=== PATIENT | male | born 1935 | race Caucasian/White ===

== ENCOUNTER → 2018-02-09 10:37 | Outpatient (CLI) | payer MEDICARE, OTHER, SELFPAY ==
--- NOTE | 2018-02-09 | DI.RAD.S_ITS ---
PROCEDURE: FL BARIUM SWALLOW INDICATIONS: COUGH/ESOPHAGEAL REFLUX/CHRONIC SINUSITIS COMPARISON: None. FINDINGS: Function: There is severely abnormal esophageal peristalsis with break in the primary peristaltic wave, incomplete secondary peristalsis leaving a large residual. No tertiary contractions. No elicited gastroesophageal reflux. There is transient holdup of transit of a calibrated barium tablet through the esophagus into the stomach, but the tablet did pass through. Morphology: Air-contrast images demonstrate normal mucosal morphology. Single contrast views show no esophageal strictures, extrinsic mass effects, or diverticula. Limited images of the stomach demonstrate normal appearance. IMPRESSION: 1. Marked esophageal dysmotility 2. No esophageal stricture or evidence of acute esophagitis. Dictated by: Ulisses Uribe M.D. on 02/09/2018 at 12:01 Approved by: Ulisses Uribe M.D. on 02/09/2018 at 12:05
== END ==
PROVIDERS: PCP Internal Medicine; Visit Provider Otolaryngology
DX: K22.4 Dyskinesia of esophagus (principal); R05 Cough; J32.9 Chronic sinusitis, unspecified
CPT/HCPCS: 74220

== ENCOUNTER → 2018-09-10 10:15 | Outpatient (CLI) | payer MEDICARE, OTHER, SELFPAY ==
--- NOTE | 2018-09-10 11:20 | PM.TREADMILL ---
Cardiac Stress Test Report Referral & Results Date Patient Seen: 09/10/18 Requesting provider: Carlos Servin Indication: Syncope Rest ECG: Atrial fibrillation with controlled ventricular response Procedure Note: After both written and verbal informed consent the patient had an IV started by the diagnostic imaging RN and then was hooked up to the treadmill monitoring system. The patient was placed on the treadmill at 1 mile an hour with no elevation and was then injected with the Pat scan material. The Cardiolite was then immediately administered. The patient spent an additional 2-3 minutes on the treadmill before being returned to the [facility] in the supine position. The patient had a normal response to all infused materials. Occasional PVCs were identified throughout the monitoring period. Impression: Normal response to infuse materials, perfusion imaging will be reported separately Please note: Actual ECG tracings can be found in the PACS system.
--- NOTE | 2018-09-10 15:00 | DI.NM.S_ITS ---
PATIENT NAME: ARELI REGALADO : 1935 EXAM DATE: 09/10/2018 10:59 ORD. DRArtem: CARSON WALLER M.D. CC: MODALITY: NM PATIENT TYPE: Out CONTRAST MEDIA: STATION ID: [id number] FLUORO TIME: PROCEDURE: NM KRISTEL PERF SPECT R&S PHARM Rest and pharmacological stress myocardial perfusion SPECT with gated imaging and ejection fraction RADIOPHARMACEUTICAL: 24.5 mCi Tc-99m tetrafosmin IV at rest and 25.3 mCi Tc-99m tetrafosmin IV at peak effect of pharmacological stress. Lml-leg-bcmnktpm was performed. INDICATIONS: SYNCOPE AND COLLAPSE TECHNIQUE: Radiopharmaceutical was injected at peak stress test, and also at rest. SPECT images were obtained. SPECT myocardial perfusion images were displayed in short axis, horizontal long axis, and vertical long axis views. Gated images were reviewed using Michael Bieker software. COMPARISON: None. CARDIAC STRESS: A pharmacologic stress test was performed under the supervision of an attending staff, using an infusion of Lexiscan . Hemodynamic data: There is normal blood pressure and heart rate response to pharmacologic stress. Symptoms: The patient denied anginal chest pain. Aminophylline: Not used EKG: Baseline EKG with atrial fibrillation and 1.9 sec pause before Lexiscan. No diagnostic changes of ischemia after infusion of the Lexiscan. FINDINGS: Raw data: There is good myocardial uptake of radiotracer. No significant motion artifacts. There is diaphragmatic attenuation. Ojxe-jd-urgch ratio is 0.32 (normal is less than 0.38 for tetrafosmin tracer). Left ventricle function: Gated images demonstrate normal left ventricular wall thickening. No segmental wall motion abnormalities. No transient ischemic dilation; TID is 0.95 (normal less than 1.3). Left ventricle resting end diastolic volume is 125 mL. Left ventricle stress ejection fraction is 73%; normal range is above 45%. Myocardial perfusion: There is a small perfusion defect in the apical lateral wall at rest which is more prominent with the stress on the supine imaging and almost completely resolved with prone imaging, consistent with artifact. Otherwise, there is normal distribution of activity in the left ventricular myocardium. IMPRESSION: Continued Report - Page 2 of 2 PATIENT NAME: ARELI REGALADO : 1935 EXAM DATE: 09/10/2018 10:59 ORD. : CARSON WALLER M.D. CC: MODALITY: NM PATIENT TYPE: Out CONTRAST MEDIA: STATION ID: [id number] FLUORO TIME: 1) Probably normal perfusion given resolution of the lateral wall defect with prone imaging. 2) Normal left ventricular wall motion and systolic function with ejection fraction of 73% at stress. 3) Atrial fibrillation with 1.9 second pause before starting the stress test. Given history of syncope, further evaluation may be warranted. Clinical correlation is recommended Dictated by: John Esparza on 09/14/2018 at 16:56 Approved by: John Esparza on 09/14/2018 at 17:13
== END ==
PROVIDERS: Family Provider Internal Medicine Cardiovascular Disease; PCP Internal Medicine; Visit Provider Internal Medicine
DX: R55 Syncope and collapse (principal); I49.3 Ventricular premature depolarization
CPT/HCPCS: 78452; 93016; 93017; 93018; A9502; J2785

== ENCOUNTER → 2018-10-13 08:39 | Outpatient (CLI) | payer MEDICARE, OTHER, SELFPAY ==
[2018-10-13 10:11] LABS: Cholesterol 153 mg/dL (140-199); HDL Cholesterol 59 mg/dL (40-60); LDL Cholesterol Calculated 83 mg/dL (<100); Triglycerides 57 mg/dL (35-150)
== END ==
PROVIDERS: Family Provider Internal Medicine Cardiovascular Disease; PCP Internal Medicine; Visit Provider Internal Medicine
DX: R55 Syncope and collapse (principal)
CPT/HCPCS: 36415; 80061

== ENCOUNTER → 2019-01-28 10:36 | Outpatient (CLI) | payer MEDICARE, OTHER, SELFPAY ==
--- NOTE | 2019-01-28 | DI.CT.S_ITS ---
PROCEDURE: CT CHEST HIGH RESOLUTION INDICATIONS: PULOMONARY FIBROSIS TECHNIQUE: Noncontrast 1.0 and 5.0 mm thick contiguous axial sections from the pulmonary apex to the posterior costophrenic angles, with 7 mm thick coronal and sagittal MIP reformats. 1 mm thick dynamic expiratory images acquired through the upper, mid, and lower lungs. 1.0 mm thick axial sections acquired from the [place] to the posterior costophrenic angles in the prone end-inspiration position. For radiation dose reduction, the following was used: automated exposure control, adjustment of mA and/or kV according to patient size. COMPARISON: [facility], CR, CHEST 2 VIEW, 03/11/2017, 15:33. [facility], CT, CHEST HIGH RESOLUTION, 12/20/2015, 12:37. [facility], CT, CHEST HIGH RESOLUTION, 03/26/2017, 8:07. FINDINGS: Image quality: Excellent. Lungs: Interval progression and diffuse subpleural upper and lower lobe reticulation and ground glass ill-defined opacities. There is lower lobe predominance. This appears progressed since prior study dated 03/26/17. Increasing honeycombed appearance present in particular within the lingula and left lower lobe. There is also progression of ill-defined nodule seen within the left upper lobe measuring 1.0 cm for example image 52 series 3, previously 8 mm, although this could be progressive nodular scarring (versus indolent neoplastic nodule). No acute consolidation is seen. Diffuse bilateral bronchiolectasis. Pleura: No pleural effusions or pneumothorax. Mediastinum: Heart size is enlarged. Coronary artery calcifications are present. No pericardial effusion. Thoracic aorta and central pulmonary arteries are normal in size. Esophagus is normal in caliber. Bones and chest wall: No suspicious bony lesions. No vertebral body compression fractures. Abdomen: Simple appearing left renal cyst. IMPRESSION: Interval progression of widespread bilateral subpleural reticulation and interstitial opacities, with developing honeycomb appearance in the lingula and left lower lobe air this suggests usual interstitial pneumonia/idiopathic pulmonary fibrosis. Slight progression in size of spiculated left upper lobe pulmonary nodule although this could be nodular scarring (versus indolent neoplastic nodule). Cardiomegaly Coronary artery disease. Dictated by: Raffi Amador M.D. on 01/28/2019 at 13:48 Approved by: Raffi Amador M.D. on 01/28/2019 at 13:58
[2019-01-28 11:03] LABS: BUN Creatinine Ratio 21.1 (6-22); Blood Urea Nitrogen 19 mg/dL (9-20); Estimated Glomerular Filt Rate > 60.0 mL/min (>60)
== END ==
PROVIDERS: Family Provider Internal Medicine Cardiovascular Disease; PCP Internal Medicine; Visit Provider Internal Medicine
DX: J84.10 Pulmonary fibrosis, unspecified (principal); R91.1 Solitary pulmonary nodule; I25.10 Atherosclerotic heart disease of native coronary artery without angina pectoris; I51.7 Cardiomegaly; N28.1 Cyst of kidney, acquired
CPT/HCPCS: 36415; 71250; 82565; 84520

== ENCOUNTER → 2019-03-15 09:28 | Outpatient (CLI) | payer MEDICARE, OTHER, SELFPAY ==
--- NOTE | 2019-03-15 09:29 | DIET.PN ---
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 Usual day: not a snacker, is diabetic so light on carbs omeprazole w/h20 B: 2 c Constant Comment decaf-1 percent milk, 1 tsp white sugar rolled oats, oat bran, sunflower seed, flax, soy lecithin, wheat germ, ground almonds, 1/2 cup soaked in water add 2-3 types of fruit, 5oz yogurt-[employer] non-fat [place] yogurt L: sandwich or two- pastrami or ham, mustard, low-fat cardenas, bread and butter pickles, cabbage; celery c hummus used to have beer c lunch 4-5mo ago stopped- light beer, now glass water sn: Cannon[employer] fruit juice 1 can c handful almonds/walnuts/pecans d (largest meal): chicken/fish, bread, potato, rice, corn on cob, vegetables: beans, asparagus, zucchini, squash, cauliflower, cabbage Dessert occasionally- ice cream-mint chocolate frozen yogurt bar, fruit Dinner starts at 7pm, bed 10:30pm (3hr window) Nutrition Dx: Undesirable food choices r/t confusion over nutrition reccs for GERD aeb eating 3 meals per day no snacks, daily consumption of higher-fat deli meats (ham, pastrami), eating w/in 3 hrs of bed, and consumption of mint desserts. Intervention: Educated pt on GERD MNT with focus on areas of improvement. Pt already implementing strategies including: elevating head of bed, limited chocolate, alcohol and spicy foods. Educated pt on difference bw Alkaline Diet and GERD diet, to focus on GERD diet which targets esophagus and stomach acidity. Collaborated c pt and pt's on setting goals in problem areas including: switching from fatty deli meats to lean choices, eliminating mint from diet, and increasing timeframe between dinner and bed. Monitoring/Evaluation: Pt is receptive to goals, will schedule f/u appt c RD if needing further help c diet. Sugg endoscopy since pt has never had and GERD is silent.
== END ==
PROVIDERS: Family Provider Internal Medicine Cardiovascular Disease; PCP Internal Medicine; Visit Provider Internal Medicine
DX: K21.9 Gastro-esophageal reflux disease without esophagitis (principal)
CPT/HCPCS: 97802

== ENCOUNTER → 2019-10-18 14:39 | Outpatient (CLI) | payer MEDICARE, SELFPAY ==
[2019-10-18 17:54] LABS: Prostate Specific Antigen 0.634 ng/mL (0.10-4.00)
== END ==
PROVIDERS: Family Provider Internal Medicine Cardiovascular Disease; PCP Internal Medicine; Visit Provider Internal Medicine
DX: E29.1 Testicular hypofunction (principal)
CPT/HCPCS: 36415; 84153; 84403

== ENCOUNTER 2019-11-15 08:43 | Inpatient (IN) | payer MEDICARE, SELFPAY ==
[2019-11-15] VITALS (12 sets, daily range): BP systolic 110–156; BP diastolic 64–88; PULSE 85–108; RESP 16–25; TEMP 36.4; O2SAT 76–95; BMI 24.4; BMI 24.7
--- NOTE | 2019-11-15 08:53 | DI.RAD.S_ITS ---
PROCEDURE: XR KNEE RT 3V INDICATIONS: fall from standing right knee gave out, recent surgery TECHNIQUE: 3 views of the knee were acquired. COMPARISON: [facility], CR, XR CHEST 1V, 11/15/2019, 9:02. [facility], CR, KNEE 3V RIGHT, 12/12/2015, 17:20. FINDINGS: Bones: Since the prior plain film, medial arthroplasty hardware has been placed. No findings of hardware failure or hardware loosening are seen. No displaced fractures are seen. No suspicious lytic or blastic lesions are seen. Age-appropriate bony degenerative changes are seen. On the sunrise view, there is bilateral patellofemoral joint space narrowing seen. Osteophyte formation can be seen along the margins of the patella. Soft tissues: There is mild to moderate joint effusion. No suspicious soft tissue calcifications. IMPRESSION: Mild to moderate joint effusion. No acute bony injury is seen. Unremarkable medial arthroplasty hardware. Dictated by: Pako Pedraaz M.D. on 11/15/2019 at 8:12 Approved by: Pako Pedraza M.D. on 11/15/2019 at 8:13
--- NOTE | 2019-11-15 08:54 | DI.CT.S_ITS ---
PROCEDURE: CT CERVICAL SPINE WO CON INDICATIONS: Fall, hit head, on eliquis. TECHNIQUE: Noncontrast 3 mm thick sections acquired from the skull base to the T4 level. Sagittal and coronal reformats were then constructed. For radiation dose reduction, the following was used: automated exposure control, adjustment of mA and/or kV according to patient size. COMPARISON: [facility], CR, XR KNEE RT 3V, 11/15/2019, 9:02. [facility], CR, XR CHEST 1V, 11/15/2019, 9:02. [facility], CT, CT HEAD/BRAIN WO CON, 11/15/2019, 9:03. FINDINGS: Image quality: Excellent. Bones: No fractures or dislocations. Visualized superior ribs are intact. Degenerative changes are seen, including severe disc space narrowing at C5-C6 and moderate disc space narrowing at C6-C7. There is at least moderate disc space narrowing at C4-C5. Partially bridging anterior osteophytes are seen C3-C7. Soft tissues: Patchy infiltrate can be seen at the lung apices. Subpleural pulmonary fibrosis can be seen. Prevertebral soft tissues are normal in thickness. No paravertebral hematomas. No apical pneumothoraces. Atherosclerotic calcification is noted, including involving the carotid bifurcation regions. IMPRESSION: No acute fractures are seen. Degenerative changes are seen, which are worst at the C5-C6 level. Patchy infiltrates can be seen at the lung apices, which are superimposed upon pulmonary fibrosis. Atherosclerotic calcification is seen, including involving the carotid bifurcations. Dictated by: Pako Pedraza M.D. on 11/15/2019 at 8:40 Approved by: Pako Pedraza M.D. on 11/15/2019 at 8:43
--- NOTE | 2019-11-15 08:54 | DI.CT.S_ITS ---
PROCEDURE: CT HEAD/BRAIN WO CON INDICATIONS: Fall, hit head, on eliquis. TECHNIQUE: Noncontrast 4.5 mm thick angled axial sections acquired from the foramen magnum to the vertex, with coronal and sagittal reformats. For radiation dose reduction, the following was used: automated exposure control, adjustment of mA and/or kV according to patient size. COMPARISON: [facility], MR, BRAIN ([facility]) W&WO CONTRAST, 08/10/2012, 10:12. FINDINGS: Image quality: Excellent. CSF spaces: Basal cisterns are patent. No extra-axial fluid collections. Ventricles are prominent with parenchymal volume loss Brain: No midline shift. No intracranial masses or hemorrhage. Gonzalez-white matter interface is normal. Small areas of low-attenuation appear to be present within the periventricular white matter of the supratentorial brain. Skull and face: Calvarium and visualized facial bones are intact, without suspicious lesions. Periorbital soft tissue edema is identified on the left. No associated fractures are appreciated. Sinuses: Visualized sinuses and mastoids are clear. IMPRESSION: 1. No acute intracranial hemorrhage. 2. Mild chronic small vessel ischemic changes and parenchymal volume loss. Dictated by: Hua Buenrostro M.D. on 11/15/2019 at 8:27 Approved by: Hua Buenrostro M.D. on 11/15/2019 at 8:28
--- NOTE | 2019-11-15 08:55 | DI.RAD.S_ITS ---
PROCEDURE: XR CHEST 1V INDICATIONS: pulmonary fibrosis, persistent cough TECHNIQUE: One view of the chest was acquired. COMPARISON: [facility], CT, CT CHEST HIGH RESOLUTION, 01/28/2019, 11:37. [facility], CR, XR KNEE RT 3V, 11/15/2019, 9:02. [facility], CR, CHEST 2 VIEW, 12/12/2015, 17:20. [facility], CR, CHEST 2 VIEW, 03/11/2017, 15:33. FINDINGS: Surgical changes and devices: None. Lungs and pleura: Stable interstitial prominence is seen, which is consistent with the known history of pulmonary fibrosis. There is mild developing density seen within the midlung laterally. No pneumothorax or large pleural effusions can be seen. Mediastinum: The cardiac contours are mildly to moderately enlarged. The aorta demonstrates calcification and tortuosity. Bones and chest wall: No suspicious bony lesions. Age-appropriate bony degenerative changes are seen. Overlying soft tissues appear unremarkable. IMPRESSION: Likely right midlung infiltrate, superimposed upon known pulmonary fibrosis. As clinically appropriate, a short-term followup chest series (with PA and lateral views) performed in deep inspiration is suggested for further evaluation. Dictated by: Pako Pedraza M.D. on 11/15/2019 at 8:14 Approved by: Pako Pedraza M.D. on 11/15/2019 at 8:16
--- NOTE | 2019-11-15 08:57 | ED_ITS ---
HPI - Fall General Chief Complaint: Trauma Stated Complaint: GLF on blood thinners Time Seen by Provider: 11/15/19 08:53 Source: patient and EMS Mode of arrival: EMS History of Present Illness HPI Narrative: CC: head injury with a laceration over the left forehead. HPI: The patient is an 84-year-old male who has a history of atrial fibril lation and is on Eliquis. He recently had surgery on his right knee and was rushing to the bathroom when his right knee gave out and he fell to the floor landing on his left shoulder in hit his head against the wall. He denied any loss of consciousness. He sustained a laceration over the left forehead. He has had no nausea vomiting diarrhea. He denies any chest pain. He has a chronic cough secondary to pulmonary fibrosis. The paramedics stated that he was hypoxic and his oxygen was in the 70s. He denies any recent fever chills or sweats. He denies any chest pain back pain belly pain. Related Data Home Medications Medication Instructions Recorded Confirmed testosterone 1 pump TOPICAL DAILY #0 01/11/10 11/15/19 Vitamin D3 1 cap PO DAILY 11/15/19 11/15/19 acetaminophen 325 mg PO PRN PRN 11/15/19 11/15/19 apixaban [Eliquis] 5 mg PO BID 11/15/19 11/15/19 docusate sodium 100 mg PO BID 11/15/19 11/15/19 fluticasone propionate 2 spray INTRANASAL BID 11/15/19 11/15/19 hydroxyzine HCl 25 mg PO QID 11/15/19 11/15/19 milk thistle 1 cap PO DAILY 11/15/19 11/15/19 omeprazole 20 mg PO BID 11/15/19 11/15/19 oxycodone-acetaminophen 1 - 2 tab PO Q4H PRN MDD 8 11/15/19 11/15/19 simvastatin 20 mg PO DAILY 11/15/19 11/15/19 tamsulosin 0.4 mg PO DAILY 11/15/19 11/15/19 Allergies Allergy/AdvReac Type Severity Reaction Status Date / Time No Known Drug Allergies Allergy Verified 11/15/19 08:53 Review of Systems Review of Systems Narrative: All review of systems were negative except for those mentioned in the history of present illness. Patient History Social History household members: spouse Smoking Status: Never smoker alcohol intake: former Smoking Status: Never smoker Exam Narrative Exam Narrative: PHYSICAL EXAM: CONSTITUTIONAL: Awake, Alert, Oriented, Coherent, talkative cooperative. His face hands are all bloody. He has a laceration over his left forehead with arm wrapped with a bandage at this time. HEAD: AT/NC EENT: PERRL, FROM of eyes, no discharge, No drainage from the ears, Tympanic membranes intact bilaterally, clear EAC No epistaxis or nasal drainage Oral mucosa is moist and pink, posterior pharynx is without erythema or exudate. NECK: Supple, no obvious JVD, Trachea is midline without stridor, no palpable LN or masses. SPINE: No gross deformity, no palpable tenderness of the cervical, thoracic, lumbar or sacral spine. No CVA tenderness. THORAX: No deformity, retractions, chest wall tenderness, subcutaneous air or crepitice. LUNGS: Decreased breath sounds bilaterally. The patient has a persistent cough that he states is chronic the cough is dry nonproductive. He has inspiratory crackles in both lung myers questionably secondary to his pulmonary fibrosis. HEART: Irregular irregular of variable S1-S2 fever and tachycardic. ABDOMEN: Soft, non-tender, normal bowel sounds without guarding, rebound, rigidity or palpable mass EXTREMITIES: No edema, cyanosis, deformity or tenderness. Right knee is swollen but not tender. SKIN: No rash, bruising, petechiae or purpura. NEURO: Awake, alert, oriented, conversive, cranial nerves II-XII are symmetrical and normal, moves all 4 extremities and is ambulatory Initial Vital Signs Initial Vital Signs: Vital Signs Pulse Rate 108 H 11/15/19 08:53 Respiratory Rate 22 11/15/19 08:53 Blood Pressure 138/80 11/15/19 08:53 Pulse Oximetry 76 L 11/15/19 08:53 Procedures Laceration Repair Laceration 1: Site: face Side (If applicable): left Size (cm): 3 Description: linear Depth: simple, single layer Local Anesthetic: lidocaine 1% and with epi Amount of anesthesia used (mL): 3 Pre-repair: irrigated extensively Skin layer closed with: nylon Size (cm): 4-0 Number of sutures: 2 Technique: simple, interrupted Course Course Course Narrative: 1134: I did get the patient admitted to the hospital. I spoke with Dr. Casey, who wants a respiratory panel, a procalcitonin and a CT o f the chest before she decides to admit the patient. 1325: CT scan of the patient's chest reveals: 1. Diffuse interstitial infiltrates and pulmonary fibrosis, likely secondary to chronic interstitial lung disease such as UIP. 2. Ground-glass infiltrates bilaterally, predominantly involving the lower lobes bilaterally, which may be secondary superimposed acute pneumonias or pulmonary edema. 3. Pleural thickening and calcifications with possible small loculated pleural effusions in the right hemithorax. 4. Mediastinal and hilar lymphadenopathy. This finding is nonspecific and may be secondary to infectious inflammatory or neoplastic etiology. Recommend clinical correlation and follow-up. 5. Mild cardiomegaly and mild to moderate coronary artery disease The respiratory panel has not been collected yet. Will call Dr. Casey. 1411: A repeat call has been placed to the hospitalist to admit this patient for further evaluation of his hypoxia. Orders Ordered: ED Orders 11/15/19 11:56 CT chest w con Stat 11/15/19 13:10 Urine Microscopic Stat 11/15/19 13:25 Respiratory Panel (Film Array) Stat Discontinued Medications Albuterol/Ipratropium (Duoneb) 3 ml INH NOW ONE Stop: 11/15/19 11:02 Last Admin: 11/15/19 11:15 Dose: 3 ml Documented by: DARYA Docusate Sodium (Colace) 100 mg PO NOW ONE Stop: 11/15/19 15:51 Last Admin: 11/15/19 15:58 Dose: 100 mg Documented by: DARYA Sodium Chloride (Normal Saline 0.9%) 1,000 mls @ 1,000 mls/hr IV BOLUS ONE Stop: 11/15/19 09:52 Last Infusion: 11/15/19 10:35 Dose: 0 mls/hr Documented by: Admin: 11/15/19 09:12 Dose: 1,000 mls/hr Documented by: DARYA Ceftriaxone Sodium/Dextrose (Rocephin) 1 gm in 50 mls @ 100 mls/hr IV NOW ONE Stop: 11/15/19 11:32 Last Infusion: 11/15/19 11:46 Dose: 0 mls/hr Documented by: Admin: 11/15/19 11:13 Dose: 100 mls/hr Documented by: DARYA Azithromycin 500 mg/ Dextrose 250 mls @ 250 mls/hr IV NOW ONE Stop: 11/15/19 11:02 Last Infusion: 11/15/19 13:09 Dose: 0 mls/hr Documented by: Admin: 11/15/19 11:47 Dose: 250 mls/hr Documented by: DARYA Lidocaine/Epinephrine (Xylocaine 1% W/Epi) 10 ml SUBCUT NOW ONE Stop: 11/15/19 10:20 Last Admin: 11/15/19 11:17 Dose: 10 ml Documented by: DARYA Methylprednisolone (Solu-Medrol 125 Mg Vial) 125 mg IV NOW ONE Stop: 11/15/19 11:02 Last Admin: 11/15/19 11:13 Dose: 125 mg Documented by: DARYA Ondansetron HCl (Zofran) 4 mg IV NOW ONE Stop: 11/15/19 08:54 Last Admin: 11/15/19 09:12 Dose: 4 mg Documented by: DARYA Oxycodone/Acetaminophen (Percocet 5/325) 1 tab PO NOW ONE Stop: 11/15/19 15:51 Last Admin: 11/15/19 15:58 Dose: 1 tab Documented by: DARYA Vital Signs Vital signs: Vital Signs - 8 hr 11/15/19 11:55 11/15/19 13:10 11/15/19 14:37 Pulse Rate 101 H 85 Respiratory Rate 16 18 20 Blood Pressure [left arm] 110/64 110/76 Pulse Oximetry 92 91 MDM - Fall Medical Records Attestation: I reviewed the patient's medical records. Lab Data Attestation: I reviewed the patient's lab results. Result diagrams: 11/15/19 08:10 11/15/19 08:10 Labs: Lab Results 11/15/19 11/15/19 11/15/19 Range/Units 08:10 08:10 08:10 WBC 12.5 H (4.5-11.0) X10^3/uL RBC 3.48 L (4.5-5.9) X10^6/uL Hgb 11.0 L (13.5-17.5) g/dL Hct 32.8 L (41-53) % MCV 94.3 (80-100) fL MCH 31.6 (26-34) PG MCHC 33.5 (30-36) % RDW 13.3 (11.6-14.8) % Plt Count 279 (150-400) X10^3/uL Neut % (Auto) 69.9 (50-75) % Lymph % (Auto) 18.6 L (25-40) % [place] % (Auto) 10.7 (3-14) % Eos % (Auto) 0.1 L (2-4) % Baso % (Auto) 0.7 (0-2) % Neut # (Auto) 8800 H (2331-2369) /uL Lymph # (Auto) 2300 (6630-5900) /uL [place] # (Auto) 1300 H (0-900) /uL Eos # (Auto) 0 (0-450) /uL Baso # (Auto) 100 (0-100) /uL Sodium 134 L (137-145) mmol/L Potassium 4.5 (3.4-5.1) mmol/L Chloride 98 (98-107) mmol/L Carbon Dioxide 21 L (22-32) mmol/L BUN 25 H (9-20) mg/dL Creatinine 0.90 (0.66-1.25) mg/dL Estimated GFR > 60.0 (>60) mL/min BUN/Creatinine Ratio 27.8 H (6-22) Glucose 176 H (80-110) mg/dL Calcium 9.1 (8.4-10.2) mg/dL Total Bilirubin 1.8 H (0.2-1.3) mg/dL AST 47 (17-59) IU/L ALT 37 (<50) IU/L Alkaline Phosphatase 143 H (38-126) U/L Total Protein 7.7 (6.3-8.2) g/dL Albumin 4.2 (3.5-5.0) g/dL Globulin 3.5 (1.7-4.1) g/dL Albumin/Globulin Ratio 1.2 (1.0-2.8) Lipase 20 L (23-300) U/L Procalcitonin 0.26 (<0.5) ng/mL Urine RBC (0-5/HPF) Urine WBC (0-5/HPF) Ur Squamous Epith Cells (0-5/HPF) Urine Bacteria (None) Ur Culture Indicated? Ethyl Alcohol < 10 ( - 10) mg/dL Chlamy pneumoniae PCR (Not Detect) Adenovirus (PCR) (Not Detect) B.parapertussis DNA PCR (Not Detect) Coronavirus OC43 (PCR) (Not Detect) Coronavirus HKU1 (PCR) (Not Detect) Coronavirus 229E (PCR) (Not Detect) Coronavirus NL63 (PCR) (Not Detect) Human Metapneumovir PCR (Not Detect) Influenza Type A (PCR) (Not Detect) Influenza Type B (PCR) (Not Detect) M. pneumoniae (PCR) (Not Detect) Parainfluenza 1 (PCR) (Not Detect) Parainfluenza 2 (PCR) (Not Detect) Parainfluenza 3 (PCR) (Not Detect) Parainfluenza 4 (PCR) (Not Detect) RSV (PCR) (Not Detect) Entero/Rhino (PCR) (Not Detect) Blood Type Antibody Screen 11/15/19 11/15/19 11/15/19 Range/Units 09:20 13:10 13:25 WBC (4.5-11.0) X10^3/uL RBC (4.5-5.9) X10^6/uL Hgb (13.5-17.5) g/dL Hct (41-53) % MCV (80-100) fL MCH (26-34) PG MCHC (30-36) % RDW (11.6-14.8) % Plt Count (150-400) X10^3/uL Neut % (Auto) (50-75) % Lymph % (Auto) (25-40) % [place] % (Auto) (3-14) % Eos % (Auto) (2-4) % Baso % (Auto) (0-2) % Neut # (Auto) (0657-9982) /uL Lymph # (Auto) (6945-2390) /uL [place] # (Auto) (0-900) /uL Eos # (Auto) (0-450) /uL Baso # (Auto) (0-100) /uL Sodium (137-145) mmol/L Potassium (3.4-5.1) mmol/L Chloride (98-107) mmol/L Carbon Dioxide (22-32) mmol/L BUN (9-20) mg/dL Creatinine (0.66-1.25) mg/dL Estimated GFR (>60) mL/min BUN/Creatinine Ratio (6-22) Glucose (80-110) mg/dL Calcium (8.4-10.2) mg/dL Total Bilirubin (0.2-1.3) mg/dL AST (17-59) IU/L ALT (<50) IU/L Alkaline Phosphatase (38-126) U/L Total Protein (6.3-8.2) g/dL Albumin (3.5-5.0) g/dL Globulin (1.7-4.1) g/dL Albumin/Globulin Ratio (1.0-2.8) Lipase (23-300) U/L Procalcitonin (<0.5) ng/mL Urine RBC 0-1/hpf (0-5/HPF) Urine WBC 0-1/hpf (0-5/HPF) Ur Squamous Epith Cells 0-1 /hpf (0-5/HPF) Urine Bacteria None seen (None) Ur Culture Indicated? Cult not indicated Ethyl Alcohol ( - 10) mg/dL Chlamy pneumoniae PCR Not detected (Not Detect) Adenovirus (PCR) Not detected (Not Detect) B.parapertussis DNA PCR Not detected (Not Detect) Coronavirus OC43 (PCR) Not detected (Not Detect) Coronavirus HKU1 (PCR) Not detected (Not Detect) Coronavirus 229E (PCR) Not detected (Not Detect) Coronavirus NL63 (PCR) Not detected (Not Detect) Human Metapneumovir PCR Not detected (Not Detect) Influenza Type A (PCR) Not detected (Not Detect) Influenza Type B (PCR) Not detected (Not Detect) M. pneumoniae (PCR) Not detected (Not Detect) Parainfluenza 1 (PCR) Not detected (Not Detect) Parainfluenza 2 (PCR) Not detected (Not Detect) Parainfluenza 3 (PCR) Not detected (Not Detect) Parainfluenza 4 (PCR) Not detected (Not Detect) RSV (PCR) Not detected (Not Detect) Entero/Rhino (PCR) Not detected (Not Detect) Blood Type A Positive Antibody Screen Negative Urine Dip Bedside Urine Glucose Negative Bedside Urine Bilirubin - Negative Bedside Urine Ketone +/- 5 Urine Specific [place] 1.010 Bedside Urine Occult Blood +/- Bedside Urine pH 6.0 Bedside Urine Protein +/- 15 Bedside Urine Urobilinogen 1+ 2mg Bedside Urine Nitrite - Negative Bedside Urine Leukocytes - Negative Esterase ECG Data Attestation: I personally reviewed and interpreted this ECG as follows: Interpretation: The patient's EKG obtained on the 08:5 6:35 a.m. reveals atrial fibrillation with a rapid ventricular response. The ventricular rate is 110. His QRS is 89 milliseconds induration in normal. QT and QTC are within normal limits. He does have a left axis deviation. He has small R waves in leads 3 with inverted T-wave in III. T-wave is inverted in V1 with an RSR pattern. There are no other acute diagnostic ST or T-wave changes. Discharge Plan Departure Patient Disposition: Admitted As Inpatient Clinical Impression: Atrial fibrillation with normal ventricular rate, Pulmonary fibrosis, Hypoxia Fall Qualifiers: Encounter type: initial encounter Qualified Code(s): W19.XXXA - Unspecified fall, initial encounter Closed injury of head Qualifiers: Encounter type: initial encounter Qualified Code(s): S09.90XA - Unspecified injury of head, initial encounter Forehead laceration Qualifiers: Encounter type: initial encounter Qualified Code(s): S01.81XA - Laceration without foreign body of other part of head, initial encounter Pneumonia Qualifiers: Pneumonia type: due to unspecified organism Laterality: bilateral Lung location: upper lobe of lung Qualified Code(s): J18.9 - Pneumonia, unspecified organism Facial laceration Qualifiers: Encounter type: initial encounter Qualified Code(s): S01.81XA - Laceration without foreign body of other part of head, initial encounter Discharge Date/Time: 11/15/19 16:45 Referrals: Carlos Servin MD [Primary Care Provider] - Admit Date/Time: 11/15/19 14:43 Admit Provider: Lakia Casey
[2019-11-15] MEDS: ONDANSETRON 4 MG/2 ML INJ IV (09:12)
[2019-11-15] MEDS: SODIUM CHLORIDE 0.9% 1,000 ML 1000 ML IV (09:12)
[2019-11-15 09:19] LABS: Add Manual Diff / Slide Review NO; Basophils Absolute Auto 100 /uL (0-100); Basophils Percent Auto 0.7 % (0-2); Eosinophils Absolute Auto 0 /uL (0-450); Eosinophils Percent Auto 0.1 % (2-4); Hematocrit 32.8 % (41-53); Lymphocytes Absolute Auto 2300 /uL (1100-4500); Lymphocytes Percent Auto 18.6 % (25-40); Mean Corpuscular HGB Conc 33.5 % (30-36); Mean Corpuscular Hemoglobin 31.6 PG (26-34); Mean Corpuscular Volume 94.3 fL (80-100); Monocytes Absolute Auto 1300 /uL (0-900); Monocytes Percent Auto 10.7 % (3-14); Neutrophils Absolute Auto 8800 /uL (1500-7000); Neutrophils Percent Auto 69.9 % (50-75); Platelet Count 279 X10^3/uL (150-400); Red Blood Cell Count 3.48 X10^6/uL (4.5-5.9); Red Cell Distribution Width 13.3 % (11.6-14.8); White Blood Cell Count 12.5 X10^3/uL (4.5-11.0)
[2019-11-15 09:26] LABS: Albumin 4.2 g/dL (3.5-5.0); Albumin Globulin Ratio 1.2 (1.0-2.8); Alkaline Phosphatase 143 U/L (38-126); Aspartate Aminotransferase 47 IU/L (17-59); BUN Creatinine Ratio 27.8 (6-22); Bilirubin Total 1.8 mg/dL (0.2-1.3); Blood Urea Nitrogen 25 mg/dL (9-20); Calcium 9.1 mg/dL (8.4-10.2); Carbon Dioxide 21 mmol/L (22-32); Chloride 98 mmol/L (98-107); Estimated Glomerular Filt Rate > 60.0 mL/min (>60); Ethanol (ETOH) < 10 mg/dL; Globulin 3.5 g/dL (1.7-4.1); Glucose 176 mg/dL (80-110); HEMOLYSIS 20 (0-50); Lipase 20 U/L (23-300); Potassium 4.5 mmol/L (3.4-5.1); Sodium 134 mmol/L (137-145); Total Protein 7.7 g/dL (6.3-8.2)
[2019-11-15 09:32] LABS: Alanine Aminotransferase 37 IU/L (<50)
--- NOTE | 2019-11-15 10:54 | PC.NURSE ---
Patient's O2 saturation dropped to 82% room air. Put patient back on 2L nasal cannulla per RN. Saturation now at 93%
[2019-11-15] MEDS: methylPREDNISolone 125 MG/2 ML VIAL IV (11:13)
[2019-11-15] MEDS: CEFTRIAXONE 1 GM/50 ML FROZ.PIGGY IV (11:13)
[2019-11-15] MEDS: ALBUTEROL/IPRATROPIUM 3 ML AMPUL INH (11:15)
[2019-11-15] MEDS: LIDOCAINE 1% W/EPI 10 ML SUBCUT (11:17)
[2019-11-15] MEDS: AZITHROMYCIN 500 MG in DEXTROSE 5% IN WATER 250 ML IV (11:47)
--- NOTE | 2019-11-15 11:53 | PC.NURSE ---
attempted to take pt off oxygen, oxygen sats on room air 83%. replaced oxygen at 3l/hr NC
--- NOTE | 2019-11-15 11:56 | DI.CT.S_ITS ---
PROCEDURE: CT CHEST W CON INDICATIONS: hypoxia, questionable apical infiltrates on Cercvical CT TECHNIQUE: After the administration of intravenous contrast, 5 mm thick sections acquired from the pulmonary apices to the posterior costophrenic angles. 1 mm axial lung, 5 mm thick coronal and sagittal reformats and 7 mm axial MIP were acquired. For radiation dose reduction, the following was used: automated exposure control, adjustment of mA and/or kV according to patient size. COMPARISON: [facility], CT, CT CHEST HIGH RESOLUTION, 01/28/2019, 11:37. [facility], CR, CHEST 2 VIEW, 09/28/2014, 10:09. [facility], CR, CHEST 2 VIEW, 12/12/2015, 17:20. [facility], CR, XR CHEST 1V, 11/15/2019, 9:02. FINDINGS: Image quality: Excellent. Lungs and pleura: Diffuse subpleural interstitial infiltrate and pulmonary fibrosis. There are groundglass infiltrates bilaterally, predominantly involving lower lobes. There is a calcified plaque in the right lower abdomen and small loculated pleural effusion or pleural thickening. No pneumothorax. Central and peripheral airways are patent and normal in caliber. Mediastinum: Heart size is mildly increased. No pericardial effusion. [id number] coronary artery calcification. There is mediastinal or hilar adenopathy by size criteria. A precarinal lymph node measures 2.1 cm. There is a 1.7 cm right hilar lymph node. Thoracic aorta and central pulmonary arteries are normal in size. Esophagus is normal in caliber. No hiatal hernia. Bones and chest wall: No suspicious bony lesions. No vertebral body compression fractures. No axillary or supraclavicular adenopathy by size criteria. Thyroid gland is normal. Abdomen: Visualized upper abdominal solid organs appear normal. Upper abdominal bowel loops are normal in caliber. IMPRESSION: 1. Diffuse interstitial infiltrates and pulmonary fibrosis, likely secondary to chronic interstitial lung disease such as UIP. 2. Groundglass infiltrates bilaterally, predominantly involving the lower lobes bilaterally, which may be secondary to superimposed acute pneumonia or pulmonary edema. 3. Pleural thickening and calcification with possible small loculated pleural effusion in right hemithorax. 4. Mediastinal and hilar lymphadenopathy. This finding is nonspecific and may be secondary to infectious, inflammatory or neoplastic etiology. Recommend clinical correlation and follow up. 5. Mild cardiomegaly and mild/moderate coronary artery disease. Dictated by: Prudence Mott M.D. on 11/15/2019 at 12:44 Approved by: Prudence Mott M.D. on 11/15/2019 at 13:16
[2019-11-15 12:34] LABS: Procalcitonin 0.26 ng/mL (<0.5)
--- NOTE | 2019-11-15 13:06 | RT ---
Patient has a history of pulmonary fibrosis with chronic dry cough. Currently on 3L NC for sats at 94%. Took patient off O2 to get a baseline sat at rest, sats decreased to 86% on RA within one minute. Placed back on 3L NC.
[2019-11-15 13:14] LABS: Bacteria Urine None Seen
[2019-11-15 13:23] LABS: Culture Indicated Urine Cult Not Indicated; RBC Urine 0-1/HPF (0-5/HPF); Squamous Epithelial Cell Urine 0-1 /HPF (0-5/HPF); WBC Urine 0-1/HPF (0-5/HPF)
[2019-11-15 14:56] LABS: Adenovirus Not Detected (Not Detect); Bordetella pertussis Not Detected (Not Detect); Chlamydophila pneumoniae Not Detected (Not Detect); Coronavirus 229E Not Detected (Not Detect); Coronavirus HKU1 Not Detected (Not Detect); Coronavirus NL 63 Not Detected (Not Detect); Coronavirus OC43 Not Detected (Not Detect); Human Metapneumovirus Not Detected (Not Detect); Human Rhinovirus/Enterovirus Not Detected (Not Detect); Influenza A Not Detected (Not Detect); Influenza B Not Detected (Not Detect); Mycoplasma pneumoniae Not Detected (Not Detect); Parainfluenza Virus 1 Not Detected (Not Detect); Parainfluenza Virus 2 Not Detected (Not Detect); Parainfluenza Virus 3 Not Detected (Not Detect); Parainfluenza Virus 4 Not Detected (Not Detect); Respiratory Syncytial Virus Not Detected (Not Detect)
[2019-11-15] MEDS: DOCUSATE 100 MG CAPSULE PO ×2 (15:58→22:27)
[2019-11-15] MEDS: OXYCODONE/ACETAMINOPHEN 5/325 TABLET 1 TAB PO (15:58)
--- NOTE | 2019-11-15 16:09 | PC.NURSE ---
assisted pt to use urinal, pt uses without difficulty. pt becomes sob with exertion. pt breathing heavy and sats drop to 86% 2L NC with exertion.
--- NOTE | 2019-11-15 18:47 | PC.NURSE ---
1845 - Pt with decreased sats into the 80's with conversation. Titrated to 4L, NC changed to HFNC for ambulation into the bathroom. Monitor. 1650 - Pt to room from ER. Transfer via slider board. Reports pain controlled following RX given in ER. Pt with ecchymosis to Left eye. Sutures to laceration above left eye in place. Denies vision changes. SOB with activity and conversation. Currently on 3L NC. Oriented to room and routine. Educated to safety and call light use. Bed alarm on.
--- NOTE | 2019-11-15 19:26 | PM.HP.1 ---
History of Present Illness History of Present Illness Date Patient Seen: 11/15/19 Time Patient Seen: 19:26 Chief complaint: GLF on blood thinners Narrative: The patient is an 89-year-old male with PMH of AFIB, chronic Eliquis anticoagulation, ILD, pulmonary fibrosis, GERD, BPH, HLD, Patient presented to the ED on 11/15/2019 for further evaluation and treatment of a ground level fall. Patient woke up on 11/15/2019 at 4:00 a.m. with urinary urgency. He used his crutches to ambulate to the restroom and while doing that sustained a ground level fall. Patient is unable to note many details that led to the fall; however, he notes being in a hurried state due to the intensity of urinary urgency. Patient reports falling onto the left shoulder with associated head injury to the left frontal aspect of the face. Patient sustained an approximately 3 cm laceration that was sutured (x2 sutures) in ED. He does not endorse loss of consciousness or being down for an extended period of time. Patient's was nearby and was able to summon for help. Patient reports brief period of dizziness after the fall. He denies headache, change in vision, nausea or vomiting. Patient is anticoagulated with Eliquis for underlying history of atrial fibrillation. On 11/08/2019 patient had right knee surgery. His Eliquis was stopped 2 days prior to the surgery and then resumed 1 day after the surgery. Since the surgery patient has been using crutches for ambulation. He has also been using opioids, oxycodone/APAP 5/325 twice daily. No recent fever or chills. He has not experienced chest pain palpitations, syncopal events, abdominal pain, nausea, vomiting, or diarrhea. He has been having constipation in the past week. Patient is known to have underlying pulmonary fibrosis. He follows with pulmonology in [place], Dr. Jania Lopez; however, recently was referred to Carl Mitchell, a horse buyer at the [facility]. Patient is in the process of a pulmonary workup for his interstitial lung disease and is scheduled to follow-up with the horse buyer in November of 2018. Patient reports having exertional dyspnea at baseline. He endorses worsening of his baseline state over the past week. Patient reports presence of a cough with mild clear purulence that is chronic and which he associates with underlying pulmonary fibrosis. He has not experienced increase in phlegm purulence or an acute exacerbation of his cough. Also, at baseline patient notes a recovery period of 15 minutes after ambulation. He is not known to have prior hypoxia and has not been wearing oxygen. Existing records on patient are not entirely clear. It is being noted that he was placed on supplemental oxygen at 6L by EMS prior to ED arrival. However, on triage patient is noted to be hypoxic w/ SpO2 76%. In the ED patient is noted to exhibit shortness of breath and exertional hypoxia. ED Presentation & Work-Up VS, 11/15/19 0853. BP 138/80 mmHg HR 108 RR 22 76% on RA. In ED patient was placed on 6 L of oxygen Labs, 11/15 0810 WBC 12.5 PCT 0.26 HGB 11 PLT 279 Na 134 K 4.5 Cl 98 Ca 9.1 Alb 4.2 Glu 176 CO2 21 BUN 25 Cr 0.9 BUN:Cr 27.8 T.Bili 1.8, AST 47 ALT 37 ALP 143 Lipase 20 Respiratory viral panel NEGATIVE Urine Dip Stick NEGATIVE CT HEAD. No acute intracranial hemorrhage. Mild chronic small vessel ischemic changes and parenchymal volume loss. CT CERVICAL SPINE No fractures or dislocations. Visualized superior ribs intact. Degenerative changes are seen, including severe disc space narrowing at C5-C6. Patchy infiltrate can be seen at the lung apices , which are superimposed upon subpleural pulmonary fibrosis. No paravertebral hematomas. No apical pneumothoraces. atherosclerotic calcification is seen, including involving the carotid bifurcation regions. XR CHEST. Likely right mid-lung infiltrate superimposed upon known pulmonary fibrosis. Cardiac contours are mildly to moderately enlarged. CT CHEST Diffuse subpleural interstitial infiltrate and pulmonary fibrosis, likely secondary to chronic interstitial lung disease such as UIP. Groundglass infiltrates bilaterally , predominantly involving lower lobes, which may be secondary to superimposed acute pneumonia or pulmonary edema. Pleural thickening and calcification with possible small loculated pleural effusion in right hemithorax. Mediastinal and hilar lymphadenopathy. This finding is non-specific and may be secondary to infectious, inflammatory or neoplastic etiology. Recommend clinical correlation and follow-up. Mild cardiomegaly and [id number] coronary artery disease. XR KNEE (right). There is mild to moderate joint effusion. no acute bony injury is seen. Unremarkable medial arthroplasty hardware. In the ED, the patient was treated with... - 1L bolus NS (11/15 911) - zofran 4 mg IV (11/15 911) - methylprednisolone 125 mg IV (11/15 1112) - ceftriazone (11/15 1112) - albuterol-ipratropium (11/15 1114) - lidocaine-epinephrine 10 ml SQ (11/15 1116) - azithromycin 500 mg IV (11/15 114) - oxycodone-acetaminophen 5-325 (11/15 1557) - docusate 100 mg (11/15 1557) Patient History Medical History (Updated 11/16/19 @ 03:50 by JACKI Smallwood) Atrial fibrillation with normal ventricular rate (Chronic) BPH (benign prostatic hyperplasia) (Chronic) Chronic anticoagulation (Chronic) Fall (Inactive 11/15/19) GERD (gastroesophageal reflux disease) (Chronic) Hyperlipidemia (Chronic) Pulmonary fibrosis (Chronic) Surgical History (Updated 11/16/19 @ 03:50 by JACKI Smallwood) H/O right knee surgery (Acute) History of lung biopsy (Acute) Family & Social History Family History (Updated 11/16/19 @ 03:52 by JACKI Smallwood) Mother Wegeners granulomatosis Sister Neuropathy Social History: household members spouse Prior Living Arrangements House Safety & Behavioral: Feels Safe in Current Yes Environment Been Physically Hurt or No Threatened By a Person Suicidal Ideation Description None Suicide Plan Description No Plan Tobacco & Substance use: Smoking Status Lifelong nonsmoker alcohol intake Former, quit drinking 6 months ago, denies have a history of EtOH use Substance Use Type Denies current or prior history of recreational drug use Meds Home Medications and Allergies Home Medications Medication Instructions Recorded Confirmed Type testosterone 1 pump TOPICAL DAILY #0 01/11/10 11/15/19 History Vitamin D3 1 cap PO DAILY 11/15/19 11/15/19 History acetaminophen 325 mg PO PRN PRN 11/15/19 11/15/19 History apixaban [Eliquis] 5 mg PO BID 11/15/19 11/15/19 History docusate sodium 100 mg PO BID 11/15/19 11/15/19 History fluticasone propionate 2 spray INTRANASAL BID 11/15/19 11/15/19 History hydroxyzine HCl 25 mg PO QID 11/15/19 11/15/19 History milk thistle 1 cap PO DAILY 11/15/19 11/15/19 History omeprazole 20 mg PO BID 11/15/19 11/15/19 History oxycodone-acetaminophen 1 - 2 tab PO Q4H PRN MDD 8 11/15/19 11/15/19 History simvastatin 20 mg PO DAILY 11/15/19 11/15/19 History tamsulosin 0.4 mg PO DAILY 11/15/19 11/15/19 History Allergies Allergy/AdvReac Type Severity Reaction Status Date / Time No Known Drug Allergies Allergy Verified 11/15/19 08:53 Review of Systems Review of Systems ROS: Yes All systems reviewed with the patient and are negative except as otherwise documented Exam Vital Signs (past 8 hours): - 11/15/19 11:30 11/15/19 11:55 11/15/19 13:10 Pulse Rate 93 H 101 H Respiratory Rate 17 16 18 Blood Pressure [left arm] 149/86 H 110/64 Pulse Oximetry 95 92 11/15/19 14:37 11/15/19 16:08 Pulse Rate 85 97 H Respiratory Rate 20 20 Blood Pressure [left arm] 110/76 156/87 H Pulse Oximetry 91 91 Oxygen Delivery Method High Flow Nasal Cannula Oxygen Flow Rate 3 Narrative Exam Narrative: Constitutional: NAD at rest Patient becomes quickly short of breath with conversation Neurologic: AOx3, no focal neurological deficits Head: NC, laceration to the left aspect of the forehead which has been sutured Eyes: PERRL, EOMI / gaze conjugate Orbital ecchymosis and periorbital edema. Able to keep the eye open. Ears: external ears normal, no evidence of a aguilar sign Nose: external nose normal, no rhinorrhea or epistaxis Throat: MMM, oropharynx w/o exudate Neck: no masses, lymphadenopathy, or JVD Chest / Respiratory: Dyspnea with conversation. Coarse breath sounds bilaterally. No wheezing. On 4L of supplemental oxygen. Heart / CV: Irregularly irregular Abdomen / GI: round, NT, ND, + BS, no organomegaly : no suprapubic tenderness, no CVA Peripheral / Vascular: warm to touch, DP and PT pulses palpable No edema, compression stockings present Musc: full ROM of upper and lower ext, RLE weakness Skin: Laceration near left forehead, periorbital ecchymosis Objective Labs Result Diagrams: 11/16/19 04:35 11/16/19 04:35 Labs: Laboratory Results - last 24 hr 11/15/19 11/15/19 11/15/19 08:10 08:10 08:10 WBC 12.5 H RBC 3.48 L Hgb 11.0 L Hct 32.8 L MCV 94.3 MCH 31.6 MCHC 33.5 RDW 13.3 Plt Count 279 Neut % (Auto) 69.9 Lymph % (Auto) 18.6 L [place] % (Auto) 10.7 Eos % (Auto) 0.1 L Baso % (Auto) 0.7 Neut # (Auto) 8800 H Lymph # (Auto) 2300 [place] # (Auto) 1300 H Eos # (Auto) 0 Baso # (Auto) 100 Sodium 134 L Potassium 4.5 Chloride 98 Carbon Dioxide 21 L BUN 25 H Creatinine 0.90 Estimated GFR > 60.0 BUN/Creatinine Ratio 27.8 H Glucose 176 H Calcium 9.1 Total Bilirubin 1.8 H AST 47 ALT 37 Alkaline Phosphatase 143 H Total Protein 7.7 Albumin 4.2 Globulin 3.5 Albumin/Globulin Ratio 1.2 Lipase 20 L Procalcitonin 0.26 Urine RBC Urine WBC Ur Squamous Epith Cells Urine Bacteria Ur Culture Indicated? Ethyl Alcohol < 10 Chlamy pneumoniae PCR Adenovirus (PCR) B.parapertussis DNA PCR Coronavirus OC43 (PCR) Coronavirus HKU1 (PCR) Coronavirus 229E (PCR) Coronavirus NL63 (PCR) Human Metapneumovir PCR Influenza Type A (PCR) Influenza Type B (PCR) M. pneumoniae (PCR) Parainfluenza 1 (PCR) Parainfluenza 2 (PCR) Parainfluenza 3 (PCR) Parainfluenza 4 (PCR) RSV (PCR) Entero/Rhino (PCR) Blood Type Antibody Screen 11/15/19 11/15/19 11/15/19 09:20 13:10 13:25 WBC RBC Hgb Hct MCV MCH MCHC RDW Plt Count Neut % (Auto) Lymph % (Auto) [place] % (Auto) Eos % (Auto) Baso % (Auto) Neut # (Auto) Lymph # (Auto) [place] # (Auto) Eos # (Auto) Baso # (Auto) Sodium Potassium Chloride Carbon Dioxide BUN Creatinine Estimated GFR BUN/Creatinine Ratio Glucose Calcium Total Bilirubin AST ALT Alkaline Phosphatase Total Protein Albumin Globulin Albumin/Globulin Ratio Lipase Procalcitonin Urine RBC 0-1/hpf Urine WBC 0-1/hpf Ur Squamous Epith Cells 0-1 /hpf Urine Bacteria None seen Ur Culture Indicated? Cult not indicated Ethyl Alcohol Chlamy pneumoniae PCR Not detected Adenovirus (PCR) Not detected B.parapertussis DNA PCR Not detected Coronavirus OC43 (PCR) Not detected Coronavirus HKU1 (PCR) Not detected Coronavirus 229E (PCR) Not detected Coronavirus NL63 (PCR) Not detected Human Metapneumovir PCR Not detected Influenza Type A (PCR) Not detected Influenza Type B (PCR) Not detected M. pneumoniae (PCR) Not detected Parainfluenza 1 (PCR) Not detected Parainfluenza 2 (PCR) Not detected Parainfluenza 3 (PCR) Not detected Parainfluenza 4 (PCR) Not detected RSV (PCR) Not detected Entero/Rhino (PCR) Not detected Blood Type A Positive Antibody Screen Negative Assessment & Plan Assessment & Plan narrative: Patient is being admitted under observation status for suspected community-acquired pneumonia. Community-acquired pneumonia, acute, present on admission, active - Suspected to be RML/RLL vs bilateral per XR and CT of chest (see HPI) - In ED tx w/ ceftriaxone and azithromycin PCT is negative. Mild leukocytosis. Worsening exertional dyspnea w/o significant change in cough or purulence. Patient w/ underlying ILD and recent surgery. Concern for potential early pneumonia. Will continue ceftriaxone and azithromycin at this time pending repeat PCT and blood cx. - WBC 12.5 PCT 0.26, repeat PCT in am - Blood cultures pending - Urine dip stick not indicative of an infection Hypoxic respiratory failure, acute, present on admission, active - Currently on 4L of O2 w/ SpO2 91-93%. Does not require oxygen at baseline. - Suspected to be in the setting of an acute pulmonary edema vs acute PNA vs. progressive ILD - In ED tx w/ 125 mg of methylprednisolone, will hold further steroids - Respiratory viral panel negative, PCT 0.26 negative - Treat underlying illness Pulmonary edema, acute, present on admission, active - Furosemide 40 mg IV x1 - Will monitor response and need for further doses, not on diuretics at baseline - Consider echo Atrial fibrillation w/ RVR, acute on chronic, present on admission, active - Initial EKG: AFIB RVR (v-rate 110). Left axis deviation. No ST/T wave changes. - Suspected to be in the setting of acute pain and/or demand ischemia, now resolved - Continue Eliquis 5 mg b.i.d. Closed head injury secondary to ground level fall, acute, present on admission, active CT Head w/o acute intracranial hemorrhage. CT Cervical Spine unremarkable for fractures or dislocations. - Neuro checks Q4H Ground level fall, acute, present on admission, active - Unsteady gait secondary to recent right knee surgery; uses crutches for ambulation - Fall precautions - PT eval and treat, re: Concern for deconditioning, s/p right knee surgery / RLE weakness S/P right knee surgery, subacute condition, present on admission, active - Pain control: Tylenol and Oxy IR prn - PT eval and treat - Consult SW, re: Patient has questions on outpatient rehab He had a consultations scheduled tomorrow, 11/16, and his first PT sesssion on , 11/18. Normocytic anemia, present on admission, stable - Hgb 11 g/dL, currently stable. Patient is asymptomatic. Trend Hgb level w/ routine lab. - Baseline HGB level is not known, last record from 2017 Allergic rhinitis, chronic condition, present on admission, stable - Continue GLOBAL POSITION SYSTEM TECHNICIAN regimen of fluticasone propionate Hyperlipidemia, chronic condition, present on admission, active Most recent FLP from 12/2017... Chol 216 LDL 135 HDL 63 Trig 91 - Check FLP - Resume PT regimen of simvastatin 20 mg daily, may need to be adjusted pending results of FLP BPH, chronic condition, present on admission, active - Resume PT regimen of tamsulosin 0.4 mg daily Full code. Patient has a formal health directive. Patient's spouse is the designated DPOA. Home medications reviewed and reconciled accordingly VTE prophylaxis with Eliquis Quality VTE Deep Vein Thrombosis/Pulmonary Embolism Present on Admission: No
[2019-11-15] MEDS: FLUTICASONE 120 SPRAY/16 GM SPRAY.SUSP NASAL (22:26)
[2019-11-15] MEDS: APIXABAN 5 MG TABLET PO (22:27)
[2019-11-15] MEDS: TAMSULOSIN 0.4 MG CAPSULE PO (22:27)
[2019-11-16] VITALS (8 sets, daily range): BP systolic 103–138; BP diastolic 64–85; PULSE 77–98; RESP 16–25; TEMP 36.6–37.1; O2SAT 94–99
[2019-11-16] MEDS: CODEINE/GUAIFENESIN LIQUID 5ML UDC 10 ML PO (00:07)
[2019-11-16] MEDS: FUROSEMIDE 40 MG/4 ML VIAL IV (00:07)
[2019-11-16] MEDS: SODIUM CHLORIDE 0.9% FLUSH 10 ML IV ×4 (00:07→19:41)
[2019-11-16 05:00] LABS: Blood Urea Nitrogen 24 mg/dL (9-20); Calcium 8.6 mg/dL (8.4-10.2); Carbon Dioxide 28 mmol/L (22-32); Chloride 97 mmol/L (98-107); Estimated Glomerular Filt Rate > 60.0 mL/min (>60); Glucose 131 mg/dL (80-110); HEMOLYSIS < 15 (0-50); Potassium 4.4 mmol/L (3.4-5.1); Sodium 133 mmol/L (137-145)
[2019-11-16 05:11] LABS: Add Manual Diff / Slide Review NO; Basophils Absolute Auto 0 /uL (0-100); Basophils Percent Auto 0.1 % (0-2); Eosinophils Absolute Auto 0 /uL (0-450); Hematocrit 28.5 % (41-53); Hemoglobin 9.8 g/dL (13.5-17.5); Lymphocytes Absolute Auto 900 /uL (1100-4500); Lymphocytes Percent Auto 5.9 % (25-40); Mean Corpuscular HGB Conc 34.4 % (30-36); Mean Corpuscular Volume 93.1 fL (80-100); Monocytes Absolute Auto 1000 /uL (0-900); Monocytes Percent Auto 6.3 % (3-14); Neutrophils Absolute Auto 13700 /uL (1500-7000); Neutrophils Percent Auto 87.7 % (50-75); Platelet Count 251 X10^3/uL (150-400); Red Blood Cell Count 3.06 X10^6/uL (4.5-5.9); Red Cell Distribution Width 13.2 % (11.6-14.8); White Blood Cell Count 15.7 X10^3/uL (4.5-11.0)
[2019-11-16 06:12] LABS: Cholesterol 118 mg/dL (140-199); HDL Cholesterol 36 mg/dL (40-60); LDL Cholesterol Calculated 68 mg/dL (<100); Triglycerides 72 mg/dL (35-150)
--- NOTE | 2019-11-16 06:17 | PC.NURSE ---
Seismographer Note-40mg IV Lasix x1 given at midnight, patient diuresed >1700ml overnight, started clear juanjo, then became pale quickly per RESEARCH LABORATORY SPECIALIST. Patient is on 4-5L HFNC to keep SpO2 > 92%, he desats to 70s with activity and is slow to recover, denies dyspnea, LS coarse, has non-productive cough, codeine/guiafenisin given.
[2019-11-16 06:23] LABS: NT-proBNP (BNP-Adult 18+) 5030 pg/mL (<450)
[2019-11-16 06:24] LABS: Procalcitonin 0.56 ng/mL (<0.5)
[2019-11-16] MEDS: DOCUSATE 100 MG CAPSULE PO (09:01)
[2019-11-16] MEDS: FLUTICASONE 120 SPRAY/16 GM SPRAY.SUSP NASAL ×2 (09:02→19:32)
[2019-11-16] MEDS: APIXABAN 5 MG TABLET PO ×2 (09:02→19:32)
[2019-11-16] MEDS: TAMSULOSIN 0.4 MG CAPSULE PO (09:02)
[2019-11-16] MEDS: ACETAMINOPHEN 325 MG TABLET 650 MG PO (09:12)
--- NOTE | 2019-11-16 12:15 | CM.DANOTE ---
Patient is an 84 year old male who was admitted on 11/15/19 for GLF, blood thinners. Pt has [facility] for insurance and his PCP is Dr. Carlos Servin. EMR was reviewed. Per , pt with post op mild pneumonia, likely advancing lung disease, and currently on IV-Abx and requiring oxygen. SW met bedside with pt and spouse and explained role and updated whiteboard and pt confirms that he lives at home with his spouse and is Independent with ADL's at baseline and does not use equipment to ambulate. Pt's DPOA is his spouse and he denies any other supportive services in place at home although they are [facility] and deny and hx of HH or SNF. SW discussed HH services and frequency and pt remembers PCP mentioning HH in the past and they may be interested in HH pending pt's ability to ambulate. Pt states he has noticed a slow and steady decline in his energy level due to his lung disease which has progressed over the past 6 years. Pt states he had knee surgery about [address] [facility] and was to start outpt PT today at [facility] but had to cancel as he was admitted to [facility]. Pt denies any oxygen at baseline at home. PT has been ordered and pending and SW updated PT who will begin initial eval and assessment right about lunch time. RT involved and will evaluate closer to d/c to determine if new home oxygen needed at d/c. Plan: SW to follow closely after PT eval and eventual RT assess for home oxygen to determine if any identified discharge planning needs. BILL Chau Discharge Planning/Care Management CM Discharge Assessment Start: 11/16/19 12:10 Freq: Status: Active Protocol: Document 11/16/19 12:10 BF (Rec: 11/16/19 12:14 [id number]) Discharge Planning Assessment Assigned Boxing Trainer BILL Wu DPOA/Assigned Designee Name spouse Anna Contact Information [phone] Advance Directives? Yes History Provided By Patient,Significant Other, Medical Record Has Patient been admitted in last 30 No days? Comment Not to [facility] but was recently discharged from [facility] after planned knee surgery about 10 days ago Prior Living Arrangements House Household Members spouse Type of transporation used prior to Drives own vehicle admit Independent with ADL's Yes Is patient alert and oriented? Yes Caregiver for Another No Community Services used prior to Physical Therapy admission: Comment Already established at [facility] but was to start first appointment today Patient/Family Preference Home with Home Health Comment Follow for PT initial eval and recommendation, r/o HH vs outpt PT Barriers to Discharge No Discharge Plan Home Community Services Physical Therapy Transportation Arrangement Spouse bedside currently and can provide transport home if safe for d/c home Additional Comment Waiting for PT eval Whiteboard Updated in Patient Room with Yes name and ext. # of Boxing Trainer Review Status In Process Please Provide Date Initial DC 11/16/19 Assessment Was Performed Next Review Type Continued Stay Review
[2019-11-16] MEDS: CEFTRIAXONE 1 GM/50 ML FROZ.PIGGY IV (12:25)
[2019-11-16] MEDS: AZITHROMYCIN 500 MG in DEXTROSE 5% IN WATER 250 ML IV (13:35)
--- NOTE | 2019-11-16 13:46 | PT.IIE ---
Surgical History (Last Updated 11/16/19 @ 03:50 by JACKI Smallwood) H/O right knee surgery (Acute) History of lung biopsy (Acute) Medical History (Last Updated 11/16/19 @ 03:50 by JACKI Smallwood) Atrial fibrillation with normal ventricular rate (Chronic) BPH (benign prostatic hyperplasia) (Chronic) Chronic anticoagulation (Chronic) Fall (Inactive 11/15/19) GERD (gastroesophageal reflux disease) (Chronic) Hyperlipidemia (Chronic) Pulmonary fibrosis (Chronic) Physical Therapy Inpatient Evaluation/Re-Eval M1 PT/OT-IP Prior Functional Status Start: 11/16/19 11:44 Freq: NEEDED Status: Active Protocol: Document 11/16/19 13:19 AW (Rec: 11/16/19 13:46 AW [id number]) Medical Review Prior Functional Status Medical History Reviewed Yes Diet/Fluid Consistency Regular Communication WNL Mobility and Gait Pt states he has been using bilateral forearm crutches since medial compartment right knee arthroplasty on 11/08/19. He notes he has been moving slowly, but mod independent with his crutches. He and his agree he has fallen only twice in the past few years Activities of Daily Living and IADL's Independent Social History Household Members spouse Living Arrangements House Number of Floors (Floors) Two Floors Number of Stairs To Enter/Railing? Level entrance; 13 steps down to daylight basement with left rail descending. Pt denies need to access basement regularly, though he will occasionally go downstairs to use the computer or to build a fire. Home Environment Standard Height Toilet,Walk in Shower Home Equipment Straight Cane,Crutches,Shower Seat without Backrest,Grab Bars Near Toilet Employment Status Retired Additional Social History Comment Pt lives with his , Anna , who is available and able to assist as needed. M2 PT-IP Current Condition Start: 11/16/19 11:44 Freq: NEEDED Status: Active Protocol: Document 11/16/19 13:19 AW (Rec: 11/16/19 13:46 AW [id number]) Physical Therapy Current Condition Current Condition Evaluation Date 11/16/19 Treatment Diagnosis acute hypoxic respiratory failure, pneumonia, GLF, impaired mobility Onset Date 11/15/19 Weight Bearing Status Weight Bearing Status Full Weight Bearing M3 PT-IP Subjective Start: 11/16/19 11:44 Freq: NEEDED Status: Active Protocol: Document 11/16/19 13:19 AW (Rec: 11/16/19 13:46 AW [id number]) Subjective Physical Therapy Visit Type Type Initial Evaluation Visit Start Time 12:02 Visit Stop Time 12:31 Total Visit Minutes 29 Notes Pt on hydrated high flow O2 at 8 L/min via NC Physical Therapy Visit Comments Patient Comments Pt finishing lunch, willing to participate with PT Patient Goals Pt hopes to return home with spouse assist Therapy Pain Assessment Pain When Pain Assessed During Mobility Pain Present Pain Present Denied Pain M4 PT-IP Mobility and Gait Start: 11/16/19 11:44 Freq: NEEDED Status: Active Protocol: Document 11/16/19 13:19 AW (Rec: 11/16/19 13:46 AW [id number]) PT-Transfer Assessment Sit to and From Stand Sit to and from Stand Standby Assistance,1 Person Assistance,Use of Upper Extremities Equipment Transfer Assistive Device Gait Belt,Front Wheeled Walker Orthotic/Prosthetic Devices or Brace: No Transfers Transfer Destination Chair Transfer Technique pt ambulated with FWW Transfer Ability Level of Assist Standby Assistance,Use of Upper Extremities Comments Mobility Comments Pt encountered sitting up in chair, finishing lunch upon PT arrival. Pt completed sit to stand using FWW SBA and ambulated around the room ~30 feet and then marched in place 60 seconds with FWW for support. On 8L/min high flow hydrated O2 via NC, SpO2 was 96% at rest but dropped to 82% with accompanying SOB during brief ambulation trial followed by [address] Pt transferred back to the chair SBA and was instructed in pursed lip breathing. He recovered his SpO2 to 90% within 5 minutes, but dropped again to 85% after brief seated exercise. HR was 84 at rest, dropped to 44 with activity, and increased to 103 after activity. Pt was repositioned in the chair with call light and table within reach, in room visiting. Gait Assessment Gait Gait Assistance Required: Standby Assistance,1 Person Assist Distance (Feet) 30 Able to Maintain Weight Bearing Status Yes During Gait Assistive Devices Assistive Device Gait Belt,Front Wheeled Walker Orthotic/Prosthetic Devices or Brace: No Gait Deviations General Gait Pattern Antalgic,Decreased Stride Length,Decreased Feet Clearance,Step-to Gait Factors Limiting Gait Function Factors Limiting Gait Function Decreased Activity Tolerance, Decreased Strength,Limited Range of Motion,Poor Balance, Poor Safety Awareness Comments Gait Comments Pt was slightly impulsive, ambulating with FWW SBA but without regard for O2 line and requiring cues to slow down. Pt quickly became dyspneic with exertion and SpO2 dropped to 82% on 8L/min HF/NC. Stair Climbing Assessment Comments Stair Climbing Comments Not assessed. PT-Balance Assessment Sitting Balance and Reactions Static Sitting Balance Ability Normal Dynamic Sitting Balance Ability Normal Standing Balance and Reactions Static Standing Balance Ability Good Dynamic Standing Balance Ability Fair Device Used FWW M5 PT-IP Objective Assessments Start: 11/16/19 11:44 Freq: NEEDED Status: Active Protocol: Document 11/16/19 13:19 AW (Rec: 11/16/19 13:46 AW [id number]) Orientation Orientation/Cognition Level of Alertness Alert Orientation Name,Day of Week,Place, Situation Language Function Ability No Deficits Noted Safety Awareness Decreased Safety Awareness Memory Description No Deficits Noted Gross Range of Motion Upper Extremity ROM Assessment Within Functional Limits Lower Extremity ROM Assessment Right Impaired Impairments Medial compartment right knee arthroplasty on 11/08/19. He was scheduled to begin outpatient PT today but had to cancel appointment Strength Upper Extremity Strength Assessment Within Functional Limits Lower Extremity Strength Assessment Right Impaired Comments Strength Comments LLE grossly 4/5; R knee 3+/5 with limited ROM. Coordination Assessment Gross Coordination Gross Coordination WNL Sensation Assessment Sensation Gross Sensation WNL M6 PT-IP Treatment Start: 11/16/19 11:44 Freq: NEEDED Status: Active Protocol: Document 11/16/19 13:19 AW (Rec: 11/16/19 13:46 AW [id number]) Physical Therapy Treatment Education Education Provided Precautions,Safety Other Treatments Other Treatment Performed Heel slides and long arc quads for right knee strengthening. Provided education on role of PT, plan of care, and selection of appropriate assistive device. M7 PT-IP Assessment and Plan Start: 11/16/19 11:44 Freq: NEEDED Status: Active Protocol: Document 11/16/19 13:19 AW (Rec: 11/16/19 13:46 AW [id number]) PT Summary Assessment and Plan Potential Rehabilitation Potential Good Status of Condition at Evaluation Evolving Summary Impairments ROM,Strength,Balance,Transfers ,Gait,Activity Tolerance Assessment Summary Ricky is an 84 yo man seen for PT evaluation after being admitted with AHRF, possible pneumonia, and GLF 1 week after medial uni knee arthroplasty. At recent baseline, pt has been using forearm crutches for ambulation. On evaluation, pt required SBA for transfers and short bout ambulation. He became dyspneic with activity and dropped his SpO2 from 96% at rest to 82% with exertion on 8L/min HF/NC. He recovered his SpO2 to 90% after 5 minutes seated rest, but became dyspneic again with SpO2 dropping to 85% with brief seated exercise. SpO2 recovered again to 90% after several minutes. Pt will likely be safe to discharge home but may benefit from home health therapy to address safety of the home environment , LE strength deficits, and balance impairment. PT will continue to assess for HH needs. Goals Bed Mobility Goal Independent Transfer Goal Independent,Crutches Gait Goal Independent,Crutches Gait Distance 200 Days to Meet Goals 5 Frequency of Treatment Frequency Of Treatment Once a Day Treatment Plan Physical Therapy Treatment Plan Bed Mobility Training,Transfer Training,Gait Training, Therapeutic Exercise,Balance Retraining,Post Op Education, Discharge Planning,Hot or Cold Pack,Neuromuscular Re-ed, Coordination Retraining,Manual Therapy Other Recommendations and Next Treatment assess gait with forearm Focus crutches; continually assess SpO2 Recommendations To Nursing Amount of Assist Needed Standby Assistance,1 Person Assist Discharge Recommendations PT Discharge Recommendations Home with Assistance,Home Health,Outpatient PT Other Discharge Recommendations Home with assist + HH vs outpatient PT depending on progress Transportation Needs at Discharge Private Vehicle
[2019-11-16] MEDS: KETOROLAC 30 MG/ML VIAL IV (14:23)
[2019-11-16 14:33] LABS: HCO3 ABG 28 mmol/L (22-26); PCO2 ABG 45.2 mmHg (35-45); PO2 ABG 58 mmHg (80-100); pH ABG 7.39 (7.35-7.45)
[2019-11-16 14:34] LABS: Fractionated Inspired Oxygen 35; Oxygen Saturation ABG 89 % (95-100); TCO2 ABG 29 mmol/L (21-31)
--- NOTE | 2019-11-16 15:09 | P.PN_ITS ---
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 The patient is resting in bed comfortably. He endorses mild headache not relieved with acetaminophen. He denies shortness of breath at rest but does endorse dyspnea on exertion. He has a chronic nonproductive cough that is unchanged and endorses pleurisy He believes his breathing has progressively worsened over the last several years and does not remember a point where it significantly worsened. He has no other complaints and denies chest pain, abdominal pain, nausea, vomiting, fever, chills, dysuria, diarrhea or constipation. He does have urinary issues related to BPH. He is voiding and eliminating without difficulty. He is up ambulating minimally with physical therapy. Exam Vital Signs (past 8 hours): - 11/16/19 08:14 11/16/19 09:05 11/16/19 12:00 Temperature 98.5 F 97.8 F Pulse Rate 93 H 98 H Respiratory Rate 22 16 Blood Pressure 115/65 108/64 Pulse Oximetry 96 94 94 Oxygen Delivery Method Nasal Cannula Oxygen Flow Rate 7 Narrative Exam Narrative: General: Elderly male sitting in bed and in no acute distress, well-developed, well-nourished, appropriately interactive. HEENT: Normocephalic, atraumatic. Left orbital contusion and supraorbital laceration with sutures in place. External ears without defect. Pupils equal, round, and reactive to light. Anicteric sclerae, moist conjunctivae, and no lid lag. Oropharynx free of erythema and cobble stoning with moist mucosa. Neck: Supple with full range of motion. No lymphadenopathy or thyromegaly. Cardiovascular: Regular rate and rhythm without murmurs, rubs, or gallops appreciated Pulmonary: Diminished throughout but clear to auscultation in all lung myers with scattered crackles. No wheeze or rhonchi. Normal respiratory effort with no use of accessory muscles. Abdomen: Soft, bowel sounds present, nontender, nondistended. No hepatosplenomegaly or masses appreciated. Extremities: No clubbing, cyanosis, or edema. Right knee with dressing in place no surrounding erythema or edema and slightly tender to palpation medially. Skin: Normal temperature, turgor, and texture; no rash, ulcers, or subcutaneous nodules appreciated. Neurological: Cranial nerves grossly intact. Psychiatric: Normal mood and affect. Alert and oriented to person, place, and time. Objective Labs Result Diagrams: 11/17/19 04:53 11/17/19 04:53 Labs: Laboratory Results - last 24 hr 11/15/19 11/16/19 11/16/19 20:32 04:35 04:35 WBC 15.7 H RBC 3.06 L Hgb 9.8 L Hct 28.5 L MCV 93.1 MCH 32.0 MCHC 34.4 RDW 13.2 Plt Count 251 Neut % (Auto) 87.7 H Lymph % (Auto) 5.9 L Armstrong % (Auto) 6.3 Eos % (Auto) 0.0 L Baso % (Auto) 0.1 Neut # (Auto) 18086 H Lymph # (Auto) 900 L Armstrong # (Auto) 1000 H Eos # (Auto) 0 Baso # (Auto) 0 ABG pH ABG pCO2 ABG pO2 ABG HCO3 ABG Total CO2 ABG O2 Saturation ABG Base Excess FiO2 Sodium 133 L Potassium 4.4 Chloride 97 L Carbon Dioxide 28 BUN 24 H Creatinine 0.80 Estimated GFR > 60.0 BUN/Creatinine Ratio 30.0 H Glucose 131 H Calcium 8.6 Magnesium 2.0 NT-Pro-B Natriuret Pep Triglycerides Cholesterol LDL Cholesterol, Calc HDL Cholesterol Procalcitonin Nasal Screen MRSA (PCR) Negative for mrsa 11/16/19 11/16/19 11/16/19 04:35 04:35 04:35 WBC RBC Hgb Hct MCV MCH MCHC RDW Plt Count Neut % (Auto) Lymph % (Auto) Armstrong % (Auto) Eos % (Auto) Baso % (Auto) Neut # (Auto) Lymph # (Auto) Armstrong # (Auto) Eos # (Auto) Baso # (Auto) ABG pH ABG pCO2 ABG pO2 ABG HCO3 ABG Total CO2 ABG O2 Saturation ABG Base Excess FiO2 Sodium Potassium Chloride Carbon Dioxide BUN Creatinine Estimated GFR BUN/Creatinine Ratio Glucose Calcium Magnesium NT-Pro-B Natriuret Pep 5030 H Triglycerides 72 Cholesterol 118 L LDL Cholesterol, Calc 68 HDL Cholesterol 36 L Procalcitonin 0.56 H Nasal Screen MRSA (PCR) 11/16/19 14:21 WBC RBC Hgb Hct MCV MCH MCHC RDW Plt Count Neut % (Auto) Lymph % (Auto) Armstrong % (Auto) Eos % (Auto) Baso % (Auto) Neut # (Auto) Lymph # (Auto) Armstrong # (Auto) Eos # (Auto) Baso # (Auto) ABG pH 7.39 ABG pCO2 45.2 H ABG pO2 58 L ABG HCO3 28 H ABG Total CO2 29 ABG O2 Saturation 89 L ABG Base Excess 3.0 H FiO2 35 Sodium Potassium Chloride Carbon Dioxide BUN Creatinine Estimated GFR BUN/Creatinine Ratio Glucose Calcium Magnesium NT-Pro-B Natriuret Pep Triglycerides Cholesterol LDL Cholesterol, Calc HDL Cholesterol Procalcitonin Nasal Screen MRSA (PCR) Assessment & Plan Assessment & Plan narrative: Gonzalez Mendez is a 89-year-old male with a past medical history significant for hyperlipidemia, chronic atrial fibrillation on Eliquis, 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 1. Acute postoperative pneumonia, present on admission. Active. -Patient endorses progressive worsening shortness of breath, especially dyspnea on exertion. -Patient is followed by pulmonology Dr. Lopez at [place] and Dr. Mitchell at the [facility]. -Chest x-ray demonstrated right middle lobe pneumonia superimposed on interstitial lung disease. -CT chest without contrast demonstrated diffuse interstitial infiltrates and pulmonary fibrosis, likely secondary to chronic interstitial lung disease such as UIP, groundglass infiltrates bilaterally, predominantly involving the lower lobes bilaterally, which may be secondary to superimposed acute pneumonia or pulmonary edema, pleural thickening and calcification with possible small loculated pleural effusion in right hemithorax, mediastinal and hilar lymphadenopathy. -Respiratory viral PCR negative. -Initial WBC 12.5 and procalcitonin 0.26. WBC increased to 15.7 and procalcitonin increased to 0.56. Continue to monitor WBC and procalcitonin daily. -Received ceftriaxone 1 g IV x1 and azithromycin 500 mg IV x1 in ED. Continue ceftriaxone 1 g IV daily and azithromycin 500 mg IV x3 total doses. 2. Acute likely on chronic hypoxemic respiratory failure, present on admission. Active. -Currently on 4L supplemental oxygen with SpO2 91-93%. Patient has not previously required oxygen at baseline. -Suspected to be in the setting of an acute pulmonary edema vs acute PNA vs. progressive ILD. -Received methylprednisolone 125 mg IV x1 in ED. Held off on further steroids at this time. -Respiratory viral PCR negative. -Treat underlying pneumonia as above. 3. Possible acute pulmonary edema, present on admission. Resolved. -Patient is not appear to be overtly fluid overloaded. -CT chest without contrast demonstrated ground-glass opacities suspicious for possible pneumonia versus pulmonary edema. -Received furosemide 40 mg IV x1. -Patient reports recent echocardiogram with no mention of pulmonary hypertensi on, right-sided or left-sided heart failure. Requested records from director pharmacy services at [place] and you [facility], pending. Consider echocardiogram if records are not readily available. -Continue strict I&Os and daily weights. Net -1L. 4. Chronic atrial fibrillation with mild RVR, present on admission. RVR resolved. -Initial EKG demonstrated atrial fibrillation with mild RVR with HR 110, left axis deviation and no ST/T wave changes. -Suspected to be in the setting of acute pain and/or demand ischemia. -Continue Eliquis 5 mg twice daily. Patient is not on rate control medication. 5. Acute ground level fall with closed head injury, present on admission. Stable. -Unsteady gait secondary to recent right knee surgery and patient endured a ground level fall using form support crutches. -CT head without contrast did not demonstrate any acute intracranial abnormality. CT cervical spine unremarkable for fractures or dislocations. -Continue fall precautions in frequent neuro checks. -Continue physical and occupational therapy evaluation and treatment for deconditioning, s/p right knee surgery / RLE weakness. 6. Recent right knee surgery, subacute condition, present on admission. Active. -Continue pain control with acetaminophen and Oxy IR prn -continue physical and occupational therapy evaluation treatment. 7. Normocytic anemia, present on admission, stable -Initial hemoglobin 11 g/dL and MCV 93.1. Hemodynamically stable and no overt signs of bleeding. -Continue to monitor blood counts periodically. 8. Allergic rhinitis, chronic condition, present on admission, stable -Continue home fluticasone propionate 2 sprays intranasally twice daily. 9. Hyperlipidemia, chronic, present on admission. Stable. -Fasting lipid panel demonstrated excellent lipid control. -Continue home simvastatin 20 mg daily. 10. BPH, chronic, present on admission. Stable. -Continue tamsulosin 0.4 mg daily. Code status: Full code. Patient has a formal health directive. Patient's spouse is the designated DPOA. VTE prophylaxis: Eliquis Disposition: Patient remains hospitalized and barrier to discharge is improvement in hypoxemia. Quality VTE Deep Vein Thrombosis/Pulmonary Embolism Present on Admission: No
[2019-11-16] MEDS: OXYCODONE IR 5 MG TABLET PO (17:20)
[2019-11-16] MEDS: SIMVASTATIN 20 MG TABLET PO (19:32)
--- NOTE | 2019-11-16 23:09 | PC.NURSE ---
PM shift Pt is SOB with all activity. Increased o2 to o8L during activity. Oxycodone for COBURN. Enc. DB and Cough. 5-9L O2 PRN activity. Denies SOB, no home o2 at baseline. Ambulated to BR, per PT request. BA active for impulsive behavior. COBURN at bedside.
[2019-11-17] VITALS (10 sets, daily range): BP systolic 113–132; BP diastolic 66–84; PULSE 73–100; RESP 16–22; TEMP 36.3–37.4; O2SAT 91–96
[2019-11-17] MEDS: CODEINE/GUAIFENESIN LIQUID 5ML UDC 10 ML PO (00:18)
[2019-11-17 05:10] LABS: Add Manual Diff / Slide Review NO; Basophils Absolute Auto 200 /uL (0-100); Basophils Percent Auto 1.6 % (0-2); Eosinophils Absolute Auto 100 /uL (0-450); Eosinophils Percent Auto 1.1 % (2-4); Hematocrit 28.5 % (41-53); Hemoglobin 9.9 g/dL (13.5-17.5); Lymphocytes Absolute Auto 1100 /uL (1100-4500); Lymphocytes Percent Auto 9.9 % (25-40); Mean Corpuscular HGB Conc 34.7 % (30-36); Mean Corpuscular Hemoglobin 32.2 PG (26-34); Mean Corpuscular Volume 92.9 fL (80-100); Monocytes Absolute Auto 600 /uL (0-900); Monocytes Percent Auto 5.8 % (3-14); Neutrophils Absolute Auto 8700 /uL (1500-7000); Neutrophils Percent Auto 81.6 % (50-75); Platelet Count 287 X10^3/uL (150-400); Red Blood Cell Count 3.07 X10^6/uL (4.5-5.9); Red Cell Distribution Width 13.4 % (11.6-14.8); White Blood Cell Count 10.7 X10^3/uL (4.5-11.0)
[2019-11-17 05:15] LABS: Blood Urea Nitrogen 36 mg/dL (9-20); Calcium 8.5 mg/dL (8.4-10.2); Carbon Dioxide 30 mmol/L (22-32); Chloride 100 mmol/L (98-107); Estimated Glomerular Filt Rate > 60.0 mL/min (>60); Glucose 98 mg/dL (80-110); HEMOLYSIS < 15 (0-50); Sodium 134 mmol/L (137-145)
--- NOTE | 2019-11-17 06:41 | PC.NURSE ---
Formulator Note-Patient continues to desat to 80% withany activity but recovers faster, on 7L HFNC, LS slightly coarse throughout, codeine/guaifenisen elixer given for cough. A-fib CVR/RVR around 100bpm.
[2019-11-17] MEDS: DOCUSATE 100 MG CAPSULE PO ×2 (08:28→20:23)
[2019-11-17] MEDS: ACETAMINOPHEN 325 MG TABLET 650 MG PO ×2 (08:28→20:23)
[2019-11-17] MEDS: FLUTICASONE 120 SPRAY/16 GM SPRAY.SUSP NASAL ×2 (08:28→20:23)
[2019-11-17] MEDS: APIXABAN 5 MG TABLET PO ×2 (08:30→20:24)
[2019-11-17] MEDS: TAMSULOSIN 0.4 MG CAPSULE PO (08:30)
[2019-11-17] MEDS: SODIUM CHLORIDE 0.9% FLUSH 10 ML IV ×2 (08:31→20:24)
--- NOTE | 2019-11-17 10:57 | PT.IPTN ---
Current Diagnoses Pneumonia, unspecified organism (11/15/19) Physical Therapy Treatment Note M2 PT-IP Current Condition Start: 11/16/19 11:44 Freq: NEEDED Status: Active Protocol: Document 11/16/19 13:19 AW (Rec: 11/16/19 13:46 AW [id number]) Physical Therapy Current Condition Current Condition Evaluation Date 11/16/19 Treatment Diagnosis acute hypoxic respiratory failure, pneumonia, GLF, impaired mobility Onset Date 11/15/19 Weight Bearing Status Weight Bearing Status Full Weight Bearing M3 PT-IP Subjective Start: 11/16/19 11:44 Freq: NEEDED Status: Active Protocol: Document 11/17/19 10:12 HH (Rec: 11/17/19 10:56 HH [email or web address]) Subjective Physical Therapy Visit Type Type Treatment Note Visit Start Time 10:12 Visit Stop Time 10:32 Total Visit Minutes 20 Notes Per Nursing, pt cont to desat significantly upon exertion and he is on high 10L/ min via [place] Physical Therapy Visit Comments Patient Comments Pt is resting in bed but agreeable to mobilize with PT. Therapy Pain Assessment Pain When Pain Assessed During Mobility Pain Present Pain Present Denied Pain M4 PT-IP Mobility and Gait Start: 11/16/19 11:44 Freq: NEEDED Status: Active Protocol: Document 11/17/19 10:12 HH (Rec: 11/17/19 10:56 HH [email or web address]) PT-Bed Mobility Assessment Supine to Sit Supine to Sit Standby Assistance Scooting Scooting to Edge of Bed Standby Assistance PT-Transfer Assessment Sit to and From Stand Sit to and from Stand Standby Assistance,1 Person Assistance,Use of Upper Extremities Equipment Transfer Assistive Device Gait Belt,Front Wheeled Walker Orthotic/Prosthetic Devices or Brace: No Transfers Transfer Destination Chair Transfer Technique pt ambulated with FWW Transfer Ability Level of Assist Standby Assistance,Use of Upper Extremities Comments Mobility Comments Pt was resting in bed upon PT arrival. SpO2 at 94%. It dropped down to 89% while communicating with this PT. Educated pt to use pursed lip breathing x 10 and was able to return to 94% within 4 mins. Pt then completed supine to sit without using bed features . He sat up and SpO2 at 84-86% and took 5-6 mins to recover to 92%. Proceeded to stand up with FWW. Pt stood at bedside for 3 mins and was able to maintained >90%. He then sat down d/t fatigue. Pt was placed in reclined position, legs elevated with call light within reach. SpO2 at 92% upon PT departure. Updated nursing with his progress. Gait Assessment Comments Gait Comments did not attempt d/t dyspneic Stair Climbing Assessment Comments Stair Climbing Comments Not assessed. PT-Balance Assessment Sitting Balance and Reactions Static Sitting Balance Ability Normal Dynamic Sitting Balance Ability Normal Standing Balance and Reactions Static Standing Balance Ability Good Dynamic Standing Balance Ability Fair Device Used FWW M5 PT-IP Objective Assessments Start: 11/16/19 11:44 Freq: NEEDED Status: Active Protocol: Document 11/16/19 13:19 AW (Rec: 11/16/19 13:46 AW [id number]) Orientation Orientation/Cognition Level of Alertness Alert Orientation Name,Day of Week,Place, Situation Language Function Ability No Deficits Noted Safety Awareness Decreased Safety Awareness Memory Description No Deficits Noted Gross Range of Motion Upper Extremity ROM Assessment Within Functional Limits Lower Extremity ROM Assessment Right Impaired Impairments Medial compartment right knee arthroplasty on 11/08/19. He was scheduled to begin outpatient PT today but had to cancel appointment Strength Upper Extremity Strength Assessment Within Functional Limits Lower Extremity Strength Assessment Right Impaired Comments Strength Comments LLE grossly 4/5; R knee 3+/5 with limited ROM. Coordination Assessment Gross Coordination Gross Coordination WNL Sensation Assessment Sensation Gross Sensation WNL M6 PT-IP Treatment Start: 11/16/19 11:44 Freq: NEEDED Status: Active Protocol: Document 11/16/19 13:19 AW (Rec: 11/16/19 13:46 AW [id number]) Physical Therapy Treatment Education Education Provided Precautions,Safety Other Treatments Other Treatment Performed Heel slides and long arc quads for right knee strengthening. Provided education on role of PT, plan of care, and selection of appropriate assistive device. M7 PT-IP Assessment and Plan Start: 11/16/19 11:44 Freq: NEEDED Status: Active Protocol: Document 11/17/19 10:12 HH (Rec: 11/17/19 10:56 HH [email or web address]) PT Summary Assessment and Plan Potential Rehabilitation Potential Good Status of Condition at Evaluation Evolving Summary Impairments ROM,Strength,Balance,Transfers ,Gait,Activity Tolerance Assessment Summary Pt is at 10L/min high flow O2 via NC today and cont to desat upon exertion down to 84%. He cont to need up to 5-6 mins to recover with pursed lip breathing. At this point, pt might need a higher care since pt has limited mobility with ongoing dyspneic / desat to unsafe level. Will cont monitor pt's condition and update d/c planning. Goals Bed Mobility Goal Independent Transfer Goal Independent,Crutches Gait Goal Independent,Crutches Gait Distance 200 Days to Meet Goals 5 Frequency of Treatment Frequency Of Treatment Once a Day Treatment Plan Physical Therapy Treatment Plan Bed Mobility Training,Transfer Training,Gait Training, Therapeutic Exercise,Balance Retraining,Post Op Education, Discharge Planning,Hot or Cold Pack,Neuromuscular Re-ed, Coordination Retraining,Manual Therapy Other Recommendations and Next Treatment assess gait with forearm Focus crutches; continually assess SpO2 Recommendations To Nursing Amount of Assist Needed Standby Assistance,1 Person Assist Discharge Recommendations PT Discharge Recommendations Home with Assistance,Home Health,Outpatient PT Other Discharge Recommendations Home with assist + HH vs outpatient PT depending on progress Transportation Needs at Discharge Private Vehicle
[2019-11-17] MEDS: CEFTRIAXONE 1 GM/50 ML FROZ.PIGGY IV (11:43)
[2019-11-17] MEDS: AZITHROMYCIN 500 MG in DEXTROSE 5% IN WATER 250 ML IV (13:04)
[2019-11-17] MEDS: OXYCODONE IR 5 MG TABLET PO (13:47)
--- NOTE | 2019-11-17 13:51 | DIET.PN ---
Dietary Progress Note Assessment: 84y M admitted after GLF who was s/p 6d knee replacement referred to nutrition for recent weight loss. Pt reports 10# wt loss in last few months, cannot correlate it to anything but is happy with current body weight. Usually 190#, currently 180#, was 170# in high school. BMI is 24.4 which is optimal for pt, however, I educated pt on requesting referral to RD if wt continues to drop as this can happen c restrictive lung conditions. Discussed respiratory quotient, carbs cause most work for exhalation, pro and fat the least. Encouraged small, frequent meals with addition of healthy fats (olive oil, avocado, fish, nuts). Pt's POs in hospital have been 75-100% HT: 182.8cm WT: 81.5 UBW: 86.5kg BMI: 24.4 MNA: 11 Delvin: 18 Diet Order: HH
[2019-11-17] MEDS: methylPREDNISolone 125 MG/2 ML VIAL 60 MG IV (15:01)
[2019-11-17] MEDS: guaiFENesin ER 600 MG TAB 1200 MG PO (20:23)
--- NOTE | 2019-11-17 21:00 | P.PN_ITS ---
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 The patient is resting in bed comfortably. He continues to have a mild headache surrounding left orbit that is mildly relieved with narcotic. He continues to have dyspnea on exertion and drops his oxygen saturations into the 70s and takes several minutes to recover. He is now on 9L supplemental oxygen maintaining saturations in the low 90's. He continues to have a chronic nonproductive cough that is unchanged and pleurisy that he reports with deep inhalation or exhalation. He believes his breathing has progressively worsened over the last several years and does not remember a point where it significantly worsened. He has no other complaints and denies chest pain, abdominal pain, nausea, vomiting, fever, chills, dysuria, diarrhea or constipation. He is voiding and eliminating without difficulty. He is up ambulating minimally with physical therapy. Exam Vital Signs (past 8 hours): - 11/17/19 13:35 11/17/19 16:26 11/17/19 19:39 Temperature 98.1 F 97.7 F Pulse Rate 73 77 Respiratory Rate 22 21 Blood Pressure 125/75 116/73 Pulse Oximetry 91 92 93 Fraction of Inspired Oxygen 7 Oxygen Delivery Method High Flow Nasal Cannula Oxygen Flow Rate 9 Narrative Exam Narrative: General: Elderly male sitting in bed and in no acute distress, well-developed, well-nourished, appropriately interactive. HEENT: Normocephalic, atraumatic. Left orbital contusion and supraorbital laceration with sutures in place. External ears without defect. Pupils equal, round, and reactive to light. Anicteric sclerae, moist conjunctivae, and no lid lag. Oropharynx free of erythema and cobble stoning with moist mucosa. Neck: Supple with full range of motion. No lymphadenopathy or thyromegaly. Cardiovascular: Regular rate and rhythm without murmurs, rubs, or gallops appreciated Pulmonary: Diminished throughout but clear to auscultation in all lung myers with scattered crackles. No wheeze or rhonchi. Normal respiratory effort with no use of accessory muscles. Abdomen: Soft, bowel sounds present, nontender, nondistended. No hepatosplenomegaly or masses appreciated. Extremities: No clubbing, cyanosis, or edema. Right knee with dressing in place no surrounding erythema or edema and slightly tender to palpation medially. Skin: Normal temperature, turgor, and texture; no rash, ulcers, or subcutaneous nodules appreciated. Neurological: Cranial nerves grossly intact. Psychiatric: Normal mood and affect. Alert and oriented to person, place, and time. Objective Labs Result Diagrams: 11/17/19 04:53 11/17/19 04:53 Labs: Laboratory Results - last 24 hr 11/17/19 11/17/19 04:53 04:53 WBC 10.7 RBC 3.07 L Hgb 9.9 L Hct 28.5 L MCV 92.9 MCH 32.2 MCHC 34.7 RDW 13.4 Plt Count 287 Neut % (Auto) 81.6 H Lymph % (Auto) 9.9 L Coffee % (Auto) 5.8 Eos % (Auto) 1.1 L Baso % (Auto) 1.6 Neut # (Auto) 8700 H Lymph # (Auto) 1100 Coffee # (Auto) 600 Eos # (Auto) 100 Baso # (Auto) 200 H Sodium 134 L Potassium 4.0 Chloride 100 Carbon Dioxide 30 BUN 36 H Creatinine 0.80 Estimated GFR > 60.0 BUN/Creatinine Ratio 45.0 H Glucose 98 Calcium 8.5 Assessment & Plan Assessment & Plan narrative: Gonzalez Mendez is a 89-year-old male with a past medical history significant for hyperlipidemia, chronic atrial fibrillation on Eliquis, 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 1. Acute postoperative pneumonia, in setting of chronic idiopathic pulmonary fibrosis, present on admission. Active. -Patient endorses progressive worsening shortness of breath, especially dyspnea on exertion. -Patient is followed by pulmonology Dr. Lopez at [place] and Dr. Mitchell at the [facility]. -Chest x-ray demonstrated right middle lobe pneumonia superimposed on interstitial lung disease. -CT chest without contrast demonstrated diffuse interstitial infiltrates and pulmonary fibrosis, likely secondary to chronic interstitial lung disease such as UIP, groundglass infiltrates bilaterally, predominantly involving the lower lobes bilaterally, which may be secondary to superimposed acute pneumonia or pulmonary edema, pleural thickening and calcification with possible small loculated pleural effusion in right hemithorax, mediastinal and hilar lymphadenopathy. -Ordered complete pneumonia workup including: Respiratory viral PCR negative. Strep pneumoniae and Legionella urine antigens, pending. Sputum culture, pending. Blood cultures not collected prior to antibiotic administration. -Initial WBC 12.5 and procalcitonin 0.26. WBC increased to 15.7 and procalcitonin increased to 0.56. Continue to monitor WBC and procalcitonin daily. -Received ceftriaxone 1 g IV x1 and azithromycin 500 mg IV x1 in ED. Continue ceftriaxone 1 g IV daily and azithromycin 500 mg IV x3 total doses. 2. Acute likely on chronic hypoxemic respiratory failure, present on admission. Active. -Patient has not previously required oxygen at baseline. Patient is followed by pulmonology Dr. Lopez at [place] and Dr. Mitchell at the [facility]. -Suspected to be in the setting of an acute pulmonary edema versus postop PNA versus progressive ILD. -Received methylprednisolone 125 mg IV x1 in ED. Started methylprednisolone 60 mg IV daily for anti-inflammatory effects as patient's previous lung biopsy demonstrated pulmonary fibrosis with pneumonitis. -Continue respiratory therapy evaluation treatment. Patient currently on 9 L high-flow supplemental oxygen. Goal oxygen saturation 88-92% and continue to titrate down as tolerated. Continue DuoNebs as needed for shortness of breath or wheezing every 4 hours while awake. Continue incentive spirometer and ordered Acapella. Ordered chest physiotherapy every 4 hours per RT protocol. Ordered Mucinex 1200 mg twice daily. -Treat underlying pneumonia as above. 3. Possible acute pulmonary edema, present on admission. Resolved. -Patient is not appear to be overtly fluid overloaded. -CT chest without contrast demonstrated ground-glass opacities suspicious for possible pneumonia versus pulmonary edema. -Received furosemide 40 mg IV x1. -Patient reports recent echocardiogram with no mention of pulmonary hypertension, right-sided or left-sided heart failure. Requested records from color printer operator at [place] and , pending. -Ordered echocardiogram, pending. -Continue strict I&Os and daily weights. Net - 300 mL. 4. Chronic atrial fibrillation with mild RVR, present on admission. RVR resolved. -Initial EKG demonstrated atrial fibrillation with mild RVR with HR 110, left axis deviation and no ST/T wave changes. -Suspected to be in the setting of acute pain and/or demand ischemia. -Continue Eliquis 5 mg twice daily. Patient is not on rate control medication. 5. Acute ground level fall with closed head injury, present on admission. Stable. -Unsteady gait secondary to recent right knee surgery and patient endured a ground level fall using form support crutches. -CT head without contrast did not demonstrate any acute intracranial abnormality. CT cervical spine unremarkable for fractures or dislocations. -Continue fall precautions in frequent neuro checks. -Continue physical and occupational therapy evaluation and treatment for deconditioning, s/p right knee surgery / RLE weakness. 6. Recent right knee surgery, subacute condition, present on admission. Active. -Continue pain control with acetaminophen and Oxy IR prn -Continue physical and occupational therapy evaluation treatment. 7. Normocytic anemia, present on admission, stable -Initial hemoglobin 11 g/dL and MCV 93.1. Hemodynamically stable and no overt signs of bleeding. -Continue to monitor blood counts periodically. 8. Allergic rhinitis, chronic condition, present on admission, stable -Continue home fluticasone propionate 2 sprays intranasally twice daily. 9. Hyperlipidemia, chronic, present on admission. Stable. -Fasting lipid panel demonstrated excellent lipid control. -Continue home simvastatin 20 mg daily. 10. BPH, chronic, present on admission. Stable. -Continue tamsulosin 0.4 mg daily. Code status: Full code. Patient has a formal health directive. Patient's spouse is the designated DPOA. VTE prophylaxis: Eliquis Disposition: Patient remains hospitalized and barrier to discharge is improvement in hypoxemia. Quality VTE Deep Vein Thrombosis/Pulmonary Embolism Present on Admission: No
--- NOTE | 2019-11-17 21:13 | DI.ECHO.S_ITS ---
[facility]---------+ [facility] +---------+ : : [address] [place] : : : : [id number] : : : : Phone: [phone]+ Echocardiogram Report + + :Name: ARELI REGALADO Study Date: 11/18/2019 Height: 72 in : :Hospital Weight: 179 lb : : Gender: Male BSA: 2.0 m2 : :: 1935 Age: 84 yrs BP: 114/64 mmHg: :Reason For Study: IPF, RIGHT SIDED HEART FAILURE : :Ordering Physician: Janett : :Hospitalist Performed By: Leigh Ann Peters : :Referring: AMANUEL CLIFFORD : + + Interpretation Summary The left ventricle is normal in size. Left ventricular ejection fraction is estimated to be 50 +/- 5%. The interventricular septum is flattened, consistent with a right ventricular pressure/volume condition. The right ventricle is moderately dilated. Right ventricular systolic function is moderately reduced. Right ventricular systolic function has decreased since previous exam. There is moderate tricuspid regurgitation. Compared to the prior echo exam, there has been an increase in TR severity. The right ventricular systolic pressure is estimated to be at least 65 mmHg based on an estimated right atrial pressure of 15 mm Hg. Compared to the prior echo exam, there has been an increase in the severity of pulmonary hypertension. There is severe pulmonary hypertension. Mild pulmonary artery dilation. Procedure: A two-dimensional transthoracic echocardiogram with color flow and Doppler was performed. The study quality was technically adequate. Comparison is made with the echocardiogram of 03/05/2011. The patient was in atrial fibrillation with heart rates between 80-110 bpm during the exam. Left Ventricle: The left ventricle is normal in size. Left ventricular wall thickness is mildly increased. There is no thrombus. Left ventricular ejection fraction is estimated to be 50 +/- 5%. The interventricular septum is flattened, consistent with a right ventricular pressure/volume condition. There is inferior wall hypokinesis. Compared to the prior exam, the inferior wall motion abnormality has increased in severity. Diastolic function could not be accurately assessed due to atrial fibrillation. Right Ventricle: The right ventricle is moderately dilated. Right ventricular systolic function is moderately reduced. Right ventricular systolic function has decreased since previous exam. Atria: Both atria are severely dilated. Both atria have remained unchanged in size since the prior echo exam. The interatrial septum is intact with no evidence for an atrial septal defect. The interatrial septum bows toward left atrium consistent with elevated right atrial pressure. Mitral Valve: There is mild mitral annular calcification. The mitral valve chordae are thickened and/or calcified. The mitral valve leaflets are mildly calcified. There is mild mitral regurgitation. Aortic Valve: The aortic valve is trileaflet. The aortic valve opens well. The aortic valve is mildly calcified. There is no aortic valve stenosis. No aortic regurgitation is present. Tricuspid Valve: The tricuspid annulus is dilated. There is moderate tricuspid regurgitation. The right ventricular systolic pressure is estimated to be at least 65 mmHg based on an estimated right atrial pressure of 15 mm Hg. Compared to the prior echo exam, there has been an increase in TR severity. Compared to the prior echo exam, there has been an increase in the severity of pulmonary hypertension. There is severe pulmonary hypertension. Pulmonic Valve: The pulmonic valve is not well seen, but is grossly normal. There is mild pulmonic regurgitation. Great Vessels: The aortic root is borderline dilated. The ascending aorta is at the upper limits of normal in size. The aortic arch is normal in size. Mild pulmonary artery dilation. The IVC is dilated (diameter is greater than 2.1 cm) and it collapses less than 50% with a sniff. This suggests a high right atrial pressure of 15 mm Hg. Pericardium/ Pleura There is no pericardial effusion. MMode/2D Measurements & Calculations LVIDd: 4.1 cm LVOT diam: 2.2 cm LVIDs: 2.9 cm Ao root diam: 3.7 cm FS: 28.0 % asc Aorta Diam: 3.6 cm EPSS: 0.74 cm Ao Arch Diam (Prox Trans): 2.7 cm IVSd: 1.2 cm LVPWd: 1.0 cm LV marrero. diameter/BSA (cm/m^2): 2.0 LV sys. diameter/BSA (cm/m^2): 1.4 LA A2 area: 31.5 cm2 RA long axis: 7.8 cm LA A4 area: 33.3 cm2 RA area: 40.0 cm2 LA length (vol): 7.4 cm RA vol: 175.1 ml LA vol: 120.5 ml RA : 86.2 ml/m2 LA vol index: 59.3 ml/m2 IVC diam: 2.8 cm RVD1 (basal): 4.5 cm TAPSE: 1.6 cm Doppler Measurements & Calculations Ao V2 max: 144.8 cm/sec LVOT Max Jacques: 80.5 cm/sec Ao V2 mean: 103.0 cm/sec LV V1 max P.6 mmHg Ao max P.4 mmHg LV V1 VTI: 13.2 cm Ao mean P.8 mmHg BRIGETTE(I,D): 1.9 cm2 Ao V2 VTI: 25.5 cm BRIGETTE(V,D): 2.1 cm2 sev ratio: 0.52 BRIGETTE indexed to BSA (cm^2/m^2): 0.94 MV E max jacques: 110.5 cm/sec TR max jacques: 347.7 cm/sec MV A max jacques: 0.32 cm/sec TR max P.4 mmHg MV E/A: 342.3 PA V2 max: 61.5 cm/sec Med Peak E' Jacques: 11.4 cm/sec PA V2 mean: 39.3 cm/sec E/E' med: 9.7 PA mean P.73 mmHg Lat Peak E' Jacques: 15.9 cm/sec PA pr(Accel): 51.0 mmHg E/E' lat: 7.0 PA Accel Time: 0.07 sec E/e' average: 8.3 MV dec time: 0.15 sec MV P1/2t: 43.1 msec MV P1/2t max jacques: 103.4 cm/sec SV(LVOT): 48.8 ml MVA(P1/2t): 5.1 cm2 Reading Physician:05:04 PM
--- NOTE | 2019-11-17 21:28 | PC.NURSE ---
Addendum entered by Lidya Cardenas R.N. 11/17/19 22:50: Pt satting 91% on 7LNC at this time. Original Note: Pt shaved, oral care, voided, flossed- in bed for the evening now. RT to come back for chest percussion therapy. Pt continues to take 5 minutes to recover from any activity at all. On 9LNC, pt returns to 92%. Per Dr Casey, will attempt to wean down on O2, goal of 88%.
[2019-11-17 21:32] LABS: Procalcitonin 0.48 ng/mL (<0.5)
[2019-11-17] MEDS: ALBUTEROL/IPRATROPIUM 3 ML AMPUL INH (22:11)
[2019-11-18] VITALS (10 sets, daily range): BP systolic 105–144; BP diastolic 64–90; PULSE 71–110; RESP 16–24; TEMP 36.3–36.6; O2SAT 88–98
[2019-11-18] MEDS: ACETAMINOPHEN 325 MG TABLET 650 MG PO ×2 (01:05→10:01)
[2019-11-18 05:04] LABS: Add Manual Diff / Slide Review NO; Basophils Absolute Auto 0 /uL (0-100); Basophils Percent Auto 0.2 % (0-2); Eosinophils Absolute Auto 0 /uL (0-450); Hematocrit 31.4 % (41-53); Hemoglobin 10.5 g/dL (13.5-17.5); Lymphocytes Absolute Auto 600 /uL (1100-4500); Lymphocytes Percent Auto 4.7 % (25-40); Mean Corpuscular HGB Conc 33.5 % (30-36); Mean Corpuscular Hemoglobin 31.4 PG (26-34); Mean Corpuscular Volume 93.8 fL (80-100); Monocytes Absolute Auto 500 /uL (0-900); Monocytes Percent Auto 3.8 % (3-14); Neutrophils Absolute Auto 11800 /uL (1500-7000); Neutrophils Percent Auto 91.3 % (50-75); Platelet Count 328 X10^3/uL (150-400); Red Blood Cell Count 3.35 X10^6/uL (4.5-5.9); Red Cell Distribution Width 13.2 % (11.6-14.8); White Blood Cell Count 12.9 X10^3/uL (4.5-11.0)
[2019-11-18 05:56] LABS: Procalcitonin 0.32 ng/mL (<0.5)
[2019-11-18] MEDS: DOCUSATE 100 MG CAPSULE PO ×2 (09:52→20:36)
[2019-11-18] MEDS: APIXABAN 5 MG TABLET PO ×2 (09:52→20:36)
[2019-11-18] MEDS: TAMSULOSIN 0.4 MG CAPSULE PO (09:52)
[2019-11-18] MEDS: guaiFENesin ER 600 MG TAB 1200 MG PO ×2 (09:52→20:36)
[2019-11-18] MEDS: FLUTICASONE 120 SPRAY/16 GM SPRAY.SUSP NASAL ×2 (09:52→20:36)
[2019-11-18] MEDS: SODIUM CHLORIDE 0.9% FLUSH 10 ML IV ×2 (09:53→20:37)
[2019-11-18] MEDS: ALBUTEROL/IPRATROPIUM 3 ML AMPUL INH ×2 (10:13→20:33)
[2019-11-18] MEDS: CEFTRIAXONE 1 GM/50 ML FROZ.PIGGY IV (12:12)
[2019-11-18] MEDS: AZITHROMYCIN 500 MG in DEXTROSE 5% IN WATER 250 ML IV (13:21)
[2019-11-18] MEDS: methylPREDNISolone 125 MG/2 ML VIAL 60 MG IV (15:06)
--- NOTE | 2019-11-18 16:37 | PT.IPTN ---
Current Diagnoses Pneumonia, unspecified organism (11/15/19) Physical Therapy Treatment Note M2 PT-IP Current Condition Start: 11/16/19 11:44 Freq: NEEDED Status: Active Protocol: Document 11/16/19 13:19 AW (Rec: 11/16/19 13:46 AW [id number]) Physical Therapy Current Condition Current Condition Evaluation Date 11/16/19 Treatment Diagnosis acute hypoxic respiratory failure, pneumonia, GLF, impaired mobility Onset Date 11/15/19 Weight Bearing Status Weight Bearing Status Full Weight Bearing M3 PT-IP Subjective Start: 11/16/19 11:44 Freq: NEEDED Status: Active Protocol: Document 11/18/19 15:55 SP (Rec: 11/18/19 17:34 SP [id number]) Subjective Physical Therapy Visit Type Type Treatment Note Visit Start Time 15:55 Visit Stop Time 16:37 Total Visit Minutes 42 Notes Pt on supplimental O2. Number of AUDIT CLERK Visits 1 Physical Therapy Visit Comments Patient Comments Pt res Patient Goals Pt wants to get out of bed. Therapy Pain Assessment Pain Present Pain Present Denied Pain M4 PT-IP Mobility and Gait Start: 11/16/19 11:44 Freq: NEEDED Status: Active Protocol: Document 11/18/19 15:55 SP (Rec: 11/18/19 17:34 SP [id number]) PT-Bed Mobility Assessment Supine to Sit Supine to Sit Standby Assistance,Head of Bed Elevated PT-Transfer Assessment Sit to and From Stand Sit to and from Stand Standby Assistance,1 Person Assistance,Use of Upper Extremities Equipment Transfer Assistive Device Gait Belt,Front Wheeled Walker Orthotic/Prosthetic Devices or Brace: No Transfers Transfer Destination Chair Transfer Technique pt ambulated with FWW Transfer Ability Level of Assist Standby Assistance,Use of Upper Extremities Comments Mobility Comments Pt was resting in bed when arrived, patient had nasal canula forced air, unsure if supplimental O2 added, SpO2 at 96%. It dropped down to 88-89 % during communication during this PT tx. AUDIT CLERK educated patient slow osmotic breath pursed lip breathing with muscular low effort and improved Sp O2 increase to 91% . Pt was able to complete supine to sitting SBA with desat 84-86% recovered within 3 min to mid 90s seated at EOB . sit to stand using BUE off bed SBA desat 84% and recovered to low 90s in standing 2 min. Pt requested use of urinal while in standing with good balance contact 1 UE and use of urinal self while AUDIT CLERK provided CGA for safety and noted patient EC at times and no LOB or deviations. Pt was able to complete self hygiene if give tools to do so. Pt completed SPT using FWW to chair with good positioning of self, FWW and good slow descent but desated to 77% with forced air nasal canula improved to 93% after 4 min of recommendation of no talking and focused on breath with good demonstration . Reviewed Knee post op exercises for self performance and hand out provided for recall and reminders with good demonstration. Pt was up in chair with chair alarm on and call light and all needs in reach when left. licensed sales assistant went in room as was leaving. Gait Assessment Gait Gait Assistance Required: Standby Assistance,1 Person Assist Distance (Feet) 5 Able to Maintain Weight Bearing Status Yes During Gait Assistive Devices Assistive Device Gait Belt,Front Wheeled Walker Orthotic/Prosthetic Devices or Brace: No Gait Deviations General Gait Pattern Antalgic,Decreased Stride Length,Decreased Feet Clearance,Step-to Gait Factors Limiting Gait Function Factors Limiting Gait Function Decreased Activity Tolerance, Decreased Strength,Limited Range of Motion,Poor Balance, Poor Safety Awareness Comments Gait Comments Complete step pivot transfer bed to chair with noted desaturation to 77% during transfer but mid to high 80s during standing balance urinal activity with use of FWW for support no LOB. Pt recovered mid 90s within 4 min seated rest and cuing no talking for focuse support. Stair Climbing Assessment Comments Stair Climbing Comments not assessed PT-Balance Assessment Sitting Balance and Reactions Static Sitting Balance Ability Normal Dynamic Sitting Balance Ability Normal Standing Balance and Reactions Static Standing Balance Ability Good Dynamic Standing Balance Ability Fair Device Used FWW M5 PT-IP Objective Assessments Start: 11/16/19 11:44 Freq: NEEDED Status: Active Protocol: Document 11/16/19 13:19 AW (Rec: 11/16/19 13:46 AW [id number]) Orientation Orientation/Cognition Level of Alertness Alert Orientation Name,Day of Week,Place, Situation Language Function Ability No Deficits Noted Safety Awareness Decreased Safety Awareness Memory Description No Deficits Noted Gross Range of Motion Upper Extremity ROM Assessment Within Functional Limits Lower Extremity ROM Assessment Right Impaired Impairments Medial compartment right knee arthroplasty on 11/08/19. He was scheduled to begin outpatient PT today but had to cancel appointment Strength Upper Extremity Strength Assessment Within Functional Limits Lower Extremity Strength Assessment Right Impaired Comments Strength Comments LLE grossly 4/5; R knee 3+/5 with limited ROM. Coordination Assessment Gross Coordination Gross Coordination WNL Sensation Assessment Sensation Gross Sensation WNL M6 PT-IP Treatment Start: 11/16/19 11:44 Freq: NEEDED Status: Active Protocol: Document 11/18/19 15:55 SP (Rec: 11/18/19 17:34 SP [id number]) Physical Therapy Treatment Exercises Exercises Ankle Pumps,Quad Sets,Heel Slides,Seated Knee Flexion/ Extension Knee ROM Measurement 95 deg seated in chair Education Education Provided Precautions,Safety Other Treatments Other Treatment Performed Also educated can prop foot up in chair for assist knee extension ROM and not recommending pillow under R knee for allowing extension ROM with verbal understanding. M7 PT-IP Assessment and Plan Start: 11/16/19 11:44 Freq: NEEDED Status: Active Protocol: Document 11/18/19 15:55 SP (Rec: 11/18/19 17:34 SP [id number]) PT Summary Assessment and Plan Potential Rehabilitation Potential Good Status of Condition at Evaluation Evolving Summary Impairments ROM,Strength,Balance,Transfers ,Gait,Activity Tolerance Assessment Summary Pt wsa on high flow O2 via NC today and cont to desat upon exertion down to 84% during bed mobility and standing but recovers to low 90s with rest 2-4 min and high 70s during SPT using FWW to chair SBA, assist tubing mgt. He cont to need up to 2-4 mins to recover with pursed lip breathing. At this point, pt might need a higher care since pt has limited mobility with ongoing dyspneic / desat to unsafe level. Will cont monitor pt's condition and update d/c planning. Goals Bed Mobility Goal Independent Transfer Goal Independent,Crutches Gait Goal Independent,Crutches Gait Distance 200 Days to Meet Goals 5 Frequency of Treatment Frequency Of Treatment Once a Day Treatment Plan Physical Therapy Treatment Plan Bed Mobility Training,Transfer Training,Gait Training, Therapeutic Exercise,Balance Retraining,Post Op Education, Discharge Planning,Hot or Cold Pack,Neuromuscular Re-ed, Coordination Retraining,Manual Therapy Other Recommendations and Next Treatment assess gait with forearm Focus crutches; continually assess SpO2 Recommendations To Nursing Amount of Assist Needed 1 Person Assist Discharge Recommendations PT Discharge Recommendations Home with Assistance,Home Health,Outpatient PT Other Discharge Recommendations Home with assist + HH vs outpatient PT depending on progress Transportation Needs at Discharge Private Vehicle
--- NOTE | 2019-11-18 16:42 | P.PN_ITS ---
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 The patient is resting in bedside chair today comfortably. He continues to have dyspnea on exertion and drops his oxygen saturations into the 70s and takes several minutes to recover. He did high-flow maintaining saturations in the low 90s. He continues to have a chronic nonproductive cough that is unchanged and pleurisy that he reports with deep inhalation or exhalation. He believes his breathing has progressively worsened over the last several years and does not remember a point where it significantly worsened. He has no other complaints and denies chest pain, abdominal pain, nausea, vomiting, fever, chills, dysuria, diarrhea or constipation. He is voiding and eliminating without difficulty. Exam Vital Signs (past 8 hours): - 11/18/19 11:01 11/18/19 12:00 11/18/19 14:00 Temperature 97.4 F L Pulse Rate 110 H 94 H Respiratory Rate 24 16 Blood Pressure 114/64 Pulse Oximetry 94 94 92 11/18/19 15:52 Temperature 97.8 F Pulse Rate 83 Respiratory Rate 18 Blood Pressure 116/72 Pulse Oximetry 98 Fraction of Inspired Oxygen 0.65 Oxygen Delivery Method Heated High Flow Oxygen Flow Rate 50 Narrative Exam Narrative: General: Elderly male sitting in bed and in no acute distress, well-developed, well-nourished, appropriately interactive. HEENT: Normocephalic, atraumatic. Left orbital contusion and supraorbital laceration with sutures in place. External ears without defect. Pupils equal, round, and reactive to light. Anicteric sclerae, moist conjunctivae, and no lid lag. Oropharynx free of erythema and cobble stoning with moist mucosa. Neck: Supple with full range of motion. No lymphadenopathy or thyromegaly. Cardiovascular: Regular rate and rhythm without murmurs, rubs, or gallops appreciated Pulmonary: Diminished throughout but clear to auscultation in all lung myers with scattered crackles. No wheeze or rhonchi. Normal respiratory effort with no use of accessory muscles. Abdomen: Soft, bowel sounds present, nontender, nondistended. No hepatosplenomegaly or masses appreciated. Extremities: No clubbing, cyanosis, or edema. Right knee with dressing in place no surrounding erythema or edema and slightly tender to palpation medially. Skin: Normal temperature, turgor, and texture; no rash, ulcers, or subcutaneous nodules appreciated. Neurological: Cranial nerves grossly intact. Psychiatric: Normal mood and affect. Alert and oriented to person, place, and time. Objective Labs Result Diagrams: 11/18/19 04:45 11/17/19 04:53 Labs: Laboratory Results - last 24 hr 11/17/19 11/18/19 11/18/19 04:53 04:45 04:45 WBC 12.9 H RBC 3.35 L Hgb 10.5 L Hct 31.4 L MCV 93.8 MCH 31.4 MCHC 33.5 RDW 13.2 Plt Count 328 Neut % (Auto) 91.3 H Lymph % (Auto) 4.7 L [place] % (Auto) 3.8 Eos % (Auto) 0.0 L Baso % (Auto) 0.2 Neut # (Auto) 72445 H Lymph # (Auto) 600 L [place] # (Auto) 500 Eos # (Auto) 0 Baso # (Auto) 0 Procalcitonin 0.48 0.32 Assessment & Plan Assessment & Plan narrative: Gonzalez Mendez is a 89-year-old male with a past medical history significant for hyperlipidemia, chronic atrial fibrillation on Eliquis, 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 He remains admitted for acute, possibly on chronic hypoxemic respiratory failure. 1. Acute postoperative pneumonia, in setting of chronic idiopathic pulmonary fibrosis, present on admission. Active. -Patient endorses progressive worsening shortness of breath, especially dyspnea on exertion. -Patient is followed by pulmonology Dr. Lopez at [facility] and Dr. Mitchell at the [facility]. -Chest x-ray demonstrated right middle lobe pneumonia superimposed on interstitial lung disease. -CT chest without contrast demonstrated diffuse interstitial infiltrates and pulmonary fibrosis, likely secondary to chronic interstitial lung disease such as UIP, groundglass infiltrates bilaterally, predominantly involving the lower lobes bilaterally, which may be secondary to superimposed acute pneumonia or pulmonary edema, pleural thickening and calcification with possible small loculated pleural effusion in right hemithorax, mediastinal and hilar lymphadenopathy. -Ordered complete pneumonia workup including: Respiratory viral PCR negative. Strep pneumoniae and Legionella urine antigens, pending. Sputum culture, pending but unable to currently make a sample. Blood cultures not collected prior to antibiotic administration. -Initial WBC 12.5 and procalcitonin 0.26. WBC increased to 15.7 and pro calcitonin increased to 0.56. This then improved to 10 but is again 12.9 today after starting steroids. -Received ceftriaxone 1 g IV x1 and azithromycin 500 mg IV x1 in ED. Continue ceftriaxone 1 g IV daily and azithromycin 500 mg IV x3 total doses. 2. Acute likely on chronic hypoxemic respiratory failure, present on admission. Active. -Patient has not previously required oxygen at baseline. Patient is followed by pulmonology Dr. Lopez at [facility] and Dr. Mitchell at the [facility] on. -Suspected to be in the setting of an acute pulmonary edema versus postop PNA versus progressive ILD. -Received methylprednisolone 125 mg IV x1 in ED. Started methylprednisolone 60 mg IV daily for anti-inflammatory effects as patient's previous lung biopsy demonstrated pulmonary fibrosis with pneumonitis. -Continue respiratory therapy evaluation treatment. Patient currently on heated high flow supplemental O2. Goal oxygen saturation 88-92% and continue to titrate down as tolerated. Continue DuoNebs as needed for shortness of breath or wheezing every 4 hours while awake. Continue incentive spirometer and ordered Acapella. Ordered chest physiotherapy every 4 hours per RT protocol. O rdered Mucinex 1200 mg twice daily. -Treat underlying pneumonia as above. -If no further improvement with above interventions will discuss with patient's pulmonary providers at [facility] and / or . 3. Possible acute pulmonary edema, present on admission. Resolved. -Patient is not appear to be overtly fluid overloaded. -CT chest without contrast demonstrated ground-glass opacities suspicious for possible pneumonia versus pulmonary edema. -Received furosemide 40 mg IV x1. -Patient reports recent echocardiogram with no mention of pulmonary hypertension, right-sided or left-sided heart failure. Requested records from termite treater helper at [facility] and , pending. -Ordered echocardiogram, pending final read today. -Continue strict I&Os and daily weights. Net - 350 mL since admission. 4. Chronic atrial fibrillation with mild RVR, present on admission. RVR resolved. -Initial EKG demonstrated atrial fibrillation with mild RVR with HR 110, left axis deviation and no ST/T wave changes. -Suspected to be in the setting of acute pain and/or demand. -Continue Eliquis 5 mg twice daily. Patient is not on rate control medication. 5. Acute ground level fall with closed head injury, present on admission. Stable. -Unsteady gait secondary to recent right knee surgery and patient endured a gr ound level fall using form support crutches. -CT head without contrast did not demonstrate any acute intracranial abnormality. CT cervical spine unremarkable for fractures or dislocations. -Continue fall precautions in frequent neuro checks. -Continue physical and occupational therapy evaluation and treatment for deconditioning, s/p right knee surgery / RLE weakness. 6. Recent right knee surgery, subacute condition, present on admission. Active. -Continue pain control with acetaminophen and Oxy IR prn -Continue physical and occupational therapy evaluation treatment. 7. Normocytic anemia, present on admission, stable -Initial hemoglobin 11 g/dL and MCV 93.1. Hemodynamically stable and no overt signs of bleeding. -Continue to monitor blood counts periodically. 8. Allergic rhinitis, chronic condition, present on admission, stable -Continue home fluticasone propionate 2 sprays intranasally twice daily. 9. Hyperlipidemia, chronic, present on admission. Stable. -Fasting lipid panel demonstrated excellent lipid control. -Continue home simvastatin 20 mg daily. 10. BPH, chronic, present on admission. Stable. -Continue tamsulosin 0.4 mg daily. Code status: Full code. Patient has a formal health directive. Patient's spouse is the designated DPOA. VTE prophylaxis: Eliquis Disposition: Patient remains hospitalized and barrier to discharge is improvement in hypoxemia. Quality VTE Deep Vein Thrombosis/Pulmonary Embolism Present on Admission: No
[2019-11-18] MEDS: SIMVASTATIN 20 MG TABLET PO (20:37)
--- NOTE | 2019-11-18 21:27 | PC.NURSE ---
2030 - Pt sitting up in a chair. Pleasant and conversive. Pt removed O2 to blow nose and administer nasal spray. Sats decreased to 75% on RA. Recovered quickly to 94% with replacement of O2, Heated high flow. RT to replace battery in HHF meter. Flow rate 50. Pt requesting to be premedicated for right knee pain prior to therapy tomorrow. Message left for therapy. Chair alarm on. Reinforced safety and call light use. Call light in reach.
[2019-11-18] MEDS: OXYCODONE IR 5 MG TABLET PO (23:42)
[2019-11-19] VITALS (13 sets, daily range): BP systolic 117–146; BP diastolic 72–96; PULSE 85–107; RESP 16–35; TEMP 36.1–36.9; O2SAT 84–99
[2019-11-19 03:17] LABS: Add Manual Diff / Slide Review NO; Basophils Absolute Auto 100 /uL (0-100); Basophils Percent Auto 0.7 % (0-2); Eosinophils Absolute Auto 0 /uL (0-450); Hematocrit 33.2 % (41-53); Hemoglobin 11.1 g/dL (13.5-17.5); Lymphocytes Absolute Auto 1900 /uL (1100-4500); Lymphocytes Percent Auto 10.6 % (25-40); Mean Corpuscular HGB Conc 33.6 % (30-36); Mean Corpuscular Hemoglobin 31.4 PG (26-34); Mean Corpuscular Volume 93.6 fL (80-100); Monocytes Absolute Auto 800 /uL (0-900); Monocytes Percent Auto 4.2 % (3-14); Neutrophils Absolute Auto 15300 /uL (1500-7000); Neutrophils Percent Auto 84.5 % (50-75); Platelet Count 327 X10^3/uL (150-400); Red Blood Cell Count 3.54 X10^6/uL (4.5-5.9); Red Cell Distribution Width 13.2 % (11.6-14.8); White Blood Cell Count 18.1 X10^3/uL (4.5-11.0)
[2019-11-19 03:26] LABS: BUN Creatinine Ratio 38.6 (6-22); Blood Urea Nitrogen 27 mg/dL (9-20); Calcium 8.9 mg/dL (8.4-10.2); Carbon Dioxide 26 mmol/L (22-32); Chloride 99 mmol/L (98-107); Estimated Glomerular Filt Rate > 60.0 mL/min (>60); Glucose 204 mg/dL (80-110); HEMOLYSIS < 15 (0-50); Magnesium 2.4 mg/dL (1.6-2.3); Potassium 4.4 mmol/L (3.4-5.1); Sodium 136 mmol/L (137-145)
--- NOTE | 2019-11-19 03:41 | PC.NURSE ---
0252 bed alarm heard from outside room 227. AMBREEN Conh entered room to find patient had quickly gotten OOB, taken off his oxygen and had made it to the bathroom already. POLICE LIAISON noted difficulty breathing so immediately yelled for assistance. This RN, Viola, RN and JACKI Irby who happened to be at the nurses' station at the time quickly ran in to assist. Patient found on the toilet with agonal breathing, diaphoretic and dusky in color. Carried back to the bed by four stated staff members and code called at 0254 for respiratory arrest. Carotid pulse palpable, Afib CVR on the monitor. BVMV performed by JACKI Irby. 0258 Nasal trumpet placed to left nare by RT with adequate chest rise and improvement in oxygenation noted. 0259 Patient maintained pulse and regained consciousness as well as following simple commands. BP 162/92, HR 122 (AFIB). Patient placed on NRB at full oxygen and then switched over to the HHFNC when appropriate by RT at bedside. New SL initiated to left AC, lab at bedside for blood draw. 0330 Patient awake, alert and oriented. He recalls the the event and prior activity to event stating I know I shouldn't get up but I thought I would be fine and I was at first. Educated on his need for oxygen at all times and that he is at this time on strict bedrest. Bed alarm again verified active. Patient voiced belief that this is probably how I collapsed at home. 0358 Current vitals: 152/65 (92), Tele Afib rate 96, RR 28, Sp02 93% on 55L flow, Fi02 73%. Patient with notable desaturations still with minimal conversation. Patient advised to limit conversation and focus on his breathing. Fidgety in bed.
--- NOTE | 2019-11-19 05:48 | PM.EVENT ---
Event Note Date Patient Seen: 11/19/19 Time Patient Seen: 02:50 Event Note: Rapid response: The patient is an 89-year-old male with a past medical history of of AFIB, chronic Eliquis anticoagulation, interstitial pulmonary fibrosis, bronchiectasis, GERD, BPH and hyperlipidemia who has required high-flow oxygen and with exertion or conversation will desatted to the 70s to 80s. The patient decided spontaneously to get out of bed and go to the bathroom where he became severely dyspneic, short of breath and collapsing to the floor. Patient was found gasping for air progressing to agonal respirations and becoming dusky. A rapid response was called. The patient was rapidly returned to bed with initiation of [id number] ventilation with 100% oxygen. The patient had radial pulse and was placed on a monitor and continue to be in AFib with an accelerated rate into the 130s. The patient began breathing on his own tachypneic with good tidal volume. A nasal trumpet was heard into the right nare to facilitate ventilation with minimal response. Patient pulse oximetry returns into the 80s to low 90s on 100% O2 and blood pressure remains adequate. The patient remains somnolent but will squeeze hand on command. GENERAL APPEARANCE: well developed, well nourished, in no acute distress. HEENT: Resolving periorbital ecchymosis, PERRLA, sluggish, no epistaxis, mucous membranes are moist and pink NECK/THYROID: neck supple SKIN: Pale, cool, diaphoretic HEART: Irregularly irregular tachycardic rhythm, 2+ radial pulse. LUNGS: Coarse on auscultation bilaterally, no wheezing, patient able to produce a good cough. CHEST: Symmetrical movement, no accessory muscle use, good tidal volume. ABDOMEN: Soft, no distention, no abdominal tenderness, active bowel tones. BACK: Normal curvature, nontender to palpation, no CVA tenderness on percussion EXTREMITIES: Intact dressing right anterior knee, moves all extremities,no deformities. NEUROLOGIC: GCS 11 (), patient will follow commands and gaze tracts bilaterally. Respiratory arrest secondary to profound hypoxemia. The patient spontaneously attempted to get out of bed and ambulate to the bathroom collapsing the bathroom. Upon returning patient to bed patient with agonal respirations with inadequate ventilation. Ventilation supported with bag-valve mask device with return of spontaneous respiratory drive. The patient is return to high-flow oxygen 70% with SP you to stabilizing at 90%. Patient is slowly improving in responsiveness to becoming conversant. No trauma associated with the event. Heart rhythm remains atrial fibrillation return to a controlled rate. Patient denies acute pain or complications from the event. Continue plan of care with addition of enhanced observation.
[2019-11-19] MEDS: ALBUTEROL/IPRATROPIUM 3 ML AMPUL INH ×3 (07:38→19:44)
[2019-11-19] MEDS: TAMSULOSIN 0.4 MG CAPSULE PO (09:07)
[2019-11-19] MEDS: APIXABAN 5 MG TABLET PO ×2 (09:07→20:30)
[2019-11-19] MEDS: guaiFENesin ER 600 MG TAB 1200 MG PO ×2 (09:07→20:30)
[2019-11-19] MEDS: methylPREDNISolone 125 MG/2 ML VIAL 60 MG IV ×2 (09:08→20:31)
[2019-11-19] MEDS: DOCUSATE 100 MG CAPSULE PO (09:08)
[2019-11-19] MEDS: SODIUM CHLORIDE 0.9% FLUSH 10 ML IV ×2 (09:09→20:38)
[2019-11-19] MEDS: FLUTICASONE 120 SPRAY/16 GM SPRAY.SUSP NASAL ×2 (09:09→20:31)
[2019-11-19] MEDS: OXYCODONE IR 5 MG TABLET PO (09:30)
[2019-11-19] MEDS: CEFTRIAXONE 1 GM/50 ML FROZ.PIGGY IV (11:00)
--- NOTE | 2019-11-19 14:55 | PT.IPTN ---
Current Diagnoses Pneumonia, unspecified organism (11/15/19) Physical Therapy Treatment Note M2 PT-IP Current Condition Start: 11/16/19 11:44 Freq: NEEDED Status: Active Protocol: Document 11/16/19 13:19 AW (Rec: 11/16/19 13:46 AW [id number]) Physical Therapy Current Condition Current Condition Evaluation Date 11/16/19 Treatment Diagnosis acute hypoxic respiratory failure, pneumonia, GLF, impaired mobility Onset Date 11/15/19 Weight Bearing Status Weight Bearing Status Full Weight Bearing M3 PT-IP Subjective Start: 11/16/19 11:44 Freq: NEEDED Status: Active Protocol: Document 11/19/19 14:26 KS (Rec: 11/19/19 15:47 KS [id number]) Subjective Physical Therapy Visit Type Type Treatment Note Visit Start Time 14:26 Visit Stop Time 14:55 Total Visit Minutes 29 Notes Pt on supplimental O2. Per RN, pt must stay in bed. Number of SIGNAL APPRENTICE Visits 2 Physical Therapy Visit Comments Patient Comments Pt agreeable to perform LE strengthening exercises in bed . M4 PT-IP Mobility and Gait Start: 11/16/19 11:44 Freq: NEEDED Status: Active Protocol: Document 11/19/19 14:26 KS (Rec: 11/19/19 15:47 KS [id number]) PT-Transfer Assessment Comments Mobility Comments Pt was in bed w/ HOB elevated upon arrival from therapy. Pts O2 99% prior to initiating treatment on flood O2. Instructed pt and pt performed 1x10 bilat ankle pumps, quad sets, glute sets, and heel slides, and 1x5 SLR. Pts O2 fluctuated between 93-99 throughout treatment. Pt took 1 min rest break between each exercises w/ cues for deep breathing. Pt left in bed w/ all needs in reach and O2 at 98%. Gait Assessment Comments Gait Comments not assessed. Stair Climbing Assessment Comments Stair Climbing Comments not assessed M5 PT-IP Objective Assessments Start: 11/16/19 11:44 Freq: NEEDED Status: Active Protocol: Document 11/16/19 13:19 AW (Rec: 11/16/19 13:46 AW [id number]) Orientation Orientation/Cognition Level of Alertness Alert Orientation Name,Day of Week,Place, Situation Language Function Ability No Deficits Noted Safety Awareness Decreased Safety Awareness Memory Description No Deficits Noted Gross Range of Motion Upper Extremity ROM Assessment Within Functional Limits Lower Extremity ROM Assessment Right Impaired Impairments Medial compartment right knee arthroplasty on 11/08/19. He was scheduled to begin outpatient PT today but had to cancel appointment Strength Upper Extremity Strength Assessment Within Functional Limits Lower Extremity Strength Assessment Right Impaired Comments Strength Comments LLE grossly 4/5; R knee 3+/5 with limited ROM. Coordination Assessment Gross Coordination Gross Coordination WNL Sensation Assessment Sensation Gross Sensation WNL M6 PT-IP Treatment Start: 11/16/19 11:44 Freq: NEEDED Status: Active Protocol: Document 11/19/19 14:26 KS (Rec: 11/19/19 15:47 KS [id number]) Physical Therapy Treatment Exercises Exercises Ankle Pumps,Gluteal Sets,Quad Sets,Heel Slides,Straight Leg Raises Education Education Provided Precautions,Safety M7 PT-IP Assessment and Plan Start: 11/16/19 11:44 Freq: NEEDED Status: Active Protocol: Document 11/19/19 14:26 KS (Rec: 11/19/19 15:47 KS [id number]) PT Summary Assessment and Plan Potential Rehabilitation Potential Good Status of Condition at Evaluation Evolving Summary Impairments ROM,Strength,Balance,Transfers ,Gait,Activity Tolerance Assessment Summary Pt was on flood O2 while working w/ therapy. Pts O2 remained >93 throughout treatment. Pt performed ankle pumps, quad sets, glute sets, heel slides, and SLR w/ 1 min rest break between each. Pt left in bed w/ O2 at 98% and in room. Goals Bed Mobility Goal Independent Transfer Goal Independent,Crutches Gait Goal Independent,Crutches Gait Distance 200 Days to Meet Goals 5 Frequency of Treatment Frequency Of Treatment Once a Day Treatment Plan Physical Therapy Treatment Plan Bed Mobility Training,Transfer Training,Gait Training, Therapeutic Exercise,Balance Retraining,Post Op Education, Discharge Planning,Hot or Cold Pack,Neuromuscular Re-ed, Coordination Retraining,Manual Therapy Other Recommendations and Next Treatment assess gait with forearm Focus crutches; continually assess SpO2 Recommendations To Nursing Amount of Assist Needed 1 Person Assist Discharge Recommendations PT Discharge Recommendations Home with Assistance,Home Health,Outpatient PT Other Discharge Recommendations Home with assist + HH vs outpatient PT depending on progress Transportation Needs at Discharge Private Vehicle
--- NOTE | 2019-11-19 16:26 | PM.PN.1 ---
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 The patient is resting in bedside chair today comfortably. Overnight he tried to get up to go to the bathroom without supplemental oxygen as documented in previous event note. He is currently maintaining his O2 saturations in the low 90s in bed on high-flow with a rate of 55 L at 30% FiO2. He continues to have a chronic nonproductive cough that is unchanged and pleurisy that he reports with deep inhalation or exhalation. He believes his breathing has progressively worsened over the last several years and does not remember a point where it significantly worsened. He has no other complaints and denies chest pain, abdominal pain, nausea, vomiting, fever, chills, dysuria, diarrhea or constipation. He is voiding and eliminating without difficulty. I have left messages and attempted to page the patient's cloth wire weaver at [facility], Dr. Mitchell, but have not heard back as of this time. I have also placed an order for palliative care consultation and discussed this with the family. Exam Vital Signs (past 8 hours): - 11/19/19 12:00 11/19/19 14:19 11/19/19 16:12 Temperature 97.1 F L 98.3 F Pulse Rate 96 H 87 107 H Respiratory Rate 26 H 21 25 H Blood Pressure 134/89 131/77 Pulse Oximetry 95 98 84 L Fraction of Inspired Oxygen 30 Oxygen Delivery Method Heated High Flow Oxygen Flow Rate 55 Narrative Exam Narrative: General: Elderly male sitting in bed and in no acute distress, well-developed, well-nourished, appropriately interactive. On high-flow nasal cannula. HEENT: Normocephalic, atraumatic. Left orbital contusion and supraorbital laceration with sutures in place. External ears without defect. Pupils equal, round, and reactive to light. Anicteric sclerae, moist conjunctivae, and no lid lag. Oropharynx free of erythema and cobble stoning with moist mucosa. Neck: Supple with full range of motion. No lymphadenopathy or thyromegaly. Cardiovascular: Regular rate and rhythm without murmurs, rubs, or gallops appreciated Pulmonary: Diminished throughout but clear to auscultation in all lung myers with scattered crackles. No wheeze or rhonchi. Normal respiratory effort with no use of accessory muscles. Abdomen: Soft, bowel sounds present, nontender, nondistended. No hepatosplenomegaly or masses appreciated. Extremities: No clubbing, cyanosis, or edema. Right knee with dressing in place no surrounding erythema or edema and slightly tender to palpation medially. Skin: Normal temperature, turgor, and texture; no rash, ulcers, or subcutaneous nodules appreciated. Neurological: Cranial nerves grossly intact. Psychiatric: Normal mood and affect. Alert and oriented to person, place, and time. Objective Labs Result Diagrams: 11/19/19 03:05 11/19/19 03:05 Labs: Laboratory Results - last 24 hr 11/19/19 11/19/19 03:05 03:05 WBC 18.1 H RBC 3.54 L Hgb 11.1 L Hct 33.2 L MCV 93.6 MCH 31.4 MCHC 33.6 RDW 13.2 Plt Count 327 Neut % (Auto) 84.5 H Lymph % (Auto) 10.6 L Walton % (Auto) 4.2 Eos % (Auto) 0.0 L Baso % (Auto) 0.7 Neut # (Auto) 10257 H Lymph # (Auto) 1900 Walton # (Auto) 800 Eos # (Auto) 0 Baso # (Auto) 100 Sodium 136 L Potassium 4.4 Chloride 99 Carbon Dioxide 26 BUN 27 H Creatinine 0.70 Estimated GFR > 60.0 BUN/Creatinine Ratio 38.6 H Glucose 204 H D Calcium 8.9 Magnesium 2.4 H Assessment & Plan Assessment & Plan narrative: Gonzalez Mendez is a 89-year-old male with a past medical history significant for hyperlipidemia, chronic atrial fibrillation on Eliquis, 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 He remains admitted for acute, possibly on chronic hypoxemic respiratory failure. 1. Acute postoperative pneumonia, in setting of chronic idiopathic pulmonary fibrosis, present on admission. Active. -Patient endorses progressive worsening shortness of breath, especially dyspnea on exertion. -Patient is followed by pulmonology Dr. Lopez at [place] and Dr. Mitchell at the [facility]. -Chest x-ray demonstrated right middle lobe pneumonia superimposed on interstitial lung disease. -CT chest without contrast demonstrated diffuse interstitial infiltrates and pulmonary fibrosis, likely secondary to chronic interstitial lung disease such as UIP, groundglass infiltrates bilaterally, predominantly involving the lower lobes bilaterally, which may be secondary to superimposed acute pneumonia or pulmonary edema, pleural thickening and calcification with possible small loculated pleural effusion in right hemithorax, mediastinal and hilar lymphadenopathy. -Ordered complete pneumonia workup including: Respiratory viral PCR negative. Strep pneumoniae and Legionella urine antigens, pending. Sputum culture, which is collected and now in process. Blood cultures not collected prior to antibiotic administration. -white blood cell count has increased and decreased, not concordant with symptoms. His recent rise is likely due to steroids. -Received ceftriaxone 1 g IV x1 and azithromycin 500 mg IV x1 in ED. Continue ceftriaxone 1 g IV daily and azithromycin 500 mg IV. 2. Acute likely on chronic hypoxemic respiratory failure, present on admission. Active. -Patient has not previously required oxygen at baseline. Patient is followed by pulmonology Dr. Loepz at [place] and Dr. Mitchell at the [facility]. -Suspected to be in the setting of an acute pulmonary edema versus postop PNA versus progressive ILD. -Received methylprednisolone 125 mg IV x1 in ED. Started methylprednisolone 60 mg IV daily for anti-inflammatory effects as patient's previous lung biopsy demonstrated pulmonary fibrosis with pneumonitis. -Continue respiratory therapy evaluation treatment. Patient currently on heated high flow supplemental O2. Goal oxygen saturation 88-92% and continue to titrate down as tolerated. Continue DuoNebs as needed for shortness of breath or wheezing every 4 hours while awake. Continue incentive spirometer and ordered Acapella. Ordered chest physiotherapy every 4 hours per RT protocol. Ordered Mucinex 1200 mg twice daily. -Treat underlying pneumonia as above. -have reached out to the patient's cloth wire weaver at the [facility], awaiting a call back. -will attempt diuresis given echocardiogram result which showed evidence of some overload, but also right-sided heart failure which is likely due to his underlying lung disease. 3. Possible acute pulmonary edema, present on admission. Resolved. -Patient is not appear to be overtly fluid overloaded. -CT chest without contrast demonstrated ground-glass opacities suspicious for possible pneumonia versus pulmonary edema. -Received furosemide 40 mg IV x1, we will attempt further diuresis starting this evening with 40 mg every 12 hours. -Patient reports recent echocardiogram with no mention of pulmonary hypertension, right-sided or left-sided heart failure. Requested records from cloth wire weaver at [place] and , pending. -echocardiogram here showed an EF of 50 %, with interventricular septal flattening consistent with a right ventricular pressure/volume condition. There is right-sided systolic dysfunction likely secondary to above pulmonary disease. -Continue strict I&Os and daily weights. Net - 350 mL since admission. 4. Chronic atrial fibrillation with mild RVR, present on admission. RVR resolved. -Initial EKG demonstrated atrial fibrillation with mild RVR with HR 110, left axis deviation and no ST/T wave changes. -Suspected to be in the setting of acute pain and/or demand. -Continue Eliquis 5 mg twice daily. Patient is not on rate control medication. 5. Acute ground level fall with closed head injury, present on admission. Stable. -Unsteady gait secondary to recent right knee surgery and patient endured a ground level fall using form support crutches. -CT head without contrast did not demonstrate any acute intracranial abnormality. CT cervical spine unremarkable for fractures or dislocations. -Continue fall precautions in frequent neuro checks. -Continue physical and occupational therapy evaluation and treatment for deconditioning, s/p right knee surgery / RLE weakness. 6. Recent right knee surgery, subacute condition, present on admission. Active. -Continue pain control with acetaminophen and Oxy IR prn -Continue physical and occupational therapy evaluation treatment. 7. Normocytic anemia, present on admission, stable -Initial hemoglobin 11 g/dL and MCV 93.1. Hemodynamically stable and no overt signs of bleeding. -Continue to monitor blood counts periodically. 8. Allergic rhinitis, chronic condition, present on admission, stable -Continue home fluticasone propionate 2 sprays intranasally twice daily. 9. Hyperlipidemia, chronic, present on admission. Stable. -Fasting lipid panel demonstrated excellent lipid control. -Continue home simvastatin 20 mg daily. 10. BPH, chronic, present on admission. Stable. -Continue tamsulosin 0.4 mg daily. Code status: Full code. Patient has a formal health directive. Patient's spouse is the designated DPOA. VTE prophylaxis: Eliquis Disposition: Patient remains hospitalized and barrier to discharge is improvement in hypoxemia. Quality VTE Deep Vein Thrombosis/Pulmonary Embolism Present on Admission: No
[2019-11-19] MEDS: AZITHROMYCIN 500 MG in DEXTROSE 5% IN WATER 250 ML IV (16:54)
[2019-11-19] MEDS: FUROSEMIDE 40 MG/4 ML VIAL IV (17:06)
[2019-11-19] MEDS: SIMVASTATIN 20 MG TABLET PO (20:31)
--- NOTE | 2019-11-19 22:37 | PC.NURSE ---
Patient A/Ox4, heated high flow 55L and spO2 89-98% depending on activity. Will desat just from talking alone. On strict bedrest for sake of maintaining O2 level and considering fall/apnea event previous night. Denies pain. Uses urinal and bedpan. Palliative care consult still pending. Bed alarm on, call light within reach.
[2019-11-20] VITALS (11 sets, daily range): BP systolic 119–137; BP diastolic 68–84; PULSE 87–95; RESP 19–41; TEMP 36.2–37.1; O2SAT 86–98
--- NOTE | 2019-11-20 04:57 | PC.NURSE ---
Patient removed his oxygen for < 25 seconds because I'm all tangled up and need to pee. Substantial desaturations immediately with Sp02 down to the low 60's with dusky coloring. Slow recovery back up to 88% due to excessive talking regardless of encouragement to cease communication and focus on his breathing. Patient states, don't lecture me, ma'am. Educated on extreme importance of oxygenation for him at this point. Verbalized understanding. RT at bedside. Sp02 currently 96% on HHFNC 55L flow, 60% Fi02.
[2019-11-20 05:23] LABS: Add Manual Diff / Slide Review NO; Basophils Absolute Auto 0 /uL (0-100); Basophils Percent Auto 0.3 % (0-2); Eosinophils Absolute Auto 0 /uL (0-450); Lymphocytes Absolute Auto 700 /uL (1100-4500); Mean Corpuscular HGB Conc 34.3 % (30-36); Mean Corpuscular Hemoglobin 31.6 PG (26-34); Monocytes Absolute Auto 700 /uL (0-900); Monocytes Percent Auto 4.2 % (3-14); Neutrophils Absolute Auto 16400 /uL (1500-7000); Neutrophils Percent Auto 91.5 % (50-75); Platelet Count 257 X10^3/uL (150-400); Red Blood Cell Count 3.47 X10^6/uL (4.5-5.9); White Blood Cell Count 17.9 X10^3/uL (4.5-11.0)
[2019-11-20 05:40] LABS: Blood Urea Nitrogen 27 mg/dL (9-20); Calcium 8.9 mg/dL (8.4-10.2); Carbon Dioxide 32 mmol/L (22-32); Chloride 92 mmol/L (98-107); Estimated Glomerular Filt Rate > 60.0 mL/min (>60); Glucose 155 mg/dL (80-110); HEMOLYSIS < 15 (0-50); Magnesium 2.2 mg/dL (1.6-2.3); Sodium 132 mmol/L (137-145)
[2019-11-20] MEDS: ALBUTEROL/IPRATROPIUM 3 ML AMPUL INH ×3 (07:49→17:52)
[2019-11-20] MEDS: methylPREDNISolone 125 MG/2 ML VIAL 60 MG IV ×2 (10:14→21:15)
[2019-11-20] MEDS: APIXABAN 5 MG TABLET PO ×2 (10:15→21:16)
[2019-11-20] MEDS: guaiFENesin ER 600 MG TAB 1200 MG PO ×2 (10:15→21:16)
[2019-11-20] MEDS: TAMSULOSIN 0.4 MG CAPSULE PO (10:16)
[2019-11-20] MEDS: SODIUM CHLORIDE 0.9% FLUSH 10 ML IV ×2 (10:16→20:00)
[2019-11-20] MEDS: FLUTICASONE 120 SPRAY/16 GM SPRAY.SUSP NASAL ×2 (10:17→21:15)
--- NOTE | 2019-11-20 10:18 | PT-IP ANOTE ---
Per nursing, will not see pt today d/t bed rest and O2 desat.
--- NOTE | 2019-11-20 11:14 | PC.NURSE ---
Addendum entered by Gina Morrow R.N. 11/20/19 15:07: 1400-Pt declined PRN Ativan, educated about goals and comfort, Pt continues with unacceptance/disbelief of progression of care, has been devi with Pt about his goals. Spoke frankly, You likely wont be coming home from this, please understand that. I need to know what you want me to do Dr Ross at bedside currently discussing code status, as Pt remains full code. Denies pain this shift. Aquacell to knee CDI. CMS+, Day 11 post op. Addendum entered by Gina Morrow R.N. 11/20/19 13:12: 55L and 60%, Pt has zero tolerance for being off the heated hi flow, even with repositioning, Pt has desat episodes that drop Spo2 to 70% and leave patient with an extended recovery. This has also caused Pt and spouse increased anxiety with increased alarms audible. Discussed goal of care, and Pt and are both tearful. I didnt know I was this sick. reassured. Allowed Pt time to ask questions about expectations and offered brenden services. Strict bedrest. Original Note: AM shift Pt is continued on Heated hi flow oxygen,
--- NOTE | 2019-11-20 12:27 | CM.DPC ---
DCP/continued: Spoke with Dr. Ross this AM. He reports that he will have discussion with patient and spouse today about goals of care and next steps. At this time patient progressively worsening. Currently on high [address] Ross requesting that palliative see patient on Friday11-22-19 if possible. Apparently, they were unable to see on Friday11-19-19. CM team will continue to follow closely for needs and or support. P: Pending. Patient with pulmonary fibrosis and not improving. BILL Brito
[2019-11-20] MEDS: FUROSEMIDE 40 MG/4 ML VIAL IV ×2 (13:07→23:40)
[2019-11-20] MEDS: CEFTRIAXONE 1 GM/50 ML FROZ.PIGGY IV (13:08)
--- NOTE | 2019-11-20 16:14 | P.PN_ITS ---
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 He has been admitted with hypoxic respiratory failure. He remains on hi flow nasal cannula today, and continues to desaturate with minimal movement. The patient is resting in his bed today comfortably. He is currently maintaining his O2 saturations in the high 90s in bed on high-flow with a rate of 55 L at 60% FiO2, up from yesterday. Calls were again made in attempt to reach pulmonology today, but there has been no response back. Given his continued worsening, extensive discussions today about patient's goals of care were performed with the patient and his . Ultimately the patient expressed a desire not to remain on a ventilator long-term, and given the likelihood that if he were intubated it would potentially be permanent, or extremely prolonged requiring a tracheostomy, he decided that he would not want to be intubated or undergo chest compressions. He still wishes to continue the current plan of treatment including antibiotics, steroids, and diuretics in the hopes that he may start to improve. Family would very much like to talk with palliative care, and hopefully they will be available on Friday for this discussion. Exam Vital Signs (past 8 hours): - 11/20/19 08:58 11/20/19 13:00 11/20/19 13:08 Temperature 97.1 F L 97.4 F L Pulse Rate 90 91 H 94 H Respiratory Rate 32 H 29 H 22 Blood Pressure 134/84 124/69 Pulse Oximetry 90 L 92 95 11/20/19 16:00 Temperature 97.8 F Pulse Rate 93 H Respiratory Rate 33 H Blood Pressure 123/76 Pulse Oximetry 98 Fraction of Inspired Oxygen 60 Oxygen Delivery Method Heated High Flow Oxygen Flow Rate 55 Narrative Exam Narrative: General: Elderly male sitting in bed and in no acute distress, appears fatigued and more chronically ill appearing today, appropriately interactive. On high-flow nasal cannula. HEENT: Normocephalic, atraumatic. Left orbital contusion and supraorbital laceration with sutures in place. External ears without defect. Pupils equal, round, and reactive to light. Anicteric sclerae, moist conjunctivae, and no lid lag. Oropharynx free of erythema and cobble stoning with moist mucosa. Neck: Supple with full range of motion. No lymphadenopathy or thyromegaly. Cardiovascular: Regular rate and rhythm without murmurs, rubs, or gallops appreciated Pulmonary: Diminished throughout but clear to auscultation in all lung myers with scattered crackles. No wheeze or rhonchi. Normal respiratory effort with no use of accessory muscles. Abdomen: Soft, bowel sounds present, nontender, nondistended. No hepatosplenomegaly or masses appreciated. Extremities: No clubbing, cyanosis, or edema. Right knee with dressing in place no surrounding erythema or edema and slightly tender to palpation medially. Skin: Normal temperature, turgor, and texture; no rash, ulcers, or subcutaneous nodules appreciated. Neurological: Cranial nerves grossly intact. Psychiatric: Normal mood and affect. Alert and oriented to person, place, and time. Objective Labs Result Diagrams: 11/20/19 05:02 11/20/19 05:02 Labs: Laboratory Results - last 24 hr 11/20/19 11/20/19 05:02 05:02 WBC 17.9 H RBC 3.47 L Hgb 11.0 L Hct 32.0 L MCV 92.0 MCH 31.6 MCHC 34.3 RDW 13.0 Plt Count 257 Neut % (Auto) 91.5 H Lymph % (Auto) 4.0 L [place] % (Auto) 4.2 Eos % (Auto) 0.0 L Baso % (Auto) 0.3 Neut # (Auto) 32855 H Lymph # (Auto) 700 L [place] # (Auto) 700 Eos # (Auto) 0 Baso # (Auto) 0 Sodium 132 L Potassium 4.0 Chloride 92 L Carbon Dioxide 32 BUN 27 H Creatinine 0.60 L Estimated GFR > 60.0 BUN/Creatinine Ratio 45.0 H Glucose 155 H Calcium 8.9 Magnesium 2.2 Assessment & Plan Assessment & Plan narrative: Gonzalez Mendez is a 89-year-old male with a past medical history significant for hyperlipidemia, chronic atrial fibrillation on Eliquis, 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 He remains admitted for acute, possibly on chronic hypoxemic respiratory failure. 1. Acute postoperative pneumonia vs acute exacerbation of IPF in setting of chronic idiopathic pulmonary fibrosis, present on admission. Active. -Patient endorses progressive worsening shortness of breath, especially dyspnea on exertion. -Patient is followed by pulmonology Dr. Lopez at [place] and Dr. Mitchell at the [facility]. -Chest x-ray demonstrated right middle lobe pneumonia superimposed on interstitial lung disease. -CT chest without contrast demonstrated diffuse interstitial infiltrates and pulmonary fibrosis, likely secondary to chronic interstitial lung disease such as UIP, groundglass infiltrates bilaterally, predominantly involving the lower lobes bilaterally, which may be secondary to superimposed acute pneumonia or pulmonary edema, pleural thickening and calcification with possible small loculated pleural effusion in right hemithorax, mediastinal and hilar lymphadenopathy. -Ordered complete pneumonia workup including: Respiratory viral PCR negative. Strep pneumoniae and Legionella urine antigens, pending. Sputum culture, grew resident matthew and duncan albicans, which is unlikely to be pathogenic. Blood cultures not collected prior to antibiotic administration. -white blood cell count has increased and decreased, not concordant with symptoms. His recent rise is likely due to steroids. -Received ceftriaxone 1 g IV x1 and azithromycin 500 mg IV x1 in ED. Continue ceftriaxone 1 g IV daily 2. Acute likely on chronic hypoxemic respiratory failure, present on admission. Active. -Patient has not previously required oxygen at baseline. Patient is followed by pulmonology Dr. Lopez at [place] and Dr. Mitchell at the [facility]. -Suspected to be in the setting of an acute pulmonary edema versus postop PNA versus acute exacerbation of Fibrosis. Without improvement diagnosis continues to lean towards acute exacerbations of pulmonary fibrosis. -Received methylprednisolone 125 mg IV x1 in ED. Started methylprednisolone 60 mg IV daily for anti-inflammatory effects as patient's previous lung biopsy demonstrated pulmonary fibrosis with pneumonitis. -Continue respiratory therapy evaluation treatment. Patient currently on heated high flow supplemental O2. Goal oxygen saturation 88-92% and continue to titrate down as tolerated. Continue DuoNebs as needed for shortness of breath or wheezing every 4 hours while awake. Continue incentive spirometer and ordered Acapella. Ordered chest physiotherapy every 4 hours per RT protocol. Ordered Mucinex 1200 mg twice daily. -Treat underlying pneumonia as above. -have reached out to the patient's cashier greeter at the [facility], awaiting a call back. -will attempt diuresis given echocardiogram result which showed evidence of some overload, but also right-sided heart failure which is likely due to his underly ing lung disease. 3. Possible acute pulmonary edema, present on admission. Resolved. -Patient is not appear to be overtly fluid overloaded, however after TTE result above have re-attempted diuresis. -CT chest without contrast demonstrated ground-glass opacities suspicious for possible pneumonia versus pulmonary edema. -Received furosemide 40 mg IV x1, we will attempt further diuresis starting this evening with 40 mg every 12 hours. -Patient reports recent echocardiogram with no mention of pulmonary hypertension, right-sided or left-sided heart failure. -echocardiogram here showed an EF of 50 %, with interventricular septal flattening consistent with a right ventricular pressure/volume condition. There is right-sided systolic dysfunction likely secondary to above pulmonary disease. -Continue strict I&Os and daily weights. 4. Chronic atrial fibrillation with mild RVR, present on admission. RVR resolved. -Initial EKG demonstrated atrial fibrillation with mild RVR with HR 110, left ax is deviation and no ST/T wave changes. -Continue Eliquis 5 mg twice daily. Patient is not on rate control medication. 5. Acute ground level fall with closed head injury, present on admission. Stabl e. -Unsteady gait secondary to recent right knee surgery and patient endured a ground level fall using form support crutches. -CT head without contrast did not demonstrate any acute intracranial abnor mality. CT cervical spine unremarkable for fractures or dislocations. -Continue fall precautions in frequent neuro checks. -Hold PT evaluation until improved respiratory status. Remains on bed rest at this time. 6. Recent right knee surgery, subacute condition, present on admission. Active. -Continue pain control with acetaminophen and Oxy IR prn -Continue physical and occupational therapy evaluation treatment if respiratory status improves. 7. Normocytic anemia, present on admission, stable -Initial hemoglobin 11 g/dL and MCV 93.1. Hemodynamically stable and no overt signs of bleeding. -Continue to monitor blood counts periodically. 8. Allergic rhinitis, chronic condition, present on admission, stable -Continue home fluticasone propionate 2 sprays intranasally twice daily. 9. Hyperlipidemia, chronic, present on admission. Stable. -Fasting lipid panel demonstrated excellent lipid control. -Continue home simvastatin 20 mg daily. 10. BPH, chronic, present on admission. Stable. -Continue tamsulosin 0.4 mg daily. Code status: DNR/DNI. Patient's spouse is the designated DPOA. VTE prophylaxis: Eliquis Disposition: Patient remains hospitalized and barrier to discharge is imp rovement in hypoxemia. He cannot be discharged on hospice at this time as he is unlikely to last more than a few minutes off of high flow nasal cannula at this time. Quality VTE Deep Vein Thrombosis/Pulmonary Embolism Present on Admission: No
[2019-11-20 17:36] LABS: Strep pneumoniae Ag, Urine NOT DETECTED
[2019-11-20] MEDS: LORazepam 2 MG/ML INJ 0.5 MG IV (19:48)
--- NOTE | 2019-11-20 20:04 | PC.NURSE ---
Addendum entered by Tita Padgett R.N. 11/20/19 22:11: Pt resting in bed with eyes closed, rouses to voice. Pt states that he is feeling less anxious and SOB, hopes to sleep through the night. All needs met at this time, will continue to monitor. Original Note: 2002 Pt sitting up in bed, very anxious regarding breathing and the discussion that he and his family had with Dr Ross regarding his prognosis and his likelihood of returning home. Offered prn Ativan as ordered, educated pt on the uses of Ativan for his anxiety. Administered Ativan, will continue to monitor for effectiveness. Bed low and locked, call light within reach, will continue to monitor.
[2019-11-20] MEDS: SIMVASTATIN 20 MG TABLET PO (21:16)
[2019-11-21] VITALS (11 sets, daily range): BP systolic 95–124; BP diastolic 59–81; PULSE 84–105; RESP 18–44; TEMP 36.1–36.6; O2SAT 92–98
[2019-11-21 05:09] LABS: Add Manual Diff / Slide Review NO; Basophils Absolute Auto 0 /uL (0-100); Basophils Percent Auto 0.2 % (0-2); Eosinophils Absolute Auto 0 /uL (0-450); Eosinophils Percent Auto 0.1 % (2-4); Hematocrit 32.9 % (41-53); Hemoglobin 11.2 g/dL (13.5-17.5); Lymphocytes Absolute Auto 600 /uL (1100-4500); Lymphocytes Percent Auto 2.9 % (25-40); Mean Corpuscular Hemoglobin 31.2 PG (26-34); Mean Corpuscular Volume 91.8 fL (80-100); Monocytes Absolute Auto 700 /uL (0-900); Monocytes Percent Auto 3.7 % (3-14); Neutrophils Absolute Auto 17500 /uL (1500-7000); Neutrophils Percent Auto 93.1 % (50-75); Platelet Count 234 X10^3/uL (150-400); Red Blood Cell Count 3.58 X10^6/uL (4.5-5.9); Red Cell Distribution Width 13.2 % (11.6-14.8); White Blood Cell Count 18.8 X10^3/uL (4.5-11.0)
[2019-11-21 05:15] LABS: BUN Creatinine Ratio 53.3 (6-22); Blood Urea Nitrogen 32 mg/dL (9-20); Calcium 8.7 mg/dL (8.4-10.2); Carbon Dioxide 34 mmol/L (22-32); Chloride 92 mmol/L (98-107); Estimated Glomerular Filt Rate > 60.0 mL/min (>60); Glucose 144 mg/dL (80-110); HEMOLYSIS < 15 (0-50); Magnesium 2.4 mg/dL (1.6-2.3); Potassium 4.3 mmol/L (3.4-5.1); Sodium 132 mmol/L (137-145)
--- NOTE | 2019-11-21 05:44 | PC.NURSE ---
Patient slept majority of the night. Refused 0000 dose of lasix - provider aware. Currently on bedpan for BM. Patient with desaturations of Sp02 down to 80% while oxygen HHFNC maintained without changes simply from the exertion of attempting a BM. Encouraged to take deep breaths in through his nose - slow increase up to 90%.
--- NOTE | 2019-11-21 09:45 | PT-IP ANOTE ---
Per Dr. Casey hold pt today.
[2019-11-21] MEDS: CEFTRIAXONE 1 GM/50 ML FROZ.PIGGY IV (10:19)
[2019-11-21] MEDS: guaiFENesin ER 600 MG TAB 1200 MG PO ×2 (10:23→21:01)
[2019-11-21] MEDS: FUROSEMIDE 40 MG/4 ML VIAL IV ×2 (10:24→18:42)
[2019-11-21] MEDS: methylPREDNISolone 125 MG/2 ML VIAL 60 MG IV (10:25)
[2019-11-21] MEDS: TAMSULOSIN 0.4 MG CAPSULE PO (10:25)
[2019-11-21] MEDS: DOCUSATE 100 MG CAPSULE PO (10:26)
[2019-11-21] MEDS: APIXABAN 5 MG TABLET PO (10:26)
[2019-11-21] MEDS: SODIUM CHLORIDE 0.9% FLUSH 10 ML IV ×2 (10:41→21:02)
[2019-11-21] MEDS: ALBUTEROL/IPRATROPIUM 3 ML AMPUL INH ×2 (12:34→20:53)
--- NOTE | 2019-11-21 14:29 | PC.NURSE ---
Am Shift Pt is resting quietly in bed this AM, requesting not to be woken up if possible. Refused both meal trays, but did bring some outside food in for Pt, which he found more palatable. Denies nausea, but extremely fragile resp status, unable to tolerate any length of time off the heated hi flow. 55L and 60% Fio2, Spo2 90-95% today. Lungs remain diminished. Pt is working with RT and IS and acapella at bedside.
--- NOTE | 2019-11-21 16:48 | DI.CT.S_ITS ---
PROCEDURE: CT ANGIO CHEST PE PROTOCOL INDICATIONS: Hypoxemia, rule out PE, assess IPF and PNA TECHNIQUE: After the administration of intravenous contrast, 2 mm thick sections acquired from the pulmonary apices to the posterior costophrenic angles. 3-dimensional maximum intensity projection (MIP) coronal and sagittal reformats were then acquired through the thorax. For radiation dose reduction, the following was used: automated exposure control, adjustment of mA and/or kV according to patient size. COMPARISON: [facility], CT, CT CHEST [facility], 11/15/2019, 11:39. FINDINGS: Image quality: Excellent. Pulmonary arteries: Pulmonary arteries are normal in size. There is intraluminal filling defect involving the right lower lobe posterior basal segmental artery consistent with pulmonary embolism. Lungs and pleura: Diffuse subpleural interstitial infiltrate and pulmonary fibrosis are unchanged. There are groundglass infiltrates bilaterally, predominantly involving lower lobes. There is a calcified plaque in the right lower lobe. Small loculated pleural effusion or pleural thickening is noted in right minor fissure. No pneumothorax. Central and peripheral airways are patent and normal in caliber. Mediastinum: Heart size is mildly increased. There is small pericardial effusion. [id number] coronary artery calcification. Mediastinal or hilar adenopathy, measuring Up to 2.1 cm. 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 Esophagus is normal in caliber. No hiatal hernia. Bones and chest wall: No suspicious bony lesions. Ribs and thoracic spine appear intact throughout. Thyroid gland is normal. No axillary or supraclavicular adenopathy. Abdomen: Visualized upper abdominal solid organs appear normal in the early arterial phase of enhancement. IMPRESSION: 1. Small pulmonary embolus involving the right lower lobe posterior basal segmental artery. 2. Chronic interstitial lung disease with pulmonary fibrosis. 3. Groundglass densities in lower lobes bilaterally could represent superimposed acute pneumonia or pulmonary edema. 4. Mild cardiomegaly and small pericardial effusion. 5. Mild mediastinal and hilar lymphadenopathy. This finding is nonspecific and may be secondary to infectious, inflammatory or neoplastic etiology. Recommend clinical correlation and follow up. Dictated by: Prudence Mott M.D. on 11/21/2019 at 18:47 Approved by: Prudence Mott M.D. on 11/21/2019 at 18:56
--- NOTE | 2019-11-21 16:51 | P.PN_ITS ---
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 The patient is resting in bed comfortably. He is on strict bed rest due to severe hypoxemia with any ambulation resulting in a significant amount of recovery time. He does not feel significantly short of breath at rest in bed. He reports increased sputum expectoration with chest physiotherapy. He has no complaints and denies chest pain, abdominal pain, nausea, vomiting, fever, chills, dysuria, diarrhea or constipation. He is voiding and eliminating without difficulty. Exam Vital Signs (past 8 hours): - 11/21/19 09:00 11/21/19 12:34 11/21/19 13:00 Temperature 97.0 F L 97.0 F L Pulse Rate 86 89 105 H Respiratory Rate 24 24 25 H Blood Pressure 124/78 124/75 Pulse Oximetry 92 95 92 11/21/19 15:26 Temperature 97.1 F L Pulse Rate 95 H Respiratory Rate 44 H Blood Pressure 108/67 Pulse Oximetry 96 Fraction of Inspired Oxygen 31 Oxygen Delivery Method Heated High Flow Oxygen Flow Rate 55 Narrative Exam Narrative: General: Elderly male sitting in bed and in no acute distress, well-developed, well-nourished, appropriately interactive. HEENT: Normocephalic, atraumatic. Left orbital contusion and supraorbital laceration with sutures in place. External ears without defect. Pupils equal, round, and reactive to light. Anicteric sclerae, moist conjunctivae, and no lid lag. Oropharynx with white exudate consistent with thrush and moist mucosa. Neck: Supple with full range of motion. No lymphadenopathy or thyromegaly. Cardiovascular: Regular rate and rhythm without murmurs, rubs, or gallops appreciated Pulmonary: Severely diminished throughout with little air movement but clear to auscultation in all lung myers with occasional scattered crackle. No wheeze or rhonchi. Normal respiratory effort with no use of accessory muscles. Abdomen: Soft, bowel sounds present, nontender, nondistended. No hepatosplenomegaly or masses appreciated. Extremities: No clubbing, cyanosis, or edema. Right knee with dressing in place no surrounding erythema or edema and slightly tender to palpation medially. Skin: Normal temperature, turgor, and texture; no rash, ulcers, or subcutaneous nodules appreciated. Neurological: Cranial nerves grossly intact. Psychiatric: Normal mood and affect. Alert and oriented to person, place, and time. Objective Labs Result Diagrams: 11/22/19 04:52 11/22/19 04:52 Labs: Laboratory Results - last 24 hr 11/18/19 11/21/19 11/21/19 13:15 04:42 04:42 WBC 18.8 H RBC 3.58 L Hgb 11.2 L Hct 32.9 L MCV 91.8 MCH 31.2 MCHC 34.0 RDW 13.2 Plt Count 234 Neut % (Auto) 93.1 H Lymph % (Auto) 2.9 L [place] % (Auto) 3.7 Eos % (Auto) 0.1 L Baso % (Auto) 0.2 Neut # (Auto) 79417 H Lymph # (Auto) 600 L [place] # (Auto) 700 Eos # (Auto) 0 Baso # (Auto) 0 Sodium 132 L Potassium 4.3 Chloride 92 L Carbon Dioxide 34 H BUN 32 H Creatinine 0.60 L Estimated GFR > 60.0 BUN/Creatinine Ratio 53.3 H Glucose 144 H Calcium 8.7 Magnesium 2.4 H S. 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 He remains admitted for acute, possibly on chronic hypoxemic respiratory failure. 1. Acute likely on chronic hypoxemic respiratory failure, present on admission. Active. -Patient has not previously required oxygen at baseline. Patient is followed by pulmonology Dr. Lopez at [place] and Dr. Mitchell at the [facility]. -Likely multifactorial and secondary to right pulmonary embolism, postoperative pneumonia, pulmonary edema, and possibly acute exacerbation of Idiopathic Pulmonary Fibrosis. -Received methylprednisolone 125 mg IV x1 in ED. Continue methylprednisolone increased from 60 mg twice daily to 125 mg every 6 hours per pulmonology as below. -Continue respiratory therapy evaluation treatment. Patient currently on heated high flow supplemental oxygen. Goal oxygen saturation 88-92% and continue to titrate down as tolerated. Continue DuoNebs as needed for shortness of breath or wheezing every 4 hours while awake. Continue incentive spirometer and Acapella. Continue chest physiotherapy every 4 hours per RT protocol. Continue Mucinex 1200 mg twice daily. -Treat underlying pneumonia as below. -Discussed patient with on-call tractor trailer operator at [facility] who recommended increasing glucocorticoid dose and frequency and treat underlying pneumonia and cor p ulmonale as below. -Ordered palliative care consultation to establish goals of care as patient has not made much progression thus far. However, may improve with increased glucocorticoid and switch of anticoagulation for PE. 2. Acute right-sided provoked PE, present on admission. Active. -Patient developed acute hypoxemia postoperatively not previously on oxygen. Eliquis was held for several days for right knee arthroplasty. -CT chest with contrast performed in ED did not demonstrate PE but was not a specific study to rule out PE. -Ordered CT angiogram chest to rule out PE which demonstrated small right lower lobe basal subsegmental PE. -Discontinued Eliquis and switched patient to therapeutic enoxaparin 75 mg twice daily due to concern for failed Eliquis. 3. Acute postoperative pneumonia and possible acute exacerbation of IPF, in setting of chronic idiopathic pulmonary fibrosis, present on admission. Active. -Patient endorses progressive worsening shortness of breath, especially dyspnea on exertion. -Patient is followed by pulmonology Dr. Lopez at [place] and Dr. Mitchell at the [facility]. He is not on an immunosuppressive for IPF. -Chest x-ray demonstrated right middle lobe pneumonia superimposed on interstitial lung disease. -Repeat CT now angiogram PE protocol demonstrated small pulmonary embolus involving the right lower lobe posterior basal segmental artery, chronic interstitial lung disease with pulmonary fibrosis, groundglass densities in lower lobes bilaterally could represent superimposed acute pneumonia or pulmonary edema, mild cardiomegaly and small pericardial effusion, mild mediastinal and hilar lymphadenopathy. -Ordered complete pneumonia workup including: Respiratory viral PCR negative. Strep pneumoniae urine antigen negative. Legionella urine antigen, pending. Sputum culture, grew resident matthew and duncan albicans, which is unlikely to be pathogenic. Blood cultures not collected prior to antibiotic administration. -WBC has fluctuated and increased and decreased, not concordant with symptoms. Procalcitonin has remained negative. His recent rise is likely due to glucocorticoids. -Received ceftriaxone 1 g IV x1 and azithromycin 500 mg IV x1 in ED. Continue ceftriaxone 1 g IV daily and course will be completed tomorrow. Completed azithromycin 500 mg x 5 doses. 4. Acute and decompensated cor pulmonale with mild biventricular systolic dysfunction, present on admission. Active. -Patient does not appear to be overtly fluid overloaded, however, with echocardiogram results will continue to diurese as tolerated. CTA chest demonstrated groundglass densities in lower lobes bilaterally could represent superimposed acute pneumonia or pulmonary edema, mild cardiomegaly and small pericardial effusion and mild mediastinal and hilar lymphadenopathy. -Patient reports recent echocardiogram and does not recall mention of pulmonary hypertension or right-sided or left-sided heart failure. Echocardiogram demonstrated left ventricular ejection fraction 50 +/- 5%, interventricular septum is flattened, consistent with a right ventricular pressure/volume condition, right ventricle is moderately dilated, RV systolic f unction is moderately reduced since previous exam, moderate tricuspid regurgitation compared to the prior exam, RVSP estimated to be 65 mmHg based on an estimated right atrial pressure of 15 mm Hg severe pulmonary hypertension compared to the prior echo exam, and mild pulmonary artery dilation. -Received furosemide 40 mg IV x1. Continue to diurese with furosemide 40 mg IV every 12 hours and will likely decrease over the next several days. -Continue strict I&Os and daily weights. Net - 6L. 5. Acute thrush, not present on admission. Active. -Received fluconazole 200 mg x1. Continue fluconazole 100 mg daily for 7 days. 6. Chronic atrial fibrillation with mild RVR, present on admission. RVR resolved. -Initial EKG demonstrated atrial fibrillation with mild RVR with HR 110, left axis deviation and no ST/T wave changes. -Discontinued Eliquis for now and started therapeutic Lovenox 75 mg twice daily to treat PE as above. Patient is not on rate control medication. 7. Acute ground level fall with closed head injury, present on admission. Stable. -Unsteady gait secondary to recent right knee surgery resulting in ground level fall while using forearm support crutches. Likelihood that severe hypoxemia also contributed to fall. -CT head without contrast did not demonstrate any acute intracranial abnormality. CT cervical spine unremarkable for fractures or dislocations. -Continue fall precautions and frequent neuro checks. -Hold physical therapy evaluation and treatment until improved respiratory status. Remains on strict bed rest at this time. 8. Recent right knee surgery, subacute condition, present on admission. Active. -Continue pain control with acetaminophen 650 mg every 6 hours as needed for mild pain and oxycodone 5 mg every 6 hours as needed for moderate to severe pain -Continue physical and occupational therapy evaluation treatment if respiratory status improves. 9. Normocytic anemia, present on admission, stable -Initial hemoglobin 11 g/dL and MCV 93.1. Hemoglobin trending up. Hemodynamically stable and no overt signs of bleeding. -Continue to monitor blood counts periodically. 10. Allergic rhinitis, chronic condition, present on admission, stable -Continue home fluticasone propionate 2 sprays intranasally twice daily and added loratadine 10 mg daily for antihistamine effect. 11. Hyperlipidemia, chronic, present on admission. Stable. -Fasting lipid panel demonstrated excellent lipid control. -Continue home simvastatin 20 mg daily. 12. BPH, chronic, present on admission. Stable. -Continue tamsulosin 0.4 mg daily. Code status: DNR/DNI. Patient's spouse is the designated DPOA. VTE prophylaxis: Eliquis Disposition: Patient status remains tenuous and he remains hospitalized in ICU with barrier to discharge improvement in hypoxemia. Quality VTE Deep Vein Thrombosis/Pulmonary Embolism Present on Admission: No
[2019-11-21] MEDS: FLUCONAZOLE 100 MG TABLET PO (18:43)
[2019-11-21] MEDS: LORATADINE 10 MG TABLET PO (18:43)
[2019-11-21] MEDS: FLUCONAZOLE 150 MG TABLET 200 MG PO (18:44)
[2019-11-21] MEDS: methylPREDNISolone 125 MG/2 ML VIAL IV ×2 (18:53→22:35)
--- NOTE | 2019-11-21 19:49 | PC.NURSE ---
2370 - Dr. Casey discussing options for taking patient down for CT scan, maintaining oxygenation and monitoring. Attempted bi-pap trial without success. Pt placed on non-rebreather at 15L. Monitor. 181 - Pt down to CT. Full monitoring in place per MD order. Heated High Flow take if needed during scan. Transported on Non-rebreather. Pt tolerated well. Returned to room. Repositioned for comfort. Returned to Heated High flow. Several family members at bedside. Encouraged PO intake. Call light in reach.
[2019-11-21] MEDS: ENOXAPARIN 80 MG/0.8 ML SYRINGE 75 MG SUBCUT (21:01)
[2019-11-21] MEDS: FLUTICASONE 120 SPRAY/16 GM SPRAY.SUSP NASAL (21:02)
[2019-11-22] VITALS (13 sets, daily range): BP systolic 108–125; BP diastolic 65–83; PULSE 76–90; RESP 18–28; TEMP 35.8–36.6; O2SAT 90–99
--- NOTE | 2019-11-22 | DI.US.S_ITS ---
PROCEDURE: US PERIPH VENOUS LOW EXTREM BI INDICATIONS: PE TECHNIQUE: Real-time imaging, as well as color and pulse Doppler interrogation, were performed of the deep veins of both legs from the inguinal ligament to the popliteal fossa. COMPARISON: None. FINDINGS: Right: The common femoral, femoral and popliteal veins are normally compressible, and free of intraluminal thrombus. Color and pulse Doppler demonstrate normal phasic intravascular flow. There is normal augmentation response to distal compression maneuver. However, there is an occluded varicose vein identified within the region of the popliteal fossa. Left: The common femoral, femoral and popliteal veins are normally compressible, and free of intraluminal thrombus. Color and pulse Doppler demonstrate normal phasic intravascular flow. There is normal augmentation response to distal compression maneuver. IMPRESSION: 1. No evidence of deep vein thrombosis of the bilateral lower extremities. 2. Occlusive superficial thrombus within a varicose vein within the popliteal fossa. Dictated by: Hua Buenrostro M.D. on 11/22/2019 at 10:54 Approved by: Hua Buenrostro M.D. on 11/22/2019 at 10:55
[2019-11-22] MEDS: SODIUM CHLORIDE 0.9% FLUSH IV (04:58)
[2019-11-22] MEDS: methylPREDNISolone 125 MG/2 ML VIAL IV ×4 (04:58→22:22)
[2019-11-22 05:17] LABS: Add Manual Diff / Slide Review NO; Basophils Absolute Auto 100 /uL (0-100); Basophils Percent Auto 0.4 % (0-2); Eosinophils Absolute Auto 0 /uL (0-450); Hematocrit 36.9 % (41-53); Hemoglobin 12.3 g/dL (13.5-17.5); Lymphocytes Absolute Auto 600 /uL (1100-4500); Lymphocytes Percent Auto 3.1 % (25-40); Mean Corpuscular HGB Conc 33.4 % (30-36); Mean Corpuscular Hemoglobin 30.8 PG (26-34); Mean Corpuscular Volume 92.4 fL (80-100); Monocytes Absolute Auto 400 /uL (0-900); Monocytes Percent Auto 2.3 % (3-14); Neutrophils Absolute Auto 17500 /uL (1500-7000); Neutrophils Percent Auto 94.2 % (50-75); Platelet Count 263 X10^3/uL (150-400); Red Blood Cell Count 3.99 X10^6/uL (4.5-5.9); White Blood Cell Count 18.6 X10^3/uL (4.5-11.0)
[2019-11-22 05:26] LABS: Alanine Aminotransferase 52 IU/L (<50); Albumin 3.5 g/dL (3.5-5.0); Albumin Globulin Ratio 1.1 (1.0-2.8); Alkaline Phosphatase 155 U/L (38-126); Aspartate Aminotransferase 34 IU/L (17-59); BUN Creatinine Ratio 54.3 (6-22); Bilirubin Total 0.9 mg/dL (0.2-1.3); Blood Urea Nitrogen 38 mg/dL (9-20); Calcium 8.7 mg/dL (8.4-10.2); Carbon Dioxide 34 mmol/L (22-32); Chloride 92 mmol/L (98-107); Estimated Glomerular Filt Rate > 60.0 mL/min (>60); Globulin 3.3 g/dL (1.7-4.1); Glucose 157 mg/dL (80-110); HEMOLYSIS < 15 (0-50); Potassium 4.2 mmol/L (3.4-5.1); Sodium 133 mmol/L (137-145); Total Protein 6.8 g/dL (6.3-8.2)
--- NOTE | 2019-11-22 06:21 | PC.NURSE ---
Partnership Marketing Manager Note-Patient dozed intermittently overnight, on bedrest tolerating HHFNC 60% 55L flow, SpO2 >96%, says he still has a headache but it's tolerable discussed medication options, declined.
[2019-11-22] MEDS: ALBUTEROL/IPRATROPIUM 3 ML AMPUL INH ×2 (08:09→13:19)
[2019-11-22 08:37] LABS: Procalcitonin 0.09 ng/mL (<0.5)
[2019-11-22] MEDS: ENOXAPARIN 80 MG/0.8 ML SYRINGE 75 MG SUBCUT ×2 (08:37→21:05)
[2019-11-22] MEDS: DOCUSATE 100 MG CAPSULE PO ×2 (08:37→21:05)
[2019-11-22] MEDS: FLUTICASONE 120 SPRAY/16 GM SPRAY.SUSP NASAL ×2 (08:37→21:14)
[2019-11-22 08:38] LABS: PCO2 ABG 48.8 mmHg (35-45); PO2 ABG 99 mmHg (80-100); pH ABG 7.47 (7.35-7.45)
[2019-11-22 08:39] LABS: HCO3 ABG 35 mmol/L (22-26); Oxygen Saturation ABG 98 % (95-100); TCO2 ABG 37 mmol/L (21-31)
[2019-11-22] MEDS: SODIUM CHLORIDE 0.9% FLUSH 10 ML IV ×2 (08:39→21:05)
[2019-11-22] MEDS: LORATADINE 10 MG TABLET PO (08:39)
[2019-11-22] MEDS: guaiFENesin ER 600 MG TAB 1200 MG PO ×2 (08:39→21:05)
[2019-11-22] MEDS: TAMSULOSIN 0.4 MG CAPSULE PO (08:39)
[2019-11-22] MEDS: FUROSEMIDE 40 MG/4 ML VIAL IV (08:39)
[2019-11-22] MEDS: OXYCODONE IR 5 MG TABLET PO (08:39)
[2019-11-22] MEDS: FLUCONAZOLE 100 MG TABLET PO (08:40)
[2019-11-22] MEDS: AMPICILLIN/SULBACTAM 3 GM 3 GM in SODIUM CHLORIDE 0.9% 100 ML IV ×3 (10:33→21:00)
--- NOTE | 2019-11-22 10:39 | PT-IP ANOTE ---
Per chart review, 11/21/19 hospitalist progress note states: He is on strict bed rest due to severe hypoxemia with any ambulation resulting in a significant amount of recovery time. Hold PT until bed rest cleared by medicine.
[2019-11-22] MEDS: CEFTRIAXONE 1 GM/50 ML FROZ.PIGGY IV (12:09)
--- NOTE | 2019-11-22 12:46 | P.PN_ITS ---
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 The patient is resting in bed comfortably. He continues to have cough with deep inspiration and increased sputum expectoration with chest physiotherapy. He has no other complaints and denies chest pain, abdominal pain, nausea, vomiting, fever, chills, dysuria, diarrhea or constipation. He is voiding and eliminating without difficulty. He continues to be on bed rest due to hypoxemia. Exam Vital Signs (past 8 hours): - 11/22/19 04:59 11/22/19 08:09 11/22/19 08:20 Temperature 97.0 F L 97.8 F Pulse Rate 86 89 82 Respiratory Rate 21 18 20 Blood Pressure 121/71 118/83 Pulse Oximetry 94 98 97 Fraction of Inspired Oxygen 0.6 Oxygen Delivery Method Heated High Flow Oxygen Flow Rate 55 Narrative Exam Narrative: General: Elderly male sitting in bed and in no acute distress, well-developed, well-nourished, appropriately interactive. HEENT: Normocephalic, atraumatic. Left orbital contusion resolving and supr aorbital laceration with sutures in place. External ears without defect. Pupils equal, round, and reactive to light. Anicteric sclerae, moist conjunctivae, and no lid lag. Oropharynx with white exudate consistent with thrush and moist mucosa. Neck: Supple with full range of motion. No lymphadenopathy or thyromegaly. Cardiovascular: Irregularly irregular without murmurs, rubs, or gallops appreci ated. Pulmonary: Diminished throughout with slightly improved air movement but clear to auscultation in all lung myers with occasional scattered wheeze and fine crackle. No wheeze or rhonchi. Normal respiratory effort with no use of accessory muscles. Abdomen: Soft, bowel sounds present, nontender, nondistended. No hepatosplenomegaly or masses appreciated. Extremities: No clubbing, cyanosis, or edema. Right knee with dressing in place no surrounding erythema or edema and slightly tender to palpation medially. Skin: Normal temperature, turgor, and texture; no rash, ulcers, or subcutaneous nodules appreciated. Neurological: Cranial nerves grossly intact. Psychiatric: Normal mood and affect. Alert and oriented to person, place, and time. Objective Labs Result Diagrams: 11/22/19 04:52 11/22/19 04:52 Labs: Laboratory Results - last 24 hr 11/22/19 11/22/19 11/22/19 04:52 04:52 04:52 WBC 18.6 H RBC 3.99 L Hgb 12.3 L Hct 36.9 L MCV 92.4 MCH 30.8 MCHC 33.4 RDW 13.0 Plt Count 263 Neut % (Auto) 94.2 H Lymph % (Auto) 3.1 L Bowman % (Auto) 2.3 L Eos % (Auto) 0.0 L Baso % (Auto) 0.4 Neut # (Auto) 72543 H Lymph # (Auto) 600 L Bowman # (Auto) 400 Eos # (Auto) 0 Baso # (Auto) 100 ABG pH ABG pCO2 ABG pO2 ABG HCO3 ABG Total CO2 ABG O2 Saturation ABG Base Excess FiO2 Sodium 133 L Potassium 4.2 Chloride 92 L Carbon Dioxide 34 H BUN 38 H Creatinine 0.70 Estimated GFR > 60.0 BUN/Creatinine Ratio 54.3 H Glucose 157 H Calcium 8.7 Total Bilirubin 0.9 AST 34 ALT 52 H Alkaline Phosphatase 155 H Total Protein 6.8 Albumin 3.5 Globulin 3.3 Albumin/Globulin Ratio 1.1 Procalcitonin 0.09 11/22/19 08:15 WBC RBC Hgb Hct MCV MCH MCHC RDW Plt Count Neut % (Auto) Lymph % (Auto) Bow[place] % (Auto) Eos % (Auto) Baso % (Auto) Neut # (Auto) Lymph # (Auto) [place] # (Auto) Eos # (Auto) Baso # (Auto) ABG pH 7.47 H ABG pCO2 48.8 H ABG pO2 99 ABG HCO3 35 H ABG Total CO2 37 H ABG O2 Saturation 98 ABG Base Excess 12.0 H FiO2 55 Sodium Potassium Chloride Carbon Dioxide BUN Creatinine Estimated GFR BUN/Creatinine Ratio Glucose Calcium Total Bilirubin AST ALT Alkaline Phosphatase Total Protein Albumin Globulin Albumin/Globulin Ratio Procalcitonin Assessment & Plan Assessment & Plan narrative: Gonzalez Mendez is a 89-year-old male with a past medical history significant for hyperlipidemia, chronic atrial fibrillation on Eliquis, interstitial lung disea se with idiopathic pulmonary fibrosis, GERD, BPH, and recent right knee surgery who presented to the ED after sustaining ground level fall with left supraorbital laceration. He remains admitted for acute, possibly on chronic hypoxemic respiratory failure. 1. Acute likely on chronic hypoxemic respiratory failure, present on admission. Active. -Patient has not previously required oxygen at baseline. Patient is followed by pulmonology Dr. Lopez at [place] and Dr. Mitchell at the [facility]. -Likely multifactorial and secondary to right pulmonary embolism, postoperative pneumonia, pulmonary edema, and possibly acute exacerbation of Idiopathic Pulmonary Fibrosis. -Received methylprednisolone 125 mg IV x1 in ED. Continue methylprednisolone increased from 60 mg twice daily to 125 mg every 6 hours per pulmonology as below. -Continue respiratory therapy evaluation treatment. Patient currently on heated high flow supplemental oxygen. Goal oxygen saturation 88-92% and continue to titrate down as tolerated. Continue DuoNebs as needed for shortness of breath or wheezing every 4 hours while awake. Continue incentive spirometer and Acapella. Continue chest physiotherapy every 4 hours per RT protocol. Continue Mucinex 1200 mg twice daily. -Continue to monitor ABG periodically to assess oxygenation and slowly titrate off as tolerated. -Discussed patient with on-call exhibit designer at [facility] who recommended increasing glucocorticoid dose and frequency and treat underlying pneumonia and cor pulmonale as below. -Ordered palliative care consultation to establish goals of care as patient has not made much progression thus far. However, may improve with increased glucocorticoid and switch of anticoagulation for PE. -Discussed case with patient's exhibit designer Dr. Mitchell who agrees with management thus far and in addition would add Unasyn for 10 days to treat possible microaspiration and ultrasound lower extremities to rule out DVT although would not change control manager. 2. Acute right-sided provoked PE, present on admission. Active. -Patient developed acute hypoxemia postoperatively not previously on oxygen. Eliquis was held for several days for right knee arthroplasty. -CT chest with contrast performed in ED did not demonstrate PE but was not a specific study to rule out PE. -Ordered CT angiogram chest to rule out PE which demonstrated small right lower lobe basal subsegmental PE. -Bilateral Doppler ultrasound of lower extremities did not demonstrate DVT in bilateral lower extremities and demonstrated occlusive superficial thrombus within a varicose vein within the popliteal fossa. -Discontinued Eliquis and switched patient to therapeutic enoxaparin 75 mg twice daily due to concern for failed Eliquis. 3. Acute postoperative pneumonia and possible acute exacerbation of IPF, in setting of chronic idiopathic pulmonary fibrosis, present on admission. Active. -Patient endorses progressive worsening shortness of breath, especially dyspnea on exertion. -Patient is followed by pulmonology Dr. Lopez at [place] and Dr. Mitchell at the [facility]. He is not on an immunosuppressive for IPF. -Chest x-ray demonstrated right middle lobe pneumonia superimposed on interstitial lung disease. -Repeat CT now angiogram PE protocol demonstrated small pulmonary embolus involving the right lower lobe posterior basal segmental artery, chronic int erstitial lung disease with pulmonary fibrosis, groundglass densities in lower lobes bilaterally could represent superimposed acute pneumonia or pulmonary edema, mild cardiomegaly and small pericardial effusion, mild mediastinal and hilar lymphadenopathy. -Ordered complete pneumonia workup including: Respiratory viral PCR negative. Strep pneumoniae urine antigen negative. Legionella urine antigen, pending. Sputum culture, grew resident matthew and duncan albicans, which is unlikely to be pathogenic. Blood cultures not collected prior to antibiotic administration. -WBC has fluctuated and increased and decreased, not concordant with symptoms. Procalcitonin has remained negative. His recent rise is likely due to glucocorticoids. -Received ceftriaxone 1 g IV x1 and azithromycin 500 mg IV x1 in ED. Completed 7 day course of ceftriaxone 1 g IV daily today. Completed azithromycin 500 mg x 5 doses. Ordered Unasyn 3 g every 6 hours per cardiology as above. 4. Acute and decompensated cor pulmonale with mild biventricular systolic dysfunction, present on admission. Active. -Patient does not appear to be overtly fluid overloaded, however, with echocardiogram results will continue to diurese as tolerated. CTA chest demonstrated groundglass densities in lower lobes bilaterally could represent superimposed acute pneumonia or pulmonary edema, mild cardiomegaly and small pericardial effusion and mild mediastinal and hilar lymphadenopathy. -Patient reports recent echocardiogram and does not recall mention of pulmonary hypertension or right-sided or left-sided heart failure. Echocardiogram demonstrated left ventricular ejection fraction 50 +/- 5%, interventricular septum is flattened, consistent with a right ventricular pressure/volume condition, right ventricle is moderately dilated, RV systolic function is moderately reduced since previous exam, moderate tricuspid regurgit ation compared to the prior exam, RVSP estimated to be 65 mmHg based on an estimated right atrial pressure of 15 mm Hg severe pulmonary hypertension compared to the prior echo exam, and mild pulmonary artery dilation. -Received furosemide 40 mg IV x1. Continue to diurese with furosemide 40 mg IV daily in the morning and 20 mg IV daily in the afternoon and continue to monitor renal function and BUN as guidance for diuresis. -Continue strict I&Os and daily weights. Net - 6.5 L. 5. Acute thrush, not present on admission. Improving. -Received fluconazole 200 mg x1. Continue fluconazole 100 mg daily for 7 days. 6. Chronic atrial fibrillation with mild RVR, present on admission. RVR resolved. -Initial EKG demonstrated atrial fibrillation with mild RVR with HR 110, left axis deviation and no ST/T wave changes. -Discontinued Eliquis for now and started therapeutic Lovenox 75 mg twice daily to treat PE as above. Patient is not on rate control medication. 7. Acute ground level fall with closed head injury, present on admission. Stable. -Unsteady gait secondary to recent right knee surgery resulting in ground level fall while using forearm support crutches. Likelihood that severe hypoxemia also contributed to fall. -CT head without contrast did not demonstrate any acute intracranial abnormality. CT cervical spine unremarkable for fractures or dislocations. -Continue fall precautions and frequent neuro checks. -Hold physical therapy evaluation and treatment until improved respiratory status. Remains on strict bed rest at this time. 8. Recent right knee surgery, subacute condition, present on admission. Active. -Continue pain control with acetaminophen 650 mg every 6 hours as needed for mild pain and oxycodone 5 mg every 6 hours as needed for moderate to severe pain -Hold physical therapy evaluation and treatment until improved respiratory status. Remains on strict bed rest at this time. 9. Normocytic anemia, present on admission. Stable. -Likely lead generation representative of anemia of chronic disease. -Initial hemoglobin 11 g/dL and MCV 93.1. Hemoglobin trending up. Hemo dynamically stable and no overt signs of bleeding. -Continue to monitor blood counts periodically. 10. Allergic rhinitis, chronic, present on admission, stable -Continue home fluticasone propionate 2 sprays intranasally twice daily and added loratadine 10 mg daily for antihistamine effect. 11. Hyperlipidemia, chronic, present on admission. Stable. -Fasting lipid panel demonstrated excellent lipid control. -Continue home simvastatin 20 mg daily. 12. BPH, chronic, present on admission. Stable. -Continue tamsulosin 0.4 mg daily. Code status: DNR/DNI. Patient's spouse is the designated DPOA. VTE prophylaxis: Eliquis Disposition: Patient status remains tenuous and he remains hospitalized in ICU with barrier to discharge improvement in hypoxemia. Quality VTE Deep Vein Thrombosis/Pulmonary Embolism Present on Admission: No
[2019-11-22 14:05] LABS: Fractionated Inspired Oxygen 60
[2019-11-22] MEDS: FUROSEMIDE 20 MG/2 ML VIAL IV (16:28)
[2019-11-22] MEDS: SIMVASTATIN 20 MG TABLET PO (21:07)
[2019-11-22] MEDS: raNITIdine 150 MG CAPSULE PO (23:37)
[2019-11-23] VITALS (12 sets, daily range): BP systolic 104–123; BP diastolic 71–81; PULSE 70–94; RESP 25–36; TEMP 36–37.8; O2SAT 92–99
[2019-11-23] MEDS: AMPICILLIN/SULBACTAM 3 GM 3 GM in SODIUM CHLORIDE 0.9% 100 ML IV ×4 (04:13→22:21)
[2019-11-23 05:13] LABS: Hematocrit 36.9 % (41-53); Hemoglobin 12.5 g/dL (13.5-17.5); Mean Corpuscular HGB Conc 33.7 % (30-36); Mean Corpuscular Hemoglobin 31.2 PG (26-34); Mean Corpuscular Volume 92.4 fL (80-100); Platelet Count 305 X10^3/uL (150-400); White Blood Cell Count 21.7 X10^3/uL (4.5-11.0)
[2019-11-23 05:17] LABS: Add Manual Diff / Slide Review YES
[2019-11-23 05:27] LABS: RBC Morphology Normal Morphology; Total Cells Counted 100
[2019-11-23] MEDS: methylPREDNISolone 125 MG/2 ML VIAL IV ×3 (05:51→17:50)
--- NOTE | 2019-11-23 07:02 | PC.NURSE ---
Bb Shot Packer Note: [id number]: Received pt from Benson Quintero RN. Pt resting quietly in bed with FNC in place.
[2019-11-23 09:18] LABS: pH ABG 7.48 (7.35-7.45)
[2019-11-23 09:19] LABS: Fractionated Inspired Oxygen 55; HCO3 ABG 37 mmol/L (22-26); Oxygen Saturation ABG 90 % (95-100); PCO2 ABG 49.9 mmHg (35-45); PO2 ABG 56 mmHg (80-100); TCO2 ABG 38 mmol/L (21-31)
--- NOTE | 2019-11-23 09:30 | PT-IP ANOTE ---
Pt Dr. Casey hold tx on pt.
[2019-11-23 09:34] LABS: Procalcitonin < 0.05 ng/mL (<0.5)
[2019-11-23] MEDS: ENOXAPARIN 80 MG/0.8 ML SYRINGE 75 MG SUBCUT ×2 (09:34→21:53)
[2019-11-23] MEDS: DOCUSATE 100 MG CAPSULE PO ×2 (09:34→21:53)
[2019-11-23] MEDS: TAMSULOSIN 0.4 MG CAPSULE PO (09:35)
[2019-11-23] MEDS: SODIUM CHLORIDE 0.9% FLUSH 10 ML IV ×2 (09:35→22:22)
[2019-11-23] MEDS: FUROSEMIDE 40 MG/4 ML VIAL IV (09:35)
[2019-11-23] MEDS: guaiFENesin ER 600 MG TAB 1200 MG PO ×2 (09:35→21:54)
[2019-11-23] MEDS: LORATADINE 10 MG TABLET PO (09:35)
[2019-11-23] MEDS: FLUCONAZOLE 100 MG TABLET PO (09:35)
[2019-11-23] MEDS: FLUTICASONE 120 SPRAY/16 GM SPRAY.SUSP NASAL ×2 (09:35→21:54)
--- NOTE | 2019-11-23 13:02 | CM.DPC ---
DCP continued: EMR reviewed: CM/RN called [facility] to evaluate patient for possible acceptance for their program. CM/RN spoke with Mikala at [phone] and they are reviewing patient clincals that CM/RN faxed over. CM/RN will follow up with them later today or first thing tomorrow to after they have a chance to review patient information. . Rosa Maria Jean RN
--- NOTE | 2019-11-23 13:32 | PT-IP ANOTE ---
Pt continues to be on hold for PT. Per MD progress note, pt continues to be hypoxic and is on bedrest. Talked to Dr. Casey regarding d/c PT at this time and agreed. PT eval will be re-ordered when pt is more stable to participate with PT.
--- NOTE | 2019-11-23 13:50 | PC.NURSE ---
PT'S SPOUSE AND THEN HER SON CAME TO NURSES DESK ON 2 DIFFERENT OCCASIONS ASKING ABOUT THE GRANDDAUGHTER VISITING PT WITH AN ACTIVE DX OF MONONUCLEOSIS- EXPLAINED AT LENGTH TO BOTH SPOUSE AND SON THAT THIS WOULD NOT BE A GOOD IDEA BOTH FOR HIS FATHER, WHO IS CRITICALLY ILL WITH RESP DISEASE AND FOR ANY OTHERS HERE AT HOSPITAL BOTH FOR STAFF EXPOSURE WELL OTHER PTS WHO MAY BE IMMUNO-COMPROMISED.
--- NOTE | 2019-11-23 14:39 | P.CONS_ITS ---
History of Present Illness Consult details Chief complaint: GLF on blood thinners Meds Home Medications and Allergies Home Medications Medication Instructions Recorded Confirmed Type testosterone 1 pump TOPICAL DAILY #0 01/11/10 11/15/19 History Vitamin D3 1 cap PO DAILY 11/15/19 11/15/19 History acetaminophen 325 mg PO PRN PRN 11/15/19 11/15/19 History apixaban [Eliquis] 5 mg PO BID 11/15/19 11/15/19 History docusate sodium 100 mg PO BID 11/15/19 11/15/19 History fluticasone propionate 2 spray INTRANASAL BID 11/15/19 11/15/19 History hydroxyzine HCl 25 mg PO QID 11/15/19 11/15/19 History milk thistle 1 cap PO DAILY 11/15/19 11/15/19 History omeprazole 20 mg PO BID 11/15/19 11/15/19 History oxycodone-acetaminophen 1 - 2 tab PO Q4H PRN MDD 8 11/15/19 11/15/19 History simvastatin 20 mg PO DAILY 11/15/19 11/15/19 History tamsulosin 0.4 mg PO DAILY 11/15/19 11/15/19 History Allergies Allergy/AdvReac Type Severity Reaction Status Date / Time No Known Drug Allergies Allergy Verified 11/15/19 08:53 Exam Vital Signs (past 8 hours): - 11/23/19 08:07 11/23/19 08:35 11/23/19 09:09 Temperature 100.0 F H 97.7 F Pulse Rate 93 H Respiratory Rate 26 H Blood Pressure 119/81 Pulse Oximetry 94 94 11/23/19 12:18 Temperature 97.6 F Pulse Rate 81 Respiratory Rate 36 H Blood Pressure 114/73 Pulse Oximetry 98 Fraction of Inspired Oxygen 56 Oxygen Delivery Method Heated High Flow Oxygen Flow Rate 30 Objective Labs Result Diagrams: 11/23/19 04:45 11/22/19 04:52 Labs: Laboratory Results - last 24 hr 11/23/19 11/23/19 11/23/19 04:45 08:45 08:57 WBC 21.7 H RBC 4.00 L Hgb 12.5 L Hct 36.9 L MCV 92.4 MCH 31.2 MCHC 33.7 RDW 13.0 Plt Count 305 Neut % (Auto) Not Reportable Lymph % (Auto) Not Reportable [place] % (Auto) Not Reportable Eos % (Auto) Not Reportable Baso % (Auto) Not Reportable Lymph # (Auto) Not Reportable [place] # (Auto) Not Reportable Baso # (Auto) Not Reportable Total Counted 100 Seg Neutrophils % 93.0 H Lymphocytes % (Manual) 4.0 L Monocytes % (Manual) 3.0 Neutrophils # (Manual) 43050 H RBC Morphology Normal morphology ABG pH 7.48 H ABG pCO2 49.9 H ABG pO2 56 L ABG HCO3 37 H ABG Total CO2 38 H ABG O2 Saturation 90 L ABG Base Excess 13.0 H FiO2 55 Procalcitonin < 0.05
[2019-11-23 16:45] LABS: Troponin I 0.058 ng/mL (0.01-0.034)
--- NOTE | 2019-11-23 17:06 | P.CONS_ITS ---
History of Present Illness Consult details Date Patient Seen: 11/23/19 Time Patient Seen: 02:30 Chief complaint: GLF on blood thinners Reason for consult: Advance Care Planning Requesting provider: Lakia Casey Narrative: Palliative medicine consultation received from Dr. Faby Casey regarding this 84-year-old gentleman with PMH pulmonary fibrosis, atrial fibrillation with chronic anticoagulation, hyperlipidemia, GERD, who recently underwent arthroscopic surgery on his right knee 11/08/2019 presented to the emergency department 11/15/2019 after his activated EMS when her sustained a ground level fall in the bathroom in the early hours of that morning. Patient had right knee surgery 11/08/2019 and woke up with urinary urgency in the early hours of the morning 11/15/2019, and ambulated with his crutches to the bathroom to relieve himself. In his haste, he reports that he lost his balance and fell, striking his left shoulder and left frontal aspect of his face, sustaining a 3 cm laceration at his eyebrow. This required sutures in the emergency room. Upon evaluation by EMS, patient was noted to be hypoxic, requiring 6 L of oxygen, reportedly still significantly hypoxic in the emergency room (SpO2 70s) when he was evaluated by triage; additionally, he was noted to be short of breath and required escalated dosing of oxygen, and is currently on 60% oxygen with 55 liter/minute via high-flow cannula. He was admit to the hospital for treatment of a closed head injury, acute pulmonary edema, and pneumonia, as initial x-rays indicated patient may have a pneumonia and he was started on empiric antibiotics after blood cultures were drawn. Unfortunately, patient's O2 needs did not improve over the next couple of days despite aggressive treatment, provoking further diagnostic workup for his continued hypoxia. CTA performed 11/21/2019 revealing of a small PE in the right upper lobe, chronic interstitial lung disease with pulmonary fibrosis with potentially superimposed acute pneumonia versus pulmonary edema. It also identified mild cardiomegaly and a small pericardial effusion, mild mediastinal and hilar lymphadenopathy. He was placed on low molecular weight heparin and is currently off of his Eliquis, which he has taken for quite some time for his chronic atrial fibr illation. Patient has a past medical history longstanding of atrial fibrillation with chronic anticoagulation and was off of this anticoagulant before his surgery. He and his report his diagnosis for ILD was precipitated by a chronic cough x6 years. He also suffered a blackout in [place] while on vacation before he decided to get evaluated for his cough and this episode. This progressive lung disease was eventually diagnosed per biopsy by Dr. Lopez, a surveying crew stake runner at [place], as idiopathic pulmonary fibrosis. Dr. Lopez has subsequently provided the patient a referral to Dr. Mitchell, whom the patient and family describe as a world renowned specialist at [facility], regarding treatment options for his ILD. His attending hospitalist has been in touch with and reports that he is in agreement with the current treatment plan developed here at [facility] for the patient. The medical team has been unable to wean Mr. Mendez's oxygen and he has poorly tolerated activity due to discomfort related to severe shortness of breath. Per the hospitalist, the plan is to pursue placement at LTAC for aggressive oxygen weaning. The medical team has requested palliative medicine involvement in this patient's case to assist he and his family in addressing his goals of care, and in coming up with a plan that will meet his goals of care. Attending physician has requested palliative medicine to assist in furthering conversation with patient and family regarding the complex and sensitive medical issues of the perceived benefits/burdens of continued life prolonging treatments, realistic prognosis, perspectives on and dying, priority in clinical care and burden of physical, emotional and spiritual symptoms for patient and family. I have reviewed the medical record, radiographs, diagnostics, attempted to interview the patient (disoriented, no registration) and subsequently interviewed the patient DPOAHC. The following aspects are pertinent, current and remote medical history, social/emotional and family dynamics, current medications and effects, ROS, examination findings, prognosis, care planning, goal setting. Meds Home Medications and Allergies Home Medications Medication Instructions Recorded Confirmed Type testosterone 1 pump TOPICAL DAILY #0 01/11/10 11/15/19 History Vitamin D3 1 cap PO DAILY 11/15/19 11/15/19 History acetaminophen 325 mg PO PRN PRN 11/15/19 11/15/19 History apixaban [Eliquis] 5 mg PO BID 11/15/19 11/15/19 History docusate sodium 100 mg PO BID 11/15/19 11/15/19 History fluticasone propionate 2 spray INTRANASAL BID 11/15/19 11/15/19 History hydroxyzine HCl 25 mg PO QID 11/15/19 11/15/19 History milk thistle 1 cap PO DAILY 11/15/19 11/15/19 History omeprazole 20 mg PO BID 11/15/19 11/15/19 History oxycodone-acetaminophen 1 - 2 tab PO Q4H PRN MDD 8 11/15/19 11/15/19 History simvastatin 20 mg PO DAILY 11/15/19 11/15/19 History tamsulosin 0.4 mg PO DAILY 11/15/19 11/15/19 History Allergies Allergy/AdvReac Type Severity Reaction Status Date / Time No Known Drug Allergies Allergy Verified 11/15/19 08:53 Review of Systems Review of Systems Narrative: Patient denies chest pain, chest pressure, palpitations. He endorses shortness of breath, exacerbated by activity, including speaking. Exam Vital Signs (past 8 hours): - 11/23/19 09:09 11/23/19 09:15 11/23/19 12:18 Temperature 97.7 F 97.6 F Pulse Rate 81 Respiratory Rate 36 H Blood Pressure 114/73 Pulse Oximetry 92 98 11/23/19 15:17 Temperature Pulse Rate Respiratory Rate Blood Pressure Pulse Oximetry 98 Fraction of Inspired Oxygen 60 Oxygen Delivery Method Heated High Flow Oxygen Flow Rate 55 Narrative Exam Narrative: Met with this elderly patient who is on high flow oxygen via an Optiflow at 60%, 55L. He is dyspneic with any exertion, including speaking. His of 6+ decades Rosy, daughter Kaylee, and son Kerwin join him today at bedside. Resp Effort & Inspection: able to speak in complete sentences, tachypneic and other (PUGH) Skin General: pallor Trauma: laceration (over left eyebrow with sutures D&I) and other (Ecchymosis left orbit/eye lid) Psych Appearance: grossly normal Mental Status: mental status grossly normal Speech and Movement: speech and movement normal Mood: congruent mood Affect: normal affect Attitude: cooperative Thought Process: normal Thought Content: normal Judgment: judgment good Objective Labs Result Diagrams: 11/23/19 04:45 11/22/19 04:52 Labs: Laboratory Results - last 24 hr 11/23/19 11/23/19 11/23/19 04:45 08:45 08:45 WBC 21.7 H RBC 4.00 L Hgb 12.5 L Hct 36.9 L MCV 92.4 MCH 31.2 MCHC 33.7 RDW 13.0 Plt Count 305 Neut % (Auto) Not Reportable Lymph % (Auto) Not Reportable Graham % (Auto) Not Reportable Eos % (Auto) Not Reportable Baso % (Auto) Not Reportable Lymph # (Auto) Not Reportable Graham # (Auto) Not Reportable Baso # (Auto) Not Reportable Total Counted 100 Seg Neutrophils % 93.0 H Lymphocytes % (Manual) 4.0 L Monocytes % (Manual) 3.0 Neutrophils # (Manual) 01711 H RBC Morphology Normal morphology ABG pH ABG pCO2 ABG pO2 ABG HCO3 ABG Total CO2 ABG O2 Saturation ABG Base Excess FiO2 Troponin I 0.058 H Procalcitonin < 0.05 11/23/19 08:57 WBC RBC Hgb Hct MCV MCH MCHC RDW Plt Count Neut % (Auto) Lymph % (Auto) Graham % (Auto) Eos % (Auto) Baso % (Auto) Lymph # (Auto) Graham # (Auto) Baso # (Auto) Total Counted Seg Neutrophils % Lymphocytes % (Manual) Monocytes % (Manual) Neutrophils # (Manual) RBC Morphology ABG pH 7.48 H ABG pCO2 49.9 H ABG pO2 56 L ABG HCO3 37 H ABG Total CO2 38 H ABG O2 Saturation 90 L ABG Base Excess 13.0 H FiO2 55 Troponin I Procalcitonin Assessment & Recommendations A & R narrative: Social History: Patient and his Anna have been 55 1/2 years. The couple have two children, Kerwin and Kaylee. 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 Narrative: Met with patient, his Anna, daughter Kaylee and son Kerwin at bedside today. Patient and his family have good insight into his interstitial lung disease, though the patient states he has never had any treatment for this condition. He is interested in meeting with Dr. Mitchell to discuss options for care once he is well enough to do so. Patient is very concerned about his long-term quality of life and states, This can't go on for a long time, and my family and I are on the same page about this. When asked to clarify his meaning of this statement, patient states that he feels the high flow oxygen is negatively impacting his quality of life and that he feels weak and not good. He is hopeful that with time and treatment, his pulmonary embolism will dissolve and he won't require high flow oxygen any longer. Patient is very clear that he does not wish to undergo heroic measures and states that he has a relatively new DPAHC on file with the medical center. He most trusts his Anna to make medical decisions for him should he become incapacitated. He is interested in completing a [facility] POLST to codify his desires regarding end of life. A brief dialogue regarding hospice is presented today, but patient is encouraged to consider following up with Dr. Mitchell regarding options for treatment for his ILD before considering de-escalating his goals of care. Recommendations: - Maintain DNAR in patient's EMR - Biodiesel Engine Specialist: Please offer patient an opportunity to complete the [facility] POLST to codify his desires regarding EOL care Impression: - Pulmonary embolism - Ideopathic interstitial lung disease - Pulmonary fibrosis - Acute respiratory failure - Atrial fibrillation with chronic anticoagulation - Dyspnea - Activity intolerance - Palliative medicine consultation Coding: To remain informed regarding current treatment opportunities, provider reviewed extensive additional documentation of multiple treatment providers/facilities which was utilized to update the management plan. Total time in review of additional medical information is 22 minutes, external to in person evaluation. Time in assessment and management of acute and chronic medical diagnoses, pertinent history to palliative medicine decision making, discussion and ma nagement of clinical findings enumerated above as well as fears regarding the transition to a more end of life plan and and dying is 32 minutes, more than half of which is necessary for education and counseling. Advanced Care Planning discussion time is 10 minutes. The patient currently has testamentary documents for estate planning, DPOAHC but lacks POLST and statement of wishes. Dialogue addresses patient preferences at the end/near end of life including resuscitation wishes (no CPR, DNAR). Additional care limits discussed above. cc: Dr. Carlos Servin, primary provider.
--- NOTE | 2019-11-23 17:26 | PM.PN.1 ---
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 The patient is resting in bed comfortably. He continues to have cough and pleuritic chest pain with deep inspiration and expiration. He appears to be splinting. He also endorses pressure-like sensation over sternum. Plan to check troponin and EKG. He continues to endorse increased sputum expectoration with chest physiotherapy. He has no other complaints and denies chest pain, abdominal pain, nausea, vomiting, fever, chills, dysuria, diarrhea or constipation. He is voiding without difficulty. He has not had a bowel movement in several days and a bowel regimen has been implemented. He continues to be on bed rest due to hypoxemia. Exam Vital Signs (past 8 hours): - 11/23/19 12:18 11/23/19 15:17 11/23/19 17:22 Temperature 97.6 F 97.7 F Pulse Rate 81 70 Respiratory Rate 36 H 33 H Blood Pressure 114/73 123/81 Pulse Oximetry 98 98 94 Fraction of Inspired Oxygen 60 Oxygen Delivery Method Heated High Flow Oxygen Flow Rate 30 Narrative Exam Narrative: General: Elderly male sitting in bed and in no acute distress, well-developed, well-nourished, appropriately interactive. HEENT: Normocephalic, atraumatic. Left orbital contusion resolving and supraorbital laceration with sutures in place healing well. External ears without defect. Pupils equal, round, and reactive to light. Anicteric sclerae, moist conjunctivae, and no lid lag. Oropharynx without erythema or exudate and moist mucosa. Thrush resolved. Neck: Supple with full range of motion. No lymphadenopathy or thyromegaly. Cardiovascular: Irregularly irregular without murmurs, rubs, or gallops appreciated. Pulmonary: Significantly diminished throughout but clear to auscultation in all lung myers with occasional scattered wheeze and fine crackle. No wheeze or rhonchi. Normal respiratory effort with no use of accessory muscles. Patient appears to be splinting and coughs with deep inspiration. Abdomen: Soft, bowel sounds present, nontender, nondistended. No hepatosplenomegaly or masses appreciated. Extremities: No clubbing, cyanosis, or edema. Right knee with dressing in place no surrounding erythema or edema and no longer tender to palpation medially. Skin: Normal temperature, turgor, and texture; no rash, ulcers, or subcutaneous nodules appreciated. Neurological: Cranial nerves grossly intact. Psychiatric: Slightly tearful but otherwise normal mood and affect. Alert and oriented to person, place, and time. Objective Labs Result Diagrams: 11/24/19 04:49 11/24/19 04:49 Labs: Laboratory Results - last 24 hr 11/23/19 11/23/19 11/23/19 04:45 08:45 08:45 WBC 21.7 H RBC 4.00 L Hgb 12.5 L Hct 36.9 L MCV 92.4 MCH 31.2 MCHC 33.7 RDW 13.0 Plt Count 305 Neut % (Auto) Not Reportable Lymph % (Auto) Not Reportable [place] % (Auto) Not Reportable Eos % (Auto) Not Reportable Baso % (Auto) Not Reportable Lymph # (Auto) Not Reportable [place] # (Auto) Not Reportable Baso # (Auto) Not Reportable Total Counted 100 Seg Neutrophils % 93.0 H Lymphocytes % (Manual) 4.0 L Monocytes % (Manual) 3.0 Neutrophils # (Manual) 37849 H RBC Morphology Normal morphology ABG pH ABG pCO2 ABG pO2 ABG HCO3 ABG Total CO2 ABG O2 Saturation ABG Base Excess FiO2 Sodium Potassium Chloride Carbon Dioxide BUN Creatinine Estimated GFR BUN/Creatinine Ratio Glucose Calcium Total Bilirubin AST ALT Alkaline Phosphatase Troponin I 0.058 H Total Protein Albumin Globulin Albumin/Globulin Ratio Procalcitonin < 0.05 11/23/19 11/23/19 08:45 08:57 WBC RBC Hgb Hct MCV MCH MCHC RDW Plt Count Neut % (Auto) Lymph % (Auto) [place] % (Auto) Eos % (Auto) Baso % (Auto) Lymph # (Auto) [place] # (Auto) Baso # (Auto) Total Counted Seg Neutrophils % Lymphocytes % (Manual) Monocytes % (Manual) Neutrophils # (Manual) RBC Morphology ABG pH 7.48 H ABG pCO2 49.9 H ABG pO2 56 L ABG HCO3 37 H ABG Total CO2 38 H ABG O2 Saturation 90 L ABG Base Excess 13.0 H FiO2 55 Sodium 136 L Potassium 3.9 Chloride 94 L Carbon Dioxide 34 H BUN 45 H Creatinine 0.80 Estimated GFR > 60.0 BUN/Creatinine Ratio 56.3 H Glucose 149 H Calcium 9.0 Total Bilirubin 0.9 AST 63 H ALT 42 Alkaline Phosphatase 154 H Troponin I Total Protein 7.1 Albumin 3.6 Globulin 3.5 Albumin/Globulin Ratio 1.0 Procalcitonin Assessment & Plan Assessment & Plan narrative: Gonzalez Mendez is a 89-year-old male with a past medical history significant for hyperlipidemia, chronic atrial fibrillation on Eliquis, 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 He remains admitted for acute, possibly on chronic hypoxemic respiratory failure. 1. Acute likely on chronic hypoxemic respiratory failure, present on admission. Active. -Patient has not previously required oxygen at baseline. Patient is followed by pulmonology Dr. Lopez at [place] and Dr. Mitchell at the [facility]. -Likely multifactorial and secondary to right pulmonary embolism, postoperative pneumonia, pulmonary edema, and possibly acute exacerbation of Idiopathic Pulmonary Fibrosis. -Received methylprednisolone 125 mg IV x1 in ED. Continue methylprednisolone increased from 60 mg twice daily to 125 mg every 6 hours per pulmonology as below. -Continue respiratory therapy evaluation treatment. Patient currently on heated high flow supplemental oxygen. Goal oxygen saturation 88-92% and continue to titrate down as tolerated. Continue DuoNebs as needed for shortness of breath or wheezing every 4 hours while awake. Continue incentive spirometer and Acapella. Continue chest physiotherapy every 4 hours per RT protocol. Continue Mucinex 1200 mg twice daily. -Continue to monitor ABG periodically to assess oxygenation and slowly titrate off as tolerated. -Discussed patient with on-call international sourcing manager at [facility] who recommended increasing glucocorticoid dose and frequency and treat underlying pneumonia and cor pulmonale as below. -Consulted palliative care, Shea ECHEVERRIA, to establish goals of care and we appreciate her time and care of the patient. -Discussed case with patient's international sourcing manager Dr. Mitchell who agrees with management thus far and in addition would add Unasyn for 10 days to treat possible microaspiration and ultrasound lower extremities which ruled out DVT although would not pack changer. 2. Acute right-sided provoked PE, present on admission. Active. -Patient developed acute hypoxemia postoperatively not previously on oxygen. Eliquis was held for several days for right knee arthroplasty. -CT chest with contrast performed in ED did not demonstrate PE but was not a specific study to rule out PE. -CT angiogram chest demonstrated small right lower lobe basal subsegmental PE. -Bilateral Doppler ultrasound of lower extremities did not demonstrate DVT in bilateral lower extremities and demonstrated occlusive superficial thrombus within a varicose vein within the popliteal fossa. -Discontinued Eliquis and switched to therapeutic enoxaparin 75 mg twice daily due to concern for failed Eliquis. 3. Acute postoperative pneumonia and possible acute exacerbation of IPF, in setting of chronic idiopathic pulmonary fibrosis, present on admission. Active. -Patient endorses progressive worsening shortness of breath, especially dyspnea on exertion. -Patient is followed by pulmonology Dr. Lopez at [place] and Dr. Mitchell at the [facility]. He is not on an immunosuppressive for IPF. -Chest x-ray demonstrated right middle lobe pneumonia superimposed on interstitial lung disease. -Repeat CT now angiogram PE protocol demonstrated small pulmonary embolus involving the right lower lobe posterior basal segmental artery, chronic interstitial lung disease with pulmonary fibrosis, groundglass densities in lower lobes bilaterally could represent superimposed acute pneumonia or pulmonary edema, mild cardiomegaly and small pericardial effusion, mild mediastinal and hilar lymphadenopathy. -Ordered complete pneumonia workup including: Respiratory viral PCR negative but plan to repeat respiratory PCR to ensure no viral etiology of pneumonia. Strep pneumoniae and Legionella urine antigens negative. Sputum culture, grew resident matthew and duncan albicans, which is unlikely to be pathogenic. Blood cultures not collected prior to antibiotic administration. -WBC has fluctuated and increased and decreased, not concordant with symptoms. Procalcitonin has remained negative. His recent rise is likely due to glucocorticoids. -Received ceftriaxone 1 g IV x1 and azithromycin 500 mg IV x1 in ED. Completed 7 day course of ceftriaxone 1 g IV daily today. Completed azithromycin 500 mg x 5 doses. Continue Unasyn 3 g every 6 hours per cardiology as above. 4. Acute and decompensated cor pulmonale with mild biventricular systolic dysfunction, present on admission. Active. -Patient does not appear to be overtly fluid overloaded, however, with echocardiogram results will continue to diurese as tolerated. CTA chest demonstrated groundglass densities in lower lobes bilaterally could represent superimposed acute pneumonia or pulmonary edema, mild cardiomegaly and small pericardial effusion and mild mediastinal and hilar lymphadenopathy. -Patient reports recent echocardiogram and does not recall mention of pulmonary hypertension or right-sided or left-sided heart failure. Echocardiogram demonstrated left ventricular ejection fraction 50 +/- 5%, interventricular septum is flattened, consistent with a right ventricular pressure/volume condition, right ventricle is moderately dilated, RV systolic function is moderately reduced since previous exam, moderate tricuspid regurgitation compared to the prior exam, RVSP estimated to be 65 mmHg based on an estimated right atrial pressure of 15 mm Hg severe pulmonary hypertension compared to the prior echo exam, and mild pulmonary artery dilation. -Received furosemide 40 mg IV x1. Continue to diurese with furosemide 40 mg IV daily in the morning and 20 mg IV daily in the afternoon and continue to monitor renal function and BUN as guidance for diuresis. -Continue to monitor electrolytes and replete as necessary with diuresis. Goal K > 4.0 and Mg > 2.0. -Continue strict I&Os and daily weights. Net - 7.5 L. 5. Acute thrush, not present on admission. Improving. -Received fluconazole 200 mg x1. Continue fluconazole 100 mg daily for 7 days. 6. Chronic atrial fibrillation with mild RVR, present on admission. RVR resolved. -Initial EKG demonstrated atrial fibrillation with mild RVR with HR 110, left axis deviation and no ST/T wave changes. -Discontinued Eliquis for now and started therapeutic Lovenox 75 mg twice daily to treat PE as above. Patient is not on rate control medication. -Continue to monitor electrolytes and replete as necessary with diuresis as above. Goal K > 4.0 and Mg > 2.0. 7. Acute ground level fall with closed head injury, present on admission. Stable. -Unsteady gait secondary to recent right knee surgery resulting in ground level fall while using forearm support crutches. Likelihood that severe hypoxemia also contributed to fall. -CT head without contrast did not demonstrate any acute intracranial abnormality. CT cervical spine unremarkable for fractures or dislocations. -Continue fall precautions and frequent neuro checks. -Hold physical therapy evaluation and treatment until improved respiratory status. Remains on strict bed rest at this time. -Status post laceration repair in ED with plan to remove sutures tomorrow. 8. Recent right knee surgery, subacute condition, present on admission. Active. -Continue pain control with acetaminophen 650 mg every 6 hours as needed for pain. -Hold physical therapy evaluation and treatment until improved respiratory status. Remains on strict bed rest at this time. 9. Normocytic anemia, present on admission. Stable. -Likely provider relations representative of anemia of chronic disease. -Initial hemoglobin 11 g/dL and MCV 93.1. Hemoglobin trending up. Hemodynamically stable and no overt signs of bleeding. -Continue to monitor blood counts periodically. 10. Allergic rhinitis, chronic, present on admission, stable -Continue home fluticasone propionate 2 sprays intranasally twice daily and added loratadine 10 mg daily for antihistamine effect. 11. Hyperlipidemia, chronic, present on admission. Stable. -Fasting lipid panel demonstrated excellent lipid control. -Continue home simvastatin 20 mg daily. 12. BPH, chronic, present on admission. Stable. -Continue tamsulosin 0.4 mg daily. Code status: DNR/DNI. Patient's spouse is the designated DPOA. VTE prophylaxis: Eliquis Disposition: Patient status remains tenuous and he remains hospitalized in ICU with barrier to discharge improvement in hypoxemia. Quality VTE Deep Vein Thrombosis/Pulmonary Embolism Present on Admission: No
[2019-11-23] MEDS: FUROSEMIDE 20 MG/2 ML VIAL IV (17:50)
[2019-11-23 18:15] LABS: Alanine Aminotransferase 42 IU/L (<50); Albumin 3.6 g/dL (3.5-5.0); Alkaline Phosphatase 154 U/L (38-126); Aspartate Aminotransferase 63 IU/L (17-59); BUN Creatinine Ratio 56.3 (6-22); Bilirubin Total 0.9 mg/dL (0.2-1.3); Blood Urea Nitrogen 45 mg/dL (9-20); Carbon Dioxide 34 mmol/L (22-32); Chloride 94 mmol/L (98-107); Estimated Glomerular Filt Rate > 60.0 mL/min (>60); Globulin 3.5 g/dL (1.7-4.1); Glucose 149 mg/dL (80-110); HEMOLYSIS 19 (0-50); Potassium 3.9 mmol/L (3.4-5.1); Sodium 136 mmol/L (137-145); Total Protein 7.1 g/dL (6.3-8.2)
[2019-11-23] MEDS: PANTOPRAZOLE 40 MG TABLET PO (19:30)
[2019-11-23 21:19] LABS: Adenovirus Not Detected (Not Detect)
[2019-11-23 21:20] LABS: Bordetella pertussis Not Detected (Not Detect); Chlamydophila pneumoniae Not Detected (Not Detect); Coronavirus 229E Not Detected (Not Detect); Coronavirus HKU1 Not Detected (Not Detect); Coronavirus NL 63 Not Detected (Not Detect); Coronavirus OC43 Not Detected (Not Detect); Human Metapneumovirus Not Detected (Not Detect); Human Rhinovirus/Enterovirus Not Detected (Not Detect); Influenza A Not Detected (Not Detect); Influenza B Not Detected (Not Detect); Mycoplasma pneumoniae Not Detected (Not Detect); Parainfluenza Virus 1 Not Detected (Not Detect); Parainfluenza Virus 2 Not Detected (Not Detect); Parainfluenza Virus 3 Not Detected (Not Detect); Parainfluenza Virus 4 Not Detected (Not Detect); Respiratory Syncytial Virus Not Detected (Not Detect)
[2019-11-23] MEDS: SIMVASTATIN 20 MG TABLET PO (21:55)
[2019-11-24] VITALS (15 sets, daily range): BP systolic 100–133; BP diastolic 55–79; PULSE 75–98; RESP 21–32; TEMP 35.9–36.7; O2SAT 91–100
[2019-11-24] MEDS: AMPICILLIN/SULBACTAM 3 GM 3 GM in SODIUM CHLORIDE 0.9% 100 ML IV ×4 (03:50→20:58)
[2019-11-24] MEDS: methylPREDNISolone 125 MG/2 ML VIAL IV ×4 (05:01→22:49)
[2019-11-24 05:15] LABS: Add Manual Diff / Slide Review NO; Basophils Absolute Auto 0 /uL (0-100); Basophils Percent Auto 0.2 % (0-2); Eosinophils Absolute Auto 0 /uL (0-450); Hematocrit 38.1 % (41-53); Hemoglobin 12.6 g/dL (13.5-17.5); Lymphocytes Absolute Auto 600 /uL (1100-4500); Mean Corpuscular HGB Conc 33.1 % (30-36); Mean Corpuscular Hemoglobin 30.8 PG (26-34); Monocytes Absolute Auto 700 /uL (0-900); Monocytes Percent Auto 3.9 % (3-14); Neutrophils Absolute Auto 17200 /uL (1500-7000); Neutrophils Percent Auto 92.9 % (50-75); Platelet Count 352 X10^3/uL (150-400); Red Cell Distribution Width 12.7 % (11.6-14.8); White Blood Cell Count 18.5 X10^3/uL (4.5-11.0)
[2019-11-24 05:24] LABS: Blood Urea Nitrogen 48 mg/dL (9-20); Calcium 8.2 mg/dL (8.4-10.2); Carbon Dioxide 38 mmol/L (22-32); Chloride 93 mmol/L (98-107); Estimated Glomerular Filt Rate > 60.0 mL/min (>60); Glucose 148 mg/dL (80-110); HEMOLYSIS < 15 (0-50); Potassium 3.4 mmol/L (3.4-5.1); Sodium 136 mmol/L (137-145)
[2019-11-24 05:33] LABS: Troponin I 0.058 ng/mL (0.01-0.034)
[2019-11-24 08:10] LABS: Magnesium 2.8 mg/dL (1.6-2.3)
[2019-11-24] MEDS: guaiFENesin ER 600 MG TAB 1200 MG PO (08:40)
[2019-11-24] MEDS: LORATADINE 10 MG TABLET PO (08:40)
[2019-11-24] MEDS: DOCUSATE 100 MG CAPSULE PO ×2 (08:40→20:55)
[2019-11-24] MEDS: POTASSIUM CHLORIDE 20 MEQ TAB 40 MEQ PO ×2 (08:40→17:41)
[2019-11-24] MEDS: PANTOPRAZOLE 40 MG TABLET PO (08:40)
[2019-11-24] MEDS: TAMSULOSIN 0.4 MG CAPSULE PO (08:40)
[2019-11-24] MEDS: polyethylene glycoL 3350 17 GM POWD.PACK PO (08:41)
[2019-11-24] MEDS: ENOXAPARIN 80 MG/0.8 ML SYRINGE 75 MG SUBCUT ×2 (08:41→20:55)
[2019-11-24] MEDS: SODIUM CHLORIDE 0.9% FLUSH 10 ML IV ×3 (08:42→20:56)
[2019-11-24] MEDS: FUROSEMIDE 40 MG/4 ML VIAL IV (08:42)
[2019-11-24] MEDS: FLUCONAZOLE 100 MG TABLET PO (08:48)
[2019-11-24 08:50] LABS: HCO3 ABG 40 mmol/L (22-26); Oxygen Saturation ABG 96 % (95-100); PCO2 ABG 54.1 mmHg (35-45); PO2 ABG 82 mmHg (80-100); TCO2 ABG 42 mmol/L (21-31); pH ABG 7.48 (7.35-7.45)
[2019-11-24] MEDS: FLUTICASONE 120 SPRAY/16 GM SPRAY.SUSP NASAL ×2 (10:21→20:54)
--- NOTE | 2019-11-24 13:13 | DI.ECHO.S_ITS ---
[facility]---------+ [facility] +---------+ : : [address] : : : [place], [place] : : : : [id number] : : : : Phone: [phone] Echocardiogram Report + + :Name: ARELI REGALADO Study Date: 11/24/2019 Height: 72 in : :Hospital Weight: 155 lb : : Gender: Male BSA: 1.9 m2 : :: 1935 Age: 84 yrs BP: 119/74 mmHg: :Reason For Study: PA pressure, RVSP : :Ordering Physician: Janett : :Hospitalist Performed By: Leigh Ann Peters : :Referring: AMANUEL CLIFFORD : + + Interpretation Summary This is a limited echocardiogram focused on the right ventricle and pulmonary artery pressures. Left ventricular systolic function grossly appears normal without obvious wall motion abnormalities with the ejection fraction grossly estimated to be 55-60% and appears slightly more dynamic compared to the previous study and the interventricular septum appears to be less flattened. The right ventricle is borderline dilated and systolic function is mildly reduced but appears smaller and more dynamic compared to the previous study. The right ventricular systolic pressure is estimated to be at least 55 mmHg based on an estimated right atrial pressure of 3 mm Hg, and is likely slightly lower compared to the previous exam. The left atrium is moderately dilated and the right atrium is severely dilated but both atria have mildly decreased in size since the prior echo exam. There is mild to moderate tricuspid regurgitation that is less prominent compared to the previous study. The patient was in atrial fibrillation with heart rates between 71-101 bpm during the exam. Procedure: A two-dimensional transthoracic echocardiogram with color flow and Doppler was performed in limited views only. The study quality was technically adequate. Comparison is made with the echocardiogram of 11/18/2019. This is a limited echocardiogram focused on the right ventricle and pulmonary artery pressures. The patient was in atrial fibrillation with heart rates between 71-101 bpm during the exam. Left Ventricle: The left ventricle is normal in size. Left ventricular wall thickness is mildly increased. Left ventricular systolic function is normal without focal wall motion abnormalities. The ejection fraction is estimated to be 55-60%. This is And appears slightly more dynamic compared to the previous study. The interventricular septum appears to be less flattened. Right Ventricle: The right ventricle is borderline dilated. Right ventricular systolic function is mildly reduced. This is Appears smaller and more dynamic compared to the previous study. Atria: The left atrium is moderately dilated. Both atria have mildly decreased in size since the prior echo exam. The right atrium is severely dilated. Tricuspid Valve: Tricuspid valve leaflets open well. There is mild to moderate tricuspid regurgitation. This is Less prominent compared to the previous study. The right ventricular systolic pressure is estimated to be at least 55 mmHg based on an estimated right atrial pressure of 3 mm Hg. And is likely slightly lower compared to the previous exam. Pulmonic Valve: The pulmonic valve leaflets are thin and pliable; valve motion is normal. There is mild pulmonic regurgitation. Great Vessels: The IVC is of normal diameter and collapses greater than 50% with a sniff. This suggests a low right atrial pressure of 3 mm Hg. Pericardium/ Pleura There is a trivial pericardial effusion noted. There is no pleural effusion. MMode/2D Measurements & Calculations LVIDd: 4.0 cm LA A2 area: 26.7 cm2 LVIDs: 2.8 cm LA A4 area: 22.0 cm2 FS: 30.3 % LA length (vol): 6.0 cm IVSd: 1.3 cm LA vol: 83.6 ml LVPWd: 1.2 cm LA vol index: 43.7 ml/m2 LV marrero. diameter/BSA (cm/m^2): 2.1 LV sys. diameter/BSA (cm/m^2): 1.5 RA long axis: 7.5 cm RVD1 (basal): 4.1 cm RA area: 32.8 cm2 TAPSE: 1.6 cm RA vol: 122.9 ml RA : 64.3 ml/m2 IVC diam: 1.7 cm Doppler Measurements & Calculations TR max donnie: 347.3 cm/sec TR max P.6 mmHg PA V2 max: 53.5 cm/sec PA V2 mean: 33.2 cm/sec PA mean P.54 mmHg PA pr(Accel): 55.6 mmHg PA Accel Time: 0.06 sec Reading Physician:THALIA
--- NOTE | 2019-11-24 13:17 | P.PN_ITS ---
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 The patient is resting in bed comfortably. He continues to have cough and pleuritic chest pain with deep inspiration and expiration but this improves the more he maintains deep breathing. He does not have pleuritic pain and does not feel short of breath with shallow breaths/splinting. He describes a pressure like sensation over sternum that seems to be a part of his pleurisy and is unchanged. His EKG did not demonstrate any acute ischemic changes and troponin slightly elevated at 0.058 and unchanged. He remains on heated high-flow with FiO2 0.60 and 55 L flow. ABG shows improvement oxygenation and will slowly titrate down on FiO2 today. He has no other complaints and denies chest pain, abdominal pain, nausea, vomiting, fever, chills, dysuria, diarrhea or constipation. He is voiding without difficulty. He has not had a bowel movement in several days but does not feel constipated. Continue the implemented bowel regimen. He continues to be on bed rest due to degree of hypoxemia. Exam Vital Signs (past 8 hours): - 11/24/19 06:00 11/24/19 08:00 11/24/19 12:30 Temperature 97.4 F L Pulse Rate 86 Respiratory Rate 32 H Blood Pressure 133/72 Pulse Oximetry 99 95 94 11/24/19 12:45 Temperature 97.0 F L Pulse Rate 83 Respiratory Rate 26 H Blood Pressure 104/55 L Pulse Oximetry 91 Fraction of Inspired Oxygen 0.60 Oxygen Delivery Method Heated High Flow Oxygen Flow Rate 55 Narrative Exam Narrative: General: Elderly male sitting in bed and in no acute distress, well-developed, well-nourished, appropriately interactive. HEENT: Normocephalic, atraumatic. Left orbital contusion resolving and supraorbital laceration with sutures in place healing well. External ears without defect. Pupils equal, round, and reactive to light. Anicteric sclerae, moist conjunctivae, and no lid lag. Oropharynx without erythema or exudate and moist mucosa. Thrush resolved. Neck: Supple with full range of motion. No lymphadenopathy or thyromegaly. Cardiovascular: Irregularly irregular without murmurs, rubs, or gallops appreciated. Pulmonary: Significantly diminished throughout but clear to auscultation in all lung myers with occasional fine crackle. No wheeze or rhonchi. Normal respiratory effort with no use of accessory muscles. Patient appears to be splinting and coughs with deep inspiration. Abdomen: Soft, scaphoid, bowel sounds present, nontender, nondistended. No hepatosplenomegaly or masses appreciated. Extremities: No clubbing, cyanosis, or edema. Right knee with dressing in place no surrounding erythema or edema and no longer tender to palpation medially. Skin: Normal temperature, turgor, and texture; no rash, ulcers, or subcutaneous nodules appreciated. Neurological: Cranial nerves grossly intact. Psychiatric: Normal mood and affect. Alert and oriented to person, place, and time. Objective Labs Result Diagrams: 11/24/19 04:49 11/24/19 04:49 Labs: Laboratory Results - last 24 hr 11/23/19 11/23/19 11/23/19 08:45 08:45 20:00 WBC RBC Hgb Hct MCV MCH MCHC RDW Plt Count Neut % (Auto) Lymph % (Auto) [place] % (Auto) Eos % (Auto) Baso % (Auto) Neut # (Auto) Lymph # (Auto) [place] # (Auto) Eos # (Auto) Baso # (Auto) ABG pH ABG pCO2 ABG pO2 ABG HCO3 ABG Total CO2 ABG O2 Saturation ABG Base Excess FiO2 Sodium 136 L Potassium 3.9 Chloride 94 L Carbon Dioxide 34 H BUN 45 H Creatinine 0.80 Estimated GFR > 60.0 BUN/Creatinine Ratio 56.3 H Glucose 149 H Calcium 9.0 Magnesium Total Bilirubin 0.9 AST 63 H ALT 42 Alkaline Phosphatase 154 H Troponin I 0.058 H Total Protein 7.1 Albumin 3.6 Globulin 3.5 Albumin/Globulin Ratio 1.0 Chlamy pneumoniae PCR Not detected Adenovirus (PCR) Not detected B.parapertussis DNA PCR Not detected Coronavirus OC43 (PCR) Not detected Coronavirus HKU1 (PCR) Not detected Coronavirus 229E (PCR) Not detected Coronavirus NL63 (PCR) Not detected Human Metapneumovir PCR Not detected Influenza Type A (PCR) Not detected Influenza Type B (PCR) Not detected M. pneumoniae (PCR) Not detected Parainfluenza 1 (PCR) Not detected Parainfluenza 2 (PCR) Not detected Parainfluenza 3 (PCR) Not detected Parainfluenza 4 (PCR) Not detected RSV (PCR) Not detected Entero/Rhino (PCR) Not detected 11/24/19 11/24/19 11/24/19 04:49 04:49 04:49 WBC 18.5 H RBC 4.10 L Hgb 12.6 L Hct 38.1 L MCV 93.0 MCH 30.8 MCHC 33.1 RDW 12.7 Plt Count 352 Neut % (Auto) 92.9 H Lymph % (Auto) 3.0 L [place] % (Auto) 3.9 Eos % (Auto) 0.0 L Baso % (Auto) 0.2 Neut # (Auto) 83531 H Lymph # (Auto) 600 L [place] # (Auto) 700 Eos # (Auto) 0 Baso # (Auto) 0 ABG pH ABG pCO2 ABG pO2 ABG HCO3 ABG Total CO2 ABG O2 Saturation ABG Base Excess FiO2 Sodium 136 L Potassium 3.4 Chloride 93 L Carbon Dioxide 38 H BUN 48 H Creatinine 0.80 Estimated GFR > 60.0 BUN/Creatinine Ratio 60.0 H Glucose 148 H Calcium 8.2 L Magnesium 2.8 H Total Bilirubin AST ALT Alkaline Phosphatase Troponin I 0.058 H Total Protein Albumin Globulin Albumin/Globulin Ratio Chlamy pneumoniae PCR Adenovirus (PCR) B.parapertussis DNA PCR Coronavirus OC43 (PCR) Coronavirus HKU1 (PCR) Coronavirus 229E (PCR) Coronavirus NL63 (PCR) Human Metapneumovir PCR Influenza Type A (PCR) Influenza Type B (PCR) M. pneumoniae (PCR) Parainfluenza 1 (PCR) Parainfluenza 2 (PCR) Parainfluenza 3 (PCR) Parainfluenza 4 (PCR) RSV (PCR) Entero/Rhino (PCR) 11/24/19 08:26 WBC RBC Hgb Hct MCV MCH MCHC RDW Plt Count Neut % (Auto) Lymph % (Auto) [place] % (Auto) Eos % (Auto) Baso % (Auto) Neut # (Auto) Lymph # (Auto) [place] # (Auto) Eos # (Auto) Baso # (Auto) ABG pH 7.48 H ABG pCO2 54.1 H ABG pO2 82 ABG HCO3 40 H ABG Total CO2 42 H ABG O2 Saturation 96 ABG Base Excess 16.0 H FiO2 0.60 Sodium Potassium Chloride Carbon Dioxide BUN Creatinine Estimated GFR BUN/Creatinine Ratio Glucose Calcium Magnesium Total Bilirubin AST ALT Alkaline Phosphatase Troponin I Total Protein Albumin Globulin Albumin/Globulin Ratio Chlamy pneumoniae PCR Adenovirus (PCR) B.parapertussis DNA PCR Coronavirus OC43 (PCR) Coronavirus HKU1 (PCR) Coronavirus 229E (PCR) Coronavirus NL63 (PCR) Human Metapneumovir PCR Influenza Type A (PCR) Influenza Type B (PCR) M. pneumoniae (PCR) Parainfluenza 1 (PCR) Parainfluenza 2 (PCR) Parainfluenza 3 (PCR) Parainfluenza 4 (PCR) RSV (PCR) Entero/Rhino (PCR) Assessment & Plan Assessment & Plan narrative: Gonzalez Mendez is a 89-year-old male with a past medical history significant for hyperlipidemia, chronic atrial fibrillation on Eliquis, interstitial lung disea se with idiopathic pulmonary fibrosis, GERD, BPH, and recent right knee surgery who presented to the ED after sustaining ground level fall with left supraorbital laceration. He remains admitted for acute, possibly on chronic hypoxemic respiratory failure. 1. Acute likely on chronic hypoxemic respiratory failure, present on admission. Active. -Patient has not previously required oxygen at baseline. Patient is followed by pulmonology Dr. Lopez at [place] and Dr. Mitchell at the [facility]. -Likely multifactorial and secondary to right pulmonary embolism, postoperative pneumonia, pulmonary edema, and possibly acute exacerbation of Idiopathic Pulmonary Fibrosis. -Received methylprednisolone 125 mg IV x1 in ED. Continue methylprednisolone increased from 60 mg twice daily to 125 mg every 6 hours per pulmonology as below. -Continue respiratory therapy evaluation treatment. Patient currently on heated high flow supplemental oxygen. Goal oxygen saturation 88-92% and continue to titrate down as tolerated. Continue DuoNebs as needed for shortness of breath or wheezing every 4 hours while awake. Continue incentive spirometer and Acapella. Continue chest physiotherapy every 4 hours per RT protocol. Continue Mucinex 1200 mg twice daily. -Continue to monitor ABG periodically to assess oxygenation and slowly titrate off as tolerated. -Discussed patient with on-call hoisting engineer pile driving at [facility] who recommended increasing glucocorticoid dose and frequency and treat underlying pneumonia and cor pulmonale as below. -Consulted palliative care, Shea ECHEVERRIA, to establish goals of care and we appreciate her time and care of the patient. -Discussed case with patient's hoisting engineer pile driving Dr. Mitchell who agrees with management thus far and in addition would add Unasyn for 10 days to treat possible microaspiration and ultrasound lower extremities which ruled out DVT although would not climate change risk assessor. 2. Acute right-sided provoked PE, present on admission. Active. -Patient developed acute hypoxemia postoperatively not previously on oxygen. Eliquis was held for several days for right knee arthroplasty. -CT chest with contrast performed in ED did not demonstrate PE but was not a specific study to rule out PE. -CT angiogram chest demonstrated small right lower lobe basal subsegmental PE. -Bilateral Doppler ultrasound of lower extremities did not demonstrate DVT in bilateral lower extremities and demonstrated occlusive superficial thrombus within a varicose vein within the popliteal fossa. -Discontinued Eliquis and switched to therapeutic enoxaparin 75 mg twice daily due to concern for failed Eliquis. 3. Acute postoperative pneumonia and possible acute exacerbation of IPF, in setting of chronic idiopathic pulmonary fibrosis, present on admission. Active. -Patient endorses progressive worsening shortness of breath, especially dyspnea on exertion. -Patient is followed by pulmonology Dr. Lopez at [place] and Dr. Mitchell at the [facility]. He is not on an immunosuppressive for IPF. -Chest x-ray demonstrated right middle lobe pneumonia superimposed on interstitial lung disease. -Repeat CT now angiogram PE protocol demonstrated small pulmonary embolus involving the right lower lobe posterior basal segmental artery, chronic interstitial lung disease with pulmonary fibrosis, groundglass densities in lower lobes bilaterally could represent superimposed acute pneumonia or pulmonary edema, mild cardiomegaly and small pericardial effusion, mild mediastinal and hilar lymphadenopathy. -Ordered complete pneumonia workup including: Respiratory viral PCR negative but plan to repeat respiratory PCR to ensure no viral etiology of pneumonia. St rep pneumoniae and Legionella urine antigens negative. Sputum culture, grew resident matthew and duncan albicans, which is unlikely to be pathogenic. Blood cultures not collected prior to antibiotic administration. -WBC has fluctuated and increased and decreased, not concordant with symptoms. Procalcitonin has remained negative. His recent rise is likely due to glucocorticoids. -Received ceftriaxone 1 g IV x1 and azithromycin 500 mg IV x1 in ED. Completed 7 day course of ceftriaxone 1 g IV daily today. Completed azithromycin 500 mg x 5 doses. Continue Unasyn 3 g every 6 hours per cardiology as above. 4. Acute and decompensated cor pulmonale with mild biventricular systolic dysfunction, present on admission. Active. -Patient does not appear to be overtly fluid overloaded, however, with echocardiogram results will continue to diurese as tolerated. CTA chest demonstrated groundglass densities in lower lobes bilaterally could represent superimposed acute pneumonia or pulmonary edema, mild cardiomegaly and small pericardial effusion and mild mediastinal and hilar lymphadenopathy. -Patient reports recent echocardiogram and does not recall mention of pulmonary hypertension or right-sided or left-sided heart failure. Echocardiogram demonstrated left ventricular ejection fraction 50 +/- 5%, interventricular septum is flattened, consistent with a right ventricular pressure/volume condition, right ventricle is moderately dilated, RV systolic function is moderately reduced since previous exam, moderate tricuspid regurgitation compared to the prior exam, RVSP estimated to be 65 mmHg based on an estimated right atrial pressure of 15 mm Hg severe pulmonary hypertension compared to the prior echo exam, and mild pulmonary artery dilation. -Received furosemide 40 mg IV x1. Continue to diurese with furosemide 40 mg IV daily in the morning and 20 mg IV daily in the afternoon and continue to monitor renal function and BUN as guidance for diuresis. -Continue to monitor electrolytes and replete as necessary with diuresis. Goal K > 4.0 and Mg > 2.0. Potassium low normal and will receive potassium chloride 80 mEq today. -Continue strict I&Os and daily weights. Net - 8 L. -Ordered limited echo to assess PA pressures, RVSP and further need for diuresis. 5. Acute thrush, not present on admission. Resolved. -Received fluconazole 200 mg x1. Continue fluconazole 100 mg daily for 7 days. 6. Chronic atrial fibrillation with mild RVR, present on admission. RVR resolved. -Initial EKG demonstrated atrial fibrillation with mild RVR with HR 110, left axis deviation and no ST/T wave changes. -Discontinued Eliquis for now and started therapeutic Lovenox 75 mg twice daily to treat PE as above. Patient is not on rate control medication and heart rate continues to be controlled 80 to 90's. -Continue to monitor electrolytes and replete as necessary with diuresis as above. Goal K > 4.0 and Mg > 2.0. 7. Acute ground level fall with closed head injury, present on admission. Stable. -Unsteady gait secondary to recent right knee surgery resulting in ground level fall while using forearm support crutches. Likelihood that severe hypoxemia also contributed to fall. -CT head without contrast did not demonstrate any acute intracranial abnormality. CT cervical spine unremarkable for fractures or dislocations. -Continue fall precautions and frequent neuro checks. -Hold physical therapy evaluation and treatment until improved respiratory status. Remains on strict bed rest at this time. -Status post laceration repair in ED and nursing removed sutures today. 8. Recent right knee surgery, subacute condition, present on admission. Active. -Continue pain control with acetaminophen 650 mg every 6 hours as needed for pain. -Hold physical therapy evaluation and treatment until improved respiratory status. Remains on strict bed rest at this time. 9. Normocytic anemia, present on admission. Stable. -Likely patient portal representative of anemia of chronic disease. -Initial hemoglobin 11 g/dL and MCV 93.1. Hemoglobin trending up. Hemodynamically stable and no overt signs of bleeding. -Continue to monitor blood counts periodically. 10. Allergic rhinitis, chronic, present on admission, stable -Continue home fluticasone propionate 2 sprays intranasally twice daily and added loratadine 10 mg daily for antihistamine effect. 11. Hyperlipidemia, chronic, present on admission. Stable. -Fasting lipid panel demonstrated excellent lipid control. -Continue home simvastatin 20 mg daily. 12. BPH, chronic, present on admission. Stable. -Continue tamsulosin 0.4 mg daily. Code status: DNR/DNI. Patient's spouse is the designated DPOA. VTE prophylaxis: Eliquis Disposition: Patient status remains tenuous and he remains hospitalized in ICU with barrier to discharge improvement in hypoxemia. Quality VTE Deep Vein Thrombosis/Pulmonary Embolism Present on Admission: No
--- NOTE | 2019-11-24 15:37 | PC.NURSE ---
Day Shift Note Sutures x2 removed from left head laceration without issue per MD order. Dressing to right knee also removed, steri-strips in place to knee with old bloody drainage visible. Heated HFNC decreased to 55% FIo2 at 1020 post ABG results per Dr. Casey.
[2019-11-24] MEDS: FUROSEMIDE 20 MG/2 ML VIAL IV (17:09)
[2019-11-24 20:33] LABS: Fractionated Inspired Oxygen 55; HCO3 ABG 37 mmol/L (22-26); Oxygen Saturation ABG 94 % (95-100); PCO2 ABG 49.6 mmHg (35-45); PO2 ABG 67 mmHg (80-100); TCO2 ABG 38 mmol/L (21-31); pH ABG 7.48 (7.35-7.45)
[2019-11-24] MEDS: SIMVASTATIN 20 MG TABLET PO (20:56)
[2019-11-25] VITALS (13 sets, daily range): BP systolic 104–139; BP diastolic 61–84; PULSE 79–99; RESP 20–31; TEMP 35.9–36.7; O2SAT 84–97
[2019-11-25] MEDS: AMPICILLIN/SULBACTAM 3 GM 3 GM in SODIUM CHLORIDE 0.9% 100 ML IV ×4 (03:41→21:23)
[2019-11-25 05:40] LABS: BUN Creatinine Ratio 62.5 (6-22); Blood Urea Nitrogen 50 mg/dL (9-20); Calcium 8.3 mg/dL (8.4-10.2); Carbon Dioxide 38 mmol/L (22-32); Chloride 96 mmol/L (98-107); Estimated Glomerular Filt Rate > 60.0 mL/min (>60); Glucose 164 mg/dL (80-110); HEMOLYSIS < 15 (0-50); Potassium 3.8 mmol/L (3.4-5.1); Sodium 137 mmol/L (137-145)
[2019-11-25] MEDS: methylPREDNISolone 125 MG/2 ML VIAL IV ×4 (05:45→22:54)
--- NOTE | 2019-11-25 08:42 | PM.PN.1 ---
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 He remains admitted for acute possibly on chronic hypoxemic respiratory failure. The patient is resting in bed comfortably. He reports his pleuritic chest pain has improved. He had a BM yesterday and today and feels as though he is now able to breathe deeper. He remains on heated high-flow with his decrease in FiO2 from 0.60 to 0.50 over the last 24 hours and continue 55 L flow. ABG shows improvement oxygenation and plan to continue to slowly titrate down on FiO2. He has no other complaints and denies chest pain, abdominal pain, nausea, vomiting, fever, chills, dysuria, diarrhea or constipation. He is voiding and eliminating without difficulty. Plan for light physical therapy this afternoon. Exam Vital Signs (past 8 hours): - 11/25/19 04:41 11/25/19 07:30 Temperature 97.4 F L 97.8 F Pulse Rate 84 79 Respiratory Rate 21 21 Blood Pressure 125/83 134/84 Pulse Oximetry 84 L 96 Fraction of Inspired Oxygen 50 Oxygen Delivery Method Heated High Flow Oxygen Flow Rate 55 Narrative Exam Narrative: General: Elderly thin male sitting in bed and in no acute distress, well-developed, well-nourished, appropriately interactive. HEENT: Normocephalic, atraumatic. Left orbital contusion resolving and supraorbital laceration with sutures in place healing well. External ears without defect. Pupils equal, round, and reactive to light. Anicteric sclerae, moist conjunctivae, and no lid lag. Oropharynx without erythema or exudate and moist mucosa. Thrush resolved. Neck: Supple with full range of motion. No lymphadenopathy or thyromegaly. Cardiovascular: Irregularly irregular without murmurs, rubs, or gallops appreciated. Pulmonary: Improved air movement but clear to auscultation in all lung myers with occasional fine crackle. No wheeze or rhonchi. Normal respiratory effort with no use of accessory muscles. Abdomen: Soft, scaphoid, bowel sounds present, nontender, nondistended. No hepatosplenomegaly or masses appreciated. Extremities: No clubbing, cyanosis, or edema. Right knee with dressing in place no surrounding erythema or edema and no longer tender to palpation medially. Skin: Normal temperature, turgor, and texture; no rash, ulcers, or subcutaneous nodules appreciated. Neurological: Cranial nerves grossly intact. Psychiatric: Normal mood and affect. Alert and oriented to person, place, and time. Objective Labs Result Diagrams: 11/24/19 04:49 11/25/19 05:07 Labs: Laboratory Results - last 24 hr 11/24/19 11/24/19 11/25/19 08:26 19:51 05:07 ABG pH 7.48 H 7.48 H ABG pCO2 54.1 H 49.6 H ABG pO2 82 67 L ABG HCO3 40 H 37 H ABG Total CO2 42 H 38 H ABG O2 Saturation 96 94 L ABG Base Excess 16.0 H 13.0 H FiO2 0.60 55 Sodium 137 Potassium 3.8 Chloride 96 L Carbon Dioxide 38 H BUN 50 H Creatinine 0.80 Estimated GFR > 60.0 BUN/Creatinine Ratio 62.5 H Glucose 164 H Calcium 8.3 L Assessment & Plan Assessment & Plan narrative: Gonzalez Mendez is a 89-year-old male with a past medical history significant for hyperlipidemia, chronic atrial fibrillation on Eliquis, 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 He remains admitted for acute possibly on chronic hypoxemic respiratory failure. 1. Acute likely on chronic hypoxemic respiratory failure, present on admission. Improving. -Patient has not previously required oxygen at baseline. Patient is followed by pulmonology Dr. Lopez at [facility] and Dr. Mitchell at the [facility]. -Multifactorial and secondary to right pulmonary embolism, postoperative pneumonia, pulmonary edema, and possibly acute exacerbation of Idiopathic Pulmonary Fibrosis. -Received methylprednisolone 125 mg IV x1 in ED. Continue methylprednisolone increased from 60 mg twice daily to 125 mg every 6 hours per pulmonology as below. -Continue respiratory therapy evaluation treatment. Patient currently on heated high flow supplemental oxygen. Goal oxygen saturation 88-92% and continue to titrate down as tolerated. Continue DuoNebs as needed for shortness of breath or wheezing every 4 hours while awake. Continue incentive spirometer and Acapella. Continue chest physiotherapy every 4 hours per RT protocol. Continue Mucinex 1200 mg twice daily. -Continue to monitor ABG daily to assess oxygenation and slowly titrate off heated high flow as tolerated. Currently FiO2 0.50 and 55 L flow. -Discussed patient with on-call aerial crop duster at [facility] who recommended increasing glucocorticoid dose and frequency and treat underlying pneumonia and cor pulmonale as below. -Consulted palliative care, Shea ECHEVERRIA, to establish goals of care and we appreciate her time and care of the patient. Palliative care plans to follow-up tomorrow to 11/26/2019. -Discussed case with patient's aerial crop duster Dr. Mitchell who agrees with management thus far and in addition would add Unasyn for 10 days to treat possible microaspiration and ultrasound lower extremities which ruled out DVT although would not exchange floor manager. 2. Acute right-sided provoked PE, present on admission. Active. -Patient developed acute hypoxemia postoperatively not previously on oxygen. Eliquis was held for several days for right knee arthroplasty. -CT chest with contrast performed in ED did not demonstrate PE but was not a specific study to rule out PE. -CT angiogram chest demonstrated small right lower lobe basal subsegmental PE. -Bilateral Doppler ultrasound of lower extremities did not demonstrate DVT in bilateral lower extremities and demonstrated occlusive superficial thrombus within a varicose vein within the popliteal fossa. -Discontinued Eliquis and switched to therapeutic enoxaparin 75 mg twice daily due to concern for failed Eliquis. 3. Acute postoperative pneumonia and possible acute exacerbation of IPF, in setting of chronic idiopathic pulmonary fibrosis, present on admission. Active. -Patient endorses progressive worsening shortness of breath, especially dyspnea on exertion. -Patient is followed by pulmonology Dr. Lopez at [facility] and Dr. Mitchell at the [facility]. He is not on an immunosuppressive for IPF. -Chest x-ray demonstrated right middle lobe pneumonia superimposed on interstitial lung disease. -Repeat CT now angiogram PE protocol demonstrated small pulmonary embolus involving the right lower lobe posterior basal segmental artery, chronic interstitial lung disease with pulmonary fibrosis, groundglass densities in lower lobes bilaterally could represent superimposed acute pneumonia or pulmonary edema, mild cardiomegaly and small pericardial effusion, mild mediastinal and hilar lymphadenopathy. -Ordered complete pneumonia workup including: Respiratory viral PCR negative but plan to repeat respiratory PCR to ensure no viral etiology of pneumonia. Strep pneumoniae and Legionella urine antigens negative. Sputum culture, grew resident matthew and duncan albicans, which is unlikely to be pathogenic. Blood cultures not collected prior to antibiotic administration. -WBC has fluctuated and increased and decreased, not concordant with symptoms. Procalcitonin has remained negative. His recent rise is likely due to glucocorticoids. -Received ceftriaxone 1 g IV x1 and azithromycin 500 mg IV x1 in ED. Completed 7 day course of ceftriaxone 1 g IV daily today. Completed azithromycin 500 mg x 5 doses. Continue Unasyn 3 g every 6 hours for 10 days per pulmonology as above. 4. Acute and decompensated cor pulmonale with mild biventricular systolic dysfunction, present on admission. Resolving. -Patient does not appear to be overtly fluid overloaded, however, with echocardiogram results will continue to diurese as tolerated. CTA chest demonstrated groundglass densities in lower lobes bilaterally could represent superimposed acute pneumonia or pulmonary edema, mild cardiomegaly and small pericardial effusion and mild mediastinal and hilar lymphadenopathy. -Patient reports recent echocardiogram and does not recall mention of pulmonary hypertension or right-sided or left-sided heart failure. Echocardiogram demonstrated left ventricular ejection fraction 50 +/- 5%, interventricular septum is flattened, consistent with a right ventricular pressure/volume condition, right ventricle is moderately dilated, RV systolic function is moderately reduced since previous exam, moderate tricuspid regurgitation compared to the prior exam, RVSP estimated to be 65 mmHg based on an estimated right atrial pressure of 15 mm Hg severe pulmonary hypertension compared to the prior echo exam, and mild pulmonary artery dilation. -Continue to monitor electrolytes and replete as necessary with diuresis. Goal K > 4.0 and Mg > 2.0. Receive potassium chloride 80 mEq PO for low normal potassium. -Continue strict I&Os and daily weights. Net - 8L. -Limited echocardiogram demonstrated improved PA pressures, RVSP and RV volume overload. -Continued aggressive diuresis with IV furosemide and now net -8L . Plan for diuretic vacation today and restart at furosemide 40 mg PO daily to maintain euvolemia. Continue to monitor creatinine and BUN closely and adjust furosemide dose as necessary. 5. Acute thrush, not present on admission. Resolved. -Received fluconazole 200 mg x1. Continue fluconazole 100 mg daily for 7 days per pulmonolgy as above. 6. Chronic atrial fibrillation with mild RVR, present on admission. RVR resolved. -Initial EKG demonstrated atrial fibrillation with mild RVR with HR 110, left axis deviation and no ST/T wave changes. -Discontinued Eliquis for now and started therapeutic Lovenox 75 mg twice daily to treat PE as above. Patient is not on rate control medication and heart rate continues to be controlled 80 to 90's. -Continue to monitor electrolytes and replete as necessary with diuresis as above. Goal K > 4.0 and Mg > 2.0. 7. Acute ground level fall with closed head injury, present on admission. Stable. -Unsteady gait secondary to recent right knee surgery resulting in ground level fall while using forearm support crutches. Likelihood that severe hypoxemia also contributed to fall. -CT head without contrast did not demonstrate any acute intracranial abnormality. CT cervical spine unremarkable for fractures or dislocations. -Continue fall precautions and frequent neuro checks. -Status post laceration repair in ED and nursing removed sutures today. -Re-ordered physical therapy evaluation and treatment today. 8. Recent right knee surgery, subacute condition, present on admission. Active. -Continue pain control with acetaminophen 650 mg every 6 hours as needed for pain. -Hold physical therapy evaluation and treatment until improved respiratory status. Remains on strict bed rest at this time. 9. Normocytic anemia, present on admission. Stable. -Likely food service representative of anemia of chronic disease. -Initial hemoglobin 11 g/dL and MCV 93.1. Hemoglobin trending up. Hemodynamically stable and no overt signs of bleeding. -Continue to monitor blood counts periodically. 10. Allergic rhinitis, chronic, present on admission, stable -Continue home fluticasone propionate 2 sprays intranasally twice daily and added loratadine 10 mg daily for antihistamine effect. 11. Hyperlipidemia, chronic, present on admission. Stable. -Fasting lipid panel demonstrated excellent lipid control. -Continue home simvastatin 20 mg daily. 12. BPH, chronic, present on admission. Stable. -Continue tamsulosin 0.4 mg daily. 13. GERD, chronic, present on admission. Stable. -Continue Protonix 40 mg daily. Code status: DNR/DNI. Patient's spouse is the designated DPOA. VTE prophylaxis: Eliquis Disposition: Patient status remains tenuous and he remains hospitalized in ICU with barrier to discharge improvement in hypoxemia. Plan to consider transfer to LTAC [facility] for slow recovery if patient continues to slowly improve in regard to hypoxemia. Quality VTE Deep Vein Thrombosis/Pulmonary Embolism Present on Admission: No
--- NOTE | 2019-11-25 08:47 | DI.RAD.S_ITS ---
PROCEDURE: XR CHEST 1V INDICATIONS: Hypoxemia with IPF, PNA, Pulm Edema, PE. TECHNIQUE: One view of the chest was acquired. COMPARISON: [facility], CT, CT CHEST W CON, 11/15/2019, 11:39. [facility], CR, CHEST 2 VIEW, 03/11/2017, 15:33. FINDINGS: Surgical changes and devices: None. Lungs and pleura: Patchy areas of consolidation and interstitial prominence are identified diffusely throughout the lungs which is overall similar to the prior studies. There may be a new area of left hilar consolidation and infrahilar consolidation given air bronchograms. No large effusion or pneumothorax is evident. Mediastinum: Mediastinal contours appear normal. Heart size is enlarged. There is aortic atherosclerosis. Calcified aortopulmonary window lymph nodes are noted. Bones and chest wall: No suspicious bony lesions. Overlying soft tissues appear unremarkable. IMPRESSION: 1. Possible developing left hilar/infrahilar consolidation. Please clinically clinically to exclude pneumonia versus atelectasis. 2. Extensive chronic interstitial changes of the lungs are present, which results in difficulty evaluating for superimposed acute processes. 3. Cardiomegaly without definite pulmonary edema. Dictated by: Hua Buenrostro M.D. on 11/25/2019 at 11:16 Approved by: Hua Buenrostro M.D. on 11/25/2019 at 11:18
[2019-11-25] MEDS: PANTOPRAZOLE 40 MG TABLET PO (09:26)
[2019-11-25] MEDS: FLUCONAZOLE 100 MG TABLET PO (09:26)
[2019-11-25] MEDS: FLUTICASONE 120 SPRAY/16 GM SPRAY.SUSP NASAL ×2 (09:26→21:25)
[2019-11-25] MEDS: LORATADINE 10 MG TABLET PO (09:26)
[2019-11-25] MEDS: TAMSULOSIN 0.4 MG CAPSULE PO (09:26)
[2019-11-25] MEDS: ENOXAPARIN 80 MG/0.8 ML SYRINGE 75 MG SUBCUT ×2 (09:27→21:24)
[2019-11-25] MEDS: SODIUM CHLORIDE 0.9% FLUSH 10 ML IV ×2 (09:27→22:55)
[2019-11-25 10:35] LABS: pH ABG 7.45 (7.35-7.45)
[2019-11-25 10:36] LABS: HCO3 ABG 38 mmol/L (22-26); Oxygen Saturation ABG 95 % (95-100); PCO2 ABG 54.1 mmHg (35-45); PO2 ABG 74 mmHg (80-100); TCO2 ABG 39 mmol/L (21-31)
--- NOTE | 2019-11-25 10:41 | PC.NURSE ---
Addendum entered by Gina Morrow R.N. 11/25/19 15:44: PT able to work with PT this afternoon. Short, but able to stand at edge of bed. With continued close observation of Resp status. Addendum entered by Gina Morrow R.N. 11/25/19 14:53: Pt has continued to tolerate slight weaning on oxygen. Reports feeling less SOB and able to have small conversations with staff and family. Close monitoring of Spo2. Pt denies pain at present and will attempt a gentle PT this afternoon. Original Note: Pt continues to improve with less work of breathing. After ABG, Pt is titrated to 45% Fio2 55L. Some desat. noted during conversation, reminded Pt to use DB & C.
--- NOTE | 2019-11-25 15:18 | CM.DPNOTE ---
DCP Cont TC from Mikala adamson [facility] P# [phone] F# [phone]; she explained pt is likely a good candidate for admission but a few things are required first: -A Clinical acceptance which would happen after a doc to doc conversation Provided Dr Casey w/[facility] physician information: Dr Altamirano P# [phone], she will f/u -Then authorization from pt's [facility] Dr Casey indicated this AM that pt's prognosis remains guarded, but that he had made small clinical improvement and she remained hopeful he may be a good candidate still for LTAC. DC planning team will be following closely for coordination of safe DCP BILL Boyer
--- NOTE | 2019-11-25 16:19 | PT.IIE ---
Current Diagnoses Pneumonia, unspecified organism (11/15/19) Surgical History (Last Reviewed 11/23/19 @ 17:35 by JACKI Queen) H/O right knee surgery (Acute) History of lung biopsy (Acute) Medical History (Last Reviewed 11/23/19 @ 17:35 by JACKI Queen) Atrial fibrillation with normal ventricular rate (Chronic) BPH (benign prostatic hyperplasia) (Chronic) Chronic anticoagulation (Chronic) Fall (Inactive 11/15/19) GERD (gastroesophageal reflux disease) (Chronic) Hyperlipidemia (Chronic) Pulmonary fibrosis (Chronic) Physical Therapy Inpatient Re-Evaluation M1 PT/OT-IP Prior Functional Status Start: 11/16/19 11:44 Freq: NEEDED Status: Active Protocol: Document 11/25/19 15:46 AW (Rec: 11/25/19 16:18 AW [id number]) Medical Review Prior Functional Status Medical History Reviewed Yes Communication WNL Mobility and Gait Pt states he has been using bilateral forearm crutches since medial compartment right knee arthroplasty on 11/08/19. He notes he has been moving slowly, but mod independent with his crutches. He and his agree he has fallen only twice in the past few years Activities of Daily Living and IADL's Independent Social History Household Members spouse Living Arrangements House Number of Floors (Floors) Two Floors Number of Stairs To Enter/Railing? Level entrance; 13 steps down to daylight basement with left rail descending. Pt denies need to access basement regularly, though he will occasionally go downstairs to use the computer or to build a fire. Home Environment Standard Height Toilet,Walk in Shower Home Equipment Straight Cane,Crutches,Shower Seat without Backrest,Grab Bars Near Toilet Employment Status Retired Additional Social History Comment Pt lives with his , Anna , who is available and able to assist as needed. M2 PT-IP Current Condition Start: 11/16/19 11:44 Freq: NEEDED Status: Active Protocol: Document 11/25/19 15:46 AW (Rec: 11/25/19 16:18 AW [id number]) Physical Therapy Current Condition Current Condition Evaluation Date 11/25/19 Treatment Diagnosis AHRF, GLF, recent hx R unicompartmental knee, difficulty in walking Onset Date 11/15/19 Weight Bearing Status Weight Bearing Status Weight Bear as Tolerated Allowed Weight Bearing Amount (enter % WBAT RLE; 11/08/19 medial or #) (%) compartment knee arthroplasty M3 PT-IP Subjective Start: 11/16/19 11:44 Freq: NEEDED Status: Active Protocol: Document 11/25/19 15:46 AW (Rec: 11/25/19 16:18 AW [id number]) Subjective Physical Therapy Visit Type Type Re-Evaluation Visit Start Time 15:06 Visit Stop Time 15:38 Total Visit Minutes 32 Notes Pt last seen by PT 11/19. Order completed 11/23 with agreement from hospitalist due to ongoing bed rest. Activity order changed today to up to chair with new order for PT. Number of AUTO WASH BUFFER Visits 0 Physical Therapy Visit Comments Patient Comments Pt willing to work with PT Patient Goals Pt has been discussing option of LTAC with discharge planning. M4 PT-IP Mobility and Gait Start: 11/16/19 11:44 Freq: NEEDED Status: Active Protocol: Document 11/25/19 15:46 AW (Rec: 11/25/19 16:18 AW [id number]) PT-Bed Mobility Assessment Rolling Type of Rolling Roll to Right Level of Assist Standby Assistance Supine to Sit Supine to Sit Minimal Assistance,1 Person Assistance,Bedrails Sit to Supine Sit to Supine Minimal Assistance,1 Person Assistance Scooting Scooting to Edge of Bed Standby Assistance Scooting Up and Down in Bed Standby Assistance PT-Transfer Assessment Sit to and From Stand Sit to and from Stand Moderate Assistance,1 Person Assistance,Use of Upper Extremities Equipment Transfer Assistive Device Gait Belt,Front Wheeled Walker Comments Mobility Comments Pt in bed upon PT arrival on 55 L/min hydrated O2 and FiO2 45% with SpO2 95%. Pt completed supine exercises ( ankle pumps, quad sets, heel slides) with no change in SpO2 . He completed supine to sit, rolling toward his right side SBA and needing min A x 1 and use of bed cane/bed rails to sit upright. Pt sat EOB ~5 minutes with SpO2 88%. Pt was educated on managing respiratory rate, taking deeper breaths, working on diaphragmatic breathing. SpO2 rebounded to 90% before attempt to stand with FWW requiring mod A x 1. In standing, his SpO2 dropped to 79%. He was returned to supine min A x 1 to elevate his legs to the bed. He was repositioned in the bed with call light and table within reach, at bedside providing encouragement. SpO2 was 91% after four minutes supine. Gait Assessment Comments Gait Comments not assessed. Stair Climbing Assessment Comments Stair Climbing Comments not assessed PT-Balance Assessment Sitting Balance and Reactions Static Sitting Balance Ability Good Dynamic Sitting Balance Ability Good Standing Balance and Reactions Static Standing Balance Ability Fair Device Used FWW M5 PT-IP Objective Assessments Start: 11/16/19 11:44 Freq: NEEDED Status: Active Protocol: Document 11/25/19 15:46 AW (Rec: 11/25/19 16:18 AW [id number]) Orientation Orientation/Cognition Level of Alertness Alert Orientation Name,Day of Week,Place, Situation Language Function Ability No Deficits Noted Safety Awareness Understands Safety Issues Memory Description No Deficits Noted Gross Range of Motion Upper Extremity ROM Assessment Within Functional Limits Lower Extremity ROM Assessment Right Impaired Impairments Medial compartment right knee arthroplasty on 11/08/19. Pt lacking 3-5 degrees knee extension. Strength Upper Extremity Strength Assessment Within Functional Limits Lower Extremity Strength Assessment Right Impaired Comments Strength Comments LLE grossly 4-/5; R knee 3+/5 with ROM ~5-90 degrees. Coordination Assessment Gross Coordination Gross Coordination WNL Sensation Assessment Sensation Gross Sensation WNL M6 PT-IP Treatment Start: 11/16/19 11:44 Freq: NEEDED Status: Active Protocol: Document 11/25/19 15:46 AW (Rec: 11/25/19 16:18 AW [id number]) Physical Therapy Treatment Exercises Exercises Ankle Pumps,Gluteal Sets,Heel Slides,Passive Knee Extension Hang Knee ROM Measurement 5-90 Education Education Provided Precautions,Safety Other Treatments Other Treatment Performed Provided education on role of PT, plan of care, importance of carefully grading activity. M7 PT-IP Assessment and Plan Start: 11/16/19 11:44 Freq: NEEDED Status: Active Protocol: Document 11/25/19 15:46 AW (Rec: 11/25/19 16:18 AW [id number]) PT Summary Assessment and Plan Potential Rehabilitation Potential Fair Status of Condition at Evaluation Evolving Summary Impairments ROM,Strength,Balance,Transfers ,Gait,Activity Tolerance Assessment Summary Reevaluation takes place after 6 days of held treatment due to medical status. On evaluation, pt was able to tolerate supine exercises and maintain SpO2 95% on 55 L/min with FiO2 45%. SpO2 dropped to 88% in sitting, requiring 5 minutes to recover and dropped to 79% in standing, requiring return to supine and 4 minutes to recover to 91%. Pt would benefit from discharge to LTAC for management of his complex respiratory needs and for continued attention to rehab needs related to his right unicompartmental knee replacement. PT will continue to refine discharge recommendation based on progress. Goals Bed Mobility Goal Independent Transfer Goal Standby Assistance,Front Wheeled Walker Gait Goal Standby Assistance,Front Wheel Walker Gait Distance 20 Other Goals goals re-set on re-eval Days to Meet Goals 10 Frequency of Treatment Frequency Of Treatment Once a Day Treatment Plan Physical Therapy Treatment Plan Bed Mobility Training,Transfer Training,Gait Training, Therapeutic Exercise,Balance Retraining,Post Op Education, Discharge Planning,Hot or Cold Pack,Neuromuscular Re-ed, Coordination Retraining,Manual Therapy Recommendations To Nursing Amount of Assist Needed 1 Person Assist Discharge Recommendations PT Discharge Recommendations LTAC Transportation Needs at Discharge Wheelchair/Cabulance,Stretcher /Ambulance
[2019-11-25] MEDS: SIMVASTATIN 20 MG TABLET PO (21:24)
[2019-11-25] MEDS: DOCUSATE 100 MG CAPSULE PO (21:24)
--- NOTE | 2019-11-25 21:43 | PC.NURSE ---
2144 - Pt resting in bed. Report that he has been shifting and repositioning in bed, independently and denies need for assistance. Able to take po meds without difficulty. Discussed SCD's. Educated to DVT prophylaxis. Verbalized understanding and agreeable to try wearing on night mode. IV abx infusing. Call light in reach. Bed alarm on.
[2019-11-26] VITALS (7 sets, daily range): BP systolic 103–121; BP diastolic 60–89; PULSE 77–103; RESP 19–32; TEMP 36.1–36.7; O2SAT 95–103
[2019-11-26] MEDS: AMPICILLIN/SULBACTAM 3 GM 3 GM in SODIUM CHLORIDE 0.9% 100 ML IV ×4 (04:08→20:32)
[2019-11-26] MEDS: methylPREDNISolone 125 MG/2 ML VIAL IV ×2 (04:14→20:33)
[2019-11-26] MEDS: TAMSULOSIN 0.4 MG CAPSULE PO (09:16)
[2019-11-26] MEDS: FUROSEMIDE 40 MG TABLET PO (09:16)
[2019-11-26] MEDS: PANTOPRAZOLE 40 MG TABLET PO (09:16)
[2019-11-26] MEDS: SODIUM CHLORIDE 0.9% FLUSH 10 ML IV ×3 (09:18→21:21)
[2019-11-26] MEDS: LORATADINE 10 MG TABLET PO (09:18)
[2019-11-26] MEDS: FLUTICASONE 120 SPRAY/16 GM SPRAY.SUSP NASAL ×2 (09:25→20:43)
[2019-11-26] MEDS: ENOXAPARIN 80 MG/0.8 ML SYRINGE 75 MG SUBCUT (09:25)
[2019-11-26] MEDS: FLUCONAZOLE 100 MG TABLET PO (10:30)
--- NOTE | 2019-11-26 10:59 | PT.IPTN ---
Current Diagnoses Pneumonia, unspecified organism (11/15/19) Physical Therapy Treatment Note M2 PT-IP Current Condition Start: 11/16/19 11:44 Freq: NEEDED Status: Active Protocol: Document 11/25/19 15:46 AW (Rec: 11/25/19 16:18 AW [id number]) Physical Therapy Current Condition Current Condition Evaluation Date 11/25/19 Treatment Diagnosis AHRF, GLF, recent hx R unicompartmental knee, difficulty in walking Onset Date 11/15/19 Weight Bearing Status Weight Bearing Status Weight Bear as Tolerated Allowed Weight Bearing Amount (enter % WBAT RLE; 11/08/19 medial or #) (%) compartment knee arthroplasty M3 PT-IP Subjective Start: 11/16/19 11:44 Freq: NEEDED Status: Active Protocol: Document 11/26/19 10:32 SP (Rec: 11/26/19 10:56 SP [email or web address]) Subjective Physical Therapy Visit Type Type Treatment Note Visit Start Time 10:00 Visit Stop Time 10:25 Total Visit Minutes 25 Number of 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 M4 PT-IP Mobility and Gait Start: 11/16/19 11:44 Freq: NEEDED Status: Active Protocol: Document 11/26/19 10:32 SP (Rec: 11/26/19 10:56 SP [id number]) PT-Bed Mobility Assessment Rolling Type of Rolling Roll to Right Level of Assist Standby Assistance Supine to Sit Supine to Sit Minimal Assistance,1 Person Assistance,Head of Bed Elevated Sit to Supine Sit to Supine Minimal Assistance,1 Person Assistance Scooting Scooting to Edge of Bed Standby Assistance Scooting Up and Down in Bed Standby Assistance PT-Transfer Assessment Comments Mobility Comments Pt in bed w/ HOB elevated upon arrival from PT. Pt's O2 95% prior to sitting up. Pt was able to scoot legs to the R and roll, however needed Kanika to complete push up and swing legs off the bed. Pt's O2 85% while sitting at EOB and did not increase after sitting for 4 mins. Pt laid back down and O2 was 88% after 4 mins. Pt performed open chain B knee ext and R SLR 10 reps each with cueing to reach TKE. O2 88% end of tx. Placed call light within reach, Bed rails are up as well. Bed alarm activated. Gait Assessment Comments Gait Comments not assessed. Stair Climbing Assessment Comments Stair Climbing Comments not assessed PT-Balance Assessment Sitting Balance and Reactions Static Sitting Balance Ability Normal M5 PT-IP Objective Assessments Start: 11/16/19 11:44 Freq: NEEDED Status: Active Protocol: Document 11/25/19 15:46 AW (Rec: 11/25/19 16:18 AW [id number]) Orientation Orientation/Cognition Level of Alertness Alert Orientation Name,Day of Week,Place, Situation Language Function Ability No Deficits Noted Safety Awareness Understands Safety Issues Memory Description No Deficits Noted Gross Range of Motion Upper Extremity ROM Assessment Within Functional Limits Lower Extremity ROM Assessment Right Impaired Impairments Medial compartment right knee arthroplasty on 11/08/19. Pt lacking 3-5 degrees knee extension. Strength Upper Extremity Strength Assessment Within Functional Limits Lower Extremity Strength Assessment Right Impaired Comments Strength Comments LLE grossly 4-/5; R knee 3+/5 with ROM ~5-90 degrees. Coordination Assessment Gross Coordination Gross Coordination WNL Sensation Assessment Sensation Gross Sensation WNL M6 PT-IP Treatment Start: 11/16/19 11:44 Freq: NEEDED Status: Active Protocol: Document 11/25/19 15:46 AW (Rec: 11/25/19 16:18 AW [id number]) Physical Therapy Treatment Exercises Exercises Ankle Pumps,Gluteal Sets,Heel Slides,Passive Knee Extension Hang Knee ROM Measurement 5-90 Education Education Provided Precautions,Safety Other Treatments Other Treatment Performed Provided education on role of PT, plan of care, importance of carefully grading activity. M7 PT-IP Assessment and Plan Start: 11/16/19 11:44 Freq: NEEDED Status: Active Protocol: Document 11/26/19 10:32 SP (Rec: 11/26/19 10:56 SP [email or web address]) PT Summary Assessment and Plan Potential Rehabilitation Potential Fair Status of Condition at Evaluation Evolving Summary Impairments ROM,Strength,Balance,Transfers ,Gait,Activity Tolerance Assessment Summary Pt was on O2 55L high flow while working with PT. Pts O2 Sat decreased to 85% when transferring supine to sit and remained there until pt laid back down. O2 increased to 88% after pt was supine and pt was able to complete LE exercises in bed. Pt cont refine discharge recommendation based on progress. In MD's progress note, pt might consider palliative care. Goals Bed Mobility Goal Independent Transfer Goal Standby Assistance,Front Wheeled Walker Gait Goal Standby Assistance,Front Wheel Walker Gait Distance 20 Days to Meet Goals 10 Frequency of Treatment Frequency Of Treatment Once a Day Treatment Plan Physical Therapy Treatment Plan Bed Mobility Training,Transfer Training,Gait Training, Therapeutic Exercise,Balance Retraining,Discharge Planning, Neuromuscular Re-ed Other Recommendations and Next Treatment check vitals Focus any mobility as tolerated Recommendations To Nursing Amount of Assist Needed 1 Person Assist Discharge Recommendations PT Discharge Recommendations LTAC Transportation Needs at Discharge Wheelchair/Cabulance,Stretcher /Ambulance This note reviewed by Rian Cespedes, PT
--- NOTE | 2019-11-26 13:14 | CM.DPC ---
DCP Continued: EMR reviewed: Hospitalist Dr. Lion thinks patient would be better served at an inpatient acute rehab vs [facility]. Preferred locations would be or [facility] since that is where the patients healthcare recruiter's are located. CM/RN Contacted [facility] at [phone] and left a message. Cm/Rn will send over clinicals for them to review. ILENE/RN also contacted acute inpatient [phone] will review patients clinicals to see if Patient meets criteria for their inpatient rehab program. Clinicals faxed to [phone]. inpatient rehab does not admit patients on the weekend so patient if accepted wont be able to go until Friday at the soonest. Rosa Maria Jean RN
--- NOTE | 2019-11-26 14:28 | PC.NURSE ---
Addendum entered by Gina Morrow R.N. 11/26/19 15:43: PIV discussed and PICC ordered after CXR, placed by DI, and IV steroids and ABX for extended time if d/c to rehab facility, as planned. Original Note: Am shift Assumed care of Pt, continues on [place] heated O2 45 % fio2 and 55L, reports SoB with activity does continue to improve, but RR and toleration of weaning O2 is slow. Worked with PT this shift, able to sit at the edge of bed, and do marching work. Spo2 to 80's and delayed recovery. Continue to monitor resp effort. Denies pain. Multiple visitors this shift. Pt in good spirits.
--- NOTE | 2019-11-26 14:56 | DI.RAD.S_ITS ---
PROCEDURE: XR CHEST FOR PICC 1V INDICATIONS: line placement TECHNIQUE: One view of the chest was acquired. COMPARISON: [facility], , XR CHEST 1V, 11/25/2019, 10:12. FINDINGS: Surgical changes and devices: A left-sided PIC line catheter is identified with the tip overlying the mid superior vena cava. Lungs and pleura: Aeration of the lungs is similar to the prior study and demonstrates diffuse interstitial thickening with probable patchy areas of mild consolidation. No large effusion or definite pneumothorax is evident. Mediastinum: Mediastinal contours appear normal. The heart appears to be mildly enlarged. There is aortic atherosclerosis. Bones and chest wall: No suspicious bony lesions. Overlying soft tissues appear unremarkable. IMPRESSION: Left-sided PICC line catheter is positioned with the tip overlying the mid superior vena cava. Dictated by: Hua Buenrostro M.D. on 11/26/2019 at 15:11 Approved by: Hua Buenrostro M.D. on 11/26/2019 at 15:12
--- NOTE | 2019-11-26 19:05 | P.PN_ITS ---
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 He remains admitted for acute hypoxemic respiratory failure. Patient reports improved in his breathing over the last few days. He has been on bedrest. He remains on heated high-flow 55% O2 45 L per minute. Exam Vital Signs (past 8 hours): - 11/26/19 13:47 11/26/19 15:48 11/26/19 16:30 Temperature 97.1 F L 97.0 F L Pulse Rate 103 H 77 Respiratory Rate 32 H 19 Blood Pressure 119/89 110/66 Pulse Oximetry 103 H 96 98 Fraction of Inspired Oxygen 55 Oxygen Delivery Method Heated High Flow Oxygen Flow Rate 45 Narrative Exam Narrative: General: Alert very pleasant male resting comfortably in bed Lungs: Clear to auscultation, no crackles or wheeze Heart: Irregularly irregular without murmur Extremities: No edema Neurological: Nonfocal Psychiatric: Normal mood and affect Skin: No rash Objective Labs Result Diagrams: 11/24/19 04:49 11/25/19 05:07 Assessment & Plan Assessment & Plan narrative: 1. Acute likely on chronic hypoxemic respiratory failure, present on admission. Improving very gradually. -Patient has not previously required oxygen at baseline. Patient is followed by pulmonology Dr. Lopez at [facility] and Dr. Mitchell at the [facility]. -Multifactorial and secondary to right pulmonary embolism, postoperative pneumonia, pulmonary edema, and possibly acute exacerbation of Idiopathic Pulmonary Fibrosis. -currently on methylprednisolone 125 mg IV q.6 hours, Unasyn for pneumonia, [place] for cor pulmonale and anticoagulation for acute PE -per discussion with Dr. Mitchell 11/26 we can taper methylprednisolone to 125 mg IV q.12 hours times several days then start on prednisone 40 mg daily for a couple of weeks before further tapering -Continue respiratory therapy evaluation treatment. Patient currently on heated high flow supplemental oxygen. Goal oxygen saturation 88-92% and continue to titrate down as tolerated. Continue DuoNebs as needed for shortness of breath or wheezing every 4 hours while awake. Continue incentive spirometer and Acapella. Continue chest physiotherapy every 4 hours per RT protocol. Continue Mucinex 1200 mg twice daily. -Consulted palliative care, Shea ECHEVERRIA, to establish goals of care and we appreciate her time and care of the patient. -Discussed case with patient's loan officer Dr. Mitchell who agrees with management thus far and in addition would add Unasyn for 10 days to treat possible microaspiration and ultrasound lower extremities which ruled out DVT although would not change control manager. 2. Acute right-sided provoked PE, present on admission. Active. -Patient developed acute hypoxemia postoperatively not previously on oxygen. Eliquis was held for several days for right knee arthroplasty. -CT chest with contrast performed in ED did not demonstrate PE but was not a specific study to rule out PE. -CT angiogram chest demonstrated small right lower lobe basal subsegmental PE. -Bilateral Doppler ultrasound of lower extremities did not demonstrate DVT in bilateral lower extremities and demonstrated occlusive superficial thrombus within a varicose vein within the popliteal fossa. -completed full-dose Lovenox x5 days and on 11/26 started back on Eliquis 5 mg b.i.d. for chronic anticoagulation 3. Acute postoperative bacterial pneumonia and possible acute exacerbation of IPF, in setting of chronic idiopathic pulmonary fibrosis, present on admission. Active. -Chest x-ray demonstrated right middle lobe pneumonia superimposed on interstitial lung disease. -Repeat CT now angiogram PE protocol demonstrated small pulmonary embolus involving the right lower lobe posterior basal segmental artery, chronic interstitial lung disease with pulmonary fibrosis, groundglass densities in lower lobes bilaterally could represent superimposed acute pneumonia or pulmonary edema, mild cardiomegaly and small pericardial effusion, mild mediastinal and hilar lymphadenopathy. -Respiratory viral PCR negative. Strep pneumoniae and Legionella urine antigens negative. Sputum culture, grew resident matthew and duncan albicans, which is unlikely to be pathogenic. Blood cultures not collected prior to antibiotic administration. -WBC has fluctuated and increased and decreased, not concordant with symptoms. Procalcitonin has remained negative. His recent rise is likely due to glucocorticoids. -Received ceftriaxone 1 g IV x1 and azithromycin 500 mg IV x1 in ED. Completed 7 day course of ceftriaxone 1 g IV daily today. Completed azithromycin 500 mg x 5 doses. -Continue Unasyn 3 g every 6 hours for 10 days per pulmonology as above. 4. Acute decompensated cor pulmonale with mild biventricular systolic dysfunction, present on admission. Resolving. -Patient does not appear to be overtly fluid overloaded, however, with ec hocardiogram results will continue to diurese as tolerated. CTA chest demonstrated groundglass densities in lower lobes bilaterally could represent superimposed acute pneumonia or pulmonary edema, mild cardiomegaly and small pericardial effusion and mild mediastinal and hilar lymphadenopathy. -Echocardiogram demonstrated left ventricular ejection fraction 50 +/- 5%, interventricular septum is flattened, consistent with a right ventricular pressure/volume condition, right ventricle is moderately dilated, RV systolic function is moderately reduced since previous exam, moderate tricuspid regurgit ation compared to the prior exam, RVSP estimated to be 65 mmHg based on an estimated right atrial pressure of 15 mm Hg severe pulmonary hypertension compared to the prior echo exam, and mild pulmonary artery dilation. -Continue to monitor electrolytes and replete as necessary with diuresis. -Continue strict I&Os and daily weights. Net - 8L. -Limited echocardiogram demonstrated improved PA pressures, RVSP and RV volume overload. -completed aggressive diuresis with IV furosemide and now net -8L . -continue furosemide 40 mg PO daily to maintain euvolemia. 5. Acute thrush, not present on admission. Resolved. -Received fluconazole 200 mg x1. Continue fluconazole 100 mg daily for 7 days p er pulmonolgy. 6. Chronic atrial fibrillation with mild RVR, present on admission. RVR resolved. -Initial EKG demonstrated atrial fibrillation with mild RVR with HR 110, left axis deviation and no ST/T wave changes. -Patient is not on rate control medication and heart rate continues to be controlled 80 to 90's. -Continue Eliquis anticoagulation. 7. Acute ground level fall with closed head injury, present on admission. Stable. -Unsteady gait secondary to recent right knee surgery resulting in ground level fall while using forearm support crutches. Likelihood that severe hypoxemia also contributed to fall. -CT head without contrast did not demonstrate any acute intracranial abnormality. CT cervical spine unremarkable for fractures or dislocations. -Continue fall precautions and frequent neuro checks. -Status post laceration repair in ED and nursing removed sutures today. -continue physical therapy evaluation and treatment 8. Recent right knee replacement, subacute condition, present on admission. Active. -Continue pain control with acetaminophen 650 mg every 6 hours as needed for pain. 9. Normocytic anemia, present on admission. Stable. -Likely outbound call center representative of anemia of chronic disease. -Initial hemoglobin 11 g/dL and MCV 93.1. Hemoglobin trending up. Hemodynamically stable and no overt signs of bleeding. -Continue to monitor blood counts periodically. 10. Allergic rhinitis, chronic, present on admission, stable -Continue home fluticasone propionate 2 sprays intranasally twice daily and added loratadine 10 mg daily for antihistamine effect. 11. Hyperlipidemia, chronic, present on admission. Stable. -Fasting lipid panel demonstrated excellent lipid control. -Continue home simvastatin 20 mg daily. 12. BPH, chronic, present on admission. Stable. -Continue tamsulosin 0.4 mg daily. 13. GERD, chronic, present on admission. Stable. -Continue Protonix 40 mg daily. Code status: DNR/DNI. Patient's spouse is the designated DPOA. VTE prophylaxis: Eliquis PICC line placed 11/26/2019 Patient is making steady progress over last few days. He would benefit from transfer to facility where he can have rehab for recent knee replacement and also close follow-up of his respiratory status and pulmonary consultation and follow-up. As noted he still has significant O2 requirements and needs to complete 10 day course of IV antibiotic and IV steroids before transitioning to oral prednisone. Quality VTE Deep Vein Thrombosis/Pulmonary Embolism Present on Admission: No
[2019-11-26] MEDS: SIMVASTATIN 20 MG TABLET PO (20:33)
[2019-11-26] MEDS: APIXABAN 5 MG TABLET PO (20:33)
[2019-11-27] VITALS (7 sets, daily range): BP systolic 118–139; BP diastolic 69–82; PULSE 71–95; RESP 16–22; TEMP 35.9–36.8; O2SAT 93–97
[2019-11-27] MEDS: AMPICILLIN/SULBACTAM 3 GM 3 GM in SODIUM CHLORIDE 0.9% 100 ML IV ×4 (04:36→22:19)
[2019-11-27] MEDS: DOCUSATE 100 MG CAPSULE PO (08:59)
[2019-11-27] MEDS: TAMSULOSIN 0.4 MG CAPSULE PO (08:59)
[2019-11-27] MEDS: PANTOPRAZOLE 40 MG TABLET PO (08:59)
[2019-11-27] MEDS: FUROSEMIDE 40 MG TABLET PO (08:59)
[2019-11-27] MEDS: LORATADINE 10 MG TABLET PO (08:59)
[2019-11-27] MEDS: APIXABAN 5 MG TABLET PO ×2 (08:59→20:58)
[2019-11-27] MEDS: FLUTICASONE 120 SPRAY/16 GM SPRAY.SUSP NASAL ×2 (09:00→20:58)
[2019-11-27] MEDS: FLUCONAZOLE 100 MG TABLET PO (09:02)
[2019-11-27] MEDS: methylPREDNISolone 125 MG/2 ML VIAL IV ×2 (09:13→20:59)
[2019-11-27] MEDS: SODIUM CHLORIDE 0.9% FLUSH 10 ML IV ×2 (09:14→22:20)
--- NOTE | 2019-11-27 11:13 | P.PN_ITS ---
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 He remains admitted for acute hypoxemic respiratory failure. Patient again in dorsal improved in his breathing over the last few days. He has been on bedrest with really no activity tolerance. He is on heated high- flow 45% O2 45 L per minute. PICC line was placed yesterday. Chest x-ray looks about the same. We are working on transferring him to [facility] or acute inpatient rehab. Exam Vital Signs (past 8 hours): - 11/27/19 04:44 11/27/19 07:50 Temperature 97.0 F L 97.4 F L Pulse Rate 80 71 Respiratory Rate 20 20 Blood Pressure 120/69 126/81 Pulse Oximetry 97 96 Fraction of Inspired Oxygen 45 Oxygen Delivery Method Heated High Flow Oxygen Flow Rate 55 Narrative Exam Narrative: General: Alert very pleasant male resting comfortably in bed Lungs: Occasional wheeze otherwise clear to auscultation Heart: Irregularly irregular without murmur Extremities: No edema Neurological: Nonfocal Psychiatric: Normal mood and affect Skin: No rash Objective Labs Result Diagrams: 11/24/19 04:49 11/25/19 05:07 Assessment & Plan Assessment & Plan narrative: 1. Acute hypoxemic respiratory failure, present on admission. Improving very gradually. -Patient has not previously required oxygen at baseline. Patient is followed by pulmonology Dr. Lopez at [place] and Dr. Mitchell at the [facility]. -Multifactorial and secondary to right pulmonary embolism, postoperative pneumonia, pulmonary edema, and possibly acute exacerbation of Idiopathic Pulmonary Fibrosis. -currently on high dose methylprednisolone, Unasyn for pneumonia, Lasix for cor pulmonale and anticoagulation for acute PE -per discussion with Dr. Mitchell 11/26 we tapered methylprednisolone to 125 mg IV q.12 hours times several days then on November 28 will start on prednisone 40 mg daily for a couple of weeks before further tapering -Continue respiratory therapy evaluation treatment. Patient currently on heated high flow supplemental oxygen 45% at 55 liters/minute. Goal oxygen saturation 88-92% and continue to titrate down as tolerated. Continue DuoNebs as needed for shortness of breath or wheezing every 4 hours while awake. Continue incentive spirometer and Acapella. Continue chest physiotherapy every 4 hours per RT protocol. Continue Mucinex 1200 mg twice daily. -Consulted palliative care, Shea ECHEVERRIA, to establish goals of care and we appreciate her time and care of the patient. -Discussed case with patient's classified advertising supervisor Dr. Mitchell who agrees with management thus far and in addition would add Unasyn for 10 days to treat possible microaspiration and ultrasound lower extremities which ruled out DVT although would not drying rack changer. 2. Acute right-sided provoked subsegmental PE, present on admission. Active. -Patient developed acute hypoxemia postoperatively not previously on oxygen. Eliquis was held for several days for right knee arthroplasty. -CT chest with contrast performed in ED did not demonstrate PE but was not a specific study to rule out PE. -CT angiogram chest demonstrated small right lower lobe basal subsegmental PE. -Bilateral Doppler ultrasound of lower extremities did not demonstrate DVT in bilateral lower extremities and demonstrated occlusive superficial thrombus within a varicose vein within the popliteal fossa. -completed full-dose Lovenox x5 days and on 11/26 started back on Eliquis 5 mg b.i.d. for chronic anticoagulation 3. Acute postoperative bacterial pneumonia and possible acute exacerbation of IPF, in setting of chronic idiopathic pulmonary fibrosis, present on admission. Active. -Chest x-ray demonstrated right middle lobe pneumonia superimposed on interstitial lung disease. -Repeat CT now angiogram PE protocol demonstrated small pulmonary embolus involving the right lower lobe posterior basal segmental artery, chronic interstitial lung disease with pulmonary fibrosis, groundglass densities in lower lobes bilaterally could represent superimposed acute pneumonia or pulmonary edema, mild cardiomegaly and small pericardial effusion, mild mediastinal and hilar lymphadenopathy. -Respiratory viral PCR negative. Strep pneumoniae and Legionella urine antigens negative. Sputum culture, grew resident matthew and duncan albicans, which is unlikely to be pathogenic. Blood cultures not collected prior to antibiotic administration. -WBC has fluctuated and increased and decreased, not concordant with symptoms. Procalcitonin has remained negative. His recent rise is likely due to glucocorticoids. -Completed 7 day course of ceftriaxone 1 g IV daily. Completed azithromycin 500 mg x 5 doses. -started Unasyn 11/22/2019, continue Unasyn 3 g every 6 hours for total 10 days per pulmonology as above. Unison course to be completed on 12/01/2019. 4. Acute decompensated cor pulmonale with mild biventricular systolic dysfunction, present on admission. Resolving. -Patient does not appear to be overtly fluid overloaded, however, with echocardiogram results will continue to diurese as tolerated. CTA chest demonstrated groundglass densities in lower lobes bilaterally could represent superimposed acute pneumonia or pulmonary edema, mild cardiomegaly and small pericardial effusion and mild mediastinal and hilar lymphadenopathy. -Echocardiogram demonstrated left ventricular ejection fraction 50 +/- 5%, interventricular septum is flattened, consistent with a right ventricular pressure/volume condition, right ventricle is moderately dilated, RV systolic function is moderately reduced since previous exam, moderate tricuspid regurgitation compared to the prior exam, RVSP estimated to be 65 mmHg based on an estimated right atrial pressure of 15 mm Hg severe pulmonary hypertension compared to the prior echo exam, and mild pulmonary artery dilation. -Continue to monitor electrolytes and replete as necessary with diuresis. -Continue strict I&Os and daily weights. Net - 8L. -Limited echocardiogram demonstrated improved PA pressures, RVSP and RV volume overload. -completed aggressive diuresis with IV furosemide with net -8L . -continue furosemide 40 mg PO daily to maintain euvolemia. 5. Acute thrush, not present on admission. Resolved. -completed course of fluconazole 100 mg daily for 7 days per pulmonolgy. 6. Chronic atrial fibrillation with mild RVR, present on admission. RVR resolved. -Initial EKG demonstrated atrial fibrillation with mild RVR with HR 110, left axis deviation and no ST/T wave changes. -Patient is not on rate control medication and heart rate continues to be controlled 80 to 90's. -Continue Eliquis anticoagulation. 7. Acute ground level fall with closed head injury, present on admission. Stable. -Unsteady gait secondary to recent right knee surgery resulting in ground level fall while using forearm support crutches. Likelihood that severe hypoxemia also contributed to fall. -CT head without contrast did not demonstrate any acute intracranial abnormality. CT cervical spine unremarkable for fractures or dislocations. -Continue fall precautions and frequent neuro checks. -Status post laceration repair in ED and nursing removed sutures today. -continue physical therapy evaluation and treatment 8. Recent right knee replacement, subacute condition, present on admission. Active. -Continue pain control with acetaminophen 650 mg every 6 hours as needed for pain. 9. Normocytic anemia, present on admission. Stable. -Likely premium service representative of anemia of chronic disease. -Initial hemoglobin 11 g/dL and MCV 93.1. Hemoglobin trending up. Hemodynamically stable and no overt signs of bleeding. -Continue to monitor blood counts periodically. 10. Allergic rhinitis, chronic, present on admission, stable -Continue home fluticasone propionate 2 sprays intranasally twice daily and added loratadine 10 mg daily for antihistamine effect. 11. Hyperlipidemia, chronic, present on admission. Stable. -Fasting lipid panel demonstrated excellent lipid control. -Continue home simvastatin 20 mg daily. 12. BPH, chronic, present on admission. Stable. -Continue tamsulosin 0.4 mg daily. 13. GERD, chronic, present on admission. Stable. -Continue Protonix 40 mg daily. Code status: DNR/DNI. Patient's spouse is the designated DPOA. VTE prophylaxis: Eliquis PICC line placed 11/26/2019 Patient is making steady but slow progress over last few days. He would benefit from transfer to facility where he can have rehab for recent knee replacement and also close follow-up of his respiratory status and pulmonary consultation and follow-up. As noted he still has significant O2 requirements and needs to c omplete 10 day course of IV antibiotic and IV steroids before transitioning to oral prednisone. At this point he is ready for discharge when we find accepting facility. Quality VTE Deep Vein Thrombosis/Pulmonary Embolism Present on Admission: No
--- NOTE | 2019-11-27 12:20 | PT.IPTN ---
Current Diagnoses Pneumonia, unspecified organism (11/15/19) Physical Therapy Treatment Note M2 PT-IP Current Condition Start: 11/16/19 11:44 Freq: NEEDED Status: Active Protocol: Document 11/25/19 15:46 AW (Rec: 11/25/19 16:18 AW [id number]) Physical Therapy Current Condition Current Condition Evaluation Date 11/25/19 Treatment Diagnosis AHRF, GLF, recent hx R unicompartmental knee, difficulty in walking Onset Date 11/15/19 Weight Bearing Status Weight Bearing Status Weight Bear as Tolerated Allowed Weight Bearing Amount (enter % WBAT RLE; 11/08/19 medial or #) (%) compartment knee arthroplasty M3 PT-IP Subjective Start: 11/16/19 11:44 Freq: NEEDED Status: Active Protocol: Document 11/27/19 12:20 DLM (Rec: 11/27/19 12:50 DLM [id number]) Subjective Physical Therapy Visit Type Type Treatment Note Visit Start Time 11:45 Visit Stop Time 12:20 Total Visit Minutes 35 Number of COTTON INSPECTOR Visits 0 Physical Therapy Visit Comments Patient Comments He would like to get up in the chair if he can Therapy Pain Assessment Pain When Pain Assessed During Mobility Pain Present Pain Present Denied Pain M4 PT-IP Mobility and Gait Start: 11/16/19 11:44 Freq: NEEDED Status: Active Protocol: Document 11/27/19 12:20 DLM (Rec: 11/27/19 12:50 DLM [id number]) PT-Bed Mobility Assessment Supine to Sit Supine to Sit Standby Assistance,Head of Bed Elevated Scooting Scooting to Edge of Bed Independent PT-Transfer Assessment Sit to and From Stand Sit to and from Stand Contact Guard Assistance,Use of Upper Extremities Equipment Transfer Assistive Device Gait Belt,Front Wheeled Walker Transfers Transfer Destination Chair Transfer Technique Stand Step Pivot Transfer Ability Level of Assist Contact Guard Assistance,Use of Upper Extremities Comments Mobility Comments Pt sat edge of bed, initially light headed with sitting but resolved slowly with time. Oxygen sats 86-90% this visit with high flow oxygen in use. All mobility done at slow pace to manage his oxygen needs. Moved pt from supine to sit with head of bed very elevated to decrease the effort needed to complete this activity which appeared to help keep his O2 sats higher. Pt up to recliner for lunch with O2 sats 90%. His nurse is aware. Gait Assessment Comments Gait Comments Order for Up to chair only at this time due to respiratory issues PT-Balance Assessment Sitting Balance and Reactions Static Sitting Balance Ability Good Dynamic Sitting Balance Ability Good Standing Balance and Reactions Static Standing Balance Ability Good Dynamic Standing Balance Ability Fair Device Used FWW M5 PT-IP Objective Assessments Start: 11/16/19 11:44 Freq: NEEDED Status: Active Protocol: Document 11/25/19 15:46 AW (Rec: 11/25/19 16:18 AW [id number]) Orientation Orientation/Cognition Level of Alertness Alert Orientation Name,Day of Week,Place, Situation Language Function Ability No Deficits Noted Safety Awareness Understands Safety Issues Memory Description No Deficits Noted Gross Range of Motion Upper Extremity ROM Assessment Within Functional Limits Lower Extremity ROM Assessment Right Impaired Impairments Medial compartment right knee arthroplasty on 11/08/19. Pt lacking 3-5 degrees knee extension. Strength Upper Extremity Strength Assessment Within Functional Limits Lower Extremity Strength Assessment Right Impaired Comments Strength Comments LLE grossly 4-/5; R knee 3+/5 with ROM ~5-90 degrees. Coordination Assessment Gross Coordination Gross Coordination WNL Sensation Assessment Sensation Gross Sensation WNL M6 PT-IP Treatment Start: 11/16/19 11:44 Freq: NEEDED Status: Active Protocol: Document 11/27/19 12:20 DLM (Rec: 11/27/19 12:50 DLM [id number]) Physical Therapy Treatment Exercises Exercises Ankle Pumps,Seated Knee Flexion/Extension Education Education Provided Safety Other Treatments Other Treatment Performed education for breathing techniques and how to manage his energy to keep his O2 sats higher M7 PT-IP Assessment and Plan Start: 11/16/19 11:44 Freq: NEEDED Status: Active Protocol: Document 11/27/19 12:20 DLM (Rec: 11/27/19 12:50 DLM [id number]) PT Summary Assessment and Plan Summary Impairments ROM,Strength,Balance,Transfers ,Gait,Activity Tolerance Progress Towards Goals Progressing Toward Goals Assessment Summary Pt able to progress to up to recliner this visit with safe oxygen sats. He was initially light-headed with sitting up but it resolves slowly while up. All mobility performed slowly with rest breaks to manage his oxygen sats. Pt will need stretcher at discharge at this time due to very limited sitting and activity tolerance. He is high risk for oxygen desaturation if transported in a sitting position. Goals Bed Mobility Goal Independent Transfer Goal Standby Assistance,Front Wheeled Walker Gait Goal Standby Assistance,Front Wheel Walker Gait Distance 20 Days to Meet Goals 10 Frequency of Treatment Frequency Of Treatment Once a Day Treatment Plan Physical Therapy Treatment Plan Bed Mobility Training,Transfer Training,Gait Training, Therapeutic Exercise,Balance Retraining,Discharge Planning, Neuromuscular Re-ed Other Recommendations and Next Treatment do not progress gait until Focus oxygen sats more stable Recommendations To Nursing Amount of Assist Needed 1 Person Assist Discharge Recommendations PT Discharge Recommendations LTAC Transportation Needs at Discharge Stretcher/Ambulance
--- NOTE | 2019-11-27 14:17 | PC.NURSE ---
pt doing well today- in good spirits and denies pain- PT assisted up to chair , able to be weaned to 5l hfnc with spo2 91% lungs remain coarse and diminished- using urinal and bedpan independently- transferred to room 207 and report given
[2019-11-27] MEDS: SODIUM CHLORIDE 0.9% 100 ML (20:22)
[2019-11-27] MEDS: SIMVASTATIN 20 MG TABLET PO (20:58)
--- NOTE | 2019-11-27 22:56 | PC.NURSE ---
EVENING SHIFT Report received, care assumed. A&Ox4, VSS, denies pain. Denies SOB at rest; desats with activity. Oxygen needs decreased throughout shift; on 4LNC at end of shift. Continuous pulse ox.
[2019-11-28] MEDS: AMPICILLIN/SULBACTAM 3 GM 3 GM in SODIUM CHLORIDE 0.9% 100 ML IV ×4 (03:42→21:34)
[2019-11-28 08:00] VITALS: BP 109/70; PULSE 76; RESP 20; TEMP 36.6; O2SAT 93
[2019-11-28 08:10] VITALS: O2SAT 92
[2019-11-28 08:55] VITALS: O2SAT 92
[2019-11-28] MEDS: methylPREDNISolone 125 MG/2 ML VIAL IV ×2 (08:59→21:15)
[2019-11-28] MEDS: polyethylene glycoL 3350 17 GM POWD.PACK PO (08:59)
[2019-11-28] MEDS: FLUTICASONE 120 SPRAY/16 GM SPRAY.SUSP NASAL ×2 (08:59→21:07)
[2019-11-28] MEDS: FUROSEMIDE 40 MG TABLET PO (08:59)
[2019-11-28] MEDS: SODIUM CHLORIDE 0.9% FLUSH 10 ML IV ×4 (09:00→22:48)
[2019-11-28] MEDS: LORATADINE 10 MG TABLET PO (09:00)
[2019-11-28] MEDS: APIXABAN 5 MG TABLET PO ×2 (09:00→21:09)
[2019-11-28] MEDS: DOCUSATE 100 MG CAPSULE PO (09:00)
[2019-11-28] MEDS: PANTOPRAZOLE 40 MG TABLET PO (09:00)
[2019-11-28] MEDS: TAMSULOSIN 0.4 MG CAPSULE PO (09:00)
--- NOTE | 2019-11-28 11:10 | P.PN_ITS ---
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 He remains admitted for acute hypoxemic respiratory failure. Patient has made tremendous progress in respiratory status over the last few days. O2 requirements are down to 4 L nasal cannula. He is still bedbound but just now able to participate with PT. Exam Vital Signs (past 8 hours): - 11/28/19 08:00 11/28/19 08:10 Temperature 98 F Pulse Rate 76 Respiratory Rate 20 Blood Pressure 109/70 Pulse Oximetry 93 92 Fraction of Inspired Oxygen 45 Oxygen Delivery Method Nasal Cannula Oxygen Flow Rate 4 Narrative Exam Narrative: General: Alert very pleasant male resting comfortably in bed Lungs: Bibasilar crackles typical of pulmonary fibrosis Heart: Irregularly irregular without murmur Extremities: No edema Neurological: Nonfocal Psychiatric: Normal mood and affect Skin: No rash Objective Labs Result Diagrams: 11/24/19 04:49 11/25/19 05:07 Assessment & Plan Assessment & Plan narrative: 1. Acute hypoxemic respiratory failure, present on admission. -marked improvement over the past few days with significant decrease in O2 requirement -Patient has not previously required oxygen at baseline. Patient is followed by pulmonology Dr. Lopez at [place] and Dr. Mitchell at the [facility]. He mostly sees Dr. Lopez. -Multifactorial and secondary to right pulmonary embolism, postoperative pneumon ia, pulmonary edema, and possibly acute exacerbation of Idiopathic Pulmonary Fibrosis. -he is on high dose methylprednisolone, Unasyn for pneumonia, Lasix for cor pulmonale and anticoagulation for acute PE -per discussion with Dr. Mitchell 11/26 we tapered methylprednisolone to 125 mg IV q.12 hours times several days, on Friday 2 will start prednisone 40 mg daily for a couple of weeks before further tapering -prednisone tapering should be directed by his clean rice grader and reel tender based on how patient is doing clinically -Consulted palliative care, Shea ECHEVERRIA, to establish goals of care and we appreciate her time and care of the patient. -Discussed case several times with patient's clean rice grader and reel tender Dr. Mitchell who agrees with management thus far and in addition recommended adding Unasyn for 10 days to treat possible microaspiration 2. Acute right-sided provoked subsegmental PE, present on admission. Active. -Patient developed acute hypoxemia postoperatively not previously on oxygen. He takes Eliquis for AFib which was held for several days for recent right knee replacement. -CT chest with contrast performed in ED did not demonstrate PE but was not a specific study to rule out PE. -CT angiogram chest demonstrated small right lower lobe basal subsegmental PE. -Bilateral Doppler ultrasound of lower extremities did not demonstrate DVT but demonstrated occlusive superficial thrombus within a varicose vein within the popliteal fossa. -completed full-dose Lovenox x5 days and on 11/26 started back on Eliquis 5 mg b.i.d. for chronic anticoagulation. 3. Postoperative bacterial pneumonia and exacerbation of idiopathic pulmonary fibrosis, present on admission. Active. -Chest x-ray demonstrated right middle lobe pneumonia superimposed on interstitial lung disease. -CTA demonstrated small pulmonary embolus involving the right lower lobe posterior basal segmental artery, chronic interstitial lung disease with pulmonary fibrosis, ground glass densities in lower lobes bilaterally could represent superimposed acute pneumonia or pulmonary edema, mild cardiomegaly and small pericardial effusion, mild mediastinal and hilar lymphadenopathy. -Respiratory viral PCR negative. Strep pneumoniae and Legionella urine antigens negative. Sputum culture, grew resident matthew and duncan albicans, which is unlikely to be pathogenic. Blood cultures not collected prior to antibiotic administration. -WBC has fluctuated and increased and decreased, not concordant with symptoms. Procalcitonin has remained negative. His recent rise is likely due to glucocorticoids. -Completed 7 day course of ceftriaxone 1 g IV daily. Completed azithromycin 500 mg x 5 doses. -started Unasyn 11/22/2019, continue Unasyn 3 g every 6 hours for total 10 days per pulmonology as above. Unasyn course to be completed on 12/01/2019. 4. Acute decompensated cor pulmonale with mild biventricular systolic dysfunction, present on admission. Resolving. -Echocardiogram: LVEF 50 +/- 5%, interventricular septum is flattened, consistent with a right ventricular pressure/volume condition, right ventricle is moderately dilated, RV systolic function is moderately reduced since previous exam, moderate tricuspid regurgitation compared to the prior exam, RVSP estimated to be 65 mmHg based on an estimated right atrial pressure of 15 mm Hg severe pulmonary hypertension compared to the prior echo exam, and mild pulmonary artery dilation. -Limited echocardiogram demonstrated improved PA pressures, RVSP and RV volume overload. -completed aggressive diuresis with IV furosemide with net -8L . -continue furosemide 40 mg PO daily to maintain euvolemia. 5. Acute thrush, not present on admission. Resolved. -completed course of fluconazole 100 mg daily for 7 days per pulmonolgy. 6. Chronic atrial fibrillation with mild RVR, present on admission. RVR reso lved. -Initial EKG demonstrated atrial fibrillation with mild RVR with HR 110, left axis deviation and no ST/T wave changes. -Patient is not on rate control medication and heart rate continues to be c ontrolled 80 to 90's. -Continue long-term Eliquis anticoagulation. 7. Acute ground level fall with closed head injury, present on admission. Stable. -Unsteady gait secondary to recent right knee surgery resulting in ground level fall while using forearm support crutches. Likelihood that severe hypoxemia also contributed to fall. -CT head without contrast did not demonstrate any acute intracranial abnormality. CT cervical spine unremarkable for fractures or dislocations. -Status post laceration repair in ED and nursing removed sutures -continue physical therapy evaluation and treatment 8. Recent right knee replacement, subacute condition, present on admission. Active. -Continue pain control with acetaminophen 650 mg every 6 hours as needed for pain. 9. Normocytic anemia, present on admission. Stable. -Likely passenger service representative of anemia of chronic disease. -Initial hemoglobin 11 g/dL and MCV 93.1. Hemoglobin trending up. Hemodynamically stable and no overt signs of bleeding. -Continue to monitor blood counts periodically. 10. Allergic rhinitis, chronic, present on admission, stable -Continue Flonase and loratadine 11. Hyperlipidemia, chronic, present on admission. Stable. -Fasting lipid panel demonstrated excellent lipid control. -Continue home simvastatin 20 mg daily. 12. BPH, chronic, present on admission. Stable. -Continue tamsulosin 0.4 mg daily. 13. GERD, chronic, present on admission. Stable. -Continue Protonix 40 mg daily. Code status: DNR/DNI. Patient's spouse is the designated DPOA. VTE prophylaxis: Eliquis PICC line placed 11/26/2019 Patient is improving and likely will be able to discharge to custodial facility rehab tomorrow, Friday. Quality VTE Deep Vein Thrombosis/Pulmonary Embolism Present on Admission: No
--- NOTE | 2019-11-28 13:21 | PT.IPTN ---
Current Diagnoses Pneumonia, unspecified organism (11/15/19) Physical Therapy Treatment Note M2 PT-IP Current Condition Start: 11/16/19 11:44 Freq: NEEDED Status: Active Protocol: Document 11/25/19 15:46 AW (Rec: 11/25/19 16:18 AW [id number]) Physical Therapy Current Condition Current Condition Evaluation Date 11/25/19 Treatment Diagnosis AHRF, GLF, recent hx R unicompartmental knee, difficulty in walking Onset Date 11/15/19 Weight Bearing Status Weight Bearing Status Weight Bear as Tolerated Allowed Weight Bearing Amount (enter % WBAT RLE; 11/08/19 medial or #) (%) compartment knee arthroplasty M3 PT-IP Subjective Start: 11/16/19 11:44 Freq: NEEDED Status: Active Protocol: Document 11/28/19 12:57 KS (Rec: 11/28/19 14:36 KS [id number]) Subjective Physical Therapy Visit Type Type Treatment Note Visit Start Time 12:57 Visit Stop Time 13:21 Total Visit Minutes 24 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 M4 PT-IP Mobility and Gait Start: 11/16/19 11:44 Freq: NEEDED Status: Active Protocol: Document 11/28/19 12:57 KS (Rec: 11/28/19 14:36 KS [id number]) PT-Bed Mobility Assessment Rolling Type of Rolling Roll to Right Level of Assist Standby Assistance Supine to Sit Supine to Sit Standby Assistance,Head of Bed Elevated Sit to Supine Sit to Supine Contact Guard Assistance,1 Person Assistance,Head of Bed Elevated Scooting Scooting to Edge of Bed Independent PT-Transfer Assessment Sit to and From Stand Sit to and from Stand Contact Guard Assistance,Use of Upper Extremities Equipment Transfer Assistive Device Gait Belt,Front Wheeled Walker Transfers Transfer Destination Chair Transfer Technique Stand Step Pivot Transfer Ability Level of Assist Contact Guard Assistance,Use of Upper Extremities Comments Mobility Comments Pt was in bed upon arrival from therapy w/ HOB elevated and O2 at 94% on 4L. SBA for sup<>sitting EOB and I for scooting to EOB. Once sitting EOB, pts O2 decreased to 91% on 4L and pt reported light headedness. Pts O2 dropped to 85% and pt was instructed to lay back down. CGA for sit<> sup in bed. O2 raised to 5L and O2 recovered to 94% while pt was supine in bed. Pt then performed sup<>sit EOB SBA O2 92%. Pt stood w/ FWW and performed stand step pivot transfer to chair. Cues for reaching back for chair, pt stand<>sit CGA. Once sitting pts O2 was 89% and then then dropped to 80% on 5L. Nursing called, pts O2 recovered to 85 % 5L. Pt left reclined in chair w/ all needs in reach and nursing staff present. Gait Assessment Comments Gait Comments Order for Up to chair only at this time due to respiratory issues Stair Climbing Assessment Comments Stair Climbing Comments not assessed PT-Balance Assessment Sitting Balance and Reactions Static Sitting Balance Ability Good Dynamic Sitting Balance Ability Good Standing Balance and Reactions Static Standing Balance Ability Good Dynamic Standing Balance Ability Fair Device Used FWW M5 PT-IP Objective Assessments Start: 11/16/19 11:44 Freq: NEEDED Status: Active Protocol: Document 11/25/19 15:46 AW (Rec: 11/25/19 16:18 AW [id number]) Orientation Orientation/Cognition Level of Alertness Alert Orientation Name,Day of Week,Place, Situation Language Function Ability No Deficits Noted Safety Awareness Understands Safety Issues Memory Description No Deficits Noted Gross Range of Motion Upper Extremity ROM Assessment Within Functional Limits Lower Extremity ROM Assessment Right Impaired Impairments Medial compartment right knee arthroplasty on 11/08/19. Pt lacking 3-5 degrees knee extension. Strength Upper Extremity Strength Assessment Within Functional Limits Lower Extremity Strength Assessment Right Impaired Comments Strength Comments LLE grossly 4-/5; R knee 3+/5 with ROM ~5-90 degrees. Coordination Assessment Gross Coordination Gross Coordination WNL Sensation Assessment Sensation Gross Sensation WNL M6 PT-IP Treatment Start: 11/16/19 11:44 Freq: NEEDED Status: Active Protocol: Document 11/28/19 12:57 KS (Rec: 11/28/19 14:36 KS [id number]) Physical Therapy Treatment Education Education Provided Safety Other Treatments Other Treatment Performed Reviewed pursed lip breathing. M7 PT-IP Assessment and Plan Start: 11/16/19 11:44 Freq: NEEDED Status: Active Protocol: Document 11/28/19 12:57 KS (Rec: 11/28/19 14:36 KS [id number]) PT Summary Assessment and Plan Summary Impairments ROM,Strength,Balance,Transfers ,Gait,Activity Tolerance Progress Towards Goals Progressing Toward Goals Assessment Summary Pt was in bed 94% o2 on 4L and performed sup<>sit EOB SBA, pt then reported light headedness and was instructed to lay down when O2 dropped from 91% sitting to 85% sitting. Pts O2 raised to 5L and recovered to 94% w/ instructions for pursed lip breathing. Pt was able to complete sup<>sit and sit<> stand on second attempt w/ CGA and FWW and O2 at 89% after sitting back in chair. While sitting, pts O2 dropped to 80% on 5L, nursing notified, pts O2 then increased to 85%. Pt continues to have very low tolerance for activity w/ quick decrease in O2. Goals Bed Mobility Goal Independent Transfer Goal Standby Assistance,Front Wheeled Walker Gait Goal Standby Assistance,Front Wheel Walker Gait Distance 20 Days to Meet Goals 10 Frequency of Treatment Frequency Of Treatment Once a Day Treatment Plan Physical Therapy Treatment Plan Bed Mobility Training,Transfer Training,Gait Training, Therapeutic Exercise,Balance Retraining,Discharge Planning, Neuromuscular Re-ed Other Recommendations and Next Treatment do not progress gait until Focus oxygen sats more stable Recommendations To Nursing Amount of Assist Needed 1 Person Assist Discharge Recommendations PT Discharge Recommendations LTAC Transportation Needs at Discharge Stretcher/Ambulance
--- NOTE | 2019-11-28 14:35 | CM.DPC ---
DCP/continued: Discussed case in AM rounds with Dr. Lion. Per provider patient medically doing much better. Currently, requiring approximately 4liters of [address] Lion anticipates that patient will be medically stable for discharge within the next 24-48hrs. Patient not physically strong enough to to inpatient rehab at this time. SUSPENSION CORD TIER met with patient and family members at bedside explained CM/SW role. Updated white board in room. Pateint now in room# 207. Family reports that they have spoken with Dr. Lion and understand that patient will need SNF level of care when medically stable. Initially, it was thought patient would benefit/qualify for [facility] but currently due to improvement he does not. Family provided with Medicare SNF choice list and Senior resource guide. First SNF choice is [facility]. Son reports that family toured this AM. Family plans to look over list and let CM team know of second choice and if first choice changes. SUSPENSION CORD TIER placed to [facility]. Left vm requesting review for admit ALEX[facility]. P: Anticipate SNF when medically stable. As of right now first choice is [facility]. BILL Brito
[2019-11-28 15:45] VITALS: BP 115/68; PULSE 94; RESP 18; TEMP 37.3; O2SAT 94
[2019-11-28 20:41] VITALS: O2SAT 95
[2019-11-28] MEDS: SIMVASTATIN 20 MG TABLET PO (21:15)
--- NOTE | 2019-11-28 22:27 | PC.NURSE ---
pt on 4L 96% at rest. while talking he desats to 88%. pt desat to 77% with activity. [id number], transfers only. PICC dressing changed at 1855.
[2019-11-28 23:56] VITALS: BP 133/77; PULSE 88; RESP 16; TEMP 36.3; O2SAT 94
[2019-11-29] VITALS (8 sets, daily range): BP systolic 116–126; BP diastolic 63–83; PULSE 82–88; RESP 14–20; TEMP 35.8–36.4; O2SAT 85–97
[2019-11-29] MEDS: AMPICILLIN/SULBACTAM 3 GM 3 GM in SODIUM CHLORIDE 0.9% 100 ML IV ×4 (03:36→20:42)
[2019-11-29 06:15] LABS: Add Manual Diff / Slide Review NO; Basophils Absolute Auto 0 /uL (0-100); Basophils Percent Auto 0.1 % (0-2); Eosinophils Absolute Auto 0 /uL (0-450); Hematocrit 38.8 % (41-53); Hemoglobin 12.9 g/dL (13.5-17.5); Lymphocytes Absolute Auto 800 /uL (1100-4500); Lymphocytes Percent Auto 3.9 % (25-40); Mean Corpuscular HGB Conc 33.2 % (30-36); Mean Corpuscular Hemoglobin 30.8 PG (26-34); Mean Corpuscular Volume 92.8 fL (80-100); Monocytes Absolute Auto 500 /uL (0-900); Monocytes Percent Auto 2.7 % (3-14); Neutrophils Absolute Auto 18500 /uL (1500-7000); Neutrophils Percent Auto 93.3 % (50-75); Platelet Count 297 X10^3/uL (150-400); Red Blood Cell Count 4.18 X10^6/uL (4.5-5.9); White Blood Cell Count 19.8 X10^3/uL (4.5-11.0)
[2019-11-29 06:21] LABS: BUN Creatinine Ratio 57.1 (6-22); Blood Urea Nitrogen 40 mg/dL (9-20); Carbon Dioxide 37 mmol/L (22-32); Chloride 99 mmol/L (98-107); Estimated Glomerular Filt Rate > 60.0 mL/min (>60); Glucose 135 mg/dL (80-110); HEMOLYSIS < 15 (0-50); Potassium 4.1 mmol/L (3.4-5.1); Sodium 138 mmol/L (137-145)
[2019-11-29] MEDS: TAMSULOSIN 0.4 MG CAPSULE PO (10:19)
[2019-11-29] MEDS: FUROSEMIDE 40 MG TABLET PO (10:20)
[2019-11-29] MEDS: PANTOPRAZOLE 40 MG TABLET PO (10:20)
[2019-11-29] MEDS: APIXABAN 5 MG TABLET PO ×2 (10:20→20:40)
[2019-11-29] MEDS: DOCUSATE 100 MG CAPSULE PO ×2 (10:20→20:40)
[2019-11-29] MEDS: LORATADINE 10 MG TABLET PO (10:20)
[2019-11-29] MEDS: SODIUM CHLORIDE 0.9% FLUSH 10 ML IV ×2 (10:21→20:40)
[2019-11-29] MEDS: FLUTICASONE 120 SPRAY/16 GM SPRAY.SUSP NASAL ×2 (10:22→20:40)
--- NOTE | 2019-11-29 11:22 | PT.IPTN ---
Current Diagnoses Pneumonia, unspecified organism (11/15/19) Physical Therapy Treatment Note M2 PT-IP Current Condition Start: 11/16/19 11:44 Freq: NEEDED Status: Active Protocol: Document 11/25/19 15:46 AW (Rec: 11/25/19 16:18 AW [id number]) Physical Therapy Current Condition Current Condition Evaluation Date 11/25/19 Treatment Diagnosis AHRF, GLF, recent hx R unicompartmental knee, difficulty in walking Onset Date 11/15/19 Weight Bearing Status Weight Bearing Status Weight Bear as Tolerated Allowed Weight Bearing Amount (enter % WBAT RLE; 11/08/19 medial or #) (%) compartment knee arthroplasty M3 PT-IP Subjective Start: 11/16/19 11:44 Freq: NEEDED Status: Active Protocol: Document 11/29/19 11:07 AW (Rec: 11/29/19 11:22 AW [id number]) Subjective Physical Therapy Visit Type Type Treatment Note Visit Start Time 10:42 Visit Stop Time 11:06 Total Visit Minutes 24 Number of MINE 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 Visits 0 Physical Therapy Visit Comments Patient Comments Pt willing to participate with PT Therapy Pain Assessment Pain When Pain Assessed During Mobility Pain Present Pain Present Denied Pain M4 PT-IP Mobility and Gait Start: 11/16/19 11:44 Freq: NEEDED Status: Active Protocol: Document 11/29/19 11:07 AW (Rec: 11/29/19 11:22 AW [id number]) PT-Bed Mobility Assessment Rolling Type of Rolling Roll to Right Level of Assist Standby Assistance Supine to Sit Supine to Sit Standby Assistance,Head of Bed Elevated Scooting Scooting to Edge of Bed Independent PT-Transfer Assessment Sit to and From Stand Sit to and from Stand Contact Guard Assistance,Use of Upper Extremities Equipment Transfer Assistive Device Gait Belt,Front Wheeled Walker Transfers Transfer Destination Chair Transfer Technique Stand Step Pivot Transfer Ability Level of Assist Standby Assistance,Use of Upper Extremities Comments Mobility Comments Pt sitting up in bed upon PT arrival. He was on 4L O2 with SpO2 94%. During conversation and supine exercise, SpO2 dropped to 90%. Pt transferred to sitting EOB at which time his SpO2 dropped to 85% but recovered to 90% within a minute of concentrating on his breathing without distraction . Pt stood using FWW CGA with SpO2 dropping to 80%. He walked 3 feet to the chair with FWW SBA and sat SBA. SpO2 recovered to 90% within 3 minutes. Pt was positioned in the chair with call light and all needs within reach. Gait Assessment Comments Gait Comments Order for Up to chair only at this time due to respiratory issues M5 PT-IP Objective Assessments Start: 11/16/19 11:44 Freq: NEEDED Status: Active Protocol: Document 11/25/19 15:46 AW (Rec: 11/25/19 16:18 AW [id number]) Orientation Orientation/Cognition Level of Alertness Alert Orientation Name,Day of Week,Place, Situation Language Function Ability No Deficits Noted Safety Awareness Understands Safety Issues Memory Description No Deficits Noted Gross Range of Motion Upper Extremity ROM Assessment Within Functional Limits Lower Extremity ROM Assessment Right Impaired Impairments Medial compartment right knee arthroplasty on 11/08/19. Pt lacking 3-5 degrees knee extension. Strength Upper Extremity Strength Assessment Within Functional Limits Lower Extremity Strength Assessment Right Impaired Comments Strength Comments LLE grossly 4-/5; R knee 3+/5 with ROM ~5-90 degrees. Coordination Assessment Gross Coordination Gross Coordination WNL Sensation Assessment Sensation Gross Sensation WNL M6 PT-IP Treatment Start: 11/16/19 11:44 Freq: NEEDED Status: Active Protocol: Document 11/29/19 11:07 AW (Rec: 11/29/19 11:22 AW [id number]) Physical Therapy Treatment Exercises Exercises Ankle Pumps,Quad Sets,Heel Slides,Short Arc Quads,Passive Knee Extension Hang,Seated Knee Flexion/Extension Education Education Provided Safety Other Treatments Other Treatment Performed Continued to reinforce pursed lip and diaphragmatic breathing to improve activity tolerance through energy conservation. M7 PT-IP Assessment and Plan Start: 11/16/19 11:44 Freq: NEEDED Status: Active Protocol: Document 11/29/19 11:07 AW (Rec: 11/29/19 11:22 AW [id number]) PT Summary Assessment and Plan Summary Impairments ROM,Strength,Balance,Transfers ,Gait,Activity Tolerance Progress Towards Goals Progressing Toward Goals Assessment Summary Pt presents with decreased O2 needs today and decreased recovery time needed to restore SpO2 to 90%. He tolerated exercise intervention well and shows improvement in breathing and energy conservation techniques . Goals Bed Mobility Goal Independent Transfer Goal Standby Assistance,Front Wheeled Walker Gait Goal Standby Assistance,Front Wheel Walker Gait Distance 20 Days to Meet Goals 10 Frequency of Treatment Frequency Of Treatment Once a Day Treatment Plan Physical Therapy Treatment Plan Bed Mobility Training,Transfer Training,Gait Training, Therapeutic Exercise,Balance Retraining,Discharge Planning, Neuromuscular Re-ed Other Recommendations and Next Treatment discuss activity order with Focus hospitalist if appropriate to attempt gait relative to pt's O2 needs Recommendations To Nursing Amount of Assist Needed 1 Person Assist Discharge Recommendations PT Discharge Recommendations SNF Rehab,LTAC Transportation Needs at Discharge Wheelchair/Cabulance,Stretcher /Ambulance
--- NOTE | 2019-11-29 11:35 | CM.DPC ---
Addendum entered by Rosa Maria Jean R.N. 11/30/19 12:33: Contacted Nadeen at [facility] and left a voice message. Trying to determine if [employer] has approved authorization for patient to go to SNF. CM/RN will call again if not heard back by 1400. Rosa Maria Jean RN Original Note: DCP continued: EMR reviewed: Cm/Rn met with provider at patients bedside to discuss d/C plan. Patient is doing much better and is ready to D/c in the next day or so. Patient would like to go to SNF. [facility] contacted- they can accept patient just waiting on an [employer] authorization. Nadeen placed authorization request in 11/29/2019. Once authorization received patient will be D/C. Most likely tomorrow. Patient updated and stated understanding. Patient requested CM/RN contact his family to discuss d/c plan. CM/RN spoke with daughter Kaylee at [phone] and explained plan and insurance approvals pending. Leroy daughter is currently looking at other SNF options and will update CM department if preferred SNF location changes. Rosa Maria Jean RN
[2019-11-29] MEDS: predniSONE 20 MG TABLET 40 MG PO (11:49)
--- NOTE | 2019-11-29 15:29 | P.PN_ITS ---
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 He remains admitted for acute hypoxemic respiratory failure, the patient has made marked improvement over the last few days and is now currently on nasal cannula. He continues to desaturate with movement but is able to work with physical therapy. He is currently pending insurance authorization at [facility], hope was for discharge today however it is appearing that his insurance authorization will not occur until tomorrow. He continues to feel much better, he denies shortness of breath at rest. He continues to deny chest pain, nausea, abdominal pain, vomiting. His white blood cell count remained stable around 19 today. Exam Vital Signs (past 8 hours): - 11/29/19 11:10 11/29/19 11:32 11/29/19 11:33 Pulse Rate 82 Respiratory Rate 14 Blood Pressure 125/75 Pulse Oximetry 94 92 92 Fraction of Inspired Oxygen 45 Oxygen Delivery Method Room Air Oxygen Flow Rate 4 Narrative Exam Narrative: General: Elderly thin male sitting in bed and in no acute distress, well-developed, well-nourished, appropriately interactive. HEENT: Normocephalic, atraumatic. Left orbital contusion resolving and supraorbital laceration with sutures in place healing well. External ears without defect. Pupils equal, round, and reactive to light. Anicteric sclerae, moist conjunctivae, and no lid lag. Oropharynx without erythema or exudate and moist mucosa. Thrush resolved. Neck: Supple with full range of motion. No lymphadenopathy or thyromegaly. Cardiovascular: Regular rate and rhythm without murmurs, rubs, or gallops appreciated. Pulmonary: Improved air movement but clear to auscultation in all lung myers with occasional fine crackle. No wheeze or rhonchi. Normal respiratory effort with no use of accessory muscles. Abdomen: Soft, scaphoid, bowel sounds present, nontender, nondistended. No hepatosplenomegaly or masses appreciated. Extremities: No clubbing, cyanosis, or edema. Right knee with dressing in place no surrounding erythema or edema and no longer tender to palpation medially. Skin: Normal temperature, turgor, and texture; no rash, ulcers, or subcutaneous nodules appreciated. Neurological: Cranial nerves grossly intact. Psychiatric: Normal mood and affect. Alert and oriented to person, place, and time. Objective Labs Result Diagrams: 11/29/19 05:55 11/29/19 05:55 Labs: Laboratory Results - last 24 hr 11/29/19 11/29/19 05:55 05:55 WBC 19.8 H RBC 4.18 L Hgb 12.9 L Hct 38.8 L MCV 92.8 MCH 30.8 MCHC 33.2 RDW 13.0 Plt Count 297 Neut % (Auto) 93.3 H Lymph % (Auto) 3.9 L [place] % (Auto) 2.7 L Eos % (Auto) 0.0 L Baso % (Auto) 0.1 Neut # (Auto) 67911 H Lymph # (Auto) 800 L [place] # (Auto) 500 Eos # (Auto) 0 Baso # (Auto) 0 Sodium 138 Potassium 4.1 Chloride 99 Carbon Dioxide 37 H BUN 40 H Creatinine 0.70 Estimated GFR > 60.0 BUN/Creatinine Ratio 57.1 H Glucose 135 H Calcium 8.0 L Assessment & Plan Assessment & Plan narrative: Gonzalez Mendez is a 89-year-old male with a past medical history significant for hyperlipidemia, chronic atrial fibrillation on Eliquis, 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 He remains admitted for acute possibly on chronic hypoxemic respiratory failure. He has improved quite dramatically as of today, and is currently pending insurance authorization for discharge to [facility] rehabilitation. 1. Acute hypoxemic respiratory failure, present on admission. -marked improvement over the past few days with significant decrease in O2 requirement -Patient has not previously required oxygen at baseline. Patient is followed by pulmonology Dr. Lopez at [facility] and Dr. Mitchell at the [facility]. He mostly sees Dr. Lopez. -Multifactorial and secondary to right pulmonary embolism, postoperative pneumonia, pulmonary edema, and possibly acute exacerbation of Idiopathic Pulmonary Fibrosis. -he is on high dose methylprednisolone, Unasyn for pneumonia, Lasix for cor pulmonale and anticoagulation for acute PE -per discussion with Dr. Mitchell 11/26 we tapered methylprednisolone to 125 mg IV q.12 hours times several days. Started oral prednisone 40 mg daily for a couple of weeks before further tapering today. -further prednisone tapering should be directed by his registered client associate based on how patient is doing clinically -Consulted palliative care, Shea ECHEVERRIA, to establish goals of care and we appreciate her time and care of the patient. -Discussed case several times with patient's registered client associate Dr. Mitchell who agrees with management thus far and in addition recommended adding Unasyn for 10 days to treat possible microaspiration. This will end on November 30. 2. Acute right-sided provoked subsegmental PE, present on admission. Active. -Patient developed acute hypoxemia postoperatively not previously on oxygen. He takes Eliquis for AFib which was held for several days for recent right knee replacement. -CT chest with contrast performed in ED did not demonstrate PE but was not a specific study to rule out PE. -CT angiogram chest demonstrated small right lower lobe basal subsegmental PE. -Bilateral Doppler ultrasound of lower extremities did not demonstrate DVT but demonstrated occlusive superficial thrombus within a varicose vein within the popliteal fossa. -completed full-dose Lovenox x5 days and on 11/26 started back on Eliquis 5 mg b.i.d. for chronic anticoagulation. 3. Postoperative bacterial pneumonia and exacerbation of idiopathic pulmonary fibrosis, present on admission. Active. -Chest x-ray demonstrated right middle lobe pneumonia superimposed on interstitial lung disease. -CTA demonstrated small pulmonary embolus involving the right lower lobe posterior basal segmental artery, chronic interstitial lung disease with pulmonary fibrosis, ground glass densities in lower lobes bilaterally could represent superimposed acute pneumonia or pulmonary edema, mild cardiomegaly and small pericardial effusion, mild mediastinal and hilar lymphadenopathy. -Respiratory viral PCR negative. Strep pneumoniae and Legionella urine antigens negative. Sputum culture, grew resident matthew and duncan albicans, which is unlikely to be pathogenic. Blood cultures not collected prior to antibiotic administration. -WBC has fluctuated and increased and decreased, not concordant with symptoms. Procalcitonin has remained negative. His recent rise is likely due to glucocorticoids. -Completed 7 day course of ceftriaxone 1 g IV daily. Completed azithromycin 500 mg x 5 doses. -started Unasyn 11/22/2019, continue Unasyn 3 g every 6 hours for total 10 days per pulmonology as above. Unasyn course to be completed on 12/01/2019. 4. Acute decompensated cor pulmonale with mild biventricular systolic dysfunction, present on admission. Resolving. -Echocardiogram: LVEF 50 +/- 5%, interventricular septum is flattened, consistent with a right ventricular pressure/volume condition, right ventricle is moderately dilated, RV systolic function is moderately reduced since previous exam, moderate tricuspid regurgitation compared to the prior exam, RVSP estimated to be 65 mmHg based on an estimated right atrial pressure of 15 mm Hg severe pulmonary hypertension compared to the prior echo exam, and mild pulmonary artery dilation. -Limited echocardiogram demonstrated improved PA pressures, RVSP and RV volume overload. -completed aggressive diuresis with IV furosemide with net -8L . -continue furosemide 40 mg PO daily to maintain euvolemia. 5. Acute thrush, not present on admission. Resolved. -completed course of fluconazole 100 mg daily for 7 days per pulmonolgy. 6. Chronic atrial fibrillation with mild RVR, present on admission. RVR resolved. -Initial EKG demonstrated atrial fibrillation with mild RVR with HR 110, left axis deviation and no ST/T wave changes. -Patient is not on rate control medication and heart rate continues to be controlled 80 to 90's. -Continue long-term Eliquis anticoagulation. 7. Acute ground level fall with closed head injury, present on admission. Stable. -Unsteady gait secondary to recent right knee surgery resulting in ground level fall while using forearm support crutches. Likelihood that severe hypoxemia also contributed to fall. -CT head without contrast did not demonstrate any acute intracranial abnormality. CT cervical spine unremarkable for fractures or dislocations. -Status post laceration repair in ED and nursing removed sutures -continue physical therapy evaluation and treatment 8. Recent right knee replacement, subacute condition, present on admission. Active. -Continue pain control with acetaminophen 650 mg every 6 hours as needed for pain. 9. Normocytic anemia, present on admission. Stable. 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 -Initial hemoglobin 11 g/dL and MCV 93.1. Hemoglobin trending up. Hemodynamically stable and no overt signs of bleeding. -Continue to monitor blood counts periodically. 10. Allergic rhinitis, chronic, present on admission, stable -Continue Flonase and loratadine 11. Hyperlipidemia, chronic, present on admission. Stable. -Fasting lipid panel demonstrated excellent lipid control. -Continue home simvastatin 20 mg daily. 12. BPH, chronic, present on admission. Stable. -Continue tamsulosin 0.4 mg daily. 13. GERD, chronic, present on admission. Stable. -Continue Protonix 40 mg daily. Code status: DNR/DNI. Patient's spouse is the designated DPOA. VTE prophylaxis: Eliquis PICC line placed 11/26/2019 Patient is improving and likely will be able to discharge to shelter facility rehab tomorrow after insurance authorization. Quality VTE Deep Vein Thrombosis/Pulmonary Embolism Present on Admission: No
[2019-11-29] MEDS: SIMVASTATIN 20 MG TABLET PO (20:40)
[2019-11-30] VITALS (8 sets, daily range): BP systolic 101–134; BP diastolic 50–80; PULSE 74–94; RESP 16–18; TEMP 36.3–36.4; O2SAT 85–95
[2019-11-30] MEDS: AMPICILLIN/SULBACTAM 3 GM 3 GM in SODIUM CHLORIDE 0.9% 100 ML IV ×2 (03:03→09:13)
[2019-11-30] MEDS: DOCUSATE 100 MG CAPSULE PO (09:00)
[2019-11-30] MEDS: APIXABAN 5 MG TABLET PO (09:00)
[2019-11-30] MEDS: SODIUM CHLORIDE 0.9% FLUSH 10 ML IV (09:00)
[2019-11-30] MEDS: FLUTICASONE 120 SPRAY/16 GM SPRAY.SUSP NASAL (09:01)
[2019-11-30] MEDS: FUROSEMIDE 40 MG TABLET PO (09:01)
[2019-11-30] MEDS: PANTOPRAZOLE 40 MG TABLET PO (09:02)
[2019-11-30] MEDS: predniSONE 20 MG TABLET 40 MG PO (09:02)
[2019-11-30] MEDS: TAMSULOSIN 0.4 MG CAPSULE PO (09:02)
--- NOTE | 2019-11-30 12:45 | PT.IPTN ---
Current Diagnoses Pneumonia, unspecified organism (11/15/19) Physical Therapy Treatment Note M2 PT-IP Current Condition Start: 11/16/19 11:44 Freq: NEEDED Status: Active Protocol: Document 11/25/19 15:46 AW (Rec: 11/25/19 16:18 AW [id number]) Physical Therapy Current Condition Current Condition Evaluation Date 11/25/19 Treatment Diagnosis AHRF, GLF, recent hx R unicompartmental knee, difficulty in walking Onset Date 11/15/19 Weight Bearing Status Weight Bearing Status Weight Bear as Tolerated Allowed Weight Bearing Amount (enter % WBAT RLE; 11/08/19 medial or #) (%) compartment knee arthroplasty M3 PT-IP Subjective Start: 11/16/19 11:44 Freq: NEEDED Status: Active Protocol: Document 11/30/19 10:05 HH (Rec: 11/30/19 12:45 HH [email or web address]) Subjective Physical Therapy Visit Type Type Treatment Note Visit Start Time 10:05 Visit Stop Time 10:21 Total Visit Minutes 16 Number of SOFTWARE INTERN Visits 0 Physical Therapy Visit Comments Patient Comments Pt agreeable to mobilize with PT M4 PT-IP Mobility and Gait Start: 11/16/19 11:44 Freq: NEEDED Status: Active Protocol: Document 11/30/19 10:05 HH (Rec: 11/30/19 12:45 HH [email or web address]) PT-Bed Mobility Assessment Rolling Type of Rolling Roll to Right Level of Assist Standby Assistance Supine to Sit Supine to Sit Standby Assistance,Head of Bed Elevated Scooting Scooting to Edge of Bed Independent PT-Transfer Assessment Sit to and From Stand Sit to and from Stand Contact Guard Assistance,Use of Upper Extremities Equipment Transfer Assistive Device Gait Belt,Front Wheeled Walker Transfers Transfer Destination Chair Transfer Technique Stand Step Pivot Transfer Ability Level of Assist Standby Assistance,Use of Upper Extremities Comments Mobility Comments Pt was in bed upon PT arrival O2 sat at 92% with 4L. He was able to maintain at 90-92% O2 sat during conversation. He then sat up with SBA and took 3 mins to recover from 86% to 90%. Pt stood up after with UE push off through FWW. He stand step pivot transfer with CGA followed sitting down with safe transfer. Pt reports slightly lightheadedness with SOB. Recline his chair back with LE lift and practiced pursed lip breathing. He was able to maintain 88-90% with 4L. Left pt with call light and notified nursing regarding his performance. Gait Assessment Comments Gait Comments Order for Up to chair only at this time due to respiratory issues M5 PT-IP Objective Assessments Start: 11/16/19 11:44 Freq: NEEDED Status: Active Protocol: Document 11/25/19 15:46 AW (Rec: 11/25/19 16:18 AW [id number]) Orientation Orientation/Cognition Level of Alertness Alert Orientation Name,Day of Week,Place, Situation Language Function Ability No Deficits Noted Safety Awareness Understands Safety Issues Memory Description No Deficits Noted Gross Range of Motion Upper Extremity ROM Assessment Within Functional Limits Lower Extremity ROM Assessment Right Impaired Impairments Medial compartment right knee arthroplasty on 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 Pt lacking 3-5 degrees knee extension. Strength Upper Extremity Strength Assessment Within Functional Limits Lower Extremity Strength Assessment Right Impaired Comments Strength Comments LLE grossly 4-/5; R knee 3+/5 with ROM ~5-90 degrees. Coordination Assessment Gross Coordination Gross Coordination WNL Sensation Assessment Sensation Gross Sensation WNL M6 PT-IP Treatment Start: 11/16/19 11:44 Freq: NEEDED Status: Active Protocol: Document 11/29/19 11:07 AW (Rec: 11/29/19 11:22 AW [id number]) Physical Therapy Treatment Exercises Exercises Ankle Pumps,Quad Sets,Heel Slides,Short Arc Quads,Passive Knee Extension Hang,Seated Knee Flexion/Extension Education Education Provided Safety Other Treatments Other Treatment Performed Continued to reinforce pursed lip and diaphragmatic breathing to improve activity tolerance through energy conservation. M7 PT-IP Assessment and Plan Start: 11/16/19 11:44 Freq: NEEDED Status: Active Protocol: Document 11/30/19 10:05 HH (Rec: 11/30/19 12:45 HH [email or web address]) PT Summary Assessment and Plan Summary Impairments ROM,Strength,Balance,Transfers ,Gait,Activity Tolerance Progress Towards Goals Progressing Toward Goals Assessment Summary Pt showed improved knee AROM who was able to reach R TKE. He also showed improved activity tolerance with less O2 required through NC (4L). Pt did feel SOB after transfer but able to recover within few minutes. Per SW note, pt is going to skilled rehab to improve his cardiovascular endurance and strength. Goals Bed Mobility Goal Independent Transfer Goal Standby Assistance,Front Wheeled Walker Gait Goal Standby Assistance,Front Wheel Walker Gait Distance 20 Days to Meet Goals 10 Frequency of Treatment Frequency Of Treatment Once a Day Treatment Plan Physical Therapy Treatment Plan Bed Mobility Training,Transfer Training,Gait Training, Therapeutic Exercise,Balance Retraining,Discharge Planning, Neuromuscular Re-ed Other Recommendations and Next Treatment discuss activity order with [facility] hospitalist if appropriate to attempt gait relative to pt's O2 needs Recommendations To Nursing Amount of Assist Needed 1 Person Assist Discharge Recommendations PT Discharge Recommendations SNF Rehab,[facility] Transportation Needs at Discharge Wheelchair/Cabulance,Stretcher /Ambulance
--- NOTE | 2019-11-30 13:12 | CM.DPC ---
Addendum entered by Rosa Maria Jean R.N. 11/30/19 14:52: Faxed [facility], Signed medication list, D/C summary and D/C orders to [facility]. CM put original [facility] into D/C packet to go with patient to [facility]. copy given to HONEY Meyer to scan into the EMR. CM/RN called Patients Anna at [phone] and left voice message for her to call back to get D/C update. Rosa Maria Jean RN Original Note: DCP Continued: EMR reviewed: CM/RN spoke with Nadeen from [facility] and she received approval from [employer] and [facility] can accept patient today at 3pm... Dr. Ross, patients nurse and [employer] ATTENDANT notified of D/C time. Dr. Ross is placing D/C instruction in and Cm/Rn will fax [facility], D/C summary and D/C order when they are ready to [facility]. Nurse report # is [phone] Rosa Maria Jean RN
--- NOTE | 2019-11-30 13:44 | PM.DS.1 ---
History of Present Illness History of Present Illness Date Patient Seen: 11/30/19 Time Patient Seen: 13:44 Chief complaint: GLF on blood thinners Narrative: As per JACKI Smallwood: The patient is an 89-year-old male with PMH of AFIB, chronic Eliquis anticoagulation, ILD, pulmonary fibrosis, GERD, BPH, HLD, Patient presented to the ED on 11/15/2019 for further evaluation and treatment of a ground level fall. Patient woke up on 11/15/2019 at 4:00 a.m. with urinary urgency. He used his crutches to ambulate to the restroom and while doing that sustained a ground level fall. Patient is unable to note many details that led to the fall; however, he notes being in a hurried state due to the intensity of urinary urgency. Patient reports falling onto the left shoulder with associated head injury to the left frontal aspect of the face. Patient sustained an approximately 3 cm laceration that was sutured (x2 sutures) in ED. He does not endorse loss of consciousness or being down for an extended period of time. Patient's was nearby and was able to summon for help. Patient reports brief period of dizziness after the fall. He denies headache, change in vision, nausea or vomiting. Patient is anticoagulated with Eliquis for underlying history of atrial fibrillation. On 11/08/2019 patient had right knee surgery. His Eliquis was stopped 2 days prior to the surgery and then resumed 1 day after the surgery. Since the surgery patient has been using crutches for ambulation. He has also been using opioids, oxycodone/APAP 5/325 twice daily. No recent fever or chills. He has not experienced chest pain palpitations, syncopal events, abdominal pain, nausea, vomiting, or diarrhea. He has been having constipation in the past week. Patient is known to have underlying pulmonary fibrosis. He follows with pulmonology in [place], Dr. Jania Lopez; however, recently was referred to Carl Mitchell, a stripper black and white at the [facility]. Patient is in the process of a pulmonary workup for his interstitial lung disease and is scheduled to follow-up with the stripper black and white in November of 2018. Patient reports having exertional dyspnea at baseline. He endorses worsening of his baseline state over the past week. Patient reports presence of a cough with mild clear purulence that is chronic and which he associates with underlying pulmonary fibrosis. He has not experienced increase in phlegm purulence or an acute exacerbation of his cough. Also, at baseline patient notes a recovery period of 15 minutes after ambulation. He is not known to have prior hypoxia and has not been wearing oxygen. Existing records on patient are not entirely clear. It is being noted that he was placed on supplemental oxygen at 6L by EMS prior to ED arrival. However, on triage patient is noted to be hypoxic w/ SpO2 76%. In the ED patient is noted to exhibit shortness of breath and exertional hypoxia. Discharge Providers Provider Date of admission: 11/15/19 14:43 Discharge Date: 11/30/19 Primary care physician: Carlos Servin MD Consults: 11/15/19 18:18 Consult to Dietitian, Adult Routine Comment: Reason For Exam: assessed at high risk 11/15/19 20:58 Consult to Respiratory Therapy Evaluate & Treat Comment: Physician Instructions: Evaluate and treat 11/15/19 23:14 Consult to Physical Therapy Evaluate & Treat Comment: s/p R knee surgery, RLE weakness, deconditioning Physician Instructions: Evaluate and Treat 11/16/19 04:43 Consult to Discharge Planning Routine Comment: patient has questions about outpatient PT 11/17/19 13:11 Consult to [facility] OR [employer] - [employer] Routine Comment: Pt request for resources 11/19/19 07:39 Consult to Palliative Care Routine Comment: IPF with likely flare Consulting Provider: Shea De Dios 11/22/19 10:03 Consult to Palliative Care Routine Comment: Consulting Provider: Shea De Dios 11/25/19 10:06 Consult to Physical Therapy Evaluate & Treat Comment: gentle PT Physician Instructions: Evaluate and Treat Discharge provider: Richard Ross DO Summary Hospital Course Discharge Diagnosis: 1. Acute hypoxemic respiratory failure, present on admission. 2. Acute right-sided provoked subsegmental PE, present on admission. Active. 3. Postoperative bacterial pneumonia and exacerbation of idiopathic pulmonary fibrosis, present on admission. Active. 4. Acute decompensated cor pulmonale with mild biventricular systolic dysfunction, present on admission. Resolving. 5. Acute thrush, not present on admission. Resolved. 6. Chronic atrial fibrillation with mild RVR, present on admission. RVR resolved. 7. Acute ground level fall with closed head injury, present on admission. Stable. 8. Recent right knee replacement, subacute condition, present on admission. Active. 9. Normocytic anemia, present on admission. Stable. 10. Allergic rhinitis, chronic, present on admission, stable 11. Hyperlipidemia, chronic, present on admission. Stable. 12. BPH, chronic, present on admission. Stable. 13. GERD, chronic, present on admission. Stable. 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 He was admitted for acute possibly on chronic hypoxemic respiratory failure. The exact etiology is unknown, but possibilities include an exacerbation of idiopathic pulmonary fibrosis, subsegmental PE, decompensated cor pulmonale, or postoperative bacterial pneumonia. Patient was treated for all of the above and did show improvement. He continues to require IV antibiotics for a total 10 day course which is scheduled to end on November 30. He will also need to continue on 40 mg of prednisone daily for at least 2 weeks, with further taper after these 2 weeks to be determined by his stripper black and white. Patient was ultimately discharged to [facility]. 1. Acute hypoxemic respiratory failure, present on admission. -patient was in the ICU for a prolonged period of time, ultimately requiring high-flow nasal cannula for approximately 1 week. Patient did then improved after interventions as noted below, it is unclear exactly what sparked his acute, likely on chronic, hypoxic respiratory failure but could be any of the etiologies mentioned above. -Patient has not previously required oxygen at baseline. Patient is followed by pulmonology Dr. Lopez at [place] and Dr. Mitchell at the [facility]. He mostly sees Dr. Lopez. He is currently on 4 L of nasal cannula at rest. -Multifactorial and secondary to right pulmonary embolism, postoperative pneumonia, pulmonary edema, and possibly acute exacerbation of Idiopathic Pulmonary Fibrosis. -was initially on methylprednisone which was increased to high dose for a couple of days. He is now down to 40 mg of p.o. prednisone daily, which per his stripper black and white he should remain on for a couple of weeks, with further taper directed by his outpatient stripper black and white either Dr. Mitchell or John. He was further given Unasyn for pneumonia which will and on 12/01/2019, Lasix for cor pulmonale and anticoagulation for acute PE. -further prednisone tapering should be directed by his stripper black and white based on how patient is doing clinically -Consulted palliative care, Shea ECHEVERRIA, to establish goals of care and we appreciate her time and care of the patient. 2. Acute right-sided provoked subsegmental PE, present on admission. Active. -Patient developed acute hypoxemia postoperatively not previously on oxygen. He takes Eliquis for AFib which was held for several days for recent right knee replacement. -CT chest with contrast performed in ED did not demonstrate PE but was not a specific study to rule out PE. -CT angiogram chest demonstrated small right lower lobe basal subsegmental PE. -Bilateral Doppler ultrasound of lower extremities did not demonstrate DVT but demonstrated occlusive superficial thrombus within a varicose vein within the popliteal fossa. -completed full-dose Lovenox x5 days and on 11/26 started back on Eliquis 5 mg b.i.d. for chronic anticoagulation. 3. Postoperative bacterial pneumonia and exacerbation of idiopathic pulmonary fibrosis, present on admission. Active. -Chest x-ray demonstrated right middle lobe pneumonia superimposed on interstitial lung disease. -CTA demonstrated small pulmonary embolus involving the right lower lobe posterior basal segmental artery, chronic interstitial lung disease with pulmonary fibrosis, ground glass densities in lower lobes bilaterally could represent superimposed acute pneumonia or pulmonary edema, mild cardiomegaly and small pericardial effusion, mild mediastinal and hilar lymphadenopathy. -Respiratory viral PCR negative. Strep pneumoniae and Legionella urine antigens negative. Sputum culture, grew resident matthew and duncan albicans, which is unlikely to be pathogenic. Blood cultures not collected prior to antibiotic administration. -WBC has fluctuated and increased and decreased, not concordant with symptoms. Procalcitonin has remained negative. His recent rise is likely due to glucocorticoids. -Completed 7 day course of ceftriaxone 1 g IV daily. Completed azithromycin 500 mg x 5 doses. started Unasyn 11/22/2019, continue Unasyn 3 g every 6 hours for total 10 days per pulmonology as above. Unasyn course to be completed on 12/01/2019 at [facility]. 4. Acute decompensated cor pulmonale with mild biventricular systolic dysfunction, present on admission. Resolving. -Echocardiogram: LVEF 50 +/- 5%, interventricular septum is flattened, consistent with a right ventricular pressure/volume condition, right ventricle is moderately dilated, RV systolic function is moderately reduced since previous exam, moderate tricuspid regurgitation compared to the prior exam, RVSP estimated to be 65 mmHg based on an estimated right atrial pressure of 15 mm Hg severe pulmonary hypertension compared to the prior echo exam, and mild pulmonary artery dilation. -Limited echocardiogram demonstrated improved PA pressures, RVSP and RV volume overload. -completed aggressive diuresis with IV furosemide with net -8L . -continue furosemide 40 mg PO daily to maintain euvolemia. 5. Acute thrush, not present on admission. Resolved. -completed course of fluconazole 100 mg daily for 7 days per pulmonolgy. 6. Chronic atrial fibrillation with mild RVR, present on admission. RVR resolved. -Initial EKG demonstrated atrial fibrillation with mild RVR with HR 110, left axis deviation and no ST/T wave changes. -Patient is not on rate control medication and heart rate continues to be controlled 80 to 90's. -Continue long-term Eliquis anticoagulation. 7. Acute ground level fall with closed head injury, present on admission. Stable. -Unsteady gait secondary to recent right knee surgery resulting in ground level fall while using forearm support crutches. Likelihood that severe hypoxemia also contributed to fall. -CT head without contrast did not demonstrate any acute intracranial abnormality. CT cervical spine unremarkable for fractures or dislocations. -Status post laceration repair in ED and nursing removed sutures -continue physical therapy evaluation and treatment 8. Recent right knee replacement, subacute condition, present on admission. Active. -Continue pain control with acetaminophen 650 mg every 6 hours as needed for pain. 9. Normocytic anemia, present on admission. Stable. -Likely premium representative of anemia of chronic disease. -Initial hemoglobin 11 g/dL and MCV 93.1. Hemoglobin trending up. Hemodynamically stable and no overt signs of bleeding. 10. Allergic rhinitis, chronic, present on admission, stable -Continue Flonase and loratadine 11. Hyperlipidemia, chronic, present on admission. Stable. -Fasting lipid panel demonstrated excellent lipid control. -Continue home simvastatin 20 mg daily. 12. BPH, chronic, present on admission. Stable. -Continue tamsulosin 0.4 mg daily. 13. GERD, chronic, present on admission. Stable. -Continue Protonix 40 mg daily. Code status: DNR/DNI. Patient's spouse is the designated DPOA. VTE prophylaxis: Eliquis PICC line placed 11/26/2019 Patient is being discharged to [facility] today. Status at Discharge Cognitive/behavioral status at discharge: oriented Overall status at discharge: patient is not back to baseline Time Spent with Patient Time spent: Greater than 30 minutes Exam Vital Signs (past 8 hours): - 11/30/19 07:35 11/30/19 07:38 11/30/19 10:02 Temperature 97.4 F L Pulse Rate 94 H Respiratory Rate 18 Blood Pressure 134/80 Pulse Oximetry 90 L 85 L 92 11/30/19 10:05 11/30/19 13:25 Temperature Pulse Rate Respiratory Rate Blood Pressure Pulse Oximetry 90 L 91 Fraction of Inspired Oxygen 45 Oxygen Delivery Method Nasal Cannula,Humidification Oxygen Flow Rate 4 Narrative Exam Narrative: General: Elderly thin male sitting in bed and in no acute distress, well-developed, well-nourished, appropriately interactive. HEENT: Normocephalic, atraumatic. Left orbital contusion resolving and well healed laceration. External ears without defect. Pupils equal, round, and reactive to light. Anicteric sclerae, moist conjunctivae, and no lid lag. Oropharynx without erythema or exudate and moist mucosa. Thrush resolved. Neck: Supple with full range of motion. No lymphadenopathy or thyromegaly. Cardiovascular: Regular rate and rhythm without murmurs, rubs, or gallops appreciated. Pulmonary: Improved air movement but clear to auscultation in all lung myers with occasional fine crackle. No wheeze or rhonchi. Normal respiratory effort with no use of accessory muscles. Abdomen: Soft, scaphoid, bowel sounds present, nontender, nondistended. No hepatosplenomegaly or masses appreciated. Extremities: No clubbing, cyanosis, or edema. Right knee with dressing in place no surrounding erythema or edema and no longer tender to palpation medially. Skin: Normal temperature, turgor, and texture; no rash, ulcers, or subcutaneous nodules appreciated. Neurological: Cranial nerves grossly intact. Psychiatric: Normal mood and affect. Alert and oriented to person, place, and time. 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 He was admitted for acute possibly on chronic hypoxemic respiratory failure. The exact etiology is unknown, but possibilities include an exacerbation of idiopathic pulmonary fibrosis, subsegmental PE, decompensated cor pulmonale, or postoperative bacterial pneumonia. Patient was treated for all of the above and did show improvement. He continues to require IV antibiotics for a total 10 day course which is scheduled to end on November 30. He will also need to continue on 40 mg of prednisone daily for at least 2 weeks, with further taper after these 2 weeks to be determined by his stripper black and white. Patient was ultimately discharged to [facility]. 1. Acute hypoxemic respiratory failure, present on admission. -patient was in the ICU for a prolonged period of time, ultimately requiring high-flow nasal cannula for approximately 1 week. Patient did then improved after interventions as noted below, it is unclear exactly what sparked his acute, likely on chronic, hypoxic respiratory failure but could be any of the etiologies mentioned above. -Patient has not previously required oxygen at baseline. Patient is followed by pulmonology Dr. Lopez at [place] and Dr. Mitchell at the [facility]. He mostly sees Dr. Lopez. He is currently on 4 L of nasal cannula at rest. -Multifactorial and secondary to right pulmonary embolism, postoperative pneumonia, pulmonary edema, and possibly acute exacerbation of Idiopathic Pulmonary Fibrosis. -was initially on methylprednisone which was increased to high dose for a couple of days. He is now down to 40 mg of p.o. prednisone daily, which per his stripper black and white he should remain on for a couple of weeks, with further taper directed by his outpatient stripper black and white either Dr. Mitchell or John. He was further given Unasyn for pneumonia which will and on 12/01/2019, Lasix for cor pulmonale and anticoagulation for acute PE. -further prednisone tapering should be directed by his stripper black and white based on how patient is doing clinically -Consulted palliative care, Shea ECHEVERRIA, to establish goals of care and we appreciate her time and care of the patient. 2. Acute right-sided provoked subsegmental PE, present on admission. Active. -Patient developed acute hypoxemia postoperatively not previously on oxygen. He takes Eliquis for AFib which was held for several days for recent right knee replacement. -CT chest with contrast performed in ED did not demonstrate PE but was not a specific study to rule out PE. -CT angiogram chest demonstrated small right lower lobe basal subsegmental PE. -Bilateral Doppler ultrasound of lower extremities did not demonstrate DVT but demonstrated occlusive superficial thrombus within a varicose vein within the popliteal fossa. -completed full-dose Lovenox x5 days and on 11/26 started back on Eliquis 5 mg b.i.d. for chronic anticoagulation. 3. Postoperative bacterial pneumonia and exacerbation of idiopathic pulmonary fibrosis, present on admission. Active. -Chest x-ray demonstrated right middle lobe pneumonia superimposed on interstitial lung disease. -CTA demonstrated small pulmonary embolus involving the right lower lobe posterior basal segmental artery, chronic interstitial lung disease with pulmonary fibrosis, ground glass densities in lower lobes bilaterally could represent superimposed acute pneumonia or pulmonary edema, mild cardiomegaly and small pericardial effusion, mild mediastinal and hilar lymphadenopathy. -Respiratory viral PCR negative. Strep pneumoniae and Legionella urine antigens negative. Sputum culture, grew resident matthew and duncan albicans, which is unlikely to be pathogenic. Blood cultures not collected prior to antibiotic administration. -WBC has fluctuated and increased and decreased, not concordant with symptoms. Procalcitonin has remained negative. His recent rise is likely due to glucocorticoids. -Completed 7 day course of ceftriaxone 1 g IV daily. Completed azithromycin 500 mg x 5 doses. started Unasyn 11/22/2019, continue Unasyn 3 g every 6 hours for total 10 days per pulmonology as above. Unasyn course to be completed on 12/01/2019 at [facility] [place]. 4. Acute decompensated cor pulmonale with mild biventricular systolic dysfunction, present on admission. Resolving. -Echocardiogram: LVEF 50 +/- 5%, interventricular septum is flattened, consistent with a right ventricular pressure/volume condition, right ventricle is moderately dilated, RV systolic function is moderately reduced since previous exam, moderate tricuspid regurgitation compared to the prior exam, RVSP estimated to be 65 mmHg based on an estimated right atrial pressure of 15 mm Hg severe pulmonary hypertension compared to the prior echo exam, and mild pulmonary artery dilation. -Limited echocardiogram demonstrated improved PA pressures, RVSP and RV volume overload. -completed aggressive diuresis with IV furosemide with net -8L . -continue furosemide 40 mg PO daily to maintain euvolemia. 5. Acute thrush, not present on admission. Resolved. -completed course of fluconazole 100 mg daily for 7 days per pulmonolgy. 6. Chronic atrial fibrillation with mild RVR, present on admission. RVR resolved. -Initial EKG demonstrated atrial fibrillation with mild RVR with HR 110, left axis deviation and no ST/T wave changes. -Patient is not on rate control medication and heart rate continues to be controlled 80 to 90's. -Continue long-term Eliquis anticoagulation. 7. Acute ground level fall with closed head injury, present on admission. Stable. -Unsteady gait secondary to recent right knee surgery resulting in ground level fall while using forearm support crutches. Likelihood that severe hypoxemia also contributed to fall. -CT head without contrast did not demonstrate any acute intracranial abnormality. CT cervical spine unremarkable for fractures or dislocations. -Status post laceration repair in ED and nursing removed sutures -continue physical therapy evaluation and treatment 8. Recent right knee replacement, subacute condition, present on admission. Active. -Continue pain control with acetaminophen 650 mg every 6 hours as needed for pain. 9. Normocytic anemia, present on admission. Stable. -Likely premium representative of anemia of chronic disease. -Initial hemoglobin 11 g/dL and MCV 93.1. Hemoglobin trending up. Hemodynamically stable and no overt signs of bleeding. 10. Allergic rhinitis, chronic, present on admission, stable -Continue Flonase and loratadine 11. Hyperlipidemia, chronic, present on admission. Stable. -Fasting lipid panel demonstrated excellent lipid control. -Continue home simvastatin 20 mg daily. 12. BPH, chronic, present on admission. Stable. -Continue tamsulosin 0.4 mg daily. 13. GERD, chronic, present on admission. Stable. -Continue Protonix 40 mg daily. Code status: DNR/DNI. Patient's spouse is the designated DPOA. VTE prophylaxis: Eliquis PICC line placed 11/26/2019 Patient is being discharged to [facility] today. Discharge orders & Medications Prescriptions: New acetaminophen 325 mg Tablet 650 mg PO Q6HR PRN (Reason: Fever/Mild Pain (1-3)) Qty: 30 RF: 0 ipratropium-albuterol 0.5 mg-3 mg(2.5 mg base)/3 mL Solution For Nebulization 3 ml inhalation [id number] PRN (Reason: Shortness Of Breath) 30 Days RF: 0 albuterol sulfate 2.5 mg /3 mL (0.083 %) Solution For Nebulization 2.5 mg inhalation [id number] PRN (Reason: Shortness Of Breath) 30 Days RF: 0 ampicillin-sulbactam [Unasyn] 3 gram Recon Soln 3 gram IV Q6H 2 Days RF: 0 furosemide 40 mg Tablet 40 mg PO DAILY 30 Days Qty: 30 RF: 0 loratadine 10 mg Tablet 10 mg PO DAILY Qty: 10 RF: 0 heparin, porcine (PF) 10 unit/mL Syringe 50 unit IV PRN PRN (Reason: Flush) 2 Days RF: 0 prednisone 20 mg Tablet 40 mg PO DAILY 14 Days Qty: 28 RF: 0 pantoprazole 40 mg Tablet,Delayed Release (Dr/Ec) 40 mg PO DAILY 30 Days RF: 0 Continued tamsulosin 0.4 mg capsule 0.4 mg PO DAILY RF: 0 simvastatin 20 mg tablet 20 mg PO DAILY RF: 0 docusate sodium 100 mg capsule 100 mg PO BID RF: 0 fluticasone propionate 50 mcg/actuation spray,suspension 2 spray INTRANASAL BID RF: 0 Eliquis 5 mg tablet 5 mg PO BID RF: 0 acetaminophen 325 mg Tablet 325 mg PO PRN PRN (Reason: pain) RF: 0 Vitamin D3 1 cap PO DAILY RF: 0 Discontinued testosterone 30 mg/actuation (1.5 mL) Solution In Metered Pump W/Redd 1 pump TOPICAL DAILY Qty: 0 RF: 0 oxycodone-acetaminophen 5-325 mg tablet 1 - 2 tab PO Q4H MDD 8 PRN (Reason: Pain, Moderate) RF: 0 hydroxyzine HCl 25 mg tablet 25 mg PO QID RF: 0 milk thistle 1 cap PO DAILY RF: 0 omeprazole 20 mg Tablet,Delayed Release (Dr/Ec) 20 mg PO BID RF: 0 Follow up/Referrals: Carlos Servin MD [Primary Care Provider] - Visit Report/Discharge Packet Instructions: DI for Pneumonia -- Adult, DI for Pulmonary Embolism, How to Prevent Falls, DI for Minor Laceration Visit Report Forms: Stroke Signs & Symptoms Discharge Data Primary Care Provider: Carlos Servin Quality VTE Deep Vein Thrombosis/Pulmonary Embolism Present on Admission: No
--- NOTE | 2019-11-30 13:57 | PC.NURSE ---
Addendum entered by Delmi Orozco R.N. 11/30/19 15:33: Discharge summary packet also reviewed with pt and his at bedside prior to SNF pickup. Original Note: Day Shift- At 1325, pt aware of discharge to [facility] pickup at 1500, pt stated he will call his to let her know. Pt has had 3 small to moderate soft/loose BM's with burning, pt stating not wanting any more stool softeners. Pt complained of anal burning, area pink, slightly red, blanchable. Moisture barrier applied and pt was appreciative. Report called to Bree at [facility] at 1346 on current pt status.
--- NOTE | 2019-11-30 15:24 | PC.NURSE ---
Pt left with staff from [facility] in wheelchair with all of his belongings. Spouse is with patient. He was happy to discharge and grateful for care.
== END 2019-11-30 15:28 | DRG 175 ==
LOC: ED 14:23 → AC 14:48 → ICU 11-16 07:16 → ED 11-24 14:25 → ICU 11-24 14:35 → AC 11-27 14:04
PROVIDERS: Internal Medicine; Nurse Practitioner Adult Health; Nurse Practitioner Gerontology; Admitting Provider Internal Medicine; Emergency Provider Emergency Medicine; Family Provider Internal Medicine Cardiovascular Disease; PCP Internal Medicine; Referring Provider Emergency Medicine; Visit Provider Internal Medicine
DX: I26.09 Other pulmonary embolism with acute cor pulmonale (principal); J18.9 Pneumonia, unspecified organism; J81.0 Acute pulmonary edema; J96.21 Acute and chronic respiratory failure with hypoxia; R09.2 Respiratory arrest; I48.20 Chronic atrial fibrillation, unspecified; B37.0 Candidal stomatitis; J84.112 Idiopathic pulmonary fibrosis; Z79.01 Long term (current) use of anticoagulants; N40.0 Benign prostatic hyperplasia without lower urinary tract symptoms; K21.9 Gastro-esophageal reflux disease without esophagitis; E78.5 Hyperlipidemia, unspecified; D64.9 Anemia, unspecified; J30.9 Allergic rhinitis, unspecified; S00.81XA Abrasion of other part of head, initial encounter; Z96.651 Presence of right artificial knee joint; W18.30XA Fall on same level, unspecified, initial encounter; Z98.890 Other specified postprocedural states; Z87.891 Personal history of nicotine dependence; Z66 Do not resuscitate
CPT/HCPCS: 12013; 36415; 36569; 36592; 36600; 70450; 71045; 71260; 71275; 72125; 73562; 80048; 80053; 80061; 80320; 81003; 81015; 82805; 83690; 83735; 83880; 84145; 84484; 85025; 86850; 86900; 86901; 87070; 87077; 87205; 87449; 87633; 87797; 93005; 93306; 93307; 93970; 94640; 94667; 94668; 94760; 96361; 96365; 96367; 96375; 97110; 97112; 97162; 97164; 97530; 99232; 99285; J0295; J1642; J1650; J1885; J1940; J2060; J2405; J2930; Q9967

== ENCOUNTER 2019-12-03 13:59 | Emergency (ER) | payer MEDICARE, SELFPAY ==
[2019-11-15 17:58] VITALS: BMI 24.7
[2019-12-03 14:05] VITALS: BP 129/75; PULSE 69; RESP 22; TEMP 36.8; O2SAT 94; BMI 22.1
--- NOTE | 2019-12-03 14:09 | DI.RAD.S_ITS ---
PROCEDURE: XR CHEST 2V INDICATIONS: shortness of breath TECHNIQUE: 2 views of the chest were acquired. COMPARISON: [facility], , CHEST 2 VIEW, 03/11/2017, 15:33. [facility], CR, XR CHEST 1V, 11/15/2019, 9:02. [facility], CR, XR CHEST 1V, 11/25/2019, 10:12. FINDINGS: Surgical changes and devices: None. Lungs and pleura: Diffuse interstitial thickening is identified throughout the lungs, which is similar to the previous exam, but appears to be more prominent on the current study. No large effusion or pneumothorax is evident. Mediastinum: Mediastinal contours are normal. Heart size is enlarged. Bones and chest wall: No suspicious bony abnormalities. Soft tissues appear unremarkable. IMPRESSION: Chronic interstitial changes appear to be more pronounced, suggesting a possible superimposed acute process such as pulmonary edema or infection. Please correlate clinically. Dictated by: Hua Buenrostro M.D. on 12/03/2019 at 14:03 Approved by: Hua Buenrostro M.D. on 12/03/2019 at 14:04
[2019-12-03 14:43] LABS: Add Manual Diff / Slide Review NO; Basophils Absolute Auto 0 /uL (0-100); Eosinophils Absolute Auto 100 /uL (0-450); Eosinophils Percent Auto 0.4 % (2-4); Hemoglobin 14.4 g/dL (13.5-17.5); Lymphocytes Absolute Auto 700 /uL (1100-4500); Lymphocytes Percent Auto 4.1 % (25-40); Mean Corpuscular HGB Conc 33.5 % (30-36); Mean Corpuscular Hemoglobin 30.9 PG (26-34); Mean Corpuscular Volume 92.3 fL (80-100); Monocytes Absolute Auto 300 /uL (0-900); Monocytes Percent Auto 1.8 % (3-14); Neutrophils Absolute Auto 15400 /uL (1500-7000); Neutrophils Percent Auto 93.7 % (50-75); Platelet Count 200 X10^3/uL (150-400); Red Blood Cell Count 4.66 X10^6/uL (4.5-5.9); Red Cell Distribution Width 13.2 % (11.6-14.8); White Blood Cell Count 16.4 X10^3/uL (4.5-11.0)
[2019-12-03 14:48] LABS: Alanine Aminotransferase 70 IU/L (<50); Albumin 3.6 g/dL (3.5-5.0); Albumin Globulin Ratio 1.1 (1.0-2.8); Alkaline Phosphatase 116 U/L (38-126); Aspartate Aminotransferase 35 IU/L (17-59); BUN Creatinine Ratio 42.5 (6-22); Bilirubin Total 1.3 mg/dL (0.2-1.3); Blood Urea Nitrogen 34 mg/dL (9-20); Calcium 8.5 mg/dL (8.4-10.2); Carbon Dioxide 34 mmol/L (22-32); Chloride 97 mmol/L (98-107); Estimated Glomerular Filt Rate > 60.0 mL/min (>60); Globulin 3.3 g/dL (1.7-4.1); Glucose 168 mg/dL (80-110); HEMOLYSIS < 15 (0-50); Lactate (Lactic Acid) 1.1 mmol/L (0.7-2.1); Potassium 3.9 mmol/L (3.4-5.1); Sodium 133 mmol/L (137-145); Total Protein 6.9 g/dL (6.3-8.2)
[2019-12-03 15:00] VITALS: BP 114/70; PULSE 87; RESP 25; O2SAT 98
--- NOTE | 2019-12-03 15:55 | ED_ITS ---
HPI - General Adult General Chief complaint: Shortness of Breath/Dyspnea Stated complaint: Respiratory distress Time Seen by Provider: 12/03/19 14:05 Mode of arrival: EMS History of Present Illness HPI narrative: Patient presents with weakness, dyspnea, tachycardia from custodial facility. He is with his son who helps with history and they are requesting further evaluation and would like eventual discharge to [facility]. Patient has had multiple admissions recently. On November 08 he had right knee surgery, on November 15 he had a ground level fall and was noted to be significantly hypoxic and dyspneic leading to a diagnosis of pulmonary embolism and hospital admission. This recent admission included treatment of a postoperative pneumonia in the setting of idiopathic pulmonary fibrosis, acute congestive heart failure, and chronic atrial fibrillation. He currently is on Eliquis for both the atrial fibrillation as well as the pulmonary embolus. On November 29 he was discharged to [facility] with imp roving problems as listed previously but continued 4 L of oxygen and anticipation of significant need for extended rehabilitation prior to final discharge to home. He is DNR/DNI Related Data Home Medications Medication Instructions Recorded Confirmed Eliquis 5 mg PO BID 11/15/19 12/03/19 Vitamin D3 1 cap PO DAILY 11/15/19 12/03/19 docusate sodium 100 mg PO BID 11/15/19 12/03/19 fluticasone propionate 2 spray INTRANASAL BID 11/15/19 12/03/19 simvastatin 20 mg PO DAILY 11/15/19 12/03/19 tamsulosin 0.4 mg PO DAILY 11/15/19 12/03/19 Previous Rx's Medication Instructions Recorded acetaminophen 650 mg PO Q6HR PRN #30 tab 11/30/19 albuterol sulfate 2.5 mg INHALATION [id number] PRN 30 11/30/19 Days ml ampicillin-sulbactam [Unasyn] 3 gram IV Q6H 2 Days each 11/30/19 furosemide 40 mg PO DAILY 30 Days #30 tab 11/30/19 heparin, porcine (PF) 50 unit IV PRN PRN 2 Days ml 11/30/19 ipratropium-albuterol 3 ml INHALATION [id number] PRN 30 11/30/19 Days ml loratadine 10 mg PO DAILY #10 tab 11/30/19 pantoprazole 40 mg PO DAILY 30 Days tab 11/30/19 prednisone 40 mg PO DAILY 14 Days #28 tab 11/30/19 Allergies Allergy/AdvReac Type Severity Reaction Status Date / Time No Known Drug Allergies Allergy Verified 11/15/19 08:53 Review of Systems Review of Systems Narrative: No fevers, significant weakness, continued hypoxia stable on oxygen supplementation. He is able to sit for a couple of hours a day and participated [facility]. He does not report any no skin changes, no increased lower extremity edema. Remainder of review is otherwise unremarkable and does not suggest significantly new or evolving symptoms Patient History Medical History Atrial fibrillation with normal ventricular rate (Chronic) BPH (benign prostatic hyperplasia) (Chronic) Chronic anticoagulation (Chronic) Fall (Inactive 11/15/19) GERD (gastroesophageal reflux disease) (Chronic) Hyperlipidemia (Chronic) Pulmonary fibrosis (Chronic) Surgical History H/O right knee surgery (Acute) History of lung biopsy (Acute) Family History Mother Wegeners granulomatosis Sister Neuropathy Social History marital status: household members: spouse Smoking Status: Never smoker alcohol intake: former Smoking Status: Never smoker Substance Use Type: does not use Exam Narrative Exam Narrative: General: Frail-appearing and hard of hearing but in no acute distress. Able to participate in history and exam supplemented by a his son HEENT: Moist mucous membranes, normal sclera with reactive pupils, healing bru ises to the left eye and periorbital area Neck: No JVD, supple Respiratory: Lungs mild scattered wheezing, basilar rales no rhonchi. Full and symmetrical air movement Cardiac: Regular rate and rhythm no murmurs no bruits Abdomen: Soft nontender good bowel tones, no flank pain Skin: Warm and dry, no rashes Neurologic: Grossly neurologically intact with no obvious asymmetries or abnormalities, globally weak Extremities: No new trauma, well perfused, compression stockings in place Psych: Cooperative, with no vision all or auditory hallucination Initial Vital Signs Initial Vital Signs: Vital Signs Temperature 98.3 F 12/03/19 14:05 Pulse Rate 69 12/03/19 14:05 Respiratory Rate 22 12/03/19 14:05 Blood Pressure 129/75 12/03/19 14:05 Pulse Oximetry 94 12/03/19 14:05 Course Orders Ordered: ED Orders 12/04/19 06:07 Complete Blood Count AUTO DIFF Stat Comprehensive Metabolic Panel Stat Vitamin D 25 Hydroxy (D3) DAILY 12/04/19 07:17 XR chest 1V Stat 12/04/19 08:03 Consult to [facility] [place] - Thermodynamics Engineer Stat Albuterol (Ventolin) 2.5 mg INH [id number] [facility] Albuterol/Ipratropium (Duoneb) 3 ml INH [id number] [facility] Apixaban (Eliquis) 5 mg PO BID [facility] Last Admin: 12/04/19 08:41 Dose: 5 mg Documented by: MEISENBerta Docusate Sodium (Colace) 100 mg PO BID [facility] Fluticasone Propionate (Flonase) 2 spray NASAL BID [facility] Last Admin: 12/04/19 08:43 Dose: 2 spray Documented by: MEISENBerta Furosemide (Lasix) 40 mg PO DAILY [facility] Last Admin: 12/04/19 08:40 Dose: 40 mg Documented by: MEISENB Ampicillin Sodium/Sulbactam (Sodium 3 gm/ Sodium Chloride) 100 mls @ 100 mls/hr IV Q6HR [facility] Vancomycin HCl 1,250 mg/ (Sodium Chloride) 250 mls @ 250 mls/hr IV Q12H [facility] Last Infusion: 12/04/19 11:50 Dose: 0 mls/hr Documented by: Admin: 12/04/19 10:19 Dose: 250 mls/hr Documented by: MEISENB Loratadine (Claritin) 10 mg PO DAILY [facility] Last Admin: 12/04/19 08:43 Dose: 10 mg Documented by: MEISENB Pantoprazole Sodium (Protonix) 40 mg PO DAILY [facility] Last Admin: 12/04/19 08:40 Dose: 40 mg Documented by: MEISENB Prednisone (Deltasone) 40 mg PO DAILY [facility] Last Admin: 12/04/19 08:41 Dose: 40 mg Documented by: MEISENB Simvastatin (Zocor) 20 mg PO DAILY [facility] Last Admin: 12/04/19 08:41 Dose: 20 mg Documented by: MEISENB Tamsulosin HCl (Flomax) 0.4 mg PO DAILY [facility] Last Admin: 12/04/19 08:40 Dose: 0.4 mg Documented by: DINESH Discontinued Medications Sodium Chloride (Normal Saline 0.9%) 1,000 mls @ 500 mls/hr IV BOLUS ONE Stop: 12/03/19 20:12 Last Infusion: 12/03/19 20:50 Dose: 0 mls/hr Documented by: Admin: 12/03/19 18:15 Dose: 500 mls/hr Documented by: JEISON Cefepime HCl 2 gm/ Sodium (Chloride) 100 mls @ 200 mls/hr IV NOW ONE Stop: 12/04/19 09:05 Last Infusion: 12/04/19 10:20 Dose: 0 mls/hr Documented by: Admin: 12/04/19 09:34 Dose: 200 mls/hr Documented by: DINESH Vancomycin HCl (Vancomycin Per Pharmacy) 1 request MIS NOW ONE Stop: 12/04/19 09:05 Last Admin: 12/04/19 10:42 Dose: Not Given Documented by: DINESH Vital Signs Vital signs: Vital Signs - 8 hr 12/04/19 06:00 12/04/19 07:00 12/04/19 07:30 Pulse Rate 96 H 99 H 97 H Respiratory Rate 18 20 24 Blood Pressure [Right Arm] 112/75 110/76 109/72 Pulse Oximetry 96 93 12/04/19 08:00 12/04/19 08:30 12/04/19 09:30 Pulse Rate 99 H 99 H 83 Respiratory Rate 40 H 25 H Blood Pressure [Right Arm] 112/76 125/75 95/66 Pulse Oximetry 94 94 98 12/04/19 10:30 12/04/19 11:00 12/04/19 11:30 Pulse Rate 105 H 100 H 96 H Respiratory Rate 28 H 30 H Blood Pressure [Right Arm] 109/63 103/74 108/67 Pulse Oximetry 97 98 98 12/04/19 12:00 12/04/19 12:50 Pulse Rate 99 H 105 H Respiratory Rate 37 H 30 H Blood Pressure [Right Arm] 139/70 113/72 Pulse Oximetry 99 98 Medical Decision Making Medical Records Medical records reviewed: Yes I reviewed the patient's medical records. Lab Data Lab results reviewed: Yes I reviewed the patient's lab results. Lab results narrative: White count continues to trend down Electrolytes and renal function remains stable Result diagrams: 12/04/19 06:07 12/04/19 06:07 Labs: Lab Results 12/03/19 12/03/19 12/03/19 Range/Units 14:25 14:25 14:25 WBC 16.4 H (4.5-11.0) X10^3/uL RBC 4.66 (4.5-5.9) X10^6/uL Hgb 14.4 (13.5-17.5) g/dL Hct 43.0 (41-53) % MCV 92.3 (80-100) fL MCH 30.9 (26-34) PG MCHC 33.5 (30-36) % RDW 13.2 (11.6-14.8) % Plt Count 200 (150-400) X10^3/uL Neut % (Auto) 93.7 H (50-75) % Lymph % (Auto) 4.1 L (25-40) % Saline % (Auto) 1.8 L (3-14) % Eos % (Auto) 0.4 L (2-4) % Baso % (Auto) 0.0 (0-2) % Neut # (Auto) 01925 H (9900-5976) /uL Lymph # (Auto) 700 L (5635-4275) /uL Saline # (Auto) 300 (0-900) /uL Eos # (Auto) 100 (0-450) /uL Baso # (Auto) 0 (0-100) /uL Sodium 133 L (137-145) mmol/L Potassium 3.9 (3.4-5.1) mmol/L Chloride 97 L (98-107) mmol/L Carbon Dioxide 34 H (22-32) mmol/L BUN 34 H (9-20) mg/dL Creatinine 0.80 (0.66-1.25) mg/dL Estimated GFR > 60.0 (>60) mL/min BUN/Creatinine Ratio 42.5 H (6-22) Glucose 168 H (80-110) mg/dL Lactate 1.1 (0.7-2.1) mmol/L Calcium 8.5 (8.4-10.2) mg/dL Total Bilirubin 1.3 (0.2-1.3) mg/dL AST 35 (17-59) IU/L ALT 70 H (<50) IU/L Alkaline Phosphatase 116 (38-126) U/L Total Protein 6.9 (6.3-8.2) g/dL Albumin 3.6 (3.5-5.0) g/dL Globulin 3.3 (1.7-4.1) g/dL Albumin/Globulin Ratio 1.1 (1.0-2.8) 25-OH Vitamin D Total (30.0-100.0) ng/mL 12/04/19 12/04/19 12/04/19 Range/Units 06:07 06:07 06:07 WBC 19.3 H (4.5-11.0) X10^3/uL RBC 4.53 (4.5-5.9) X10^6/uL Hgb 14.0 (13.5-17.5) g/dL Hct 41.2 (41-53) % MCV 91.0 (80-100) fL MCH 30.9 (26-34) PG MCHC 34.0 (30-36) % RDW 13.1 (11.6-14.8) % Plt Count 177 (150-400) X10^3/uL Neut % (Auto) 84.1 H (50-75) % Lymph % (Auto) 8.6 L (25-40) % Saline % (Auto) 5.1 (3-14) % Eos % (Auto) 1.9 L (2-4) % Baso % (Auto) 0.3 (0-2) % Neut # (Auto) 99112 H (6810-2336) /uL Lymph # (Auto) 1700 (9043-6839) /uL Saline # (Auto) 1000 H (0-900) /uL Eos # (Auto) 400 (0-450) /uL Baso # (Auto) 100 (0-100) /uL Sodium 134 L (137-145) mmol/L Potassium 3.7 (3.4-5.1) mmol/L Chloride 100 (98-107) mmol/L Carbon Dioxide 34 H (22-32) mmol/L BUN 36 H (9-20) mg/dL Creatinine 0.80 (0.66-1.25) mg/dL Estimated GFR > 60.0 (>60) mL/min BUN/Creatinine Ratio 45.0 H (6-22) Glucose 100 (80-110) mg/dL Lactate (0.7-2.1) mmol/L Calcium 8.6 (8.4-10.2) mg/dL Total Bilirubin 1.2 (0.2-1.3) mg/dL AST 31 (17-59) IU/L ALT 59 H (<50) IU/L Alkaline Phosphatase 99 (38-126) U/L Total Protein 6.4 (6.3-8.2) g/dL Albumin 3.2 L (3.5-5.0) g/dL Globulin 3.2 (1.7-4.1) g/dL Albumin/Globulin Ratio 1.0 (1.0-2.8) 25-OH Vitamin D Total 25.6 L (30.0-100.0) ng/mL Imaging Data Chest x-ray: Radiologist's Impression: IMPRESSION: Chronic interstitial changes appear to be more pronounced, suggesting a possible superimposed acute process such as pulmonary edema or infection. Please correlate clinically. Dictated by: Hua Buenrostro M.D. on 12/03/2019 at 14:03 [facility] Narrative Medical decision making narrative: 17:05 Patient and family are concerned that in the low 3 days since hospital discharge he is progressively getting worse. He reports being able to sit in a chair comfortably for up to 4 hours at a time prior to discharge. Today he is having trouble sitting at all. Trial at the bedside, simply moving from laying flat (where he is most comfortable sats in the low 90s on 4 L and heart rate in the 95 range) to sitting with legs dangling over the edge of the bed. Within less than 2 minutes his heart rate has increased to 120, his sats have dropped to the 85% range his respiratory rate has dramatically increased and he is having trouble maintaining his upright position. He is helped back into bed where his sats bottom out at about 84% and then slowly come back up to his baseline low 90%. He is obviously much more comfortable laying flat. Have spoken with Dr. Maldonado, hospitalist who discharged this gentleman 3 days ago, and have asked him to review the chest x-ray that does appear to have worsening infiltrate and to see if he thinks the clinical presentation with inability to sit and angle at all at this time is truly a deterioration or simply the expected course of disease. Patient and family are adamant that patient could comfortably sit unassisted for 4 hours [address] Maldonado has been down to evaluate the patient independently. At 4 L of oxygen his oxygen saturations do stay in the low 90s as they had previously. He feels that his capacity for sitting and overall strength are exactly the same as they were on discharge 3 days ago not worsening. At this point he believes that hospital admission is not appropriate as he has not declined or changed. Social situation is challenging as the family does not want patient to be at [facility] however he is not appropriate for hospital admission and not appropriate for transfer to [facility] if he is appropriate to go to [facility]. Will need social work help it is unclear if the family has signed him out of the local custodial facility or if there is a bed still available. Will see if social work is available but anticipate that given the complex social issues involved the patient will likely remain with us overnight until social work is available tomorrow to help with placement issues 12/04/2019 7:15 quite evening. Labs from this morning are reviewed. White count is again increasing. Will repeat chest x-ray to see if there is any progression from yesterday with concerns that his infiltrates were worsening. Will need morning meds and will make sure those are ordered 8:04 CXR looks progressively worse. Unasyn 3gm q6 was to continue post discharge for 2 days - stopping 12/01. Will restart this am and move to additional consultation 9:00 Dr Krysten Mims, pulmonary at [facility]. Agrees that transfer to [facility], [facility], inpatient care is appropriate at this time. She requests that we expand antibiotic coverage to include cefepime 2 g as well as vancomycin. Continue on all current medications for now. Will wait to hear back for scheduled supe rvisor for bed availability and talk to admitting hospitalist. 1020 Dr Cayetano Salazar, hospitalist, accepts transfer. Discharge Plan Departure Patient Disposition: [facility] Clinical Impression: Pulmonary fibrosis Congestive heart failure Qualifiers: Heart failure type: unspecified Heart failure chronicity: acute on chronic Qualified Code(s): I50.9 - Heart failure, unspecified Pulmonary emboli Qualifiers: Pulmonary embolism type: single subsegmental (without acute cor pulmonale) Qualified Code(s): I26.93 - Single subsegmental pulmonary embolism without acute cor pulmonale Acute and chronic respiratory failure Qualifiers: Respiratory failure complication: hypoxia Qualified Code(s): J96.21 - Acute and chronic respiratory failure with hypoxia Prescriptions: No Action tamsulosin 0.4 mg capsule 0.4 mg PO DAILY RF: 0 simvastatin 20 mg tablet 20 mg PO DAILY RF: 0 docusate sodium 100 mg capsule 100 mg PO BID RF: 0 fluticasone propionate 50 mcg/actuation spray,suspension 2 spray INTRANASAL BID RF: 0 Eliquis 5 mg tablet 5 mg PO BID RF: 0 Vitamin D3 1 cap PO DAILY RF: 0 acetaminophen 325 mg Tablet 650 mg PO Q6HR PRN (Reason: Fever/Mild Pain (1-3)) Qty: 30 RF: 0 ipratropium-albuterol 0.5 mg-3 mg(2.5 mg base)/3 mL Solution For Nebulization 3 ml inhalation [id number] PRN (Reason: Shortness Of Breath) 30 Days RF: 0 albuterol sulfate 2.5 mg /3 mL (0.083 %) Solution For Nebulization 2.5 mg inhalation [id number] PRN (Reason: Shortness Of Breath) 30 Days RF: 0 ampicillin-sulbactam [Unasyn] 3 gram Recon Soln 3 gram IV Q6H 2 Days RF: 0 furosemide 40 mg Tablet 40 mg PO DAILY 30 Days Qty: 30 RF: 0 loratadine 10 mg Tablet 10 mg PO DAILY Qty: 10 RF: 0 heparin, porcine (PF) 10 unit/mL Syringe 50 unit IV PRN PRN (Reason: Flush) 2 Days RF: 0 prednisone 20 mg Tablet 40 mg PO DAILY 14 Days Qty: 28 RF: 0 pantoprazole 40 mg Tablet,Delayed Release (Dr/Ec) 40 mg PO DAILY 30 Days RF: 0 Referrals: Carlos Servin MD [Primary Care Provider] -
[2019-12-03 16:00] VITALS: BP 122/62; PULSE 85; RESP 27; O2SAT 98
[2019-12-03 17:26] VITALS: BP 118/71; PULSE 98; RESP 24; O2SAT 98
[2019-12-03] MEDS: SODIUM CHLORIDE 0.9% 1,000 ML 500 ML IV (18:15)
[2019-12-03 18:49] VITALS: BP 127/63; PULSE 96; RESP 23; O2SAT 97
--- NOTE | 2019-12-03 19:30 | P.CONS_ITS ---
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 Patient was treated with antibiotics, steroids, and diuresis and recently discharged to [facility]. Patient states he has really not been able to do much at [facility], and really only gets up to the chair which is consistent with the patient's progress here. He has been on 4 L nasal cannula. I had been called earlier in the day by the [employer] at [facility], who stated the patient was stable, and remained on 4 L while up in the chair. The family over the past few days has been attempting to transfer the patient to [facility] in [place], and [facility] had called earlier for the possibility of a direct admission. It seems as if the family has checked him out of [facility], and brought him to the emergency room for evaluation. He complained of dyspnea on exertion, some cough, productive of sputum. He denied any fevers, chills. He does complain of lightheadedness when sitting upright. In the ED, the patient was afebrile, normotensive, intermittently tachycardic when moving, but hemodynamically stable. Upon my evaluation patient was on 2 L of nasal cannula initially in the emergency room, patient was discharged on 4 L and has been stable on 4 L at [facility]. When sitting upright in the hospital stretcher, the patient does not desaturate even on 2 L at this time. On 4 L he is saturating between 93 and 95%. On 2 L when sitting upright without support, the patient does feel dyspneic at did desaturate. However the patient needs to support himself while doing this and even while here this was still the case. He remains comfortable when sitting upright in the stretcher but does complain of dyspepsia when doing this. Meds Home Medications and Allergies Home Medications Medication Instructions Recorded Confirmed Type Eliquis 5 mg PO BID 11/15/19 12/03/19 History Vitamin D3 1 cap PO DAILY 11/15/19 12/03/19 History docusate sodium 100 mg PO BID 11/15/19 12/03/19 History fluticasone propionate 2 spray INTRANASAL BID 11/15/19 12/03/19 History simvastatin 20 mg PO DAILY 11/15/19 12/03/19 History tamsulosin 0.4 mg PO DAILY 11/15/19 12/03/19 History acetaminophen 650 mg PO Q6HR PRN #30 tab 11/30/19 12/03/19 Rx albuterol sulfate 2.5 mg INHALATION [id number] PRN 30 11/30/19 12/03/19 Rx Days ml ampicillin-sulbactam [Unasyn] 3 gram IV Q6H 2 Days each 11/30/19 Rx furosemide 40 mg PO DAILY 30 Days #30 tab 11/30/19 12/03/19 Rx heparin, porcine (PF) 50 unit IV PRN PRN 2 Days ml 11/30/19 12/03/19 Rx ipratropium-albuterol 3 ml INHALATION [id number] PRN 30 11/30/19 12/03/19 Rx Days ml loratadine 10 mg PO DAILY #10 tab 11/30/19 12/03/19 Rx pantoprazole 40 mg PO DAILY 30 Days tab 11/30/19 12/03/19 Rx prednisone 40 mg PO DAILY 14 Days #28 tab 11/30/19 12/03/19 Rx Allergies Allergy/AdvReac Type Severity Reaction Status Date / Time No Known Drug Allergies Allergy Verified 11/15/19 08:53 Review of Systems Review of Systems Narrative: All other systems reviewed with the patient and are negative unless otherwise stated. Exam Vital Signs (past 8 hours): - 12/03/19 14:05 12/03/19 15:00 12/03/19 16:00 Temperature 98.3 F Pulse Rate 69 87 85 Respiratory Rate 22 25 H 27 H Blood Pressure 129/75 Blood Pressure [Right Arm] 114/70 122/62 Pulse Oximetry 94 98 98 12/03/19 17:26 12/03/19 18:49 Temperature Pulse Rate 98 H 96 H Respiratory Rate 24 23 Blood Pressure Blood Pressure [Right Arm] 118/71 127/63 Pulse Oximetry 98 97 Oxygen Delivery Method Room Air Oxygen Flow Rate 4 Narrative Exam Narrative: General: Elderly thin male sitting in bed and in no acute distress, well-developed, well-nourished, appropriately interactive. HEENT: Normocephalic, atraumatic. Left orbital contusion resolving and well healed laceration. External ears without defect. Pupils equal, round, and reactive to light. Anicteric sclerae, moist conjunctivae, and no lid lag. Oropharynx without erythema or exudate and moist mucosa. Neck: Supple with full range of motion. No lymphadenopathy or thyromegaly. Cardiovascular: Regular rate and rhythm without murmurs, rubs, or gallops appreciated. Pulmonary: Improved air movement but clear to auscultation in all lung myers with occasional fine crackle. No wheeze or rhonchi. Normal respiratory effort with no use of accessory muscles. Abdomen: Soft, scaphoid, bowel sounds present, nontender, nondistended. No hepatosplenomegaly or masses appreciated. Extremities: No clubbing, cyanosis, or edema. Right knee with dressing in place no surrounding erythema or edema and no longer tender to palpation medially. Skin: Normal temperature, turgor, and texture; no rash, ulcers, or subcutaneous nodules appreciated. Neurological: Cranial nerves grossly intact. Psychiatric: Normal mood and affect. Alert and oriented to person, place, and time. Objective Labs Result Diagrams: 12/03/19 14:25 12/03/19 14:25 Labs: Laboratory Results - last 24 hr 12/03/19 12/03/19 12/03/19 14:25 14:25 14:25 WBC 16.4 H RBC 4.66 Hgb 14.4 Hct 43.0 MCV 92.3 MCH 30.9 MCHC 33.5 RDW 13.2 Plt Count 200 Neut % (Auto) 93.7 H Lymph % (Auto) 4.1 L Allen % (Auto) 1.8 L Eos % (Auto) 0.4 L Baso % (Auto) 0.0 Neut # (Auto) 18825 H Lymph # (Auto) 700 L Allen # (Auto) 300 Eos # (Auto) 100 Baso # (Auto) 0 Sodium 133 L Potassium 3.9 Chloride 97 L Carbon Dioxide 34 H BUN 34 H Creatinine 0.80 Estimated GFR > 60.0 BUN/Creatinine Ratio 42.5 H Glucose 168 H Lactate 1.1 Calcium 8.5 Total Bilirubin 1.3 AST 35 ALT 70 H Alkaline Phosphatase 116 Total Protein 6.9 Albumin 3.6 Globulin 3.3 Albumin/Globulin Ratio 1.1 Assessment & Plan Assessment & Plan narrative: Gonzalez Mendez is a 89-year-old male with a past medical history significant for hyperlipidemia, chronic atrial fibrillation on Eliquis, 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 On my assessment, he is in the exact condition (desaturates with minimal movement but can tolerate sitting upright on 4L NC) that he was upon discharge and if anything is actually slightly improved given he was saturating in the mid 90s on 2L while here. He does not require re- admission. His chest XR is similar to previous films on my interpretation given penetration differences between films. He should be started on omeprazole for his symptoms of dyspepsia but requires no inpatient therapies at this time.
[2019-12-03 21:12] VITALS: BP 124/60; PULSE 87; RESP 25; O2SAT 97
--- NOTE | 2019-12-03 23:21 | PC.NURSE ---
in patient bed brought down from acute care for patient.
[2019-12-04] VITALS (12 sets, daily range): BP systolic 95–139; BP diastolic 63–76; PULSE 83–105; RESP 17–40; O2SAT 93–99
[2019-12-04 06:25] LABS: Add Manual Diff / Slide Review NO; Basophils Absolute Auto 100 /uL (0-100); Basophils Percent Auto 0.3 % (0-2); Eosinophils Absolute Auto 400 /uL (0-450); Eosinophils Percent Auto 1.9 % (2-4); Hematocrit 41.2 % (41-53); Lymphocytes Absolute Auto 1700 /uL (1100-4500); Lymphocytes Percent Auto 8.6 % (25-40); Mean Corpuscular Hemoglobin 30.9 PG (26-34); Monocytes Absolute Auto 1000 /uL (0-900); Monocytes Percent Auto 5.1 % (3-14); Neutrophils Absolute Auto 16200 /uL (1500-7000); Neutrophils Percent Auto 84.1 % (50-75); Platelet Count 177 X10^3/uL (150-400); Red Blood Cell Count 4.53 X10^6/uL (4.5-5.9); Red Cell Distribution Width 13.1 % (11.6-14.8); White Blood Cell Count 19.3 X10^3/uL (4.5-11.0)
[2019-12-04 06:28] LABS: Alanine Aminotransferase 59 IU/L (<50); Albumin 3.2 g/dL (3.5-5.0); Alkaline Phosphatase 99 U/L (38-126); Aspartate Aminotransferase 31 IU/L (17-59); Bilirubin Total 1.2 mg/dL (0.2-1.3); Blood Urea Nitrogen 36 mg/dL (9-20); Calcium 8.6 mg/dL (8.4-10.2); Carbon Dioxide 34 mmol/L (22-32); Chloride 100 mmol/L (98-107); Estimated Glomerular Filt Rate > 60.0 mL/min (>60); Globulin 3.2 g/dL (1.7-4.1); Glucose 100 mg/dL (80-110); HEMOLYSIS < 15 (0-50); Potassium 3.7 mmol/L (3.4-5.1); Sodium 134 mmol/L (137-145); Total Protein 6.4 g/dL (6.3-8.2)
--- NOTE | 2019-12-04 07:17 | DI.RAD.S_ITS ---
PROCEDURE: XR CHEST 1V INDICATIONS: worsening leukocytosis TECHNIQUE: One view of the chest was acquired. COMPARISON: [facility], CR, XR CHEST 1V, 11/15/2019, 9:02. [facility], CT, CT ANGIO CHEST PE PROTOCOL, 11/21/2019, 18:16. [facility], CR, XR CHEST 1V, 11/25/2019, 10:12. [facility], CR, XR CHEST 2V, 12/03/2019, 14:21. FINDINGS: Surgical changes and devices: None. Lungs and pleura: Severe fibrotic lung disease is redemonstrated. Multifocal patchy opacities are present, as before. There is slightly improved aeration of the right upper lobe when compared with the prior plain film dated 11/15/19. Otherwise, patchy opacities are unchanged. Mediastinum: Mediastinal contours appear normal. Heart size is normal. Bones and chest wall: No suspicious bony lesions. Overlying soft tissues appear unremarkable. IMPRESSION: Severe underlying pulmonary fibrosis with probable superimposed airspace opacity suggesting aspiration or infection. Dictated by: Lucie Langford M.D. on 12/04/2019 at 8:04 Approved by: Lucie Langford M.D. on 12/04/2019 at 8:06
[2019-12-04] MEDS: FUROSEMIDE 40 MG TABLET PO (08:40)
[2019-12-04] MEDS: TAMSULOSIN 0.4 MG CAPSULE PO (08:40)
[2019-12-04] MEDS: PANTOPRAZOLE 20 MG TABLET 40 MG PO (08:40)
[2019-12-04] MEDS: APIXABAN 5 MG TABLET PO (08:41)
[2019-12-04] MEDS: predniSONE 20 MG TABLET 40 MG PO (08:41)
[2019-12-04] MEDS: SIMVASTATIN 20 MG TABLET PO (08:41)
[2019-12-04] MEDS: FLUTICASONE 120 SPRAY/16 GM SPRAY.SUSP NASAL (08:43)
[2019-12-04] MEDS: LORATADINE 10 MG TABLET PO (08:43)
[2019-12-04 08:45] LABS: Vitamin D 25 Hydroxy (D3) 25.6 ng/mL (30.0-100.0)
--- NOTE | 2019-12-04 08:49 | PC.NURSE ---
now with generalized weakness and feeling tired.
[2019-12-04] MEDS: CEFEPIME 2 GM in SODIUM CHLORIDE 0.9% 100 ML 200 ML IV (09:34)
[2019-12-04] MEDS: VANCOMYCIN 1,250 MG in SODIUM CHLORIDE 0.9% 250 ML IV (10:19)
--- NOTE | 2019-12-04 10:46 | PC.NURSE ---
with large form bm.
== END 2019-12-04 13:28 | disposition short-term general hospital (02) ==
PROVIDERS: Emergency Provider Emergency Medicine; Family Provider Internal Medicine Cardiovascular Disease; PCP Internal Medicine
DX: J84.10 Pulmonary fibrosis, unspecified (principal); I50.9 Heart failure, unspecified; I26.93 Single subsegmental thrombotic pulmonary embolism without acute cor pulmonale; J96.21 Acute and chronic respiratory failure with hypoxia; E78.5 Hyperlipidemia, unspecified; I48.91 Unspecified atrial fibrillation; Z79.01 Long term (current) use of anticoagulants
CPT/HCPCS: 36415; 71045; 71046; 80053; 82306; 83605; 85025; 93005; 93010; 96361; 96365; 96366; 96367; 99285; J0692

== ENCOUNTER → 2020-02-23 11:24 | Outpatient (CLI) | payer MEDICARE, SELFPAY ==
[2019-11-15 17:58] VITALS: BMI 24.7
[2020-02-23 12:35] LABS: Alanine Aminotransferase 17 IU/L (<50); Albumin 4.2 g/dL (3.5-5.0); Albumin Globulin Ratio 1.3 (1.0-2.8); Alkaline Phosphatase 58 U/L (38-126); Aspartate Aminotransferase 27 IU/L (17-59); Bilirubin Total 1.2 mg/dL (0.2-1.3); Bilirubin Unconjugated 1.2 mg/dL (0.0-1.1); Globulin 3.2 g/dL (1.7-4.1); HEMOLYSIS < 15 (0-50); Total Protein 7.4 g/dL (6.3-8.2)
== END ==
PROVIDERS: Family Provider Internal Medicine Cardiovascular Disease; PCP Internal Medicine; Referring Provider Internal Medicine Pulmonary Disease; Visit Provider Internal Medicine Pulmonary Disease
DX: J84.112 Idiopathic pulmonary fibrosis (principal)
CPT/HCPCS: 36415; 80076

== ENCOUNTER 2020-03-16 01:00 | Inpatient (IN) | payer MEDICARE, SELFPAY ==
[2019-11-15 17:58] VITALS: BMI 24.7
[2020-03-16] VITALS (16 sets, daily range): BP systolic 88–133; BP diastolic 62–88; PULSE 95–134; RESP 12–48; TEMP 30.8–37.1; O2SAT 68–98; BMI 19.1
--- NOTE | 2020-03-16 01:09 | DI.RAD.S_ITS ---
PROCEDURE: XR CHEST 1V INDICATIONS: flu-like symptoms TECHNIQUE: One view of the chest was acquired. COMPARISON: [facility], CR, XR CHEST 1V, 12/04/2019, 7:23. FINDINGS: Surgical changes and devices: None. Lungs and pleura: Interstitial prominence compatible with chronic interstitial lung disease. Patchy airspace opacities have developed in the lungs bilaterally which could represent pneumonia or pulmonary edema. No pleural effusions or pneumothorax. Mediastinum: Mediastinal contours appear normal. Heart size is normal. Bones and chest wall: No suspicious bony lesions. Overlying soft tissues appear unremarkable. IMPRESSION: 1. Chronic interstitial lung disease 2. Patchy opacity superimposed upon chronic interstitial lung disease which could represent multilobar pneumonia or pulmonary edema. Dictated by: Amelia Son MD, PhD on 03/16/2020 at 9:01 Approved by: Amelia Son MD, PhD on 03/16/2020 at 9:02
--- NOTE | 2020-03-16 01:12 | ED.SOB ---
HPI - SOB/Dyspnea General Chief Complaint: Shortness of Breath/Dyspnea Stated Complaint: Respriatory Disstress Time Seen by Provider: 03/16/20 01:02 Source: patient and EMS Mode of arrival: EMS Limitations: no limitations History of Present Illness HPI Narrative: 85-year-old male nonsmoker with history of pulmonary fibrosis on 2L home oxygen, CHF and history of pulmonary emboli (on eliquis) presents by EMS with severe shortness of breath that started rapidly this evening. The patient was in his baseline, normal state of health throughout the course of the day and awoke his in significant respiratory distress this evening. On arrival paramedics found him to be reading rapid and shallow with initial pulse ox in the 50s. He was placed on a non-rebreather with a nasal cannula and slowly progressed to the upper 80s on his arrival. He denies any significant exertion nor any missed medications. He denies any change medications or diet. He is an established DNR/DNI. He denies any exposure to persons known to have COVID-19. Last admission was in late october under relatively similar circumstances and required prolonged hospitalization. MD Complaint: shortness of breath Onset (ago): minute(s) Severity: severe Consistency/Duration: constant Relieving factors: oxygen and rest Exacerbating factors: exertion Known history of: congestive heart failure, PE and other Associated symptoms: denies other symptoms Treatment prior to arrival: oxygen Related Data Home oxygen amount: 2 liters Home Medications Medication Instructions Recorded Confirmed Eliquis 5 mg PO BID 11/15/19 03/16/20 cholecalciferol (vitamin D3) 50 mcg PO DAILY #0 11/15/19 03/16/20 [Vitamin D3] docusate sodium 100 mg PO BID PRN 11/15/19 03/16/20 fluticasone propionate 2 spray INTRANASAL BID 11/15/19 03/16/20 simvastatin 20 mg PO DAILY 11/15/19 03/16/20 tamsulosin 0.4 mg PO DAILY 11/15/19 03/16/20 furosemide 10 mg PO QAM 03/16/20 03/16/20 milk thistle 175 mg PO BID 03/16/20 03/16/20 nintedanib 150 mg PO Q12H 03/16/20 03/16/20 omeprazole 20 mg PO DAILY 06/18/20 06/18/20 potassium chloride 10 meq PO DAILY 03/16/20 03/16/20 Previous Rx's Medication Instructions Recorded acetaminophen 650 mg PO Q6HR PRN #30 tab 11/30/19 Allergies Allergy/AdvReac Type Severity Reaction Status Date / Time No Known Drug Allergies Allergy Verified 11/15/19 08:53 Review of Systems Constitutional Constitutional: Denies chills, Denies fatigue, Denies fever(s), Denies frequent falls, Denies lethargy and Denies weakness Eyes Eyes: Denies change in vision, Denies eye discharge, Denies irritation and Denies loss of vision ENT Ears, Nose, Mouth, and Throat: Denies change in voice, Denies dizziness, Denies neck pain, Denies sore throat and Denies throat swelling Cardiovascular Cardiovascular: Denies chest pain, Denies irregular heart rhythm, Denies lightheadedness, Denies palpitations, Reports dyspnea, Denies dyspnea on exertion and Denies orthopnea Respiratory Respiratory: Denies cough, Reports dyspnea, Denies dyspnea on exertion and Denies wheezing Gastrointestinal Gastrointestinal: Denies abdominal pain, Denies change in bowel habits, Denies diarrhea, Denies nausea and Denies vomiting Musculoskeletal Musculoskeletal: Denies neck pain and Denies numbness Integumentary/Breasts Skin/Breast: Denies pruritus, Denies erythema, Denies rash and Denies wounds Neurologic Neurologic: Denies behavioral changes, Denies confusion, Denies dizziness, Denies frequent falls, Denies loss of vision, Denies numbness and Denies weakness Psychiatric Psychiatric: Denies anxiety, Denies behavioral changes, Denies confusion, Denies depression, Denies homicidal ideation and Denies suicidal ideation Endocrine Endocrine: Denies fatigue, Denies flushing and Denies palpitations Hematologic/Lymphatic Hematologic/Lymphatic: Denies easy bruising Allergic/Immunologic Allergic/Immunologic: Denies urticaria, Denies throat swelling and Denies wheezing Patient History Medical History Atrial fibrillation with normal ventricular rate (Chronic) BPH (benign prostatic hyperplasia) (Chronic) Chronic anticoagulation (Chronic) Fall (Inactive 11/15/19) GERD (gastroesophageal reflux disease) (Chronic) Hyperlipidemia (Chronic) Pulmonary fibrosis (Chronic) Surgical History H/O right knee surgery (Acute) History of lung biopsy (Acute) Family History Mother Wegeners granulomatosis Sister Neuropathy Social History marital status: household members: spouse Smoking Status: Never smoker alcohol intake: former Smoking Status: Never smoker Substance Use Type: does not use Exam Narrative Exam Narrative: GENERAL: [85] year old patient appears stated age. Well-nourished, well-developed patient, in severe distress. Rapid, shallow breathing HEAD: Atraumatic. Normocephalic. EYES: Pupils equal round and reactive. Extraocular motions intact. No scleral icterus. No injection or drainage. ENT: Nose without bleeding, purulent drainage. Throat without erythema, tonsillar hypertrophy or exudate. Airway patent. NECK: Trachea midline. Non tender CARDIOVASCULAR: Regular rate and rhythm without murmurs, gallops, or rubs. RESPIRATORY: Decreased breath sounds bilaterally with prolonged expiratory phase. Tachypnea, speaking in 2-3 word sentences GASTROINTESTINAL: Abdomen soft, non-tender, nondistended. EXTREMITIES: No edema or joint tenderness. BACK: Nontender without deformity or crepitance. No flank tenderness. NEURO: AOx3. SKIN: No rash or erythema of visible areas Initial Vital Signs Initial Vital Signs: Vital Signs Temperature 97.7 F 03/16/20 00:55 Pulse Rate 99 H 03/16/20 00:55 Respiratory Rate 38 H 03/16/20 00:55 Blood Pressure 108/74 03/16/20 00:55 Pulse Oximetry 68 L 03/16/20 00:55 Course Course Course Narrative: Patient arrives with non-rebreather and nasal cannula which was required to keep oxygen in the mid 80s. Initially we were attempting on high-flow, high immunity nasal cannula given its minimal air cell is a lassiter, however his sats were in the mid 70s. Decision to move patient into negative pressure room on for the use of BiPAP made early. Patient has rapid improvement after BiPap. COVID negative. Multiple etiologies considered including pneumonia but thought less likely given lack of fever, cough, CXR findings, procalcitonin. PE considered, but thought unlikely given chronic use of eliquis, negative DDimer and profound improvement with BiPap. COVID considered but thought unlikely given negative swab. Patient is tachycardic and tachypneic, and sepsis considered, however there is no suspected infection. WBC is elevated, but has been for quite sometime. Also, patient has had no fever, chills or other. Orders Ordered: ED Orders 03/16/20 01:00 C-Reactive Protein Quant Stat Complete Blood Count AUTO DIFF Stat Comprehensive Metabolic Panel Stat D Dimer Stat Ferritin Stat Lactate Dehydrogenase Stat NT-proBNP (BNP-Adult 18+) Stat Procalcitonin Stat Respiratory Panel (Film Array) Stat Troponin & CK Cardiac Panel Stat 03/16/20 01:08 High flow/High humidity nasal NOW 03/16/20 01:09 XR chest 1V Stat 03/16/20 01:11 BiPAP Ventilatory Support RT PROTOCOL 03/16/20 01:27 EKG-12 Lead Stat 03/16/20 01:30 Blood Culture Stat 03/16/20 01:35 Lactate (Lactic Acid) Stat 03/16/20 01:40 Arterial Blood Gas Stat Discontinued Medications Furosemide (Lasix) 40 mg IV NOW ONE Stop: 03/16/20 01:53 Last Admin: 03/16/20 02:18 Dose: 40 mg Documented by: RAMÍREZ Vital Signs Vital signs: Vital Signs - 8 hr 03/16/20 00:55 03/16/20 01:15 03/16/20 01:30 Temperature 97.7 F Pulse Rate 99 H 99 H 107 H Respiratory Rate 38 H 39 H 39 H Blood Pressure 108/74 Blood Pressure [Left Arm] 108/74 130/77 Pulse Oximetry 68 L 89 L 97 03/16/20 01:40 03/16/20 02:00 Temperature Pulse Rate 103 H Respiratory Rate 48 H Blood Pressure 130/77 Blood Pressure [Left Arm] 121/88 Pulse Oximetry 95 MDM - SOB/Dyspnea Lab Data Result diagrams: 03/16/20 01:00 03/16/20 01:00 Labs: Lab Results 03/16/20 03/16/20 03/16/20 Range/Units 01:00 01:00 01:00 WBC 15.7 H (4.5-11.0) X10^3/uL RBC 4.07 L (4.5-5.9) X10^6/uL Hgb 12.7 L (13.5-17.5) g/dL Hct 37.6 L (41-53) % MCV 92.4 (80-100) fL MCH 31.2 (26-34) PG MCHC 33.7 (30-36) % RDW 15.4 H (11.6-14.8) % Plt Count 289 (150-400) X10^3/uL Neut % (Auto) 80.1 H (50-75) % Lymph % (Auto) 11.9 L (25-40) % [place] % (Auto) 7.4 (3-14) % Eos % (Auto) 0.2 L (2-4) % Baso % (Auto) 0.4 (0-2) % Neut # (Auto) 68227 H (5036-1636) /uL Lymph # (Auto) 1900 (4688-3524) /uL [place] # (Auto) 1200 H (0-900) /uL Eos # (Auto) 0 (0-450) /uL Baso # (Auto) 100 (0-100) /uL D-Dimer 345 H (<230) ng/mL ABG pH (7.35-7.45) ABG pCO2 (35-45) mmHg ABG pO2 (80-100) mmHg ABG HCO3 (22-26) mmol/L ABG Total CO2 (21-31) mmol/L ABG O2 Saturation (95-100) % ABG Base Excess (-2-2) mmol/L FiO2 Sodium (137-145) mmol/L Potassium (3.4-5.1) mmol/L Chloride (98-107) mmol/L Carbon Dioxide (22-32) mmol/L BUN (9-20) mg/dL Creatinine (0.66-1.25) mg/dL Estimated GFR (>60) mL/min BUN/Creatinine Ratio (6-22) Glucose (80-110) mg/dL Lactate (0.7-2.1) mmol/L Calcium (8.4-10.2) mg/dL Ferritin (18-464) ng/mL Total Bilirubin (0.2-1.3) mg/dL AST (17-59) IU/L ALT (<50) IU/L Alkaline Phosphatase (38-126) U/L Lactate Dehydrogenase (313-618) U/L Total Creatine Kinase (55-170) U/L CK-MB (CK-2) CK-MB (CK-2) Rel Index Troponin I (0.01-0.034) ng/mL C-Reactive Protein (<1.0) mg/dL NT-Pro-B Natriuret Pep (<450) pg/mL Total Protein (6.3-8.2) g/dL Albumin (3.5-5.0) g/dL Globulin (1.7-4.1) g/dL Albumin/Globulin Ratio (1.0-2.8) Procalcitonin < 0.05 (<0.5) ng/mL COVID-19 PCR (Negative) 03/16/20 03/16/20 03/16/20 Range/Units 01:00 01:15 01:35 WBC (4.5-11.0) X10^3/uL RBC (4.5-5.9) X10^6/uL Hgb (13.5-17.5) g/dL Hct (41-53) % MCV (80-100) fL MCH (26-34) PG MCHC (30-36) % RDW (11.6-14.8) % Plt Count (150-400) X10^3/uL Neut % (Auto) (50-75) % Lymph % (Auto) (25-40) % [place] % (Auto) (3-14) % Eos % (Auto) (2-4) % Baso % (Auto) (0-2) % Neut # (Auto) (4884-4862) /uL Lymph # (Auto) (7687-8091) /uL [place] # (Auto) (0-900) /uL Eos # (Auto) (0-450) /uL Baso # (Auto) (0-100) /uL D-Dimer (<230) ng/mL ABG pH (7.35-7.45) ABG pCO2 (35-45) mmHg ABG pO2 (80-100) mmHg ABG HCO3 (22-26) mmol/L ABG Total CO2 (21-31) mmol/L ABG O2 Saturation (95-100) % ABG Base Excess (-2-2) mmol/L FiO2 Sodium 126 L (137-145) mmol/L Potassium 4.4 (3.4-5.1) mmol/L Chloride 89 L (98-107) mmol/L Carbon Dioxide 31 (22-32) mmol/L BUN 29 H (9-20) mg/dL Creatinine 0.71 (0.66-1.25) mg/dL Estimated GFR > 60.0 (>60) mL/min BUN/Creatinine Ratio 40.8 H (6-22) Glucose 136 H (80-110) mg/dL Lactate 1.7 (0.7-2.1) mmol/L Calcium 9.3 (8.4-10.2) mg/dL Ferritin 410 (18-464) ng/mL Total Bilirubin 2.3 H (0.2-1.3) mg/dL AST 36 (17-59) IU/L ALT 19 (<50) IU/L Alkaline Phosphatase 74 (38-126) U/L Lactate Dehydrogenase 921 H (313-618) U/L Total Creatine Kinase 59 (55-170) U/L CK-MB (CK-2) TNP CK-MB (CK-2) Rel Index TNP Troponin I 0.029 (0.01-0.034) ng/mL C-Reactive Protein 12.7 H (<1.0) mg/dL NT-Pro-B Natriuret Pep 2990 H (<450) pg/mL Total Protein 7.4 (6.3-8.2) g/dL Albumin 4.1 (3.5-5.0) g/dL Globulin 3.3 (1.7-4.1) g/dL Albumin/Globulin Ratio 1.2 (1.0-2.8) Procalcitonin (<0.5) ng/mL COVID-19 PCR Negative (Negative) 03/16/20 Range/Units 01:40 WBC (4.5-11.0) X10^3/uL RBC (4.5-5.9) X10^6/uL Hgb (13.5-17.5) g/dL Hct (41-53) % MCV (80-100) fL MCH (26-34) PG MCHC (30-36) % RDW (11.6-14.8) % Plt Count (150-400) X10^3/uL Neut % (Auto) (50-75) % Lymph % (Auto) (25-40) % [place] % (Auto) (3-14) % Eos % (Auto) (2-4) % Baso % (Auto) (0-2) % Neut # (Auto) (2438-1737) /uL Lymph # (Auto) (6643-6227) /uL [place] # (Auto) (0-900) /uL Eos # (Auto) (0-450) /uL Baso # (Auto) (0-100) /uL D-Dimer (<230) ng/mL ABG pH 7.42 (7.35-7.45) ABG pCO2 41.8 (35-45) mmHg ABG pO2 70 L (80-100) mmHg ABG HCO3 27 H (22-26) mmol/L ABG Total CO2 28 (21-31) mmol/L ABG O2 Saturation 94 L (95-100) % ABG Base Excess 2.0 (-2-2) mmol/L FiO2 65 Sodium (137-145) mmol/L Potassium (3.4-5.1) mmol/L Chloride (98-107) mmol/L Carbon Dioxide (22-32) mmol/L BUN (9-20) mg/dL Creatinine (0.66-1.25) mg/dL Estimated GFR (>60) mL/min BUN/Creatinine Ratio (6-22) Glucose (80-110) mg/dL Lactate (0.7-2.1) mmol/L Calcium (8.4-10.2) mg/dL Ferritin (18-464) ng/mL Total Bilirubin (0.2-1.3) mg/dL AST (17-59) IU/L ALT (<50) IU/L Alkaline Phosphatase (38-126) U/L Lactate Dehydrogenase (313-618) U/L Total Creatine Kinase (55-170) U/L CK-MB (CK-2) CK-MB (CK-2) Rel Index Troponin I (0.01-0.034) ng/mL C-Reactive Protein (<1.0) mg/dL NT-Pro-B Natriuret Pep (<450) pg/mL Total Protein (6.3-8.2) g/dL Albumin (3.5-5.0) g/dL Globulin (1.7-4.1) g/dL Albumin/Globulin Ratio (1.0-2.8) Procalcitonin (<0.5) ng/mL COVID-19 PCR (Negative) Discharge Plan Departure Patient Disposition: Admitted As Inpatient Clinical Impression: Acute respiratory failure with hypoxia, Acute hyponatremia Referrals: Carlos Servin MD [Primary Care Provider] - Admit Date/Time: 03/16/20 02:25 Admit Provider: Massiel Grey
[2020-03-16 01:24] LABS: Add Manual Diff / Slide Review NO; Basophils Absolute Auto 100 /uL (0-100); Basophils Percent Auto 0.4 % (0-2); Eosinophils Absolute Auto 0 /uL (0-450); Eosinophils Percent Auto 0.2 % (2-4); Hematocrit 37.6 % (41-53); Hemoglobin 12.7 g/dL (13.5-17.5); Lymphocytes Absolute Auto 1900 /uL (1100-4500); Lymphocytes Percent Auto 11.9 % (25-40); Mean Corpuscular HGB Conc 33.7 % (30-36); Mean Corpuscular Hemoglobin 31.2 PG (26-34); Mean Corpuscular Volume 92.4 fL (80-100); Monocytes Absolute Auto 1200 /uL (0-900); Monocytes Percent Auto 7.4 % (3-14); Neutrophils Absolute Auto 12600 /uL (1500-7000); Neutrophils Percent Auto 80.1 % (50-75); Platelet Count 289 X10^3/uL (150-400); Red Blood Cell Count 4.07 X10^6/uL (4.5-5.9); Red Cell Distribution Width 15.4 % (11.6-14.8); White Blood Cell Count 15.7 X10^3/uL (4.5-11.0)
[2020-03-16 01:31] LABS: D Dimer 345 ng/mL (<230)
[2020-03-16 01:32] LABS: Alanine Aminotransferase 19 IU/L (<50); Albumin 4.1 g/dL (3.5-5.0); Albumin Globulin Ratio 1.2 (1.0-2.8); Alkaline Phosphatase 74 U/L (38-126); Aspartate Aminotransferase 36 IU/L (17-59); BUN Creatinine Ratio 40.8 (6-22); Bilirubin Total 2.3 mg/dL (0.2-1.3); Blood Urea Nitrogen 29 mg/dL (9-20); Calcium 9.3 mg/dL (8.4-10.2); Carbon Dioxide 31 mmol/L (22-32); Chloride 89 mmol/L (98-107); Creatine Kinase 59 U/L (55-170); Estimated Glomerular Filt Rate > 60.0 mL/min (>60); Globulin 3.3 g/dL (1.7-4.1); Glucose 136 mg/dL (80-110); HEMOLYSIS < 15 (0-50); Potassium 4.4 mmol/L (3.4-5.1); Sodium 126 mmol/L (137-145); Total Protein 7.4 g/dL (6.3-8.2)
[2020-03-16 01:41] LABS: Lactate Dehydrogenase 921 U/L (313-618)
[2020-03-16 01:45] LABS: NT-proBNP (BNP-Adult 18+) 2990 pg/mL (<450); Troponin I 0.029 ng/mL (0.01-0.034)
[2020-03-16 01:53] LABS: C-Reactive Protein Quant 12.7 mg/dL (<1.0)
[2020-03-16 01:55] LABS: Procalcitonin < 0.05 ng/mL (<0.5)
[2020-03-16 02:07] LABS: Lactate (Lactic Acid) 1.7 mmol/L (0.7-2.1)
[2020-03-16 02:08] LABS: Ferritin 410 ng/mL (18-464)
[2020-03-16 02:13] LABS: Fractionated Inspired Oxygen 65; HCO3 ABG 27 mmol/L (22-26); Oxygen Saturation ABG 94 % (95-100); PCO2 ABG 41.8 mmHg (35-45); PO2 ABG 70 mmHg (80-100); TCO2 ABG 28 mmol/L (21-31); pH ABG 7.42 (7.35-7.45)
[2020-03-16 02:13] LABS: COVID19 -Nasal RAPID Negative (Negative)
[2020-03-16] MEDS: FUROSEMIDE 40 MG/4 ML VIAL IV (02:18)
[2020-03-16 03:00] LABS: RBC Urine 1-5/HPF (0-5/HPF); WBC Urine 10-30/HPF (0-5/HPF)
[2020-03-16 03:01] LABS: Bacteria Urine Moderate (10-30); Culture Indicated Urine Specimen Cultured; Mucus Urine 3+ (Negative)
[2020-03-16 03:55] LABS: Adenovirus Not Detected (Not Detect); Bordetella pertussis Not Detected (Not Detect); Chlamydophila pneumoniae Not Detected (Not Detect); Coronavirus 229E Not Detected (Not Detect); Coronavirus HKU1 Not Detected (Not Detect); Coronavirus NL 63 Not Detected (Not Detect); Coronavirus OC43 Not Detected (Not Detect); Human Metapneumovirus Not Detected (Not Detect); Human Rhinovirus/Enterovirus Not Detected (Not Detect); Influenza A Not Detected (Not Detect); Influenza B Not Detected (Not Detect); Mycoplasma pneumoniae Not Detected (Not Detect); Parainfluenza Virus 1 Not Detected (Not Detect); Parainfluenza Virus 2 Not Detected (Not Detect); Parainfluenza Virus 3 Not Detected (Not Detect); Parainfluenza Virus 4 Not Detected (Not Detect); Respiratory Syncytial Virus Not Detected (Not Detect)
--- NOTE | 2020-03-16 04:20 | P.HP_ITS ---
History of Present Illness History of Present Illness Date Patient Seen: 03/16/20 Chief complaint: Respriatory Disstress Narrative: Patient is an 85-year-old male with a complex past medical history including interstitial lung disease, pulmonary fibrosis, persistent atrial fibrillation on Eliquis, recent diagnosis of a subsegmental pulmonary embolus, gastroesophageal reflux disease, cor pulmonale with mild biventricular systolic dysfunction, chronic respiratory failure on home O2 who was in his usual state of health until this evening when he abruptly became short of breath. Patient states he is normally on 2 L of oxygen when he is at rest. He will increase his oxygen to about 5 L with activity. He became suddenly short of breath increased his oxygen and remained hypoxic. 911 was called and the patient was brought into the hospital for further evaluation. In the emergency department the patient was given 40 mg of IV Lasix, placed on BiPAP and admitted to the hospital for further evaluation. Patient remains on Eliquis for pulmonary embolism he sustained during his hospitalization in October. Patient reports some indigestion, GERD, occasional chest pain as well. Patient was recently hospitalized in October for several weeks. During that hospital stay he fell suffering a knee fracture and required right knee surgery. He had a complicated postoperative course which resulted in postoperative pneumonia, subsegmental PE, respiratory failure and AFib as above. [facility] He ultimately was then able to be discharged home. During his prior hospital stay palliative care consultation was obtained. After long extensive discussion patient was made DNR DNI. However he and his family wanted to continue active care as they were planning to see Dr. white customer program specialist at the [facility] for ongoing treatment. Since that time the patient has started on his new medication nintedanib for the last 6 months. He states he has not noted any particular significant improvement in his breathing. Patient denies any fever chills. He has a cough with minimally productive sputum. Occasionally it is blood tinged. He denies any headache blurred vision or double vision. He has had some nausea. He does report some reflux. He has chronic pain behind the right knee. Occasional swelling in the lower extremity. He has lost 35 lb since his prior admission in October. Patient remains in atrial fibrillation and has palpitations associated with that. Patient reports difficulty with urination which is chronic. He has intermittent burning which is chronic as well. He denies any dysuria hematuria or pyuria. The patient is admitted to the intensive care unit for ongoing treatment of his acute on chronic hypoxic respiratory failure. Patient History Medical History (Updated 03/16/20 @ 04:31 by Massiel Grey MD) Allergic rhinitis (Acute) Atrial fibrillation with normal ventricular rate (Chronic) BPH (benign prostatic hyperplasia) (Chronic) Chronic anticoagulation (Chronic) Cor pulmonale (Acute) Fall (Inactive 11/15/19) GERD (gastroesophageal reflux disease) (Chronic) Hyperlipidemia (Chronic) Pulmonary fibrosis (Chronic) Right ventricular systolic dysfunction (Acute) Single subsegmental pulmonary embolism without acute cor pulmonale (Acute) Surgical History H/O right knee surgery (Acute) History of lung biopsy (Acute) Family & Social History Family History Mother Wegeners granulomatosis Sister Neuropathy Social History: household members spouse Prior Living Arrangements House Safety & Behavioral: Feels Safe in Current Yes Environment Been Physically Hurt or No Threatened By a Person Suicidal Ideation Description None Suicide Plan Description No Plan Tobacco & Substance use: Smoking Status Never smoker alcohol intake former Substance Use Type does not use Meds Home Medications and Allergies Home Medications Medication Instructions Recorded Confirmed Type Eliquis 5 mg PO BID 11/15/19 03/16/20 History cholecalciferol (vitamin D3) 50 mcg PO DAILY #0 11/15/19 03/16/20 History [Vitamin D3] docusate sodium 100 mg PO BID PRN 11/15/19 03/16/20 History fluticasone propionate 2 spray INTRANASAL BID 11/15/19 03/16/20 History simvastatin 20 mg PO DAILY 11/15/19 03/16/20 History tamsulosin 0.4 mg PO DAILY 11/15/19 03/16/20 History acetaminophen 650 mg PO Q6HR PRN #30 tab 11/30/19 03/16/20 Rx furosemide 10 mg PO QAM 03/16/20 03/16/20 History milk thistle 175 mg PO BID 03/16/20 03/16/20 History nintedanib 150 mg PO Q12H 03/16/20 03/16/20 History omeprazole 20 mg PO DAILY 03/16/20 03/16/20 History potassium chloride 10 meq PO DAILY 03/16/20 03/16/20 History Allergies Allergy/AdvReac Type Severity Reaction Status Date / Time No Known Drug Allergies Allergy Verified 11/15/19 08:53 Review of Systems Review of Systems ROS: Yes All systems reviewed with the patient and are negative except as otherwise documented Exam Vital Signs (past 8 hours): - 03/16/20 00:55 03/16/20 01:15 03/16/20 01:30 Temperature 97.7 F Pulse Rate 99 H 99 H 107 H Respiratory Rate 38 H 39 H 39 H Blood Pressure 108/74 Blood Pressure [Left Arm] 108/74 130/77 Pulse Oximetry 68 L 89 L 97 03/16/20 01:40 03/16/20 02:00 03/16/20 02:30 Temperature Pulse Rate 103 H 103 H Respiratory Rate 48 H 45 H Blood Pressure 130/77 Blood Pressure [Left Arm] 121/88 133/83 Pulse Oximetry 95 89 L 03/16/20 03:15 Temperature 98.7 F Pulse Rate Respiratory Rate 40 H Blood Pressure 102/68 Blood Pressure [Left Arm] Pulse Oximetry Fraction of Inspired Oxygen 65 Oxygen Delivery Method BiPAP Oxygen Flow Rate 55 Narrative Exam Narrative: Thin elderly male who appears to be in extremis currently on BiPAP HEENT: Normocephalic atraumatic, extraocular muscles are intact, oropharynx difficult to evaluate due to BiPAP neck reveals distended JVD Lungs decreased breath sounds with bilateral Velcro crackles noted Cardiac exam: Tachycardic irregularly irregular normal S1-S2 Abdomen: Soft nontender nondistended no appreciable hepatosplenomegaly Extremities: No lower extremity edema, right knee tender to palpation in the popliteal fossa Neuro exam: Patient is awake and alert, answers questions appropriately, has good sensation and has no evidence of confusion he is able to move all extremiti es without difficulty sensation is grossly intact reflexes are equal Psychiatric exam: Patient is awake alert and appropriate, no hallucinations, no delusions Skin exam: No lesions noted Objective Labs Result Diagrams: 03/16/20 01:00 03/16/20 01:00 Labs: Laboratory Results - last 24 hr 03/16/20 03/16/20 03/16/20 01:00 01:00 01:00 WBC 15.7 H RBC 4.07 L Hgb 12.7 L Hct 37.6 L MCV 92.4 MCH 31.2 MCHC 33.7 RDW 15.4 H Plt Count 289 Neut % (Auto) 80.1 H Lymph % (Auto) 11.9 L [place] % (Auto) 7.4 Eos % (Auto) 0.2 L Baso % (Auto) 0.4 Neut # (Auto) 13719 H Lymph # (Auto) 1900 [place] # (Auto) 1200 H Eos # (Auto) 0 Baso # (Auto) 100 D-Dimer 345 H ABG pH ABG pCO2 ABG pO2 ABG HCO3 ABG Total CO2 ABG O2 Saturation ABG Base Excess FiO2 Sodium Potassium Chloride Carbon Dioxide BUN Creatinine Estimated GFR BUN/Creatinine Ratio Glucose Lactate Calcium Ferritin Total Bilirubin AST ALT Alkaline Phosphatase Lactate Dehydrogenase Total Creatine Kinase CK-MB (CK-2) CK-MB (CK-2) Rel Index Troponin I C-Reactive Protein NT-Pro-B Natriuret Pep Total Protein Albumin Globulin Albumin/Globulin Ratio Procalcitonin < 0.05 Urine RBC Urine WBC Urine Bacteria Urine Mucus Ur Culture Indicated? Chlamy pneumoniae PCR Adenovirus (PCR) B.parapertussis DNA PCR Coronavirus OC43 (PCR) Coronavirus HKU1 (PCR) Coronavirus 229E (PCR) COVID-19 PCR Coronavirus NL63 (PCR) Human Metapneumovir PCR Influenza Type A (PCR) Influenza Type B (PCR) M. pneumoniae (PCR) Parainfluenza 1 (PCR) Parainfluenza 2 (PCR) Parainfluenza 3 (PCR) Parainfluenza 4 (PCR) RSV (PCR) Entero/Rhino (PCR) 03/16/20 03/16/20 03/16/20 01:00 01:00 01:15 WBC RBC Hgb Hct MCV MCH MCHC RDW Plt Count Neut % (Auto) Lymph % (Auto) [place] % (Auto) Eos % (Auto) Baso % (Auto) Neut # (Auto) Lymph # (Auto) [place] # (Auto) Eos # (Auto) Baso # (Auto) D-Dimer ABG pH ABG pCO2 ABG pO2 ABG HCO3 ABG Total CO2 ABG O2 Saturation ABG Base Excess FiO2 Sodium 126 L Potassium 4.4 Chloride 89 L Carbon Dioxide 31 BUN 29 H Creatinine 0.71 Estimated GFR > 60.0 BUN/Creatinine Ratio 40.8 H Glucose 136 H Lactate Calcium 9.3 Ferritin 410 Total Bilirubin 2.3 H AST 36 ALT 19 Alkaline Phosphatase 74 Lactate Dehydrogenase 921 H Total Creatine Kinase 59 CK-MB (CK-2) TNP CK-MB (CK-2) Rel Index TNP Troponin I 0.029 C-Reactive Protein 12.7 H NT-Pro-B Natriuret Pep 2990 H Total Protein 7.4 Albumin 4.1 Globulin 3.3 Albumin/Globulin Ratio 1.2 Procalcitonin Urine RBC Urine WBC Urine Bacteria Urine Mucus Ur Culture Indicated? Chlamy pneumoniae PCR Not detected Adenovirus (PCR) Not detected B.parapertussis DNA PCR Not detected Coronavirus OC43 (PCR) Not detected Coronavirus HKU1 (PCR) Not detected Coronavirus 229E (PCR) Not detected COVID-19 PCR Negative Coronavirus NL63 (PCR) Not detected Human Metapneumovir PCR Not detected Influenza Type A (PCR) Not detected Influenza Type B (PCR) Not detected M. pneumoniae (PCR) Not detected Parainfluenza 1 (PCR) Not detected Parainfluenza 2 (PCR) Not detected Parainfluenza 3 (PCR) Not detected Parainfluenza 4 (PCR) Not detected RSV (PCR) Not detected Entero/Rhino (PCR) Not detected 03/16/20 03/16/20 03/16/20 01:35 01:40 02:29 WBC RBC Hgb Hct MCV MCH MCHC RDW Plt Count Neut % (Auto) Lymph % (Auto) [place] % (Auto) Eos % (Auto) Baso % (Auto) Neut # (Auto) Lymph # (Auto) [place] # (Auto) Eos # (Auto) Baso # (Auto) D-Dimer ABG pH 7.42 ABG pCO2 41.8 ABG pO2 70 L ABG HCO3 27 H ABG Total CO2 28 ABG O2 Saturation 94 L ABG Base Excess 2.0 FiO2 65 Sodium Potassium Chloride Carbon Dioxide BUN Creatinine Estimated GFR BUN/Creatinine Ratio Glucose Lactate 1.7 Calcium Ferritin Total Bilirubin AST ALT Alkaline Phosphatase Lactate Dehydrogenase Total Creatine Kinase CK-MB (CK-2) CK-MB (CK-2) Rel Index Troponin I C-Reactive Protein NT-Pro-B Natriuret Pep Total Protein Albumin Globulin Albumin/Globulin Ratio Procalcitonin Urine RBC 1-5/hpf Urine WBC 10-30/hpf H Urine Bacteria Moderate (10-30) H Urine Mucus 3+ H Ur Culture Indicated? Specimen cultured Chlamy pneumoniae PCR Adenovirus (PCR) B.parapertussis DNA PCR Coronavirus OC43 (PCR) Coronavirus HKU1 (PCR) Coronavirus 229E (PCR) COVID-19 PCR Coronavirus NL63 (PCR) Human Metapneumovir PCR Influenza Type A (PCR) Influenza Type B (PCR) M. pneumoniae (PCR) Parainfluenza 1 (PCR) Parainfluenza 2 (PCR) Parainfluenza 3 (PCR) Parainfluenza 4 (PCR) RSV (PCR) Entero/Rhino (PCR) Assessment & Plan Assessment & Plan narrative: Impression 1. 85-year-old male admitted to the hospital for acute on chronic respiratory failure -patient with known interstitial lung disease/pulmonary fibrosis typically on 2 L of oxygen -currently requiring BiPAP due to hypoxemia -will start methylprednisolone 125 mg q.6 -will start Unasyn 3 mg Q 6 hours for possible microaspiration as previously recommended by his director of security -procalcitonin is normal, lactate 1.7, chest x-ray reveals no evidence of infiltrate at this time -patient to continue his usual home medication nintedanib -doubt PE as the patient is currently on Eliquis -repeat chest x-ray -will notify Dr. Mitchell later this morning 2. Acute on chronic biventricular systolic dysfunction, cor pulmonale -patient with a BNP of 2900 -patient received 40 mg of IV Lasix in the emergency department, will continue 40 mg of IV Lasix daily -echo -he left ventricle is normal in size. Left ventricular ejection fraction is estimated to be 50 +/- 5%. The interventricular septum is flattened, consistent with a right ventricular pressure/volume condition. The right ventricle is moderately dilated. Right ventricular systolic function is moderately reduced. Right ventricular systolic function has decreased since previous exam. There is moderate tricuspid regurgitation. Compared to the prior echo exam, there has been an increase in the severity of pulmonary hypertension. There is severe pulmonary hypertension. 3. Persistent atrial fibrillation -continue Eliquis -patient's rate has been previously controlled, consider IV digoxin and or Cardizem for persistent tachycardia 4. GERD -patient to continue on IV protonix -patient started on IV Unasyn for possible microaspiration 5. Hyperlipidemia -continue statin 6. Benign prostatic hypertrophy -continue to him need tamsulosin -UA suggestive of infection, currently on Unasyn for possible aspiration -will follow urine culture 7. History of allergic rhinitis -continue Flonase 8. Hyponatremia -will obtain serum osmolality -will continue to monitor closely Patient's is his DPOA. Patient is DNR DNI. Patient had a palliative care consultation during his prior admission. And wishes to continue active treatment of his idiopathic pulmonary fibrosis and chronic respiratory failure. Despite this the patient has had a prolonged hospitalization in the month of October. He was hospitalized and seen here in November. He continues to have progression of his pulmonary disease despite active treatment. Overall prognosis is grim. Quality VTE Deep Vein Thrombosis/Pulmonary Embolism Present on Admission: Yes
[2020-03-16] MEDS: methylPREDNISolone 125 MG/2 ML VIAL IV ×2 (05:00→11:03)
[2020-03-16] MEDS: AMPICILLIN/SULBACTAM 3 GM 3 GM in SODIUM CHLORIDE 0.9% 100 ML IV (05:00)
--- NOTE | 2020-03-16 05:40 | PC.NURSE ---
Pt. arrived to the unit via stretcher. Pt. is a&o but is hard of hearing and does not have his hearing aids with him. Pt. is afebrile, afib RVR in the low 100's. Pt. is on Bipap at 65% Fi02, I/E-07/14, RR-18. Pt. has been tachypneic in the 30-50's with sats in the low to mid 90's, lungs diminished with fine crackles mostly on the mid and lower bases. Pt. denies pain. Adam insertion ordered but pt. declined and Dr. Grey was notified and she is ok with it. Pt. voiding frequently with clear pale urine using the urinal. Per pt. he stated that he is mostly wheelchair bound due to knee surgery and stated that he also had fallen not too long ago. Call light and urinal within reach. 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 place on contact isolation.
[2020-03-16] MEDS: MORPHINE 2 MG/ML INJ IV ×2 (06:29→13:07)
--- NOTE | 2020-03-16 06:40 | PC.NURSE ---
Pt. is not tolerating the BIPAP, RT called and advice to place pt. on nonrebreather. Pt. on non rebreather at 15L, also administered Morphine 2 mg IV for tachypnea and anxiety. 02 sats so far is currently at 92%.
[2020-03-16 07:39] LABS: Creatine Kinase 46 U/L (55-170)
[2020-03-16 07:50] LABS: Troponin I 0.037 ng/mL (0.01-0.034)
--- NOTE | 2020-03-16 09:02 | DI.CT.S_ITS ---
PROCEDURE: CT ANGIO CHEST INDICATIONS: hx of PE, shortness of breath TECHNIQUE: After the administration of intravenous contrast, 2 mm thick sections acquired from the pulmonary apices to the posterior costophrenic angles. 3-dimensional maximum intensity projection (MIP) coronal and sagittal reformats were then acquired through the thorax. For radiation dose reduction, the following was used: automated exposure control, adjustment of mA and/or kV according to patient size. COMPARISON: [facility], CT, CT CHEST WITHOUT CONTRAST, 12/13/2019, 14:45. [facility], CT, CT ANGIO CHEST PE PROTOCOL, 11/21/2019, 18:16. FINDINGS: Image quality: Suboptimal contrast opacification of the lobar and segmental pulmonary arteries. Pulmonary arteries: Central pulmonary arteries are normal in size, and demonstrate no intraluminal filling defects to suggest central pulmonary embolism. However, the lobar and segmental arterial vasculature is not well evaluated due to heterogeneous contrast opacification. Lungs and pleura: Widespread upper and lower lobe consolidation and groundglass opacities are seen bilaterally. This appears worse in the upper lobes and grossly unchanged in the lower lobes. There are additional reticular subpleural opacities. No pleural effusion. No pneumothorax. Previously visualized pneumomediastinum appears resolved. Mediastinum: Heart size is enlarged, without pericardial effusion. CT evidence of decreased cardiac output with marked reflux of contrast dural into the IVC and hepatic veins. Nonspecific mildly enlarged mediastinal and hilar lymph nodes of indeterminate etiology, some of which appear calcified. These appear grossly unchanged. Thoracic aorta is normal in caliber and enhancement. Esophagus is normal in caliber, without hiatal hernia. Bones and chest wall: No suspicious bony lesions. Ribs and thoracic spine appear intact throughout. Thyroid gland unremarkable. No axillary or supraclavicular adenopathy. Abdomen: Visualized upper abdominal solid organs appear normal in the early arterial phase of enhancement. IMPRESSION: Suboptimal evaluation. No large or central pulmonary embolism identified however the lobar and segmental arteries are not well evaluated due to heterogeneous contrast opacification. If clinically warranted, further risk stratification with bilateral lower extremity ultrasound for DVT could be performed. Worsening widespread upper lobe pneumonia and opacification bilaterally since 12/13/19. Persistent reticular and ill-defined ground glass opacities within both lung bases, with chronic interlobular septal thickening. Recommend clinical correlation since pulmonary edema cannot be excluded. Of note, there is CT evidence of decreased cardiac output. If there is persistent clinical diagnostic uncertainty, continued surveillance with short interval chest radiographs after treatment is recommended. Cardiomegaly Additional chronic and incidental findings as above. Dictated by: Raffi Amador M.D. on 03/16/2020 at 9:39 Approved by: Raffi Amador M.D. on 03/16/2020 at 10:08
[2020-03-16 09:15] LABS: HCO3 ABG 31 mmol/L (22-26); PCO2 ABG 59.2 mmHg (35-45); PO2 ABG 184 mmHg (80-100); TCO2 ABG 33 mmol/L (21-31); pH ABG 7.33 (7.35-7.45)
[2020-03-16 09:16] LABS: Fractionated Inspired Oxygen 100; Oxygen Saturation ABG 100 % (95-100)
--- NOTE | 2020-03-16 09:16 | P.PN_ITS ---
Subjective Subjective Date Patient Seen: 03/16/20 Interval history: The patient was seen and examined. Patient is rather somnolent prompting repeat ABG which demonstrated hypercarbia likely due to over oxygenation. Plan for CTA as patient has been tachypneic, hypoxemic and tachycardic with previous subsegmental PE on Eliquis. Physical exam unchanged other than JVD is resolved and patient now appears to be on dry side and tachypnea improved and patient is off BiPAP. Agree with admitting provider's assessment and plan. Discontinued furosemide. Continue to monitor serial ABGs and titrate supplemental oxygen as appropriate and potentially restart BiPAP for CO2 retention. Continue Unasyn for possible microaspiration and possible UTI. Ordered CTA chest to rule out recurrent PE as patient previously failed Eliquis. Exam Vital Signs (past 8 hours): - 03/16/20 01:30 03/16/20 01:40 03/16/20 02:00 Temperature Pulse Rate 107 H 103 H Respiratory Rate 39 H 48 H Blood Pressure 130/77 Blood Pressure [Left Arm] 130/77 121/88 Pulse Oximetry 97 95 03/16/20 02:30 03/16/20 03:15 03/16/20 03:27 Temperature 98.7 F Pulse Rate 103 H Respiratory Rate 45 H 40 H Blood Pressure 102/68 102/68 Blood Pressure [Left Arm] 133/83 Pulse Oximetry 89 L 03/16/20 05:20 03/16/20 06:01 03/16/20 08:00 Temperature 98.2 F 98.7 F Pulse Rate 118 H 119 H Respiratory Rate 44 H 20 Blood Pressure 112/66 112/66 97/62 Blood Pressure [Left Arm] Pulse Oximetry 95 92 03/16/20 08:18 Temperature Pulse Rate 112 H Respiratory Rate 24 Blood Pressure Blood Pressure [Left Arm] Pulse Oximetry 97 Fraction of Inspired Oxygen 65 Oxygen Delivery Method Nasal Cannula,Non -Rebreather Oxygen Flow Rate 15 Objective Labs Result Diagrams: 03/16/20 01:00 03/16/20 01:00 Labs: Laboratory Results - last 24 hr 03/16/20 03/16/20 03/16/20 01:00 01:00 01:00 WBC 15.7 H RBC 4.07 L Hgb 12.7 L Hct 37.6 L MCV 92.4 MCH 31.2 MCHC 33.7 RDW 15.4 H Plt Count 289 Neut % (Auto) 80.1 H Lymph % (Auto) 11.9 L [place] % (Auto) 7.4 Eos % (Auto) 0.2 L Baso % (Auto) 0.4 Neut # (Auto) 78125 H Lymph # (Auto) 1900 [place] # (Auto) 1200 H Eos # (Auto) 0 Baso # (Auto) 100 D-Dimer 345 H ABG pH ABG pCO2 ABG pO2 ABG HCO3 ABG Total CO2 ABG O2 Saturation ABG Base Excess FiO2 Sodium Potassium Chloride Carbon Dioxide BUN Creatinine Estimated GFR BUN/Creatinine Ratio Glucose Lactate Calcium Ferritin Total Bilirubin AST ALT Alkaline Phosphatase Lactate Dehydrogenase Total Creatine Kinase CK-MB (CK-2) CK-MB (CK-2) Rel Index Troponin I C-Reactive Protein NT-Pro-B Natriuret Pep Total Protein Albumin Globulin Albumin/Globulin Ratio Procalcitonin < 0.05 Urine RBC Urine WBC Urine Bacteria Urine Mucus Ur Culture Indicated? Nasal Screen MRSA (PCR) Chlamy pneumoniae PCR Adenovirus (PCR) B.parapertussis DNA PCR Coronavirus OC43 (PCR) Coronavirus HKU1 (PCR) Coronavirus 229E (PCR) COVID-19 PCR Coronavirus NL63 (PCR) Human Metapneumovir PCR Influenza Type A (PCR) Influenza Type B (PCR) M. pneumoniae (PCR) Parainfluenza 1 (PCR) Parainfluenza 2 (PCR) Parainfluenza 3 (PCR) Parainfluenza 4 (PCR) RSV (PCR) Entero/Rhino (PCR) 03/16/20 03/16/20 03/16/20 01:00 01:00 01:15 WBC RBC Hgb Hct MCV MCH MCHC RDW Plt Count Neut % (Auto) Lymph % (Auto) [place] % (Auto) Eos % (Auto) Baso % (Auto) Neut # (Auto) Lymph # (Auto) [place] # (Auto) Eos # (Auto) Baso # (Auto) D-Dimer ABG pH ABG pCO2 ABG pO2 ABG HCO3 ABG Total CO2 ABG O2 Saturation ABG Base Excess FiO2 Sodium 126 L Potassium 4.4 Chloride 89 L Carbon Dioxide 31 BUN 29 H Creatinine 0.71 Estimated GFR > 60.0 BUN/Creatinine Ratio 40.8 H Glucose 136 H Lactate Calcium 9.3 Ferritin 410 Total Bilirubin 2.3 H AST 36 ALT 19 Alkaline Phosphatase 74 Lactate Dehydrogenase 921 H Total Creatine Kinase 59 CK-MB (CK-2) TNP CK-MB (CK-2) Rel Index TNP Troponin I 0.029 C-Reactive Protein 12.7 H NT-Pro-B Natriuret Pep 2990 H Total Protein 7.4 Albumin 4.1 Globulin 3.3 Albumin/Globulin Ratio 1.2 Procalcitonin Urine RBC Urine WBC Urine Bacteria Urine Mucus Ur Culture Indicated? Nasal Screen MRSA (PCR) Chlamy pneumoniae PCR Not detected Adenovirus (PCR) Not detected B.parapertussis DNA PCR Not detected Coronavirus OC43 (PCR) Not detected Coronavirus HKU1 (PCR) Not detected Coronavirus 229E (PCR) Not detected COVID-19 PCR Negative Coronavirus NL63 (PCR) Not detected Human Metapneumovir PCR Not detected Influenza Type A (PCR) Not detected Influenza Type B (PCR) Not detected M. pneumoniae (PCR) Not detected Parainfluenza 1 (PCR) Not detected Parainfluenza 2 (PCR) Not detected Parainfluenza 3 (PCR) Not detected Parainfluenza 4 (PCR) Not detected RSV (PCR) Not detected Entero/Rhino (PCR) Not detected 03/16/20 03/16/20 03/16/20 01:35 01:40 02:29 WBC RBC Hgb Hct MCV MCH MCHC RDW Plt Count Neut % (Auto) Lymph % (Auto) [place] % (Auto) Eos % (Auto) Baso % (Auto) Neut # (Auto) Lymph # (Auto) [place] # (Auto) Eos # (Auto) Baso # (Auto) D-Dimer ABG pH 7.42 ABG pCO2 41.8 ABG pO2 70 L ABG HCO3 27 H ABG Total CO2 28 ABG O2 Saturation 94 L ABG Base Excess 2.0 FiO2 65 Sodium Potassium Chloride Carbon Dioxide BUN Creatinine Estimated GFR BUN/Creatinine Ratio Glucose Lactate 1.7 Calcium Ferritin Total Bilirubin AST ALT Alkaline Phosphatase Lactate Dehydrogenase Total Creatine Kinase CK-MB (CK-2) CK-MB (CK-2) Rel Index Troponin I C-Reactive Protein NT-Pro-B Natriuret Pep Total Protein Albumin Globulin Albumin/Globulin Ratio Procalcitonin Urine RBC 1-5/hpf Urine WBC 10-30/hpf H Urine Bacteria Moderate (10-30) H Urine Mucus 3+ H Ur Culture Indicated? Specimen cultured Nasal Screen MRSA (PCR) Chlamy pneumoniae PCR Adenovirus (PCR) B.parapertussis DNA PCR Coronavirus OC43 (PCR) Coronavirus HKU1 (PCR) Coronavirus 229E (PCR) COVID-19 PCR Coronavirus NL63 (PCR) Human Metapneumovir PCR Influenza Type A (PCR) Influenza Type B (PCR) M. pneumoniae (PCR) Parainfluenza 1 (PCR) Parainfluenza 2 (PCR) Parainfluenza 3 (PCR) Parainfluenza 4 (PCR) RSV (PCR) Entero/Rhino (PCR) 03/16/20 03/16/20 03/16/20 04:00 07:00 08:42 WBC RBC Hgb Hct MCV MCH MCHC RDW Plt Count Neut % (Auto) Lymph % (Auto) [place] % (Auto) Eos % (Auto) Baso % (Auto) Neut # (Auto) Lymph # (Auto) [place] # (Auto) Eos # (Auto) Baso # (Auto) D-Dimer ABG pH 7.33 L ABG pCO2 59.2 H ABG pO2 184 H ABG HCO3 31 H ABG Total CO2 33 H ABG O2 Saturation 100 ABG Base Excess 5.0 H FiO2 100 Sodium Potassium Chloride Carbon Dioxide BUN Creatinine Estimated GFR BUN/Creatinine Ratio Glucose Lactate Calcium Ferritin Total Bilirubin AST ALT Alkaline Phosphatase Lactate Dehydrogenase Total Creatine Kinase 46 L CK-MB (CK-2) TNP CK-MB (CK-2) Rel Index TNP Troponin I 0.037 H C-Reactive Protein NT-Pro-B Natriuret Pep Total Protein Albumin Globulin Albumin/Globulin Ratio Procalcitonin Urine RBC Urine WBC Urine Bacteria Urine Mucus Ur Culture Indicated? Nasal Screen MRSA (PCR) Positive for mrsa H Chlamy pneumoniae PCR Adenovirus (PCR) B.parapertussis DNA PCR Coronavirus OC43 (PCR) Coronavirus HKU1 (PCR) Coronavirus 229E (PCR) COVID-19 PCR Coronavirus NL63 (PCR) Human Metapneumovir PCR Influenza Type A (PCR) Influenza Type B (PCR) M. pneumoniae (PCR) Parainfluenza 1 (PCR) Parainfluenza 2 (PCR) Parainfluenza 3 (PCR) Parainfluenza 4 (PCR) RSV (PCR) Entero/Rhino (PCR) Quality VTE Deep Vein Thrombosis/Pulmonary Embolism Present on Admission: Yes
[2020-03-16] MEDS: FLUTICASONE 120 SPRAY/16 GM SPRAY.SUSP NASAL (09:43)
[2020-03-16] MEDS: DOCUSATE 100 MG CAPSULE PO (09:44)
[2020-03-16] MEDS: TAMSULOSIN 0.4 MG CAPSULE PO (09:44)
[2020-03-16] MEDS: NINTEDANIB 150 MG 150 EACH PO (09:44)
[2020-03-16] MEDS: PANTOPRAZOLE 40 MG VIAL IV (09:44)
[2020-03-16] MEDS: APIXABAN 5 MG TABLET PO (09:44)
[2020-03-16 09:47] LABS: Add Manual Diff / Slide Review NO; Basophils Absolute Auto 0 /uL (0-100); Basophils Percent Auto 0.1 % (0-2); Eosinophils Absolute Auto 0 /uL (0-450); Hematocrit 34.8 % (41-53); Hemoglobin 11.7 g/dL (13.5-17.5); Lymphocytes Absolute Auto 500 /uL (1100-4500); Lymphocytes Percent Auto 3.2 % (25-40); Mean Corpuscular HGB Conc 33.8 % (30-36); Mean Corpuscular Hemoglobin 31.2 PG (26-34); Mean Corpuscular Volume 92.4 fL (80-100); Monocytes Absolute Auto 500 /uL (0-900); Monocytes Percent Auto 3.2 % (3-14); Neutrophils Absolute Auto 13700 /uL (1500-7000); Neutrophils Percent Auto 93.5 % (50-75); Platelet Count 243 X10^3/uL (150-400); Red Blood Cell Count 3.77 X10^6/uL (4.5-5.9); Red Cell Distribution Width 15.4 % (11.6-14.8); White Blood Cell Count 14.7 X10^3/uL (4.5-11.0)
[2020-03-16 09:58] LABS: Alanine Aminotransferase 18 IU/L (<50); Albumin 3.6 g/dL (3.5-5.0); Albumin Globulin Ratio 1.2 (1.0-2.8); Alkaline Phosphatase 71 U/L (38-126); Aspartate Aminotransferase 35 IU/L (17-59); BUN Creatinine Ratio 38.7 (6-22); Blood Urea Nitrogen 24 mg/dL (9-20); Calcium 8.7 mg/dL (8.4-10.2); Carbon Dioxide 29 mmol/L (22-32); Chloride 89 mmol/L (98-107); Estimated Glomerular Filt Rate > 60.0 mL/min (>60); Glucose 130 mg/dL (80-110); HEMOLYSIS < 15 (0-50); Magnesium 1.9 mg/dL (1.6-2.3); Potassium 4.5 mmol/L (3.4-5.1); Sodium 128 mmol/L (137-145); Total Protein 6.6 g/dL (6.3-8.2)
[2020-03-16 10:13] LABS: Procalcitonin 0.56 ng/mL (<0.5)
--- NOTE | 2020-03-16 10:14 | PC.NURSE ---
Addendum entered by Raffi Dillard R.N. 03/16/20 14:37: 1307- Pt reports shortness of breath and increased work of breathing. Elevated head of bed and administered 2mg IV morphine. Post administration, pt reports decreased shortness of breath and states he is comfortable. His and children are at the bedside. Removed nasal cannula O2 and left pt on NRB 15L. Oral swabs and sips of water given. Addendum entered by Raffi Dillard R.N. 03/16/20 12:56: After family meeting, goals of care are directed towards comfort and new orders for limited interventions are received. and children (Kerwin and Kaylee) are at the bedside. Removed monitoring devices and SCDS. Removed bipap and placed pt on 15L NRB with 6L NC. Pt is drowsy but able to intermittently speak with family. Educated family to available interventions to promote comfort. Addendum entered by Raffi Dillard R.N. 03/16/20 12:28: 1200- Viola snell () is tearful and states He is dying. Can we just take this oxygen mask off? She relates that he has been going downhill since previous hospitalization and is asking questions about end-of-life care and hospice. Emotional support provided. Called to Dr. Casey and reported 's questions and concerns about plan of care. Dr. Casey states she will meet with pt/family to discuss goals of care. Holding heparin for now until treatment plan/goals are more clearly defined. Addendum entered by Raffi Dillard R.N. 03/16/20 11:54: 1130- Pt restless, taking bipap mask off. Pt c/o needing to urinate. Assisted pt with urinal and he was able to 250 ML. Pt removing bipap mask. Applied NC O2 at 5LPM as O2 sats dropping to 75% quickly. Pt tachypneic 50s. Applied NRB 15L over NC O2 6LPM. Pt was able to recover sats to 88% after 3 minutes, but O2 sats drop with minimal activity and talking. Encouraged pt to try to take slow, deep breaths and limit activity/talking. Sat HOB bolt upright and gave pt plain water and AM meds except for potassium and colace (pt has not eaten, recently had BM). Pt tolerated well. Marginal SPO2 noted on current O2 modalities. Educated to need for bipap. Pt agreeable to go back on bipap at this time. Noted new orders for heparin gtt. Spoke with Dr. Casey and reported just gave eliquis. VORB to hold bolus dose of heparin but continue heparin gtt. Dr. Casey states she will come and speak with pt and who is now at the bedside. Addendum entered by Raffi Dillard R.N. 03/16/20 10:23: 0945- Unable to give meds PO due to somnolence. Dr. Casey aware and instructs to hold for now and attempt when more awake/alert. Also clarified order for CXR since CTA just done. VORB to cancel CXR. Original Note: 829- Dr. Casey on rounds. Reviewed pt's neuro/resp assessment and current O2 flow/ongoing tachypnea (15L NRB with 6L NC), VS, cardiac rhythm Afib RVR with more frequent PVCs, labs, UOP. Received orders for ABG, CTA chest to r/o PE. RT at bedside at this time obtaining ABG. RT reported ABG results to Dr. Casey and removed NC O2. Pt on NRB 15L with goal SPO2 88-92% per Dr. Casey. Escorted pt to CT on monitor with O2 NRB 15L at 0900. Pt tolerated well. Brought back to room and positioned for comfort. Discussed poc again with Dr. Casey on daily rounds 944 as pt is still somnolent. Dr. Casey states may place pt back on bipap and states no need for ABG prior to. Placed pt back on bipap and notified RT. RT to bedside changed settings as previously documented to 12/5 and 50% FIO2. Pt laying on left side with SPO2 94% and RR 24. Call light in easy reach.
[2020-03-16 10:56] LABS: TSH w/ Reflex to FT4 1.85 uIU/mL (0.47-4.68)
[2020-03-16 12:03] LABS: PTT Partial Thromboplastin Tim 38 SECONDS (26.4-36.2)
[2020-03-16 12:08] LABS: INR 1.9 (0.9-1.3); Prothrombin Time 21.4 SECONDS (10.1-12.7)
--- NOTE | 2020-03-16 12:16 | DIET.PN ---
Dietary Progress Note Assessment: 85y M admitted for acute on chronic respiratory distress referred to nutrition for reported weight loss. Mr. Mendez spent long course in hospital in Oct 2019 with d/c weight 76.2kg (12/03/2019 per [facility] records) and has had 9% unintentional weight loss in 3mo c current BMI 20.2 (severe for age) qualifying for Severe Acute on Chronic PCM. HT: 185.4cm WT: 69.5kg UBW: 86.3kg BMI: 20.2 Labs: CRP 12.7 H MNA: 5 malnourished Delvin: 15 high risk for skin breakdown Nutrition Diagnosis: Severe Acute on Chronic PCM r/t progressing interstitial lung disease, pulmonary fibrosis aeb 9% unintentional weight loss in 3 mo (severe), 20% below UBW, BMI 20.2 (severe for age), moderate muscle and subcutaneous fat losses system wide, systemic inflammation c CRP 12.7 H. Interventions: Pt somnolent, will start Ensure Enlive tid when safe to do so to support PCM. Diet Order: Heart Healthy EER: 2,000 kcals (30kcal/kg), 85g PRO (1.2g/kg per malnourished) Monitoring/Evaluations: Pt is somnolent in room, following...
--- NOTE | 2020-03-16 12:50 | PM.EVENT ---
Event Note Date Patient Seen: 03/16/20 Event Note: Met with the patient's spouse and surrogate decision maker Anna Mendez and children James to discuss the patient's goals of care. Informed the family of current medical problems including acute on chronic hypoxemic and now hypercarbic respiratory failure, pneumonia secondary to microaspiration, probable pulmonary emboli, type 2 OK, and cor pulmonale and current treatments being pursued. Discussed treatment options going forward including continued medical treatment, continued medical treatment with the goal to potentially titrate down on oxygen requirements to the extent that the patient is able to go home with hospice to pass at home or withdrawal medical care and incorporate palliative care now to allow the patient to pass in the hospital. The patient's family reiterated that the patient has had a very poor quality of life for some time and that he would not want heroic measures or unnecessary invasive treatment and the patient had previously stated to his this morning that he is dying. The patient's spouse Anna Mendez and children James have made the decision to withdraw medical treatment. Plan to place palliative care orders and withdraw care at family's discretion.
--- NOTE | 2020-03-16 13:46 | CM.DANOTE ---
Addendum entered by Mayela Perry LPN 03/16/20 14:19: PT is an 85 year old male who admitted early this morning to care of hospitalist team. PCP: Dr. Berta Servin Payer: [employer]. Pt was here Nov 15 through November 29 and with a d/c to [facility] at that time. He was admitted today from the home setting. Dr. Casey had a goals of care discussion with pt's Anna and adult children Josemanuel and Kerwin at about noon with decision for Palliative Orders/Limited Interventions. Pt taken off BIPAP and to 15 L NRB and [address] Casey states that pt will likely here in the hospital as this POC unfolds and further respiratory care is withdrawn. Will follow prn as needs unfold. Original Note: Discharge Planning/Care Management DCP: assessment: case received and discussed during Team Rounds. Pt was in process of being placed back on BIPAP. Team did not go into the room but were updated by Dr. Casey. CM Discharge Assessment Start: 03/16/20 13:43 Freq: Status: Active Protocol: Document 03/16/20 13:44 ITV (Rec: 03/16/20 13:45 ITV [id number]) Discharge Planning Assessment Advance Directives? Yes Advance Directives on File Yes History Provided By Patient,Family Member,Medical Record Prior Living Arrangements House Household Members spouse Additional Comment Waiting for PT eval Review Status In Process
[2020-03-16] MEDS: MORPHINE 15 MG/ML VIAL 50 MG in DEXTROSE 5 % IN WATER 50 ML IV (16:11)
--- NOTE | 2020-03-16 18:33 | PC.NURSE ---
16:11 - MS 2m/hr IV initiated for comfort care. Family requested NRB mask be replaced with nasal cannula. Pt awake and agrees with this change. Family at bedside, pt resting comfortably.
[2020-03-16] MEDS: SCOPOLAMINE 1 PATCH TOP (19:19)
--- NOTE | 2020-03-16 20:22 | PC.NURSE ---
Pt at 2014. Family at bedside. All belongings given to and information given to professional nursing tutor re home. notified.
--- NOTE | 2020-03-17 09:41 | PM.DDS.1 ---
Discharge Summary History of Illness Narrative: Patient is an 85-year-old male with a complex past medical history including interstitial lung disease, pulmonary fibrosis, persistent atrial fibrillation on Eliquis, recent diagnosis of a subsegmental pulmonary embolus, gastroesophageal reflux disease, cor pulmonale with mild biventricular systolic dysfunction, chronic respiratory failure on home O2 who was in his usual state of health until this evening when he abruptly became short of breath. Patient states he is normally on 2 L of oxygen when he is at rest. He will increase his oxygen to about 5 L with activity. He became suddenly short of breath increased his oxygen and remained hypoxic. 911 was called and the patient was brought into the hospital for further evaluation. In the emergency department the patient was given 40 mg of IV Lasix, placed on BiPAP and admitted to the hospital for further evaluation. Patient remains on Eliquis for pulmonary embolism he sustained during his hospitalization in October. Patient reports some indigestion, GERD, occasional chest pain as well. Patient was recently hospitalized in October for several weeks. During that hospital stay he fell suffering a knee fracture and required right knee surgery. He had a complicated postoperative course which resulted in postoperative pneumonia, subsegmental PE, respiratory failure and AFib as above. The patient was discharged to [facility]. He ultimately was then able to be discharged home. During his prior hospital stay palliative care consultation was obtained. After long extensive discussion patient was made DNR DNI. However he and his family wanted to continue active care as they were planning to see Dr. white document design specialist at the [facility] for ongoing treatment. Since that time the patient has started on his new medication nintedanib for the last 6 months. He states he has not noted any particular significant improvement in his breathing. Patient denies any fever chills. He has a cough with minimally productive sputum. Occasionally it is blood tinged. He denies any headache blurred vision or double vision. He has had some nausea. He does report some reflux. He has chronic pain behind the right knee. Occasional swelling in the lower extremity. He has lost 35 lb since his prior admission in October. Patient remains in atrial fibrillation and has palpitations associated with that. Patient reports difficulty with urination which is chronic. He has intermittent burning which is chronic as well. He denies any dysuria hematuria or pyuria. The patient is admitted to the intensive care unit for ongoing treatment of his acute on chronic hypoxic respiratory failure. Hospital Course Date of Admission: 03/16/20 02:25 Date of : 03/16/20 Primary care provider: Carlos Servin MD Consults: 03/16/20 03:51 Consult to Dietitian, Adult Routine Comment: Reason For Exam: weight loss Discharge provider: Dr. Massiel Grey Discharge Diagnosis: 1. Acute on chronic respiratory failure 2. Interstial Lung disease 3. Pulmonary Fibrosis 4. Recent diagnosis of Sub segmental PE 5. Cor Pulmonale 6. GERD 7. Severe Protein Calorie Malnutrition 8. Persisitant Atrial Fibrillation 9. Biventricular Systolic Heart Failure 10. Hypontremia Hospital Course: Patient was admitted to the hospital for abrupt onset Acute on Chronic Hypoxemic Respiratory Failure. He was admitted to the ICU, placed on Bipap, treated with IV steroids and Unasyn for microaspiration. He remained in atrial fibrillation. The following day consultation was obtained with the patients Pulmonolgist. He had a repeat Chest CT to r/o PE. The CT of the chest did NOT confirm recurrent PE but it was felt he was probably having embolic events and the patient was started on IV heparin. The following day the family decided to make the patient comfort care only. His treatment was discontinued and the patient uneventfully. Objective Labs Result Diagrams: 03/16/20 09:30 03/16/20 09:30 Labs: Laboratory Results - last 24 hr 03/16/20 03/16/20 03/16/20 07:00 09:30 09:30 WBC 14.7 H RBC 3.77 L Hgb 11.7 L Hct 34.8 L MCV 92.4 MCH 31.2 MCHC 33.8 RDW 15.4 H Plt Count 243 Neut % (Auto) 93.5 H Lymph % (Auto) 3.2 L [place] % (Auto) 3.2 Eos % (Auto) 0.0 L Baso % (Auto) 0.1 Neut # (Auto) 01628 H Lymph # (Auto) 500 L [place] # (Auto) 500 Eos # (Auto) 0 Baso # (Auto) 0 PT INR APTT Sodium Potassium Chloride Carbon Dioxide BUN Creatinine Estimated GFR BUN/Creatinine Ratio Glucose Serum Osmolality Cancelled Calcium Magnesium Total Bilirubin AST ALT Alkaline Phosphatase Total Protein Albumin Globulin Albumin/Globulin Ratio Procalcitonin 0.56 H TSH 03/16/20 03/16/20 03/16/20 09:30 09:30 09:30 WBC RBC Hgb Hct MCV MCH MCHC RDW Plt Count Neut % (Auto) Lymph % (Auto) [place] % (Auto) Eos % (Auto) Baso % (Auto) Neut # (Auto) Lymph # (Auto) [place] # (Auto) Eos # (Auto) Baso # (Auto) PT INR APTT 38 H Sodium 128 L Potassium 4.5 Chloride 89 L Carbon Dioxide 29 BUN 24 H Creatinine 0.62 L Estimated GFR > 60.0 BUN/Creatinine Ratio 38.7 H Glucose 130 H Serum Osmolality Calcium 8.7 Magnesium 1.9 Total Bilirubin 2.0 H AST 35 ALT 18 Alkaline Phosphatase 71 Total Protein 6.6 Albumin 3.6 Globulin 3.0 Albumin/Globulin Ratio 1.2 Procalcitonin TSH 1.85 03/16/20 09:30 WBC RBC Hgb Hct MCV MCH MCHC RDW Plt Count Neut % (Auto) Lymph % (Auto) [place] % (Auto) Eos % (Auto) Baso % (Auto) Neut # (Auto) Lymph # (Auto) [place] # (Auto) Eos # (Auto) Baso # (Auto) PT 21.4 H INR 1.9 H APTT Sodium Potassium Chloride Carbon Dioxide BUN Creatinine Estimated GFR BUN/Creatinine Ratio Glucose Serum Osmolality Calcium Magnesium Total Bilirubin AST ALT Alkaline Phosphatase Total Protein Albumin Globulin Albumin/Globulin Ratio Procalcitonin TSH
== END 2020-03-16 23:45 | disposition expired | DRG 189 ==
LOC: ED 02:16 → ICU 08:20 → AC 03-17 16:23 → ICU 03-17 16:24
PROVIDERS: Internal Medicine; Admitting Provider Internal Medicine; Emergency Provider Emergency Medicine; Family Provider Internal Medicine Cardiovascular Disease; PCP Internal Medicine; Referring Provider Emergency Medicine; Visit Provider Internal Medicine
DX: J96.21 Acute and chronic respiratory failure with hypoxia (principal); I50.23 Acute on chronic systolic (congestive) heart failure; I21.A1 Myocardial infarction type 2; J69.0 Pneumonitis due to inhalation of food and vomit; I26.99 Other pulmonary embolism without acute cor pulmonale; E43 Unspecified severe protein-calorie malnutrition; E87.1 Hypo-osmolality and hyponatremia; I48.19 Other persistent atrial fibrillation; J96.02 Acute respiratory failure with hypercapnia; Z99.81 Dependence on supplemental oxygen; J84.10 Pulmonary fibrosis, unspecified; Z79.01 Long term (current) use of anticoagulants; Z68.20 Body mass index [BMI] 20.0-20.9, adult; K21.9 Gastro-esophageal reflux disease without esophagitis; N40.0 Benign prostatic hyperplasia without lower urinary tract symptoms; E78.5 Hyperlipidemia, unspecified; J30.9 Allergic rhinitis, unspecified; Z66 Do not resuscitate; Z03.818 Encounter for observation for suspected exposure to other biological agents ruled out
CPT/HCPCS: 36415; 36600; 71045; 71275; 80053; 81003; 81015; 82550; 82728; 82805; 82962; 83605; 83615; 83735; 83880; 84145; 84443; 84484; 85025; 85379; 85610; 85730; 86140; 87040; 87086; 87633; 87635; 87797; 93005; 94660; 96374; 99285; C9113; J0295; J1940; J2270; J2930; Q9967